=== PATIENT | male | born 1960 | race Caucasian/White ===

== ENCOUNTER 2017-10-24 09:29 | Emergency (ER) | payer BC ==
[~2017-10-24] VITALS: Ht 182.9 cm; Wt 122.5 kg
[2017-10-24] MEDS: RT-ALBUTEROL/IPRATROPIUM 3 ML (DUONEB) VIAL INH ONE (10:09)
[2017-10-24 10:13] LABS: BASOPHILS % (AUTO) 0 % (0-10); EOSINOPHILS # (AUTO) 0.2 10^3/uL (0.0-0.3); EOSINOPHILS % (AUTO) 2 % (0-10); HEMATOCRIT 49 % (40-54); HEMOGLOBIN 16.2 G/DL (13.3-17.7); LYMPHOCYTES # (AUTO) 2.1 X 10^3 (1.0-4.0); LYMPHOCYTES % (AUTO) 22 % (12-44); MEAN CORPUSCULAR HEMOGLOBIN 32 PG (25-34); MEAN CORPUSCULAR HGB CONC 33 G/DL (32-36); MEAN CORPUSCULAR VOLUME 95 FL (80-99); MEAN PLATELET VOLUME 11.5 FL (7.4-10.4); MONOCYTES % (AUTO) 11 % (0-12); NEUTROPHILS % (AUTO) 65 % (42-75); PLATELET COUNT 232 10^3/uL (130-400); RED BLOOD COUNT 5.11 10^6/uL (4.35-5.85); RED CELL DISTRIBUTION WIDTH 13.7 % (10.0-14.5); WHITE BLOOD COUNT 9.3 10^3/uL (4.3-11.0)
[2017-10-24 10:25] LABS: ALANINE AMINOTRANSFERASE 25 U/L (0-55); ALKALINE PHOSPHATASE 73 U/L (40-136); BILIRUBIN,TOTAL 0.3 MG/DL (0.1-1.0); BUN/CREATININE RATIO 14; CALCIUM 11.3 MG/DL (8.5-10.1); CARBON DIOXIDE 34 MMOL/L (21-32); CHLORIDE 104 MMOL/L (98-107); CREATININE SERUM 0.86 MG/DL (0.60-1.30); GFR ESTIMATED > 60; GLUCOSE 127 MG/DL (70-105); POTASSIUM 3.7 MMOL/L (3.6-5.0); SODIUM 144 MMOL/L (135-145); TOTAL PROTEIN 7.3 GM/DL (6.4-8.2)
--- NOTE | 2017-10-24 10:29 | Diagnostic Imaging Report ---
INDICATION: Shortness of air and right shoulder pain. TIME OF EXAMINATION: 10:39 a.m. COMPARISON: Correlation is made with prior study from 03/26/2014. FINDINGS: Examination of the chest in the PA and lateral projection fails to reveal evidence of active parenchymal pathology or pleural effusion. The cardiac silhouette is normal. IMPRESSION: Negative chest. Dictated by: Dictated on workstation # [id number]
[2017-10-24 11:02] LABS: BILIRUBIN,URINE NEGATIVE (NEGATIVE); CLARITY,URINE CLEAR; COLOR,URINE YELLOW; GLUCOSE, URINE (UA) NEGATIVE (NEGATIVE); KETONES,URINE NEGATIVE (NEGATIVE); LEUKOCYTE ESTERASE ,URINE NEGATIVE (NEGATIVE); NITRITE,URINE NEGATIVE (NEGATIVE); PH,URINE 6.5 (5-9); PROTEIN,URINE NEGATIVE (NEGATIVE); UROBILINOGEN,URINE NORMAL (NORMAL)
[2017-10-24 11:14] LABS: AMORPHOUS SEDIMENT,UR RARE AMOR URATES /LPF; BACTERIA,URINE NEGATIVE /HPF
[2017-10-24] MEDS: RT-ALBUTEROL/IPRATROPIUM 3 ML (DUONEB) VIAL ONE (11:30)
--- NOTE | 2017-10-24 11:35 | ED General ---
General Chief Complaint: Respiratory Problems Stated Complaint: RT ARM PAIN,SOB Nursing Triage Note: PT CO OF SOA AND R SHOULDER PAIN, PT STATES HAS SOA FOR 1 MONTH, STATES 1 WEEK FOR R SHOULDER PAIN. Nursing Sepsis Screen: No Definite Risk Source of Information: Patient Exam Limitations: No Limitations History of Present Illness Date Seen by Provider: Oct 24, 2017 Time Seen by Provider: 09:59 Initial Comments This 56-year-old man presents to the emergency room with complaints of cough and shortness of air 1 month. He is noted to have an oxygen saturation of 87- 90 percent on room air and wheezing. He reports urinating often. He also complains of right upper extremity pain from the base of the right neck and shoulder radiating down to the hand. He denies any injury. 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 He denies any prior history of neck problems or radicular symptoms. Upper extremity symptoms have been present for 2 days. He is afebrile. He is a smoker. He has not seen a primary care provider in 3 years. Allergies and Home Medications Allergies Uncoded Allergies: SOMETHING FOR COLDS (Allergy, Mild, 03/26/14) Home Medications Albuterol Sulfate 1 Puff Puff, 1-4 PUFF IH Q4H PRN for SHORTNESS OF BREATH 1 PUFF = 90 MCG Prescribed by: JANI ANGLIN on 10/24/17 1149 Prednisone 20 Mg Tab, 40 MG PO DAILY May use up to 4 puffs in a 4 hour period of time for wheezing or shortness of breath Prescribed by: JANI ANGLIN on 10/24/17 1149 Patient Home Medication List Home Medication List Reviewed: Yes Review of Systems Constitutional: no symptoms reported EENTM: no symptoms reported Respiratory: see HPI Cardiovascular: no symptoms reported Gastrointestinal: no symptoms reported Genitourinary: no symptoms reported Musculoskeletal: see HPI Skin: no symptoms reported Psychiatric/Neurological: See HPI Hematologic/Lymphatic: No Symptoms Reported Immunological/Allergic: no symptoms reported Past Lopwksb-Myoprg-Ynijzv Hx Patient Social History Alcohol Use: Occasionally Uses Recreational Drug Use: No Smoking Status: Current Everyday Smoker Type Used: Cigarettes Recent Foreign Travel: No Contact w/Someone Who Travel: No Recent Infectious Disease Expo: No Recent Hopitalizations: No Physical Abuse: No Sexual Abuse: No Past Medical History Surgeries: Yes (HERNIA) Abdominal Respiratory: Yes (tobaccoism) Cardiac: No Neurological: Yes (STATES HAD STROKE 3 YEARS AGO) Stroke Genitourinary: No Gastrointestinal: No Musculoskeletal: No Endocrine: No HEENT: No Cancer: No Psychosocial: No Nursing Suicide Risk Score: 0 Integumentary: No Blood Disorders: No Physical Exam Vital Signs Vital Signs - First Documented 10/24/17 10/24/17 09:30 09:40 Temp 98.2 Pulse 89 Resp 28 B/P (MAP) 162/95 (117) Pulse Ox 89 O2 Delivery Nasal Cannula O2 Flow Rate 3.00 Capillary Refill : Less Than 3 Seconds General Appearance: WD/WN, Mild Distress, Obese HEENT: PERRL/EOMI, Normal ENT Inspection, Pharynx Normal Neck: Normal Inspection Respiratory: No Accessory Muscle Use, No Respiratory Distress, Wheezing Cardiovascular: Regular Rate, Rhythm, No Edema, No Murmur Gastrointestinal: Normal Bowel Sounds, Non Tender, Soft Extremity: Normal Inspection, Non Tender, No Pedal Edema, Other (right upper extremity shows no edema. The shoulder is mildly tender but the arm and forearm are nontender despite having pain in this area. There is no erythema or swelling. 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 Norm as Tested Skin: Normal Color, Warm/Dry Progress/Results/Core Measures Suspected Sepsis Recent Fever Within 48 Hours: No Infection Criteria Present: None New/Unexplained Altered Menta: No Sepsis Screen: No Definite Risk SIRS Temperature:98.2 Pulse: 89 Respiratory Rate: 28 Laboratory Tests 10/24/17 09:42: White Blood Count 9.3 Blood Pressure 162 /95 Mean: 117 Laboratory Tests 10/24/17 09:42: Creatinine 0.86, Platelet Count 232, Total Bilirubin 0.3 Results/Orders Lab Results Laboratory Tests Test 10/24/17 09:42 10/24/17 10:43 Range/Units White Blood Count 9.3 4.3-11.0 10^3/uL Red Blood Count 5.11 4.35-5.85 10^6/uL Hemoglobin 16.2 13.3-17.7 G/DL Hematocrit 49 40-54 % Mean Corpuscular Volume 95 80-99 FL Mean Corpuscular Hemoglobin 32 25-34 PG Mean Corpuscular Hemoglobin Concent 33 32-36 G/DL Red Cell Distribution Width 13.7 10.0-14.5 % Platelet Count 232 130-400 10^3/uL Mean Platelet Volume 11.5 H 7.4-10.4 FL Neutrophils (%) (Auto) 65 42-75 % Lymphocytes (%) (Auto) 22 12-44 % Monocytes (%) (Auto) 11 0-12 % Eosinophils (%) (Auto) 2 0-10 % Basophils (%) (Auto) 0 0-10 % Neutrophils # (Auto) 6.0 1.8-7.8 X 10^3 Lymphocytes # (Auto) 2.1 1.0-4.0 X 10^3 Monocytes # (Auto) 1.0 0.0-1.0 X 10^3 Eosinophils # (Auto) 0.2 0.0-0.3 10^3/uL Basophils # (Auto) 0.0 0.0-0.1 10^3/uL Sodium Level 144 135-145 MMOL/L Potassium Level 3.7 3.6-5.0 MMOL/L Chloride Level 104 98-107 MMOL/L Carbon Dioxide Level 34 H 21-32 MMOL/L Anion Gap 6 5-14 MMOL/L Blood Urea Nitrogen 12 7-18 MG/DL Creatinine 0.86 0.60-1.30 MG/DL Estimat Glomerular Filtration Rate > 60 BUN/Creatinine Ratio 14 Glucose Level 127 H 70-105 MG/DL Calcium Level 11.3 H 8.5-10.1 MG/DL Total Bilirubin 0.3 0.1-1.0 MG/DL Aspartate Amino Transf (AST/SGOT) 17 5-34 U/L Alanine Aminotransferase (ALT/SGPT) 25 0-55 U/L Alkaline Phosphatase 73 40-136 U/L Total Protein 7.3 6.4-8.2 GM/DL Albumin 4.0 3.2-4.5 GM/DL Urine Color YELLOW Urine Clarity CLEAR Urine pH 6.5 5-9 Urine Specific [place] 1.015 L 1.016-1.022 Urine Protein NEGATIVE NEGATIVE Urine Glucose (UA) NEGATIVE NEGATIVE Urine Ketones NEGATIVE NEGATIVE Urine Nitrite NEGATIVE NEGATIVE Urine Bilirubin NEGATIVE NEGATIVE Urine Urobilinogen NORMAL NORMAL MG/DL Urine Leukocyte Esterase NEGATIVE NEGATIVE Urine RBC (Auto) 1+ H NEGATIVE Urine RBC NONE /HPF Urine WBC 2-5 /HPF Urine Crystals PRESENT H /LPF Urine Amorphous Sediment RARE BEVERLY URATES H /LPF Urine Bacteria NEGATIVE /HPF Urine Casts NONE /LPF Urine Mucus NEGATIVE /LPF Urine Culture Indicated NO My Orders Orders - JANI AVILA MD Chest Pa/Lat (2 View) (10/24/17 10:06) Cbc With Automated Diff (10/24/17 10:06) Comprehensive Metabolic Panel (10/24/17 10:06) Saline Lock/Iv-Start (10/24/17 10:06) O2 (10/24/17 10:06) Monitor-Rhythm Ecg Trace Only (10/24/17 10:06) Ua Culture If Indicated (10/24/17 10:06) Albuterol/Ipra Inhalation Soln (Duoneb I (10/24/17 10:15) Svn Small Volume Nebulizer (10/24/17 10:06) Albuterol/Ipra Inhalation Soln (Duoneb I (10/24/17 10:03) Methylprednisolone Sod Succ (Solu-Medrol (10/24/17 11:45) Ketorolac Injection (Toradol Injection) (10/24/17 11:45) Medications Given in ED Current Medications Medications Dose Ordered Sig/Gricel Route Start Time Stop Time Status Last Admin Dose Admin Albuterol/ Ipratropium 3 ml ONCE ONCE INH 10/24/17 10:15 10/24/17 10:16 DC 10/24/17 10:09 3 ML Ketorolac Tromethamine 30 mg ONCE ONCE IVP 10/24/17 11:45 10/24/17 11:46 DC 10/24/17 11:47 30 MG Methylprednisolone Sodium Succinate 125 mg ONCE ONCE IVP 10/24/17 11:45 10/24/17 11:46 DC 10/24/17 11:47 125 MG Vital Signs/I&O 10/24/17 10/24/17 10/24/17 10/24/17 09:30 09:40 10:10 11:59 Temp 98.2 Pulse 89 85 Resp 28 18 B/P (MAP) 162/95 (117) 160/100 (117) Pulse Ox 89 95 92 O2 Delivery Nasal Cannula Room Air O2 Flow Rate 3.00 3.00 3.00 Capillary Refill : Less Than 3 Seconds Blood Pressure Mean: 117 Progress Note : Progress Note Patient received a DuoNeb treatment which improved his respiratory symptoms and improved his wheezing on repeat exam. However, patient maintained an oxygen saturation from 88 percent to 91 percent on room air. This would improve to the mid 90s with deep breathing. Patient was counseled regarding his COPD and admission for observation was suggested. Patient was adamant that he be dismissed. Patient was prescribed an albuterol inhaler and prednisone. For acute treatment he was given Solu-Medrol by IV route and Toradol in the ER. The pain in the right upper extremity was felt to likely be radicular in nature. This was discussed with the patient. Although patient had pain extending from the base of the neck all the way down to the hand, these areas were not particularly tender with the exception of mild tenderness around the shoulder joint. Diagnostic Imaging Diagonstic Imaging: Xray Plain Films/CT/US/NM/MRI: chest Comments Chest x-ray was viewed by me and report reviewed. No acute abnormalities were appreciated. See report below: NAME: JACOB JONES [facility] REC#: [id number] PT STATUS: REG ER : 1960 PHYSICIAN: JANI AVILA MD ADMIT DATE: 10/24/17/ER Draft Date of Exam:10/24/17 CHEST PA/LAT (2 VIEW) INDICATION: Shortness of air and right shoulder pain. TIME OF EXAMINATION: 10:39 a.m. COMPARISON: Correlation is made with prior study from 03/26/2014. FINDINGS: Examination of the chest in the PA and lateral projection fails to reveal evidence of active parenchymal pathology or pleural effusion. The cardiac silhouette is normal. IMPRESSION: Negative chest. Dictated on workstation # [id number] Dict: 10/24/17 1022 Trans: 10/24/[address] [facility] [id number] Interpreted by: ASHLY GALINDO MD Departure Impression Primary Impression: COPD exacerbation Additional Impressions: Hypoxia Right arm pain Disposition: 01 HOME, SELF-CARE Condition: Improved Departure-Patient Inst. Decision time for Depature: 11:35 Referrals: JULIETA HINOJOSA DO (PCP/Family) Primary Care Physician Patient Instructions: COPD Including Emphysema (DC), Radiculopathy Add. Discharge Instructions: Complete your steroids as prescribed. Follow-up with a primary care provider as soon as possible. Call today to arrange an appointment. It is very important that you work toward quitting smoking. Quit smoking as soon as possible. While trying to quit you may substitute nicotine with patches , gum, or lozenges. Do not use inhaled vapor nicotine products over-the- counter. Return to care if you have worsening symptoms. Use your inhaler as prescribed up to 1-4 puffs and a four-hour period of time for shortness of breath and wheezing. The pain in your are may be related to a nerve impingement from your neck. If this does not improve with the steroids, you may need additional workup with imaging such as MRI of your neck. Please discuss this with your primary care provider. For pain, you may use ibuprofen up to 600 mg every 6 hours and/or Tylenol ( acetaminophen) up to 1000 mg every 6 hours. All discharge instructions reviewed with patient and/or family. Voiced understanding. Scripts Albuterol Sulfate (PROAIR HFA) 1 Puff Puff 1-4 PUFF IH Q4H PRN for SHORTNESS OF BREATH, #1 PUFF 1 PUFF = 90 MCG Prov: JANI AVILA MD 10/24/17 Prednisone (Prednisone) 20 Mg Tab 40 MG PO DAILY, #10 TAB May use up to 4 puffs in a 4 hour period of time for wheezing or shortness of breath Prov: JANI AVILA MD 10/24/17 JANI AVILA MD Oct 24, 2017 11:35
[2017-10-24] MEDS: methylPREDNISolone 125 MG (Solu-MEDROL) VIAL IVP ONE (11:47)
[2017-10-24] MEDS: KETOROLAC 30 MG/ML VIAL IVP ONE (11:47)
[2017-10-24] MEDS ORDERED: RT-ALBUINH IH (11:49)
[2017-10-24] MEDS ORDERED: PRD20T PO (11:49)
[2017-10-24 11:59] VITALS: BP 160/100
== END 2017-10-24 11:59 | disposition home or self-care (01) ==
LOC: EDUNIT# 09:29 → ER 09:31
DX: J44.1 Chronic obstructive pulmonary disease with (acute) exacerbation (principal); M79.601 Pain in right arm; F17.210 Nicotine dependence, cigarettes, uncomplicated; Z79.51 Long term (current) use of inhaled steroids; Z79.52 Long term (current) use of systemic steroids; Z86.73 Personal history of transient ischemic attack (TIA), and cerebral infarction without residual deficits; Z88.8 Allergy status to other drugs, medicaments and biological substances
CPT/HCPCS: 36415; 71046; 80053; 81000; 85025; 93041; 94640; 96374; 96375

== ENCOUNTER 2018-06-03 12:21 | Inpatient (IN) | payer SELFPAY ==
[~2018-06-03] VITALS: Ht 182.9 cm; Wt 127.1 kg
[~2018-06-03 12:21] MED LIST: PRD20T PO; RT-ALBUINH IH
--- OUTSIDE RECORDS SUMMARY | 2018-06-03 12:33 | XMS REPORT | Continuity of Care Document ---
Author Author [facility] Organization [facility] Address Unknown Phone Unavailable Allergies Active Description Code Type Severity Reaction Onset Reported/Identified Relationship to Patient Clinical Status Yes SOMETHING FOR COLDS SOMETHING FOR COLDS Mild N/A 03/26/2014 Medications There is no data. Problems Date Dx Coded Attending Type Code Diagnosis Diagnosed By 03/26/2014 ERICKA WALSH MD Ot 435.9 TRANS CEREB ISCHEMIA NOS 03/26/2014 ERICKA WALSH MD Ot 782.0 SKIN SENSATION DISTURB 10/24/2017 JANI AVILA MD, Ot F17.210 NICOTINE DEPENDENCE, CIGARETTES, UNCOMPL 10/24/2017 JANI AVILA MD, Ot J44.1 CHRONIC OBSTRUCTIVE PULMONARY DISEASE W 10/24/2017 JANI AVILA MD, Ot M79.601 PAIN IN RIGHT ARM 10/24/2017 JANI AVILA MD, Ot R05 COUGH 10/24/2017 JANI AVILA MD Ot Z79.51 SKILLED NURSING (CURRENT) USE OF INHALED STERO 10/24/2017 JANI AVILA MD, Ot Z79.52 SIDE STAPLER (CURRENT) USE OF SYSTEMIC STER 10/24/2017 JANI AVILA MD, Ot Z86.73 PRSNL HX OF TIA (TIA), AND CEREB INFRC W 10/24/2017 JANI AVILA MD, Ot Z88.8 ALLERGY STATUS TO OTH DRUG/MEDS/BIOL SUB 10/26/2017 JANI AVILA MD, Ot F17.210 NICOTINE DEPENDENCE, CIGARETTES, UNCOMPL 10/26/2017 JANI AVILA MD, Ot J44.1 CHRONIC OBSTRUCTIVE PULMONARY DISEASE W 10/26/2017 JANI AVILA MD Ot M79.601 PAIN IN RIGHT ARM 10/26/2017 JANI AVILA MD Ot R05 COUGH 10/26/2017 JANI AVILA MD, Ot Z79.51 SKILLED NURSING (CURRENT) USE OF INHALED STERO 10/26/2017 JANI AVILA MD Ot Z79.52 SIDE STAPLER (CURRENT) USE OF SYSTEMIC STER 10/26/2017 JANI AVILA MD Ot Z86.73 PRSNL HX OF TIA (TIA), AND CEREB INFRC W 10/26/2017 JANI AVILA MD, Ot Z88.8 ALLERGY STATUS TO OTH DRUG/MEDS/BIOL SUB 10/30/2017 JANI AVILA MD, Ot F17.210 NICOTINE DEPENDENCE, CIGARETTES, UNCOMPL 10/30/2017 JANI AVILA MD, Ot J44.1 CHRONIC OBSTRUCTIVE PULMONARY DISEASE W 10/30/2017 JANI AVILA MD, Ot M79.601 PAIN IN RIGHT ARM 10/30/2017 JANI AVILA MD, Ot R05 COUGH 10/30/2017 JANI AVILA MD, Ot Z79.51 SIDE STAPLER (CURRENT) USE OF INHALED STERO 10/30/2017 JANI AVILA MD Ot Z79.52 SIDE STAPLER (CURRENT) USE OF SYSTEMIC STER 10/30/2017 JANI AVILA MD, Ot Z86.73 PRSNL HX OF TIA (TIA), AND CEREB INFRC W 10/30/2017 JANI AVILA MD Ot Z88.8 ALLERGY STATUS TO OTH DRUG/MEDS/BIOL SUB Procedures There is no data. Results Test Result Range Complete blood count (CBC) with automated white blood cell (WBC) differential - 10/24/17 09:42 Blood leukocytes automated count (number/volume) 9.3 10*3/uL 4.3-11.0 Blood erythrocytes automated count (number/volume) 5.11 10*6/uL 4.35-5.85 Venous blood hemoglobin measurement (mass/volume) 16.2 g/dL 13.3-17.7 Blood hematocrit (volume fraction) 49 % 40-54 Automated erythrocyte mean corpuscular volume 95 [foz_us] 80-99 Automated erythrocyte mean corpuscular hemoglobin (mass per erythrocyte) 32 pg 25-34 Automated erythrocyte mean corpuscular hemoglobin concentration measurement ( mass/volume) 33 g/dL 32-36 Automated erythrocyte distribution width ratio 13.7 % 10.0-14.5 Automated blood platelet count (count/volume) 232 10*3/uL 130-400 Automated blood platelet mean volume measurement 11.5 [foz_us] 7.4-10.4 Automated blood neutrophils/100 leukocytes 65 % 42-75 Automated blood lymphocytes/100 leukocytes 22 % 12-44 Blood monocytes/100 leukocytes 11 % 0-12 Automated blood eosinophils/100 leukocytes 2 % 0-10 Automated blood basophils/100 leukocytes 0 % 0-10 Blood neutrophils automated count (number/volume) 6.0 10*3 1.8-7.8 Blood lymphocytes automated count (number/volume) 2.1 10*3 1.0-4.0 Blood monocytes automated count (number/volume) 1.0 10*3 0.0-1.0 Automated eosinophil count 0.2 10*3/uL 0.0-0.3 Automated blood basophil count (count/volume) 0.0 10*3/uL 0.0-0.1 Comprehensive metabolic panel - 10/24/17 09:42 Serum or plasma sodium measurement (moles/volume) 144 mmol/L 135-145 Serum or plasma potassium measurement (moles/volume) 3.7 mmol/L 3.6-5.0 Serum or plasma chloride measurement (moles/volume) 104 mmol/L 98-107 Carbon dioxide 34 mmol/L 21-32 Serum or plasma anion gap determination (moles/volume) 6 mmol/L 5-14 Serum or plasma urea nitrogen measurement (mass/volume) 12 mg/dL 7-18 Serum or plasma creatinine measurement (mass/volume) 0.86 mg/dL 0.60-1.30 Serum or plasma urea nitrogen/creatinine mass ratio 14 NRG Serum or plasma creatinine measurement with calculation of estimated glomerular filtration rate > NRG Serum or plasma glucose measurement (mass/volume) 127 mg/dL 70-105 Serum or plasma calcium measurement (mass/volume) 11.3 mg/dL 8.5-10.1 Serum or plasma total bilirubin measurement (mass/volume) 0.3 mg/dL 0.1-1.0 Serum or plasma alkaline phosphatase measurement (enzymatic activity/volume) 73 U/L 40-136 Serum or plasma aspartate aminotransferase measurement (enzymatic activity/ volume) 17 U/L 5-34 Serum or plasma alanine aminotransferase measurement (enzymatic activity/volume ) 25 U/L 0-55 Serum or plasma protein measurement (mass/volume) 7.3 g/dL 6.4-8.2 Serum or plasma albumin measurement (mass/volume) 4.0 g/dL 3.2-4.5 Complete urinalysis with reflex to culture - 10/24/17 10:43 Urine color determination YELLOW NRG Urine clarity determination CLEAR NRG Urine pH measurement by test strip 6.5 5-9 Specific gravity of urine by test strip 1.015 1.016- 1.022 Urine protein assay by test strip, semi-quantitative NEGATIVE NEGATIVE Urine glucose detection by automated test strip NEGATIVE NEGATIVE Erythrocytes detection in urine sediment by light microscopy 1+ NEGATIVE Urine ketones detection by automated test strip NEGATIVE NEGATIVE Urine nitrite detection by test strip NEGATIVE NEGATIVE Urine total bilirubin detection by test strip NEGATIVE NEGATIVE Urine urobilinogen measurement by automated test strip (mass/volume) NORMAL NORMAL Urine leukocyte esterase detection by dipstick NEGATIVE NEGATIVE Automated urine sediment erythrocyte count by microscopy (number/high power field) NONE NRG Automated urine sediment leukocyte count by microscopy (number/high power field ) [HPF] NRG Bacteria detection in urine sediment by light microscopy NEGATIVE NRG Crystals detection in urine sediment by light microscopy PRESENT NRG Casts detection in urine sediment by light microscopy NONE NRG Mucus detection in urine sediment by light microscopy NEGATIVE NRG Complete urinalysis with reflex to culture NO NRG Amorphous sediment detection in urine sediment by light microscopy RARE BEVERLY URATES NRG Encounters ACCT No. Visit Date/Time Discharge Status Pt. Type Provider Facility Loc./Unit Complaint [id number] 10/24/2017 09:31:00 10/24/2017 11:59:00 DIS Emergency MARGARITA BOSTON, JANI Tam [facility] ER RT ARM PAIN,SOB [id number] 03/26/2014 21:08:00 03/26/2014 23:03:00 DIS Emergency ERICKA WALSH MD [facility] ER LEFT SIDE NUMBNESS
[2018-06-03 13:03] LABS: BASOPHILS % (AUTO) 0 % (0-10); EOSINOPHILS # (AUTO) 0.2 10^3/uL (0.0-0.3); EOSINOPHILS % (AUTO) 2 % (0-10); HEMATOCRIT 49 % (40-54); LYMPHOCYTES # (AUTO) 2.1 X 10^3 (1.0-4.0); LYMPHOCYTES % (AUTO) 22 % (12-44); MEAN CORPUSCULAR HEMOGLOBIN 32 PG (25-34); MEAN CORPUSCULAR HGB CONC 33 G/DL (32-36); MEAN CORPUSCULAR VOLUME 96 FL (80-99); MEAN PLATELET VOLUME 10.4 FL (7.4-10.4); MONOCYTES # (AUTO) 0.6 X 10^3 (0.0-1.0); MONOCYTES % (AUTO) 6 % (0-12); NEUTROPHILS # (AUTO) 6.7 X 10^3 (1.8-7.8); NEUTROPHILS % (AUTO) 70 % (42-75); PLATELET COUNT 262 10^3/uL (130-400); RED BLOOD COUNT 5.05 10^6/uL (4.35-5.85); WHITE BLOOD COUNT 9.6 10^3/uL (4.3-11.0)
[2018-06-03 13:05] LABS: BILIRUBIN,URINE NEGATIVE (NEGATIVE); CLARITY,URINE BLOODY; COLOR,URINE RED; GLUCOSE, URINE (UA) NEGATIVE (NEGATIVE); KETONES,URINE NEGATIVE (NEGATIVE); LEUKOCYTE ESTERASE ,URINE 2+ (NEGATIVE); NITRITE,URINE NEGATIVE (NEGATIVE); PH,URINE 7 (5-9); PROTEIN,URINE 3+ (NEGATIVE); UROBILINOGEN,URINE NORMAL (NORMAL)
--- NOTE | 2018-06-03 13:07 | ED General ---
General Chief Complaint: -Male Stated Complaint: BLOOD IN URINE Nursing Triage Note: PT PRESENTS TO ER WITH COMPLAINT OF BLOOD IN URINE SINCE LAST NIGHT. STATES HE HAS SEEN CLOTS IN URINE. DENIES PAIN WITH URINATION. PT STATES HE HAS ALSO BEEN SHORT OF BREATH FOR THE TWO WEEKS. Nursing Sepsis Screen: No Definite Risk Source of Information: Patient Exam Limitations: No Limitations History of Present Illness Date Seen by Provider: Jun 03, 2018 Time Seen by Provider: 13:04 Initial Comments To ER with a variety of complaints. He's had some blood in his urine since last night. During the night he had a couple episodes of clots in the urine and this morning it seems to be nearly pure blood. 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 Pain does not radiate down either of his legs. He states that he is urinating more than usual but has no burning on urination. He denies fevers or chills or low abdominal pain. He does have upper abdominal pain in the epigastric region but does not radiate. He's also had a 6 month history of new onset shortness of breath and cough productive of green sputum. He has smoked cigarettes since the age of 17 but quit about 2 weeks ago. His mother of pancreatic cancer. He does not take any medications and has not seen a health care provider in over 4 years. Timing/Duration: 1-2 Days Severity: Moderate Associated Systoms: No Chest Pain; Cough; No Diaphoresis, No Fever/Chills, No Nausea/Vomiting Allergies and Home Medications Allergies Uncoded Allergies: SOMETHING FOR COLDS (Allergy, Mild, 03/26/14) Patient Home Medication List Home Medication List Reviewed: Yes Review of Systems Review of Systems Constitutional: see HPI; No chills, No fever EENTM: see HPI Respiratory: no symptoms reported Cardiovascular: no symptoms reported Gastrointestinal: abdominal pain (epigastric); No loss of appetite, No melena, No nausea, No vomiting Genitourinary: see HPI, hematuria Musculoskeletal: see HPI, back pain Skin: no symptoms reported Psychiatric/Neurological: No Symptoms Reported Hematologic/Lymphatic: No Symptoms Reported Immunological/Allergic: no symptoms reported Past Znhcuql-Vinlws-Jnivol Hx Patient Social History Alcohol Use: Occasionally Uses Recreational Drug Use: No Smoking Status: Current Everyday Smoker Type Used: Cigarettes Recent Foreign Travel: No Contact w/Someone Who Travel: No Recent Infectious Disease Expo: No Recent Hopitalizations: No Immunizations Up To Date Tetanus Booster (TDap): Unknown PED Vaccines UTD: Yes Past Medical History Surgeries: Yes (HERNIA) Abdominal Respiratory: Yes (tobaccoism) Cardiac: No Neurological: Yes (STATES HAD STROKE 3 YEARS AGO) Stroke Genitourinary: No Gastrointestinal: No Musculoskeletal: No Endocrine: No HEENT: No Cancer: No Psychosocial: No Integumentary: No Blood Disorders: No Physical Exam Vital Signs Vital Signs - First Documented 06/03/18 12:39 Temp 98.7 Pulse 79 Resp 17 B/P (MAP) 201/114 (143) Pulse Ox 91 O2 Delivery Room Air Capillary Refill : Less Than 3 Seconds Height, Weight, BMI Height: 6'0" Weight: 270lbs. oz. 122.383432zu; 40.35 BMI Method:Stated General Appearance: No Apparent Distress, WD/WN, Other (on arrival oxygen saturation 84% on room air.) Eyes: Bilateral Eye Normal Inspection, Bilateral Eye PERRL, Bilateral Eye EOMI HEENT: PERRL/EOMI, TMs Normal Respiratory: No Accessory Muscle Use, No Respiratory Distress, Decreased Breath Sounds Cardiovascular: Regular Rate, Rhythm, Normal Peripheral Pulses Gastrointestinal: Normal Bowel Sounds, Non Tender, Soft Extremity: Normal Capillary Refill, Normal Inspection Neurologic/Psychiatric: Alert, Oriented x3, No Motor/Sensory Deficits Skin: Normal Color, Warm/Dry Focused Exam Lactate Level 06/03/18 14:12: Lactic Acid Level 1.60 Lactic Acid Level Laboratory Tests Test 06/03/18 14:12 Lactic Acid Level 1.60 MMOL/L (0.50-2.00) Progress/Results/Core Measures Suspected Sepsis Recent Fever Within 48 Hours: No Infection Criteria Present: None New/Unexplained Altered Menta: No Sepsis Screen: No Definite Risk SIRS Temperature:98.7 Pulse: 79 Respiratory Rate: 17 Laboratory Tests 06/03/18 12:50: White Blood Count 9.6 Blood Pressure 201 /114 Mean: 143 06/03/18 14:12: Lactic Acid Level 1.60 Laboratory Tests 06/03/18 12:50: Creatinine 0.98, Platelet Count 262, Total Bilirubin 0.3 Results/Orders Lab Results Laboratory Tests Test 06/03/18 12:50 06/03/18 12:52 06/03/18 14:12 06/03/18 14:52 Range/Units White Blood Count 9.6 4.3-11.0 10^3/uL Red Blood Count 5.05 4.35-5.85 10^6/uL Hemoglobin 16.0 13.3-17.7 G/DL Hematocrit 49 40-54 % Mean Corpuscular Volume 96 80-99 FL Mean Corpuscular Hemoglobin 32 25-34 PG Mean Corpuscular Hemoglobin Concent 33 32-36 G/DL Red Cell Distribution Width 14.0 10.0-14.5 % Platelet Count 262 130-400 10^3/uL Mean Platelet Volume 10.4 7.4-10.4 FL Neutrophils (%) (Auto) 70 42-75 % Lymphocytes (%) (Auto) 22 12-44 % Monocytes (%) (Auto) 6 0-12 % Eosinophils (%) (Auto) 2 0-10 % Basophils (%) (Auto) 0 0-10 % Neutrophils # (Auto) 6.7 1.8-7.8 X 10^3 Lymphocytes # (Auto) 2.1 1.0-4.0 X 10^3 Monocytes # (Auto) 0.6 0.0-1.0 X 10^3 Eosinophils # (Auto) 0.2 0.0-0.3 10^3/uL Basophils # (Auto) 0.0 0.0-0.1 10^3/uL Sodium Level 145 135-145 MMOL/L Potassium Level 3.3 L 3.6-5.0 MMOL/L Chloride Level 104 98-107 MMOL/L Carbon Dioxide Level 32 21-32 MMOL/L Anion Gap 9 5-14 MMOL/L Blood Urea Nitrogen 16 7-18 MG/DL Creatinine 0.98 0.60-1.30 MG/DL Estimat Glomerular Filtration Rate > 60 BUN/Creatinine Ratio 16 Glucose Level 131 H 70-105 MG/DL Calcium Level 12.9 H 8.5-10.1 MG/DL Corrected Calcium 13.1 H 8.5-10.1 MG/DL Total Bilirubin 0.3 0.1-1.0 MG/DL Aspartate Amino Transf (AST/SGOT) 23 5-34 U/L Alanine Aminotransferase (ALT/SGPT) 30 0-55 U/L Alkaline Phosphatase 71 40-136 U/L B-Type Natriuretic Peptide 76.6 <100.0 PG/ML Total Protein 6.7 6.4-8.2 GM/DL Albumin 3.7 3.2-4.5 GM/DL Lipase 27 8-78 U/L Urine Color RED H Urine Clarity BLOODY H Urine pH 7 5-9 Urine Specific [place] 1.015 L 1.016-1.022 Urine Protein 3+ H NEGATIVE Urine Glucose (UA) NEGATIVE NEGATIVE Urine Ketones NEGATIVE NEGATIVE Urine Nitrite NEGATIVE NEGATIVE Urine Bilirubin NEGATIVE NEGATIVE Urine Urobilinogen NORMAL NORMAL MG/DL Urine Leukocyte Esterase 2+ H NEGATIVE Urine RBC (Auto) 5+ H NEGATIVE Urine RBC TNTC H /HPF Urine WBC 5-10 H /HPF Urine Squamous Epithelial Cells 2-5 /HPF Urine Crystals NONE /LPF Urine Bacteria FEW H /HPF Urine Casts NONE /LPF Urine Mucus NEGATIVE /LPF Urine Culture Indicated YES Lactic Acid Level 1.60 0.50-2.00 MMOL/L My Orders Orders - MADELAINE BROWN TRAINING AND DEVELOPMENT DIRECTOR Cbc With Automated Diff (06/03/18 12:57) Comprehensive Metabolic Panel (06/03/18 12:57) Ua Culture If Indicated (06/03/18 12:57) Chest Pa/Lat (2 View) (06/03/18 13:07) Clonidine Tablet (Catapres Tablet) (06/03/18 13:15) Albuterol/Ipra Inhalation Soln (Duoneb I (06/03/18 13:15) Svn Small Volume Nebulizer (06/03/18 13:07) Lipase (06/03/18 13:10) BNP (06/03/18 13:10) Urine Culture (06/03/18 12:52) Blood Culture (06/03/18 13:19) Lactic Acid Analyzer (06/03/18 13:19) Ct Chest/Abdomen/Pelvis W (06/03/18 13:26) Para Thryoid Hormone Intact (06/03/18 13:32) Ns Iv 1000 Ml (Sodium Chloride 0.9%) (06/03/18 13:45) Ionized Calcium (06/03/18 13:49) Ceftriaxone For Iv Use (Rocephin For I (06/03/18 15:00) Metoprolol Tartrate Injection (Lopressor (06/03/18 15:00) Medications Given in ED Current Medications Medications Dose Ordered Sig/Gricel Route Start Time Stop Time Status Last Admin Dose Admin Albuterol/ Ipratropium 3 ml ONCE ONCE INH 06/03/18 13:15 06/03/18 13:16 DC 06/03/18 13:21 3 ML Clonidine HCl 0.1 mg ONCE ONCE PO 06/03/18 13:15 06/03/18 13:16 DC 06/03/18 13:35 0.1 MG Vital Signs/I&O 06/03/18 06/03/18 12:39 13:21 Temp 98.7 Pulse 79 Resp 17 B/P (MAP) 201/114 (143) Pulse Ox 91 87 O2 Delivery Room Air Room Air Capillary Refill : Less Than 3 Seconds Blood Pressure Mean: 143 Progress Note : Progress Note NAME: JACOB JONES MED REC#: [id number] PT STATUS: REG ER : 1960 PHYSICIAN: MADELAINE BROWN APRN ADMIT DATE: 06/03/18/ER Draft Date of Exam:06/03/18 CHEST PA/LAT (2 VIEW) INDICATION: Shortness of breath for two weeks. TECHNIQUE: Two views of the chest. COMPARISON: 10/24/2017. FINDINGS: Lung volumes are normal. There is new airspace opacity in the right middle lobe. No pneumothorax is seen. There appears to be a small right pleural effusion, which may be loculated anteriorly. The cardiac silhouette is mildly prominent, but stable in size. IMPRESSION: 1. New consolidation in the right middle lobe, may represent pneumonia in the appropriate clinical setting. 2. Thickening of the right pleura, may represent a small effusion loculated anteriorly. Dictated on workstation # [id number] Dict: 06/03/18 1333 Trans: 06/03/18 1340 [id number] Interpreted by: LINDA STINSON MD Electronically signed by: Departure Communication (Admissions) Time/Spoke to Admitting Phy: 15:02 I discussed the case with Dr. Marin. We will admit, consult Dr. Calvo from neurology and Dr. Zambrano. I did discuss with the patient the high calcium which can be seen in the setting of certain cancers versus other etiologies which will be worked up by hospitalist. I discussed with him the right lower lobe pneumonia with a differential diagnosis including a lung cancer and the bladder clot versus possibly representing cancer given his smoking history. He understands and agrees to admission Time/Spoke to Consulting Phy: 15:[address] Contreras but he was busy seeing patients. I relayed the message for consult to his RN Day Impression Primary Impression: Hypoxia Additional Impressions: RLL pneumonia Qualified Codes: J18.1 - Lobar pneumonia, unspecified organism Hypercalcemia Disposition: HOME, SELF-CARE Condition: Stable Admissions Decision to Admit Reason: Admit from ER (General) Decision to Admit/Date: Jun 03, 2018 Time/Decision to Admit Time: 15:04 Departure-Patient Inst. Referrals: NO,LOCAL PHYSICIAN (PCP/Family) Primary Care Physician Copy Copies To 1: ANDRY CONTRERAS MD, PETER J APRN Jun 03, 2018 13:06
[2018-06-03] MEDS ORDERED: cloNIDine 0.1 MG (CATAPRES) TAB PO ONE (13:15)
[2018-06-03] MEDS ORDERED: RT-ALBUTEROL/IPRATROPIUM 3 ML (DUONEB) VIAL INH ONE (13:15)
[2018-06-03 13:17] LABS: BACTERIA,URINE FEW /HPF; RBC,URINE TNTC /HPF
[2018-06-03 13:25] LABS: ALANINE AMINOTRANSFERASE 30 U/L (0-55); ALBUMIN 3.7 GM/DL (3.2-4.5); ALKALINE PHOSPHATASE 71 U/L (40-136); BILIRUBIN,TOTAL 0.3 MG/DL (0.1-1.0); BUN/CREATININE RATIO 16; CALCIUM 12.9 MG/DL (8.5-10.1); CARBON DIOXIDE 32 MMOL/L (21-32); CHLORIDE 104 MMOL/L (98-107); CREATININE SERUM 0.98 MG/DL (0.60-1.30); GFR ESTIMATED > 60; GLUCOSE 131 MG/DL (70-105); POTASSIUM 3.3 MMOL/L (3.6-5.0); SODIUM 145 MMOL/L (135-145); TOTAL PROTEIN 6.7 GM/DL (6.4-8.2)
--- NOTE | 2018-06-03 13:41 | Diagnostic Imaging Report ---
INDICATION: Shortness of breath for two weeks. TECHNIQUE: Two views of the chest. COMPARISON: 10/24/2017. FINDINGS: Lung volumes are normal. There is new airspace opacity in the right middle lobe. No pneumothorax is seen. There appears to be a small right pleural effusion, which may be loculated anteriorly. The cardiac silhouette is mildly prominent, but stable in size. IMPRESSION: 1. New consolidation in the right middle lobe, may represent pneumonia in the appropriate clinical setting. 2. Thickening of the right pleura, may represent a small effusion loculated anteriorly. Dictated by: Dictated on workstation # [id number]
[2018-06-03] MEDS ORDERED: NS IV 1000 ML 1,000 ML IV SCH (13:45)
--- NOTE | 2018-06-03 14:31 | Diagnostic Imaging Report ---
PROCEDURE: CT chest, abdomen, and pelvis with contrast. TECHNIQUE: Multiple contiguous axial images were obtained through the chest, abdomen, and pelvis after the administration of intravenous contrast. INDICATION: Hematuria and shortness of breath. No prior studies are available for comparison. CT chest: No axillary lymphadenopathy is seen. There are prominent lymph nodes in the mediastinum. A right paratracheal node measures 2.3 cm in diameter. No definite hilar mass is identified. No pericardial fluid is seen. There is a small right pleural effusion. Parenchymal evaluation does show some consolidation in the right middle lobe. Nonspecific subpleural areas of nodularity and consolidation in the right lower lobe is also seen. Minimal patchy airspace density in the left upper lobe is noted. Impression: Bilateral pulmonary parenchymal opacities. This may be on an infectious/inflammatory basis. Enlarged lymph nodes in mediastinum could be reactive. However, followup CT chest after course of therapy is recommended in a short interval to confirm clearing. CT abdomen and pelvis: No discrete liver mass is identified. The gallbladder is contracted. No biliary ductal dilatation is seen. The pancreas and spleen are unremarkable. No adrenal mass is seen. Kidneys contain small cortical low densities, too small to characterize but likely small cysts. Ureters are normal in course and caliber. Aorta is calcified but nonaneurysmal. No central retroperitoneal or mesenteric lymphadenopathy is seen. The bladder does show some generalized wall thickening. There is some mild nodularity along the base and lateral patel. There is a filling defect in the left bladder base measuring 12 mm. It is uncertain if this represents a bladder mass versus a blood clot. No inguinal or iliac lymphadenopathy is seen. Impression: 1. Bladder wall thickening and nodularity with bladder filling defect. The filling defect could be secondary to blood clot however a small bladder neoplasm cannot be entirely excluded. Cystoscopy may be useful for further evaluation. No abdominal or pelvic lymphadenopathy or other significant abnormality is seen. Dictated by: Dictated on workstation # [id number]
[2018-06-03] MEDS ORDERED: meTOprolol 5 MG/5 ML (LOPRESSOR) VIAL IV ONE (15:00)
[2018-06-03] MEDS ORDERED: cefTRIAXone FOR IV USE 1,000 MG in NS (IVPB) 50 ML IV ONE (15:00)
--- NOTE | 2018-06-03 15:23 | History & Physical-Hospitalist ---
History of Present Illness HPI/Chief Complaint Pt is a 57yoCM with a PMh of HTn who presented to the ER due to blood in his urine. He states that this started last night and he has no previous episodes of hematuria. Last night he was passing mostly clots but this morning it transitioned to just blood in his urine with no clots. He denies any back pain or history of kidney stones. He denies dysuria but he does endorse frequency last night and was up over 10x last night. He has a history of smoking for over 40 years and was found to be hypoxic on arrival but denies any SOB or dyspnea. Source: patient Exam Limitations: no limitations Date Seen 06/03/18 Time Seen by a Provider: 15:21 Attending Physician Gerda Marin PCP No,Local Physician Referring Physician Date of Admission Home Medications & Allergies Home Medications Reviewed patient Home Medication Reconciliation performed by pharmacy medication reconciliations geotechnician and/or nursing. Patients Allergies have been reviewed. Allergies Allergies Uncoded Allergies SOMETHING FOR COLDS ( Allergy, Mild, 03/26/14) Past Nkhmfsv-Puneqo-Agkjji Hx Past Med/Social Hx: Reviewed Nursing Past Med/Soc Hx Patient Social History Alcohol Use: Occasionally Uses Recreational Drug Use: No Smoking Status: Current Everyday Smoker Type Used: Cigarettes Recent Foreign Travel: No Contact w/other who traveled: No Recent Hopitalizations: No Recent Infectious Disease Expo: No Immunizations Up To Date Tetanus Booster (TDap): Unknown Pediatric: Yes Past Medical History Surgeries: Abdominal Cardiac: Hypertension Neurological: Stroke History of Blood Disorders: No Family History Heart Disease (dad of heart attack at 42yo), Cancer (pancreatic cancer- mom ), CAD Under 55 Years Old Review of Systems Constitutional: No chills, No fever EENTM: No blurred vision, No double vision, No nose congestion, No throat pain Respiratory: No cough, No dyspnea on exertion, No short of breath Cardiovascular: No chest pain, No edema, No palpitations Gastrointestinal: No abdominal pain, No constipation, No diarrhea, No nausea, No vomiting Genitourinary: No dysuria; frequency, hematuria; No pain Musculoskeletal: No joint pain, No muscle pain Skin: No lesions, No rash Psychiatric/Neurological: Denies Headache, Denies Numbness, Denies Tingling Physical Exam Physical Exam Vital Signs Vital Signs - First Documented 06/03/18 12:39 Temp 98.7 Pulse 79 Resp 17 B/P (MAP) 201/114 (143) Pulse Ox 91 O2 Delivery Room Air Capillary Refill : Less Than 3 Seconds Height, Weight, BMI Height: 6'0" Weight: 270lbs. oz. 122.411566ax; 40.35 BMI Method:Stated General Appearance: No Apparent Distress, WD/WN, Obese HEENT: PERRL/EOMI, Moist Mucous Membranes Neck: Non Tender, Supple Respiratory: Lungs Clear, No Respiratory Distress Cardiovascular: Regular Rate, Rhythm, No Murmur Gastrointestinal: Normal Bowel Sounds, Non Tender, Soft Extremity: Normal Capillary Refill, No Calf Tenderness Neurologic/Psychiatric: Alert, Oriented x3, Normal Mood/Affect Skin: Normal Color, Warm/Dry Results Results/Procedures Labs Laboratory Tests 06/03/18 12:50 Patient resulted labs reviewed. Imaging: Reviewed Imaging Report Assessment/Plan Admission Diagnosis Hypercalcemia Admission Status: Inpatient Order (span 2 midnights) Reason for Inpatient Admission: Needs IV fluids, urology evaluation Diagnosis/Problems Diagnosis/Problems (1) Hypercalcemia Status: Acute Assessment & Plan: Correct calcium 13.2 Continue IV fluids Add Lasix Concern for malignancy related hypercalcemia (2) Hematuria Status: Acute Assessment & Plan: Possible bladder mass seen on Ct Urology consulted, appreciate recs Qualifiers: Hematuria type: gross Qualified Codes: R31.0 - Gross hematuria (3) Bladder mass Assessment & Plan: As above Will need cystoscopy (4) Hypoxia Status: Acute Assessment & Plan: Likely has long standing COPD MAT Protocol Dr Zambrano consulted, appreciate recs (5) Mediastinal lymphadenopathy Assessment & Plan: In setting of possibly bladder mass, 40 pack year history of smoking, and hematuria concerning for possible metastatic disease though could be reactive No leukocytosis, fever, or signs of infection so will defer antibiotics (6) Essential (primary) hypertension Status: Chronic Assessment & Plan: Long standing but on no medications Met HTN urgency criteria on arrival Will decrease slowly (7) Tobacco abuse Assessment & Plan: Quit 2 weeks ago Nicotine prn GERDA MARIN MD Jun 03, 2018 15:23
[2018-06-03] MEDS ORDERED: FUROSEMIDE 40 MG/4 ML INJ (LASIX) IVP NR (15:30)
--- OUTSIDE RECORDS SUMMARY | 2018-06-03 15:35 | XMS REPORT | Continuity of Care Document ---
Author Author [facility] Organization [facility] Address Unknown Phone Unavailable Allergies Active Description [...] COUGH 10/24/2017 JANI AVILA MD Ot Z79.51 [facility] (CURRENT) USE OF INHALED STERO 10/24/2017 JANI AVILA MD, Ot Z79.52 MANAGED CARE PROVIDER (CURRENT) USE OF SYSTEMIC STER 10/24/2017 JANI [...] COUGH 10/26/2017 JANI AVILA MD, Ot Z79.51 [facility] (CURRENT) USE OF INHALED STERO 10/26/2017 JANI AVILA MD Ot Z79.52 MANAGED CARE PROVIDER (CURRENT) USE OF SYSTEMIC STER 10/26/2017 JANI [...] COUGH 10/30/2017 JANI AVILA MD, Ot Z79.51 MANAGED CARE PROVIDER (CURRENT) USE OF INHALED STERO 10/30/2017 JANI AVILA MD Ot Z79.52 MANAGED CARE PROVIDER (CURRENT) USE OF SYSTEMIC STER 10/30/2017 JANI [...] Status Pt. Type Provider Facility Loc./Unit Complaint [id number] 10/24/2017 09:31:00 10/24/2017 11:59:00 DIS Emergency MARGARITA BOSTON, JANI Tam [facility] ER RT ARM PAIN,SOB [id number] 03/26/2014 21:08:00 03/26/2014 23:03:00 DIS Emergency ERICKA WALSH MD [facility] ER LEFT SIDE NUMBNESS
[2018-06-03] MEDS ORDERED: CATHETER FLUSH 10 ML SYR IV PRN (15:45)
[2018-06-03] MEDS ORDERED: NITROGLYCERIN 2% OINT 1 GM UNIT DOSE PACKET TOP PRN (15:45)
[2018-06-03 15:50] VITALS: BP 190/110
[2018-06-03] MEDS ORDERED: FLU QUADRIvalent (5+ YOA) 2018-2019 (AFLURIA) 0.5 ML IM ONE (16:45)
[2018-06-03] MEDS: meTOproloL SUCCINATE 50 MG (TOPROL XL) TAB PO SCH (16:47)
[2018-06-03] MEDS: NS W/KCL 40 MEQ/L 1,000 ML IV SCH (16:47)
--- NOTE | 2018-06-03 16:55 | Diagnostic Imaging Report ---
PROCEDURE: US right lower extremity venous. TECHNIQUE: Multiple Real-time grayscale images were obtained over the right lower extremity in various projections. Additional spectral analysis and color Doppler duplex images were also obtained. DATE: June 03, 2018. INDICATION: 57-year-old male, right lower extremity swelling. Evaluation for deep venous thrombosis. COMPARISON: None. FINDINGS: The right common femoral vein, superficial femoral vein, and popliteal vein are all compressible with normal flow and response to augmentation. The visualized portions of the right greater saphenous vein and deep femoral vein are patent. The right posterior tibial and peroneal veins are patent. IMPRESSION: Negative for right lower extremity deep venous thrombosis. Dictated by: Dictated on workstation # [id number]
[2018-06-03 17:15] VITALS: BP 182/103
[2018-06-03] MEDS: RT-ALBUTEROL/IPRATROPIUM 3 ML (DUONEB) VIAL INH SCH ×2 (18:23→21:53)
[2018-06-03 19:40] VITALS: BP 154/82
[2018-06-03] MEDS ORDERED: RT-ALBUTEROL/IPRATROPIUM 3 ML (DUONEB) VIAL INH PRN (20:00)
[2018-06-03] MEDS ORDERED: amLODIPine 5 MG (NORVASC) TAB PO NR (21:00)
[2018-06-03] MEDS: CATHETER FLUSH 10 ML SYR IV SCH (21:11)
[2018-06-03 23:00] VITALS: BP 157/78
[2018-06-04] MEDS: NS W/KCL 40 MEQ/L 1,000 ML IV SCH ×2 (00:32→08:19)
[2018-06-04] MEDS: RT-ALBUTEROL/IPRATROPIUM 3 ML (DUONEB) VIAL INH SCH ×4 (01:25→15:17)
[2018-06-04 04:18] VITALS: BP 156/90
[2018-06-04] MEDS: CATHETER FLUSH 10 ML SYR IV SCH ×2 (05:15→14:06)
[2018-06-04 05:37] LABS: BASOPHILS % (AUTO) 0 % (0-10); EOSINOPHILS # (AUTO) 0.1 10^3/uL (0.0-0.3); EOSINOPHILS % (AUTO) 1 % (0-10); HEMATOCRIT 44 % (40-54); HEMOGLOBIN 14.4 G/DL (13.3-17.7); LYMPHOCYTES # (AUTO) 2.2 X 10^3 (1.0-4.0); LYMPHOCYTES % (AUTO) 20 % (12-44); MEAN CORPUSCULAR HEMOGLOBIN 32 PG (25-34); MEAN CORPUSCULAR HGB CONC 33 G/DL (32-36); MEAN CORPUSCULAR VOLUME 98 FL (80-99); MEAN PLATELET VOLUME 10.4 FL (7.4-10.4); MONOCYTES # (AUTO) 0.9 X 10^3 (0.0-1.0); MONOCYTES % (AUTO) 8 % (0-12); NEUTROPHILS # (AUTO) 7.6 X 10^3 (1.8-7.8); NEUTROPHILS % (AUTO) 71 % (42-75); PLATELET COUNT 225 10^3/uL (130-400); RED BLOOD COUNT 4.53 10^6/uL (4.35-5.85); RED CELL DISTRIBUTION WIDTH 13.9 % (10.0-14.5); WHITE BLOOD COUNT 10.8 10^3/uL (4.3-11.0)
[2018-06-04 05:58] LABS: ALANINE AMINOTRANSFERASE 20 U/L (0-55); ALBUMIN 3.3 GM/DL (3.2-4.5); ALKALINE PHOSPHATASE 53 U/L (40-136); BILIRUBIN,TOTAL 0.3 MG/DL (0.1-1.0); BUN/CREATININE RATIO 16; CALCIUM 10.9 MG/DL (8.5-10.1); CARBON DIOXIDE 29 MMOL/L (21-32); CHLORIDE 108 MMOL/L (98-107); CREATININE SERUM 0.81 MG/DL (0.60-1.30); GFR ESTIMATED > 60; GLUCOSE 95 MG/DL (70-105); POTASSIUM 3.8 MMOL/L (3.6-5.0); SODIUM 144 MMOL/L (135-145); TOTAL PROTEIN 5.8 GM/DL (6.4-8.2)
[2018-06-04 08:00] VITALS: BP 169/90
[2018-06-04] MEDS: meTOproloL SUCCINATE 50 MG (TOPROL XL) TAB PO SCH (08:16)
--- NOTE | 2018-06-04 08:42 | Diagnostic Imaging Report ---
INDICATION: Pneumonia. Time of exam: 3:26 AM Correlation is made with prior study from one day earlier. Heart size stable. Right base infiltrate and small right pleural effusion persists. Left lung is fairly clear. No pneumothorax is seen. IMPRESSION: Continued right basilar infiltrate and small right pleural effusion. Dictated by: Dictated on workstation # [id number]
[2018-06-04] MEDS ORDERED: meTOproloL SUCCINATE 50 MG (TOPROL XL) TAB PO SCH (09:00)
[2018-06-04] MEDS ORDERED: amLODIPine 5 MG (NORVASC) TAB PO SCH (09:00)
--- NOTE | 2018-06-04 09:25 | CONSULTATION REPORT ---
DATE OF SERVICE: 06/04/2018 ATTENDING PHYSICIAN: Dr. Marin. SUMMARY: After reviewing the patient's records and x-ray, this is a 57-year-old man admitted with pneumonia and gross hematuria. A CAT scan revealed questionable mass in the bladder. The patient is a smoker. Says, he did not smoke for two weeks now. Denies much voiding symptoms. Urine is clearing. IMPRESSION: Gross hematuria, possible bladder tumor. PLAN: Once the urine is clear, we will perform flexible cystoscopy, which could be done here at the hospital depending on his schedule, my schedule and the clearing of urine or it can be done at the office as an outpatient. Job ID: [id number] DocumentID: [id number] Dictated Date: 06/04/2018 09:12:55 Youth Officer Date: 06/04/2018 09:24:52 Dictated By: ANDRY CONTRERAS MD
[2018-06-04] MEDS ORDERED: CALC300T4 PO (09:26)
--- NOTE | 2018-06-04 10:04 | Consultation ---
TIM KIMBALL MED STUDENT 06/04/18 1004: History of Present Illness History of Present Illness Patient Consulted On(laci/time) 06/04/18 10:03 Date Seen by Provider: Jun 04, 2018 Time Seen by Provider: 10:04 History of Present Illness This is a 57 yoCM who presented to the ED with blood in his urine. He was subsequently found to be hypoxic and imaging showed hilar lymphadenopathy, and pulmonology was consulted to assist in these matters. Upon questioning, he admits to SOB when walking and climbing in his truck, denies CP. He also has a 30 pack year history of smoking. Allergies and Home Medications Allergies Coded Allergies: Penicillins (Verified Allergy, Severe, ANAPHYLAXIS, 06/03/18) SWELLING ALL OVER Uncoded Allergies: SOMETHING FOR COLDS (Allergy, Mild, 03/26/14) Home Medications Calcium Carbonate 300 Mg Tab.chew, 300 MG PO TID PRN for STOMACH UPSET, ( Reported) Patient Home Medication List Home Medication List Reviewed: Yes Past Nauzmmx-Odpzls-Dliqvn Hx Past Med/Social Hx: Reviewed Nursing Past Med/Soc Hx Patient Social History Alcohol Use: Occasionally Uses Recreational Drug Use: No Smoking Status: Current Everyday Smoker Type Used: Cigarettes Recent Foreign Travel: No Contact w/Someone Who Travel: No Recent Infectious Disease Expo: No Recent Hopitalizations: No Immunizations Up To Date Tetanus Booster (TDap): Unknown PED Vaccines UTD: Yes Past Medical History Surgeries: Yes (HERNIA) Abdominal Respiratory: Yes (tobaccoism) Currently Using CPAP: No Currently Using BIPAP: No Cardiac: No Hypertension Neurological: Yes (STATES HAD STROKE 3 YEARS AGO) Stroke Genitourinary: No Gastrointestinal: No Musculoskeletal: No Endocrine: No HEENT: No Cancer: No Psychosocial: No Integumentary: No Blood Disorders: No Family Medical History Patient reports no known family medical history. Heart Disease (dad of heart attack at 42yo), Cancer (pancreatic cancer- mom ), CAD Under 55 Years Old Review of Systems-General Constitutional: no symptoms reported EENTM: no symptoms reported Respiratory: cough, short of breath Cardiovascular: No chest pain Gastrointestinal: no symptoms reported Genitourinary: no symptoms reported Musculoskeletal: no symptoms reported Skin: no symptoms reported Psychiatric/Neurological: No Symptoms Reported Physical Exam-General Problems Physical Exam Vital Signs Vital Signs - First Documented 12/10/1606/03/18 06/03/18 12:39 15:50 17:15 Temp 98.7 Pulse 79 Resp 17 B/P (MAP) 201/114 (143) Pulse Ox 91 O2 Delivery Room Air O2 Flow Rate 2.00 FiO2 28 Capillary Refill : Less Than 3 Seconds General Appearance: WD/WN, no apparent distress Neck: non-tender, full range of motion, supple, normal inspection Respiratory: chest non-tender, lungs clear, normal breath sounds, no respiratory distress, no accessory muscle use Cardiovascular: regular rate, rhythm, no gallop, no JVD, no murmur Gastrointestinal: normal bowel sounds, non tender; No soft; other (some abdominal distention) Back: normal inspection, no CVA tenderness, no vertebral tenderness Extremities: normal range of motion, normal inspection Neurologic/Psychiatric: alert, normal mood/affect, oriented x 3 Skin: normal color, warm/dry Assessment/Plan Assessment/Plan Admission Diagnosis/Plan Hypoxia -Oxygen via nasal canula as needed -Albuterol / ipratroprium inhaler -Discuss CXR and CT findings, and smoking cessation CXR opacities -could be infectious or inlammatory, suspect inflammatory (no fever or leukocytosis) Mediastinal Lymphadenopathy -suggest bronchoscopy Hypercalcemia -PTH also elevated, may indicate primary hyperparathyroid -obtain 24 hour urinary calcium -suspect malignancy Hematuria -urology consulted Bladder Mass -urology consulted HTN -Norvasc and metoprolol ordered Clinical Quality Measures DVT/VTE Risk/Contraindication: Risk Factor Score Per Nursin RFS Level Per Nursing on Admit: 4+=Very High GUERITA REED DO 06/04/18 1124: Allergies and Home Medications Allergies Coded Allergies: Penicillins (Verified Allergy, Severe, ANAPHYLAXIS, 06/03/18) SWELLING ALL OVER Uncoded Allergies: SOMETHING FOR COLDS (Allergy, Mild, 03/26/14) Home Medications Calcium Carbonate 300 Mg Tab.chew, 300 MG PO TID PRN for STOMACH UPSET, ( Reported) Past Ytcfbhp-Ehuvcx-Lxrklu Hx Family Medical History Patient reports no known family medical history. TIM KIMBALL MED STUDENT Jun 04, 2018 10:04 GUERITA REED DO Jun 04, 2018 11:24
--- NOTE | 2018-06-04 11:18 | Pulmonary Consultation ---
History of Present Illness History of Present Illness Date of Consultation 06/04/18 11:13 Time Seen by Provider: 11:13 Date of Admission History of Present Illness This is a 57 yo with PMX of morbid obesity, and 30pk/yr tobacco hx presented to the ED with blood in his urine, NPC, and SOB. He was subsequently found to be hypoxic and imaging showed hilar lymphadenopathy. SOB is worse with exertion especially walking and climbing in his truck, denies CP.He does not have a PCP currently. CT scan of Chest shows MLA and RLL infiltrate. Abdominal CT shows questionable bladder mass. Allergies and Home Medications Allergies Coded Allergies: Penicillins (Verified Allergy, Severe, ANAPHYLAXIS, 06/03/18) SWELLING ALL OVER Uncoded Allergies: SOMETHING FOR COLDS (Allergy, Mild, 03/26/14) Home Medications Calcium Carbonate 300 Mg Tab.chew, 300 MG PO TID PRN for STOMACH UPSET, ( Reported) Past Wzjbmfu-Tzfqww-Uxnrcq Hx Past Med/Social Hx: Reviewed Nursing Past Med/Soc Hx Patient Social History Alcohol Use: Occasionally Uses Recreational Drug Use: No Smoking Status: Current Everyday Smoker Type Used: Cigarettes Recent Foreign Travel: No Contact w/Someone Who Travel: No Recent Infectious Disease Expo: No Recent Hopitalizations: No Immunizations Up To Date Tetanus Booster (TDap): Unknown PED Vaccines UTD: Yes Past Medical History Surgeries: Yes (HERNIA) Abdominal Respiratory: Yes (tobaccoism) Currently Using CPAP: No Currently Using BIPAP: No Cardiac: No Hypertension Neurological: Yes (STATES HAD STROKE 3 YEARS AGO) Stroke Genitourinary: No Gastrointestinal: No Musculoskeletal: No Endocrine: No HEENT: No Cancer: No Psychosocial: No Integumentary: No Blood Disorders: No Family Medical History Patient reports no known family medical history. Heart Disease (dad of heart attack at 42yo), Cancer (pancreatic cancer- mom ), CAD Under 55 Years Old Sepsis Event Evaluation Height, Weight, BMI Height: 6'0.00" Weight: 280lbs. 5.0oz. 127.940652ik; 38.0 BMI Method:Stated Exam Exam Vital Signs Date Time Temp Pulse Resp B/P (MAP) Pulse Ox O2 Delivery O2 Flow Rate FiO2 06/04/18 10:22 90 Nasal Cannula 93.00 06/04/18 08:00 98.2 70 18 169/90 (116) 95 Nasal Cannula 2.00 06/04/18 08:00 Nasal Cannula 2.00 06/04/18 07:01 75 06/04/18 06:38 90 Room Air 2.00 06/04/18 04:18 97.0 71 18 156/90 (112) 93 Nasal Cannula 2.00 06/04/18 01:26 92 Nasal Cannula 2.00 06/04/18 01:00 74 06/03/18 23:00 99.4 79 20 157/78 (104) 93 Nasal Cannula 2.00 06/03/18 21:53 94 Nasal Cannula 2.00 06/03/18 20:00 Nasal Cannula 2.00 06/03/18 19:40 98.4 76 20 154/82 (106) 94 Nasal Cannula 2.00 06/03/18 19:00 72 06/03/18 18:43 71 06/03/18 18:23 90 Nasal Cannula 2.00 06/03/18 17:15 79 94 28 06/03/18 16:30 93 Nasal Cannula 2.00 06/03/18 15:50 58 20 163/58 (93) 93 Nasal Cannula 2.00 06/03/18 15:50 98.1 60 18 190/110 (136) 94 Room Air 06/03/18 13:21 87 Room Air 06/03/18 12:39 98.7 79 17 201/114 (143) 91 Room Air I & O 06/04/18 07:00 Intake Total 2750 ml Output Total 450 ml Balance 2300 ml Height & Weight Height: 6'0.00" Weight: 280lbs. 5.0oz. 127.097132if; 38.0 BMI Method:Stated General Appearance: No Apparent Distress, WD/WN, Obese HEENT: PERRL/EOMI, Moist Mucous Membranes Neck: Non Tender, Supple Respiratory: Lungs Clear, No Respiratory Distress Cardiovascular: Regular Rate, Rhythm, No Murmur Capillary Refill: Less Than 3 Seconds Gastrointestinal: normal bowel sounds, non tender, other Extremity: Normal Capillary Refill, No Calf Tenderness Neurologic/Psychiatric: Alert, Oriented x3, Normal Mood/Affect Skin: Normal Color, Warm/Dry Results Lab Laboratory Tests 06/03/18 12:50 06/04/18 05:25 Assessment/Plan Assessment/Plan SOB with Hypoxia -Oxygen via nasal canula as needed -SVNs -PT will need full pulmonary workup as out patient Mediastinal Lymphadenopathy RLL infiltrate -pt will need bronchoscopy with EBUS Bladder Mass with hematuria -Urology is consulted and is planning on doing cystoscopy Tobacco use -Education Hypercalcemia -PTH also elevated, may indicate primary hyperparathyroid -suspect malignancy HTN -Norvasc and metoprolol ordered GUERITA REED DO Jun 04, 2018 11:18
[2018-06-04 12:00] VITALS: BP 162/86
[2018-06-04] MEDS ORDERED: AMLO5TAB7 PO (13:06)
[2018-06-04] MEDS ORDERED: SULF1TAB35 PO (13:06)
--- NOTE | 2018-06-04 13:29 | Discharge Inst-Simple/Standard ---
Discharge Inst-Standard Discharge Medications New, Converted or Re-Newed RX: Transmitted to Pharmacy Patient Instructions/Follow Up Plan of Care/Instructions/FU: Please continue to take your medications as written. Please follow up with Dr Mccormick next week to follow Activity as Tolerated: Yes Discharge Diet: Low Sodium Diet Return to The Hospital For: Inability to urinate, confusion, chest pain, shortness of breath, if you feel you are getting worse. GERDA TAYLOR MD Jun 04, 2018 13:26
--- NOTE | 2018-06-04 15:50 | Discharge Summary-Hospitalist ---
Diagnosis/Chief Complaint Date of Admission Jun 03, 2018 at 13:21 Date of Discharge Discharge Date: Jun 04, 2018 Admission Diagnosis Hypercalcemia Discharge Diagnosis (1) Hypercalcemia Status: Acute Assessment & Plan: Correct calcium 13.2 Continue IV fluids Add Lasix Concern for malignancy related hypercalcemia (2) Hematuria Status: Acute Assessment & Plan: Possible bladder mass seen on Ct Urology consulted, appreciate recs (3) Bladder mass Assessment & Plan: As above Will need cystoscopy (4) Hypoxia Status: Acute Assessment & Plan: Likely has long standing COPD MAT Protocol Dr Zambrano consulted, appreciate recs (5) Mediastinal lymphadenopathy Assessment & Plan: In setting of possibly bladder mass, 40 pack year history of smoking, and hematuria concerning for possible metastatic disease though could be reactive No leukocytosis, fever, or signs of infection so will defer antibiotics (6) Essential (primary) hypertension Status: Chronic Assessment & Plan: Long standing but on no medications Met HTN urgency criteria on arrival Will decrease slowly (7) Tobacco abuse Assessment & Plan: Quit 2 weeks ago Nicotine prn Discharge Summary Procedures/Consulations Dr Zambrano- Pulm Dr Mccormick- Urology Discharge Physical Exam Allergies: Coded Allergies: Penicillins (Verified Allergy, Severe, ANAPHYLAXIS, 06/03/18) SWELLING ALL OVER Uncoded Allergies: SOMETHING FOR COLDS (Allergy, Mild, 03/26/14) Vitals & I&Os Vital Signs Date Time Temp Pulse Resp B/P (MAP) Pulse Ox O2 Delivery O2 Flow Rate FiO2 06/04/18 13:00 75 06/04/18 12:00 97.9 20 162/86 (111) 92 Nasal Cannula 2.00 06/03/18 17:15 28 General Appearance: No Apparent Distress, WD/WN Neurologic/Psychiatric: Alert, Oriented x3 Hospital Course Pt was admitted for hematuria and hypercalcemia worrisome for malignancy. He was seen and evaluated by Dr Mccormick with urology who recommended outpatient follow up next week for cystoscopy. He was also found to have mediastinal lymphadenopathy and Dr Zambrano was consulted who will schedule outpatient bronchoscopy. His hypercalcemia improved with IVF and he remained asymptomatic the entire time. I discussed the importance of keeping these follow ups and to establish with a PCP to follow his calcium. He elected [facility] in [place] for primary care. He requested DC home and was in stable condition on DC. Labs (last 24 hrs) Laboratory Tests 06/04/18 05:25: White Blood Count 10.8, Red Blood Count 4.53, Hemoglobin 14.4, Hematocrit 44, Mean Corpuscular Volume 98, Mean Corpuscular Hemoglobin 32, Mean Corpuscular Hemoglobin Concent 33, Red Cell Distribution Width 13.9, Platelet Count 225, Mean Platelet Volume 10.4, Neutrophils (%) (Auto) 71, Lymphocytes (%) (Auto) 20 , Monocytes (%) (Auto) 8, Eosinophils (%) (Auto) 1, Basophils (%) (Auto) 0, Neutrophils # (Auto) 7.6, Lymphocytes # (Auto) 2.2, Monocytes # (Auto) 0.9, Eosinophils # (Auto) 0.1, Basophils # (Auto) 0.0, Sodium Level 144, Potassium Level 3.8, Chloride Level 108H, Carbon Dioxide Level 29, Anion Gap 7, Blood Urea Nitrogen 13, Creatinine 0.81, Estimat Glomerular Filtration Rate > 60, BUN/ Creatinine Ratio 16, Glucose Level 95, Calcium Level 10.9H, Corrected Calcium 11.5H, Total Bilirubin 0.3, Aspartate Amino Transf (AST/SGOT) 14, Alanine Aminotransferase (ALT/SGPT) 20, Alkaline Phosphatase 53, Total Protein 5.8L, Albumin 3.3 Microbiology 06/03/18 Blood Culture - Preliminary, Resulted No growth 06/03/18 Urine Culture - Final, Complete NO GROWTH Patient resulted labs reviewed. Imaging: Reviewed Imaging Report Discussion & Recommendations Discharge Planning: >30 minutes discharge planning Discharge Home Medications: Active Scripts Active Bactrim Ds Tablet (Sulfamethoxazole/Trimethoprim) 1 Each Tablet 1 Each PO BID Amlodipine Besylate 5 Mg Tablet 5 Mg PO DAILY Reported Tums (Calcium Carbonate) 300 Mg Tab.chew 300 Mg PO TID PRN Instructions to patient/family Please see electronic discharge instructions given to patient. Clinical Quality Measures DVT/VTE Risk/Contraindication: Risk Factor Score Per Nursin RFS Level Per Nursing on Admit: 4+=Very High Problem Qualifiers (1) Hematuria: Hematuria type: gross Qualified Codes: R31.0 - Gross hematuria GERDA TAYLOR MD Jun 04, 2018 15:50
[2018-06-04 16:30] VITALS: BP 162/86
--- NOTE | 2018-06-09 21:53 | Physician Query Clarification ---
PQ-Intro New Diagnosis Admission/Discharge Admission Date: Jun 03, 2018 at 13:21 Discharge Date: Jun 04, 2018 at 16:30 The medical record reflects the following clinical scenario: History/Risk Factors: hypoxia, SOB Clinical Findings: RLL infiltrate Treatment: ER ordered IV Rocephin, Dr Zambrano states needs bronchoscopy with EBUS Question: What condition best reflects the above clinical scenario? Please document below. 1. RLL pneumonia (on ER Record only) 2. RLL Infiltrate, x-ray finding only (documented on Dr. Zambrano's consult) 3. Other, with explanation of the clinical findings. 4. Clinically undetermined, no explanation for the clinical findings. PHYSICIAN RESPONSE What condition reflects above: 2 In responding to this query, please exercise your independent professional judgment. The purpose of this communication is to more accurately reflect the complexity of your patients condition. The fact that a question is asked does not imply that any particular answer is desired or expected. Thank you for your timely response to this clarification. Requestors name: [ ] Phone # [ ] THIS PHYSICIAN QUERY FORM IS A PERMANENT PART OF THE MEDICAL RECORD KAYLEIGH SOSA Jun 09, 2018 21:53 GERDA TAYLOR MD Jun 13, 2018 08:14
== END 2018-06-04 16:30 | disposition home or self-care (01) | DRG 641 ==
LOC: EDUNIT# 12:21 → ER 12:23 → 4TH 13:21
PROVIDERS: ADMIT Family Medicine; ATTEND Family Medicine
DX: E83.52 Hypercalcemia (principal); R31.0 Gross hematuria; R59.0 Localized enlarged lymph nodes; N32.9 Bladder disorder, unspecified; R91.8 Other nonspecific abnormal finding of lung field; J44.9 Chronic obstructive pulmonary disease, unspecified; I16.0 Hypertensive urgency; R09.02 Hypoxemia; Z66 Do not resuscitate; Z87.891 Personal history of nicotine dependence; Z86.73 Personal history of transient ischemic attack (TIA), and cerebral infarction without residual deficits; Z82.49 Family history of ischemic heart disease and other diseases of the circulatory system; Z88.0 Allergy status to penicillin; Z80.0 Family history of malignant neoplasm of digestive organs
CPT/HCPCS: 36415; 71045; 71046; 71260; 74177; 80053; 81000; 82330; 83605; 83690; 83880; 83970; 85025; 87040; 87088; 94640; 96361; 96374

== ENCOUNTER → 2018-07-02 | Outpatient (CLI) | payer SELFPAY ==
[~2018-07-02] MED LIST changes: +AMLO5TAB7 PO; +CALC300T4 PO; +IOHEXOL 350 MG/ML 100 ML (OMNIPAQUE 350) VIAL IV ONE; +NS 100 ML (IVPB) BAG IV ONE; +RECEIVED CONTRAST (Hold Metformin) IV SCH; +SULF1TAB35 PO
--- NOTE | 2018-07-02 16:21 | Diagnostic Imaging Report ---
PROCEDURE: CT chest with contrast only. TECHNIQUE: Multiple contiguous axial images were obtained through the chest after administration of intravenous contrast. INDICATION: Follow up parenchymal infiltrates. FINDINGS: The previous CT chest, abdomen, and pelvis exam of 06/03/2018 noted bilateral pulmonary parenchymal opacities primarily involving the right lung base. These are felt to be most likely due to an inflammatory/infectious process, although the possibility that there was an underlying neoplastic process was suggested. On this exam, the abnormal densities involving the right lung base are essentially no different. I do suspect that these are more likely due to slowly clearing pneumonia/atelectasis than neoplasm. The patchy infiltrate in the left upper lung seen previously has resolved. There is no significant pleural effusion. The heart is enlarged but stable when compared to the prior exam. The prior study did note a 1.5 x 2.3 cm pretracheal node on the right. That node now measures 1.6 x 1.6 cm. There are a few subcentimeter aorticopulmonary window nodes as well. These seem similar to the prior exam. The aorta and the pulmonary arteries were not well opacified. There is no sign of a dissection of the aorta, and there is no definite defect within the pulmonary arteries to indicate a pulmonary embolus. The thyroid gland was not well visualized but shows no definite abnormality. The sections through the upper abdomen fail to show any sign of an acute abnormality. The liver is of lower density than usually seen, and this does suggest fatty metamorphosis. The bone windows are unremarkable for a fracture or for a destructive lesion. IMPRESSION: 1. The patchy area of pneumonia/atelectasis in the left upper lung seen previously has cleared. However, the alveolar/interstitial pulmonary infiltrates in the right lung base seen previously are essentially no different. These findings are more likely due to slowly resolving pneumonia/atelectasis than neoplasm. If further imaging is desired, then PET/CT would be recommended. If the PET/CT exam is not performed, then a short-term (4-6 week) followup CT chest exam should be obtained. 2. There is no sign of an acute cardiopulmonary abnormality. 3. The mediastinal nodes seen previously have decreased in size. 4. There is cardiomegaly and coronary artery disease. 5. These results were discussed with Dr. Moon. Dictated by: Dictated on workstation # [id number]
== END ==
LOC: RAD 15:16
PROVIDERS: ATTEND Nurse Practitioner Family
DX: J44.9 Chronic obstructive pulmonary disease, unspecified (principal); I51.7 Cardiomegaly; I25.10 Atherosclerotic heart disease of native coronary artery without angina pectoris; E66.9 Obesity, unspecified; I63.9 Cerebral infarction, unspecified; Z72.0 Tobacco use
CPT/HCPCS: 71260

== ENCOUNTER 2018-07-16 07:53 | Day surgery (SDC) | payer SELFPAY ==
[~2018-07-16] VITALS: Ht 182.9 cm; Wt 124.0 kg
[~2018-07-16 07:53] MED LIST changes: -IOHEXOL 350 MG/ML 100 ML (OMNIPAQUE 350) VIAL IV ONE; -NS 100 ML (IVPB) BAG IV ONE; -RECEIVED CONTRAST (Hold Metformin) IV SCH
[2018-07-16] MEDS ORDERED: LIDOCAINE PF 1% 2 ML VIAL (OR ONLY) IJ ONE (07:54)
[2018-07-16] MEDS ORDERED: LACTATED RINGERS 1,000 ML IV ONE (07:55)
[2018-07-16 08:00] VITALS: BP 145/95
[2018-07-16] MEDS ORDERED: LACTATED RINGERS 1,000 ML IV STA (08:42)
[2018-07-16] MEDS ORDERED: LISI10TA2 PO (08:57)
[2018-07-16] MEDS ORDERED: TAMS0.4C2 PO (08:57)
[2018-07-16] MEDS ORDERED: [UNRECOGNIZED DRUG - OTHER] (08:57)
[2018-07-16] MEDS ORDERED: PROPOFOL INJECTION 50 ML IV ONE (09:01)
[2018-07-16] MEDS ORDERED: MIDAZOLAM 2 MG/2 ML (VERSED) VIAL ONE (09:01)
[2018-07-16] MEDS ORDERED: fentaNYL INJECTION 100 MCG/2 ML AMP ONE (09:01)
[2018-07-16] MEDS ORDERED: SUCCINYLCHOLINE INJ 100 MG/5 ML SYR ONE (09:02)
[2018-07-16] MEDS ORDERED: ROCURONIUM 10 MG/ML 5 ML SYRINGE IV ONE (09:02)
[2018-07-16] MEDS ORDERED: proPOfol 200 MG/20 ML (DIPRIVAN) VIAL IV ONE (09:24)
[2018-07-16] MEDS ORDERED: PHENYLEPHRINE 100 MCG/ML 10 ML (ANESTHESIA) SYR ONE (09:44)
--- OUTSIDE RECORDS SUMMARY | 2018-07-16 10:07 | XMS REPORT ---
Author Author SILVER DIMAS Organization [facility] Address [address] [place] [address] Care Team Providers Care Histologic Aide Name Role Phone SILVER DIMAS Unavailable PROBLEMS Type Condition ICD9-CM Code LAX71-OD Code Onset Dates Condition Status SNOMED Code Problem Hypertension I10 Active 97358227 Problem Venous insufficiency I87.2 Active 66060556 ALLERGIES Substance Reaction Event Type Date Status Penicillin G Potassium anaphylaxis Drug Allergy May, Active Bactrim hives Drug Allergy May, Active ENCOUNTERS Encounter Location Date Diagnosis [facility] [address] [facility] [id number] [address] Jul, [facility] [address] [facility] [id number] [address] May, Hypertension I10 and Venous insufficiency I87.2 IMMUNIZATIONS No Known Immunizations SOCIAL HISTORY Never Assessed REASON FOR VISIT Establish Care - doesnt see a regular dr Jaswinder navarro , high BP - jaswinder navarro, has mass in lungs - dr torres is doing biopsy Jaswinder navarro , dr núñez is doing biopsy on mass in bladder - jaswinder navarro PLAN OF CARE Activity Details Follow Up 4 Weeks Reason: VITAL SIGNS Height 6'0 in 2018-06-16 Weight 283.6 lbs 2018-06-16 Temperature 98.2 degrees Fahrenheit 2018-06-16 Heart Rate 92 bpm 2018-06-16 Respiratory Rate 24 2018-06-16 Oximetry 91 % 2018-06-16 BMI 38.46 kg/m2 2018-06-16 Blood pressure systolic 164 mmHg 2018-06-16 Blood pressure diastolic 92 mmHg 2018-06-16 MEDICATIONS Medication Instructions Dosage Frequency Start Date End Date Duration Status Flomax 0.4 MG Orally Once a day 1 capsule 24h 30 day(s) Active Oxygen Active Amlodipine Besylate 5 MG Orally Once a day 1 tablet 24h 30 day(s) Active RESULTS No Results PROCEDURES No Known procedures INSTRUCTIONS MEDICATIONS ADMINISTERED No Known Medications MEDICAL (GENERAL) HISTORY Type Description Date Medical History stroke 2013 Surgical History hernia 1986 Hospitalization History stroke 2013 Hospitalization History hernia 1986
--- OUTSIDE RECORDS SUMMARY | 2018-07-16 10:07 | XMS REPORT | Continuity of Care Document ---
Author Author [facility] Organization [facility] Address Unknown Phone Unavailable Allergies Active Description Code Type Severity Reaction Onset Reported/Identified Relationship to Patient Clinical Status Yes SOMETHING FOR COLDS SOMETHING FOR COLDS Mild N/A 03/26/2014 Yes Penicillins [id number] Drug Allergy Severe ANAPHYLAXIS 06/03/2018 Medications There is no data. 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 10/24/2017 JANI AVILA MD, Ot Z79.52 SKILLED NURSING (CURRENT) USE OF SYSTEMIC STER 10/24/2017 JANI AVILA MD, Ot Z86.73 PRSNL HX OF TIA (TIA), AND CEREB INFRC W 10/24/2017 JANI AVILA MD, Ot Z88.8 ALLERGY STATUS TO OTH DRUG/MEDS/BIOL SUB 10/26/2017 JANI AVILA MD, Ot F17.210 NICOTINE DEPENDENCE, CIGARETTES, UNCOMPL 10/26/2017 JANI AVILA MD, Ot J44.1 CHRONIC OBSTRUCTIVE PULMONARY DISEASE W 10/26/2017 JANI AVILA MD, Ot M79.601 PAIN IN RIGHT ARM 10/26/2017 JANI AVILA MD Ot R05 COUGH 10/26/2017 JANI AVILA MD Ot 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 10/26/2017 JANI AVILA MD Ot 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 SYSTEMIC STER 10/26/2017 JANI AVILA MD Ot Z86.73 PRSNL HX OF TIA (TIA), AND CEREB INFRC W 10/26/2017 JANI AVILA MD, Ot Z88.8 ALLERGY STATUS TO OTH DRUG/MEDS/BIOL SUB 10/30/2017 JANI AVILA MD Ot F17.210 NICOTINE DEPENDENCE, CIGARETTES, UNCOMPL 10/30/2017 JANI AVILA MD, Ot J44.1 CHRONIC OBSTRUCTIVE PULMONARY DISEASE W 10/30/2017 JANI AVILA MD, Ot M79.601 PAIN IN RIGHT ARM 10/30/2017 JANI AVILA MD Ot R05 COUGH 10/30/2017 JANI AVILA MD Ot Z79.51 SKILLED NURSING (CURRENT) USE OF INHALED STERO 10/30/2017 JANI AVILA MD Ot Z79.52 SKILLED NURSING (CURRENT) USE OF SYSTEMIC STER 10/30/2017 JANI AVILA MD Ot Z86.73 PRSNL HX OF TIA (TIA), AND CEREB INFRC W 10/30/2017 JANI AVILA MD Ot Z88.8 ALLERGY STATUS TO OTH DRUG/MEDS/BIOL SUB 06/04/2018 GERDA TAYLOR MD Ot E83.52 HYPERCALCEMIA 06/04/2018 GERDA TAYLOR MD Ot I16.0 HYPERTENSIVE URGENCY 06/04/2018 GERDA TAYLOR MD, Ot J44.9 CHRONIC OBSTRUCTIVE PULMONARY DISEASE, U 06/04/2018 GERDA TAYLOR MD, Ot N32.9 BLADDER DISORDER, UNSPECIFIED 06/04/2018 GERDA TAYLOR MD Ot R09.02 HYPOXEMIA 06/04/2018 GERDA TAYLOR MD Ot R31.0 GROSS HEMATURIA 06/04/2018 GERDA TAYLOR MD, Ot R59.0 LOCALIZED ENLARGED LYMPH NODES 06/04/2018 GERDA TAYLOR MD, Ot R91.8 OTHER NONSPECIFIC ABNORMAL FINDING OF ROXANA 06/04/2018 GERDA TAYLOR MD, Ot Z66 DO NOT RESUSCITATE 06/04/2018 GERDA TAYLOR MD, Ot Z80.0 FAMILY HISTORY OF MALIGNANT NEOPLASM OF 06/04/2018 GERDA TAYLOR MD, Ot Z82.49 FAMILY HX OF ISCHEM HEART DIS AND OTH DI 06/04/2018 GERDA TAYLOR MD, Ot Z86.73 PRSNL HX OF TIA (TIA), AND CEREB INFRC W 06/04/2018 GERDA TAYLOR MD, Ot Z87.891 PERSONAL HISTORY OF NICOTINE DEPENDENCE 06/04/2018 GERDA TAYLOR MD, Ot Z88.0 ALLERGY STATUS TO PENICILLIN Procedures There is no data. Results Test [...] by light microscopy RARE BEVERLY URATES NRG Complete blood count (CBC) with automated white blood cell (WBC) differential - 06/03/18 12:50 Blood leukocytes automated count (number/volume) 9.6 10*3/uL 4.3-11.0 Blood erythrocytes automated count (number/volume) 5.05 10*6/uL 4.35-5.85 Venous blood hemoglobin measurement (mass/volume) 16.0 g/dL 13.3-17.7 Blood hematocrit (volume fraction) 49 % 40-54 Automated erythrocyte mean corpuscular volume 96 [foz_us] 80-99 Automated erythrocyte mean corpuscular hemoglobin (mass per erythrocyte) 32 pg 25-34 Automated erythrocyte mean corpuscular hemoglobin concentration measurement ( mass/volume) 33 g/dL 32-36 Automated erythrocyte distribution width ratio 14.0 % 10.0-14.5 Automated blood platelet count (count/volume) 262 10*3/uL 130-400 Automated blood platelet mean volume measurement 10.4 [foz_us] 7.4-10.4 Automated blood neutrophils/100 leukocytes 70 % 42-75 Automated blood lymphocytes/100 leukocytes 22 % 12-44 Blood monocytes/100 leukocytes 6 % 0-12 Automated blood eosinophils/100 leukocytes 2 % 0-10 Automated blood basophils/100 leukocytes 0 % 0-10 Blood neutrophils automated count (number/volume) 6.7 10*3 1.8-7.8 Blood lymphocytes automated count (number/volume) 2.1 10*3 1.0-4.0 Blood monocytes automated count (number/volume) 0.6 10*3 0.0-1.0 Automated eosinophil count 0.2 10*3/uL 0.0-0.3 Automated blood basophil count (count/volume) 0.0 10*3/uL 0.0-0.1 Comprehensive metabolic panel - 06/03/18 12:50 Serum or plasma sodium measurement (moles/volume) 145 mmol/L 135-145 Serum or plasma potassium measurement (moles/volume) 3.3 mmol/L 3.6-5.0 Serum or plasma chloride measurement (moles/volume) 104 mmol/L 98-107 Carbon dioxide 32 mmol/L 21-32 Serum or plasma anion gap determination (moles/volume) 9 mmol/L 5-14 Serum or plasma urea nitrogen measurement (mass/volume) 16 mg/dL 7-18 Serum or plasma creatinine measurement (mass/volume) 0.98 mg/dL 0.60-1.30 Serum or plasma urea nitrogen/creatinine mass ratio 16 NRG Serum or plasma creatinine measurement with calculation of estimated glomerular filtration rate > NRG Serum or plasma glucose measurement (mass/volume) 131 mg/dL 70-105 Serum or plasma calcium measurement (mass/volume) 12.9 mg/dL 8.5-10.1 Serum or plasma total bilirubin measurement (mass/volume) 0.3 mg/dL 0.1-1.0 Serum or plasma alkaline phosphatase measurement (enzymatic activity/volume) 71 U/L 40-136 Serum or plasma aspartate aminotransferase measurement (enzymatic activity/ volume) 23 U/L 5-34 Serum or plasma alanine aminotransferase measurement (enzymatic activity/volume ) 30 U/L 0-55 Serum or plasma protein measurement (mass/volume) 6.7 g/dL 6.4-8.2 Serum or plasma albumin measurement (mass/volume) 3.7 g/dL 3.2-4.5 CALCIUM CORRECTED 13.1 mg/dL 8.5-10.1 Serum or plasma lithium measurement (moles/volume) - 06/03/18 12:50 BNP level 76.6 pg/mL <100.0 Lipase - 06/03/18 12:50 Lipase 27 U/L 8-78 Complete urinalysis with reflex to culture - 06/03/18 12:52 Urine color determination RED NRG Urine clarity determination BLOODY NRG Urine pH measurement by test strip 7 5-9 Specific gravity of urine by test strip 1.015 1.016- 1.022 Urine protein assay by test strip, semi-quantitative 3+ NEGATIVE Urine glucose detection by automated test strip NEGATIVE NEGATIVE Erythrocytes detection in urine sediment by light microscopy 5+ NEGATIVE Urine ketones detection by automated test strip NEGATIVE NEGATIVE Urine nitrite detection by test strip NEGATIVE NEGATIVE Urine total bilirubin detection by test strip NEGATIVE NEGATIVE Urine urobilinogen measurement by automated test strip (mass/volume) NORMAL NORMAL Urine leukocyte esterase detection by dipstick 2+ NEGATIVE Automated urine sediment erythrocyte count by microscopy (number/high power field) TNTC NRG Automated urine sediment leukocyte count by microscopy (number/high power field ) [HPF] NRG Bacteria detection in urine sediment by light microscopy FEW NRG Squamous epithelial cells detection in urine sediment by light microscopy 2-5 NRG Crystals detection in urine sediment by light microscopy NONE NRG Casts detection in urine sediment by light microscopy NONE NRG Mucus detection in urine sediment by light microscopy NEGATIVE NRG Complete urinalysis with reflex to culture YES NRG Bacterial urine culture - 06/03/18 12:52 Bacterial urine culture NG NRG Blood lactic acid measurement (moles/volume) - 06/03/18 14:12 Blood lactic acid measurement (moles/volume) 1.60 mmol/L 0.50-2.00 Bacterial blood culture - 06/03/18 14:12 QUANTITY OF GROWTH . NRG Bacterial blood culture SEE COMMEN NR IONIZED CALCIUM (SEND OFF) - 06/03/18 14:52 Blood ionized calcium measurement (mass/volume) 1.70 % 1.16-1.32 Venous blood ionized calcium measurement adjusted to pH 7.4 (moles/volume) 1.62 % 1.16-1.32 pH measurement 7.31 NRG Serum or plasma intact pararthyroid hormone measurement (mass/volume) - 14:52 Serum or plasma intact parathyroid hormone measurement (mass/volume) 184.8 pg/mL 9.0-77.0 Bio-intact parathyroid hormone (PTH) measurement with calcium 12.0 % 8.5-10.5 Bacterial blood culture - 06/03/18 14:52 Bacterial blood culture NG NRG Complete blood count (CBC) with automated white blood cell (WBC) differential - 06/04/18 05:25 Blood leukocytes automated count (number/volume) 10.8 10*3/uL 4.3-11.0 Blood erythrocytes automated count (number/volume) 4.53 10*6/uL 4.35-5.85 Venous blood hemoglobin measurement (mass/volume) 14.4 g/dL 13.3-17.7 Blood hematocrit (volume fraction) 44 % 40-54 Automated erythrocyte mean corpuscular volume 98 [foz_us] 80-99 Automated erythrocyte mean corpuscular hemoglobin (mass per erythrocyte) 32 pg 25-34 Automated erythrocyte mean corpuscular hemoglobin concentration measurement ( mass/volume) 33 g/dL 32-36 Automated erythrocyte distribution width ratio 13.9 % 10.0-14.5 Automated blood platelet count (count/volume) 225 10*3/uL 130-400 Automated blood platelet mean volume measurement 10.4 [foz_us] 7.4-10.4 Automated blood neutrophils/100 leukocytes 71 % 42-75 Automated blood lymphocytes/100 leukocytes 20 % 12-44 Blood monocytes/100 leukocytes 8 % 0-12 Automated blood eosinophils/100 leukocytes 1 % 0-10 Automated blood basophils/100 leukocytes 0 % 0-10 Blood neutrophils automated count (number/volume) 7.6 10*3 1.8-7.8 Blood lymphocytes automated count (number/volume) 2.2 10*3 1.0-4.0 Blood monocytes automated count (number/volume) 0.9 10*3 0.0-1.0 Automated eosinophil count 0.1 10*3/uL 0.0-0.3 Automated blood basophil count (count/volume) 0.0 10*3/uL 0.0-0.1 Comprehensive metabolic panel - 06/04/18 05:25 Serum or plasma sodium measurement (moles/volume) 144 mmol/L 135-145 Serum or plasma potassium measurement (moles/volume) 3.8 mmol/L 3.6-5.0 Serum or plasma chloride measurement (moles/volume) 108 mmol/L 98-107 Carbon dioxide 29 mmol/L 21-32 Serum or plasma anion gap determination (moles/volume) 7 mmol/L 5-14 Serum or plasma urea nitrogen measurement (mass/volume) 13 mg/dL 7-18 Serum or plasma creatinine measurement (mass/volume) 0.81 mg/dL 0.60-1.30 Serum or plasma urea nitrogen/creatinine mass ratio 16 NRG Serum or plasma creatinine measurement with calculation of estimated glomerular filtration rate > NRG Serum or plasma glucose measurement (mass/volume) 95 mg/dL 70-105 Serum or plasma calcium measurement (mass/volume) 10.9 mg/dL 8.5-10.1 Serum or plasma total bilirubin measurement (mass/volume) 0.3 mg/dL 0.1-1.0 Serum or plasma alkaline phosphatase measurement (enzymatic activity/volume) 53 U/L 40-136 Serum or plasma aspartate aminotransferase measurement (enzymatic activity/ volume) 14 U/L 5-34 Serum or plasma alanine aminotransferase measurement (enzymatic activity/volume ) 20 U/L 0-55 Serum or plasma protein measurement (mass/volume) 5.8 g/dL 6.4-8.2 Serum or plasma albumin measurement (mass/volume) 3.3 g/dL 3.2-4.5 CALCIUM CORRECTED 11.5 mg/dL 8.5-10.1 Encounters ACCT No. Visit Date/Time Discharge Status Pt. Type Provider Facility Loc./Unit Complaint [id number] 07/02/2018 15:16:00 07/02/2018 23:59:59 CLS Outpatient JOVITA SALAS APRN [facility] RAD COPD,OBESITY,SOB, STROKE [id number] 06/03/2018 13:21:00 06/04/2018 16:30:00 DIS Outpatient CLAUDIA BOSTON, GERDA Harris [facility] 4TH RLL PNEUMONIA HYPOXIA HEMATURIA [id number] 10/24/2017 09:31:00 10/24/2017 11:59:00 DIS Emergency MARGARITA BOSTON, JANI Tam [facility] ER RT ARM PAIN,SOB [id number] 03/26/2014 21:08:00 03/26/2014 23:03:00 DIS Emergency NICO BOSTON, ERICKA Adams [facility] ER LEFT SIDE NUMBNESS [id number] 07/16/2018 07:53:00 ACT Outpatient GUERITA REED DO [facility] ENDO HYPOXEMIA/COPD/SOB/STROKE/ABNORMAL CT SCAN [id number] 06/16/2018 11:00:00 06/16/2018 23:59:59 CLS Outpatient [facility]
--- NOTE | 2018-07-16 10:24 | Pulmonary Procedures ---
Pulmonary Procedures Date of Procedure Date of Service: Jul 16, 2018 Bronch Bronchoscopy with fluoroscopy bronchial washing, RLL BAL, brush x 2 RLL. Percepta brush x 2 janeth. EBUS with bx of station 7 lymph nodes transbronchial bx under US guidance. Preop DX: mediastinal lymphadenopathy PostOP DX: same No endobronchial mass Complications: None Pt was sedated per anesthesia. Bronchoscopy was advanced through the ED tube and an anatomical undertaken down to the segmental bronchi bilaterally. No endobronchial lesions noted. Bronchoscopy with fluoroscopy bronchial washing, RLL BAL, brush x 2 RLL. Percepta brush x 2 janeth. EBUS with bx of station 7 lymph nodes transbronchial bx under US guidance. Pt tolerated procedure well. No complications noted. GUERITA REED DO Jul 16, 2018 10:24
--- NOTE | 2018-07-16 10:36 | Diagnostic Imaging Report ---
INDICATION: Post bronchoscopy. COMPARISON: 06/04/2018. FINDINGS: Single view of the chest demonstrates stable cardiac enlargement with chronic basilar infiltrates. No large effusion is seen. There is no pneumothorax or pulmonary contusion. IMPRESSION: No post procedure pneumothorax. Dictated by: Dictated on workstation # [id number]
[2018-07-16 10:45] VITALS: BP 118/65
[2018-07-16 11:15] VITALS: BP 109/67
--- NOTE | 2018-07-16 12:04 | Anesthesia-General Post-Op ---
General Patient Condition Mental Status/LOC: Same as Preop Cardiovascular: Satisfactory Nausea/Vomiting: Absent Respiratory: Satisfactory Pain: Controlled Complications: Absent Post Op Complications Complications None Follow Up Care/Instructions Patient Instructions None needed. Anesthesia/Patient Condition Patient Condition Patient is doing well, no complaints, stable vital signs, no apparent adverse anesthesia problems. LAWANDA ALLEN DO Jul 16, 2018 12:04
--- NOTE | 2018-07-16 12:04 | Diagnostic Imaging Report ---
INDICATION: Fluoroscopy for bronchoscopy. Fluoroscopy was provided for Dr. Zambrano during bronchoscopy. 14 seconds of fluoroscopy was utilized. IMPRESSION: Fluoroscopy for bronchoscopy. Dictated by: Dictated on workstation # [id number]
[2018-07-16 12:20] VITALS: BP 109/67
== END 2018-07-16 11:25 | disposition home or self-care (01) ==
LOC: ENDO 07:53
PROVIDERS: ATTEND Internal Medicine Critical Care Medicine
DX: R59.0 Localized enlarged lymph nodes (principal); J44.9 Chronic obstructive pulmonary disease, unspecified; E66.9 Obesity, unspecified; Z86.73 Personal history of transient ischemic attack (TIA), and cerebral infarction without residual deficits; R09.02 Hypoxemia; N32.9 Bladder disorder, unspecified; R31.9 Hematuria, unspecified; Z79.899 Other long term (current) drug therapy; Z72.0 Tobacco use
CPT/HCPCS: 71045; 87015; 87070; 87077; 87101; 87116; 87205; 87206

== ENCOUNTER → 2018-10-22 | Outpatient (CLI) | payer OTHER ==
[~2018-10-22] MED LIST changes: -AMLO5TAB7 PO; +AMLO5TAB9 PO; +HOLD METFORMIN - RECEIVED CONTRAST 20 ML VIAL IV SCH; +IOHEXOL 350 MG/ML 100 ML (OMNIPAQUE 350) VIAL IV ONE; +LISI10TA2 PO; +TAMS0.4C2 PO; +[UNRECOGNIZED DRUG - OTHER]
[2018-10-22 14:29] LABS: BUN/CREATININE RATIO 11; CREATININE SERUM 0.92 MG/DL (0.60-1.30); GFR ESTIMATED > 60
--- NOTE | 2018-10-22 15:34 | Diagnostic Imaging Report ---
PROCEDURE: CT chest with contrast only. TECHNIQUE: Multiple contiguous axial images were obtained through the chest after administration of intravenous contrast. Auto Exposure Controls were utilized during the CT exam to meet ALARA standards for radiation dose reduction. INDICATION: Shortness of air and cough. Comparison is made with prior CT chest from 07/02/2018. No axillary lymphadenopathy is detected. Mildly enlarged lymph nodes in the mediastinum are again noted. Right paratracheal node appears to be similar in size. There is some subcarinal fullness present as well which is similar to prior exam. The ezequiel are unremarkable. There is no pericardial or pleural fluid detected. Parenchymal evaluation does show significant improved appearance of the chest. Infiltrate identified in the right middle lobe on prior exam has shown significant improvement. There is some minimal residual infiltrate or atelectasis in medial aspect of the right middle lobe. No new infiltrate or mass is detected. Upper abdomen is unremarkable. IMPRESSION: Near complete clearing of right middle lobe infiltrate when compared with prior CT chest from 07/02/2018. Only minimal infiltrate remains. Mediastinal lymphadenopathy is stable. Dictated by: Dictated on workstation # [id number]
== END ==
LOC: RAD 13:57
PROVIDERS: ATTEND Nurse Practitioner Family
DX: J44.9 Chronic obstructive pulmonary disease, unspecified (principal); I63.9 Cerebral infarction, unspecified; E66.9 Obesity, unspecified; R59.0 Localized enlarged lymph nodes; Z72.0 Tobacco use
CPT/HCPCS: 36415; 71260; 82565; 84520

== ENCOUNTER → 2018-11-04 | Outpatient (CLI) | payer OTHER ==
[~2018-11-04] MED LIST changes: -HOLD METFORMIN - RECEIVED CONTRAST 20 ML VIAL IV SCH; -IOHEXOL 350 MG/ML 100 ML (OMNIPAQUE 350) VIAL IV ONE
[2018-11-04 09:39] LABS: BASOPHILS # (AUTO) 0.1 10^3/uL (0.0-0.1); BASOPHILS % (AUTO) 1 % (0-10); EOSINOPHILS # (AUTO) 0.8 10^3/uL (0.0-0.3); EOSINOPHILS % (AUTO) 9 % (0-10); HEMATOCRIT 44 % (40-54); HEMOGLOBIN 14.6 G/DL (13.3-17.7); LYMPHOCYTES # (AUTO) 2.6 X 10^3 (1.0-4.0); LYMPHOCYTES % (AUTO) 28 % (12-44); MEAN CORPUSCULAR HEMOGLOBIN 31 PG (25-34); MEAN CORPUSCULAR HGB CONC 33 G/DL (32-36); MEAN CORPUSCULAR VOLUME 92 FL (80-99); MEAN PLATELET VOLUME 10.5 FL (7.4-10.4); MONOCYTES # (AUTO) 1.1 X 10^3 (0.0-1.0); MONOCYTES % (AUTO) 11 % (0-12); NEUTROPHILS # (AUTO) 4.7 X 10^3 (1.8-7.8); NEUTROPHILS % (AUTO) 51 % (42-75); PLATELET COUNT 213 10^3/uL (130-400); RED CELL DISTRIBUTION WIDTH 13.4 % (10.0-14.5); WHITE BLOOD COUNT 9.3 10^3/uL (4.3-11.0)
--- NOTE | 2018-11-04 12:08 | Diagnostic Imaging Report ---
INDICATION: COPD. COMPARISON: 07/16/2018. FINDINGS: Frontal and lateral views of the chest demonstrate mild prominence of the cardiac silhouette, which may be accentuated by portable technique and prominent pericardial fat. Pulmonary vasculature, however, is within normal limits. The lungs are clear. There are no signs of infiltrate, pleural effusions or pneumothoraces. The visualized osseous structures show no acute abnormalities. IMPRESSION: 1. No acute process. No signs of infiltrates, effusions or pneumothoraces. Dictated by: Dictated on workstation # [id number]
== END ==
LOC: RAD 09:19
PROVIDERS: ATTEND Nurse Practitioner Family
DX: J44.9 Chronic obstructive pulmonary disease, unspecified (principal); I63.9 Cerebral infarction, unspecified; E66.9 Obesity, unspecified; R93.89 Abnormal findings on diagnostic imaging of other specified body structures; Z72.0 Tobacco use
CPT/HCPCS: 36415; 71046; 85025

== ENCOUNTER → 2019-01-07 | Outpatient (CLI) | payer OTHER ==
[~2019-01-07] MED LIST changes: +RT-ALBUTEROL SULF 2.5 MG/3 ML PRE-MIX VIAL INH ONE
== END ==
LOC: RT 10:09
PROVIDERS: ATTEND Nurse Practitioner Family
DX: J44.9 Chronic obstructive pulmonary disease, unspecified (principal); I63.9 Cerebral infarction, unspecified; E66.9 Obesity, unspecified; Z72.0 Tobacco use
CPT/HCPCS: 94060; 94726; 94729

== ENCOUNTER → 2019-01-13 | Outpatient (CLI) | payer OTHER ==
[~2019-01-13] MED LIST changes: -RT-ALBUTEROL SULF 2.5 MG/3 ML PRE-MIX VIAL INH ONE
[2019-01-13 08:35] LABS: BASOPHILS % (AUTO) 0 % (0-10); EOSINOPHILS # (AUTO) 0.3 10^3/uL (0.0-0.3); EOSINOPHILS % (AUTO) 3 % (0-10); HEMATOCRIT 45 % (40-54); LYMPHOCYTES % (AUTO) 21 % (12-44); MEAN CORPUSCULAR HEMOGLOBIN 31 PG (25-34); MEAN CORPUSCULAR HGB CONC 33 G/DL (32-36); MEAN CORPUSCULAR VOLUME 93 FL (80-99); MEAN PLATELET VOLUME 11.2 FL (7.4-10.4); MONOCYTES # (AUTO) 0.9 X 10^3 (0.0-1.0); MONOCYTES % (AUTO) 10 % (0-12); NEUTROPHILS # (AUTO) 6.1 X 10^3 (1.8-7.8); NEUTROPHILS % (AUTO) 66 % (42-75); PLATELET COUNT 220 10^3/uL (130-400); RED CELL DISTRIBUTION WIDTH 13.4 % (10.0-14.5); WHITE BLOOD COUNT 9.3 10^3/uL (4.3-11.0)
--- NOTE | 2019-01-13 11:13 | Diagnostic Imaging Report ---
PROCEDURE: CT chest without contrast. TECHNIQUE: Multiple contiguous axial images were obtained through the chest without the use of intravenous contrast. Auto Exposure Controls were utilized during the CT exam to meet ALARA standards for radiation dose reduction. INDICATION: Lung nodule. COMPARISON: Comparison is 07/02/2018 and 10/18/2018. FINDINGS: There is persistent improvement in the right middle lobe with peripheral areas of consolidation which previously demonstrated areas of central clearing. This may represent an infectious process but also could have represented organizing pneumonia. There is some tree in bud nodules in the right lower lobe, compatible with aspiration. No new or suspicious nodules are seen. No edema. Heart size is mildly enlarged. Aorta is normal in caliber. No axillary or supraclavicular lymphadenopathy. Some prominent mediastinal lymph nodes are stable, measuring up to 14 mm in short axis. These are likely reactive. There are mild coronary artery calcifications. Limited views of the upper abdomen are unremarkable. There are no suspicious osseous lesions. IMPRESSION: 1. Continued clearing of the inflammatory process in the right middle lobe with a small area of nodularity remaining. This is almost certainly an infectious or inflammatory process, and had the appearance of organizing pneumonia on initial exam. 2. Trace aspiration in the right lower lobe. Dictated by: Dictated on workstation # [id number]
== END ==
LOC: RAD 08:20
PROVIDERS: ATTEND Nurse Practitioner Family
DX: J18.1 Lobar pneumonia, unspecified organism (principal); J44.9 Chronic obstructive pulmonary disease, unspecified; I63.9 Cerebral infarction, unspecified; E66.9 Obesity, unspecified; Z72.0 Tobacco use
CPT/HCPCS: 36415; 71250; 85025

== ENCOUNTER → 2019-04-23 | Outpatient (CLI) | payer OTHER ==
--- NOTE | 2019-04-23 14:13 | Diagnostic Imaging Report ---
EXAMINATION: CT Chest without contrast. TECHNIQUE: Multiple contiguous axial images were obtained through the chest without the use of intravenous contrast. All CT scans use one or more of the following dose optimizing techniques: automated exposure control, MA and/or KvP adjustment based on a patient size and exam type, or iterative reconstruction. HISTORY: HYPOXEMIA, COPD COMPARISON: 01/13/2019 FINDINGS: The lungs are clear without edema or pneumonia. No pleural effusion or pneumothorax. Right middle lobe area of scarring or atelectasis is stable. There are changes of recurrent aspiration in the right lower lobe lateral basilar segment. Heart size is normal. No pericardial effusion. Aorta is normal in caliber. There is no axillary or supraclavicular lymphadenopathy. There is no mediastinal lymphadenopathy. There are mild coronary artery calcifications. Limited views of the upper abdomen are unremarkable. There are no suspicious osseus lesions. IMPRESSION: 1. Right middle lobe opacity is stable indicating it may now represent chronic scarring. Dictated by: Dictated on workstation # [id number]
== END ==
LOC: RAD 13:18
PROVIDERS: ATTEND Nurse Practitioner Family
DX: J44.9 Chronic obstructive pulmonary disease, unspecified (principal); I63.9 Cerebral infarction, unspecified; E66.9 Obesity, unspecified; Z72.0 Tobacco use
CPT/HCPCS: 71250

== ENCOUNTER 2022-05-22 13:09 | Inpatient (IN) | payer MEDICARE, MEDICAID ==
[~2022-05-22] VITALS: Ht 180.3 cm; Wt 126.9 kg
[~2022-05-22 13:09] MED LIST changes: +ALBU8.5H6 IH; +AMLO-250 PO; -AMLO5TAB9 PO; -LISI10TA2 PO; +LISI10TA25 PO; -RT-ALBUINH IH; -SULF1TAB35 PO; +SULF1TAB38 PO
[2022-05-22] MEDS ORDERED: methylPREDNISolone 125 MG (Solu-MEDROL) VIAL IV STA (13:18)
[2022-05-22] MEDS ORDERED: RT-ALBUTEROL/IPRATROPIUM 3 ML (DUONEB) VIAL INH ONE (13:30)
[2022-05-22 13:33] LABS: BASOPHILS % (AUTO) 1 % (0-10); EOSINOPHILS % (AUTO) 0 % (0-10); HEMATOCRIT 46 % (40-54); HEMOGLOBIN 14.1 g/dL (13.3-17.7); LYMPHOCYTES # (AUTO) 0.4 10^3/uL (1.0-4.0); LYMPHOCYTES % (AUTO) 8 % (12-44); MEAN CORPUSCULAR HEMOGLOBIN 30 pg (25-34); MEAN CORPUSCULAR HGB CONC 31 g/dL (32-36); MEAN CORPUSCULAR VOLUME 97 fL (80-99); MEAN PLATELET VOLUME 11.5 fL (9.0-12.2); MONOCYTES # (AUTO) 0.7 10^3/uL (0.0-1.0); MONOCYTES % (AUTO) 13 % (0-12); NEUTROPHILS # (AUTO) 4.4 10^3/uL (1.8-7.8); NEUTROPHILS % (AUTO) 78 % (42-75); PLATELET COUNT 178 10^3/uL (130-400); WHITE BLOOD COUNT 5.6 10^3/uL (4.3-11.0)
[2022-05-22 13:51] LABS: ALBUMIN 3.9 GM/DL (3.2-4.5); POTASSIUM 4.3 MMOL/L (3.6-5.0)
[2022-05-22 13:52] LABS: CALCIUM 10.7 MG/DL (8.5-10.1)
[2022-05-22 13:54] LABS: TOTAL PROTEIN 6.8 GM/DL (6.4-8.2)
[2022-05-22 13:55] LABS: BILIRUBIN,TOTAL 0.6 MG/DL (0.1-1.0)
[2022-05-22 13:57] LABS: CREATININE SERUM 1.28 MG/DL (0.60-1.30)
[2022-05-22 14:05] LABS: ABG BASE EXCESS 12.6 MMOL/L (-2.5-2.5); ABG OXYGEN SATURATION 95 % (94-100); ABG PO2 74 MMHG (79-93)
[2022-05-22 14:07] LABS: ABG PCO2 97 MMHG (35-45); ABG PH 7.24 (7.37-7.43); ABG TCO2 42.9 MMOL/L (21.0-31.0); ALLENS TEST POSITIVE
--- NOTE | 2022-05-22 14:07 | Diagnostic Imaging Report ---
EXAMINATION: Chest, one view. HISTORY: SOB. COMPARISON: 07/16/2018. FINDINGS: Heart size is enlarged, unchanged. There are mild interstitial opacities at the lung bases. No pleural effusion or pneumothorax. The osseous structures are intact. IMPRESSION: 1. Mild interstitial opacities at the lung bases, which could be seen with atelectasis, pulmonary edema, or atypical infection. Dictated by: Dictated on workstation # [id number]
[2022-05-22 14:08] LABS: INSPIRED O2 4 L; PATIENT TEMP 37.3; VENTILATOR NO
[2022-05-22] MEDS ORDERED: hydrALAZINE (APESOLINE) 20 MG/ML VIAL IV ONE (14:30)
[2022-05-22 14:46] VITALS: BP 123/84
--- NOTE | 2022-05-22 15:07 | ED Respiratory ---
General Chief Complaint: Respiratory Problems Stated Complaint: SOA | FEVER Nursing Triage Note: PT TO ED BY EMS WITH C/O SOB, FEVER, LETHARGY, COUGH X 3 DAYS. PT REPORTS HE HAS NOT TAKEN ANY MEDS FOR SX. Source: patient Exam Limitations: no limitations History of Present Illness Date Seen by Provider: May 22, 2022 Time Seen by Provider: 15:35 Initial Comments Patient is a 61-year-old male who presents to the emergency department via EMS approximately 3 days of shortness of air, cough, general malaise, and fever. Patient has not taken his temperature today but states he has felt warm. EMS state patient was hypoxic upon their arrival. Patient does have home oxygen at 3 L. EMS achieved oxygen saturations above 90% by increasing the oxygen to 5 L. Patient is mildly confused. Patient states he has been taking breathing treatments at home for his symptoms. He states they work for a short period of time and then symptoms worsen again. No known sick contacts in the recent past. Patient is a former smoker but states he quit 3 years ago. Patient is unclear when asked if cough is productive. Allergies and Home Medications Allergies Coded Allergies: Penicillins (Verified Allergy, Severe, ANAPHYLAXIS, 06/03/18) SWELLING ALL OVER sulfamethoxazole (Unverified Adverse Reaction, Unknown, 07/16/18) trimethoprim (Unverified Adverse Reaction, Unknown, 07/16/18) Uncoded Allergies: SOMETHING FOR COLDS (Allergy, Mild, 03/26/14) Patient Home Medication List Home Medication List Reviewed: Yes Amlodipine Besylate (Amlodipine Besylate) 5 Mg Tablet, 5 MG PO DAILY Prescribed by: GERDA TAYLOR on 06/04/18 1306 Calcium Carbonate (Tums) 300 Mg Tab.chew, 300 MG PO TID PRN for STOMACH UPSET, (Reported) Entered as Reported by: PEÑA VIDAL on 06/04/18 0926 Lisinopril (Lisinopril) 10 Mg Tablet, 10 MG PO DAILY, (Reported) Entered as Reported by: BREANNE WILSON on 07/16/18 0857 Sulfamethoxazole/Trimethoprim (Bactrim Ds Tablet) 1 Each Tablet, 1 EACH PO BID Prescribed by: GERDA TAYLOR on 06/04/18 1306 Tamsulosin HCl (Tamsulosin HCl) 0.4 Mg Cap.er.24h, 0.4 MG PO DAILY, (Reported) Entered as Reported by: BREANNE WILSON on 07/16/18 0857 [nitrofurantion] , (Reported) Entered as Reported by: BREANNE WILSON on 07/16/1857 Review of Systems Review of Systems Constitutional: see HPI, fever, malaise EENTM: no symptoms reported Respiratory: see HPI, cough, short of breath Cardiovascular: no symptoms reported Gastrointestinal: no symptoms reported Genitourinary: no symptoms reported Musculoskeletal: no symptoms reported Skin: no symptoms reported Psychiatric/Neurological: See HPI Past Glyugey-Iniufu-Raadco Hx Patient Social History Tobacco Use?: No Use of E-Cig and/or Vaping dev: No Substance use?: No Alcohol Use?: No Pt feels they are or have been: No Immunizations Up To Date Tetanus Booster (TDap): Unknown PED Vaccines UTD: Yes Influenza Vaccine Up-to-Date: No; Not Current Past Medical History Surgery/Hospitalization HX: COPD Surgeries: Yes (HERNIA) Abdominal Respiratory: Yes (tobaccoism) Currently Using CPAP: No Currently Using BIPAP: No Cardiac: No Hypertension Neurological: Yes (STATES HAD STROKE 3 YEARS AGO) Stroke Genitourinary: No Gastrointestinal: No Musculoskeletal: No Endocrine: No HEENT: No Cancer: No Psychosocial: No Integumentary: No Blood Disorders: No Family Medical History Patient reports no known family medical history. Heart Disease, Cancer, CAD Under 55 Years Old Physical Exam Vital Signs - First Documented 05/22/22 13:16 Temp 37.3 Pulse 93 Resp 31 B/P (MAP) 192/105 (134) Capillary Refill : Less Than 3 Seconds Height: 6'0.00" Weight: 273lbs. 5.0oz. 123.967949vi; 42.00 BMI Method:Stated General Appearance: WD/WN, mild distress HEENT: PERRL/EOMI, normal ENT inspection, TMs normal, pharynx normal Neck: non-tender, full range of motion, supple, normal inspection Respiratory: chest non-tender, respiratory distress (Mild), decreased breath sounds Cardiovascular: regular rate, rhythm Gastrointestinal: normal bowel sounds, non tender, soft Extremities: normal range of motion, non-tender, normal inspection Neurologic/Psychiatric: no motor/sensory deficits, alert Skin: normal color, warm/dry Focused Exam Lactate Level 05/22/22 14:45: Lactic Acid Level 0.85 Lactic Acid Level Laboratory Tests Test 05/22/22 14:45 Lactic Acid Level 0.85 MMOL/L (0.50-2.00) Progress/Results/Core Measures Suspected Sepsis SIRS Temperature: Pulse: 89 Respiratory Rate: 25 Laboratory Tests 05/22/22 13:20: White Blood Count 5.6 Blood Pressure 123 /84 Mean: 112 05/22/22 14:45: Lactic Acid Level 0.85 Laboratory Tests 05/22/22 13:20: Creatinine 1.28, Platelet Count 178, Total Bilirubin 0.6 Results/Orders Lab Results Laboratory Tests Test 05/22/22 13:20 05/22/22 13:30 05/22/22 13:35 05/22/22 14:45 Range/Units White Blood Count 5.6 4.3-11.0 10^3/uL Red Blood Count 4.72 4.30-5.52 10^6/uL Hemoglobin 14.1 13.3-17.7 g/dL Hematocrit 46 40-54 % Mean Corpuscular Volume 97 80-99 fL Mean Corpuscular Hemoglobin 30 25-34 pg Mean Corpuscular Hemoglobin Concent 31 L 32-36 g/dL Red Cell Distribution Width 12.9 10.0-14.5 % Platelet Count 178 130-400 10^3/uL Mean Platelet Volume 11.5 9.0-12.2 fL Immature Granulocyte % (Auto) 1 % Neutrophils (%) (Auto) 78 H 42-75 % Lymphocytes (%) (Auto) 8 L 12-44 % Monocytes (%) (Auto) 13 H 0-12 % Eosinophils (%) (Auto) 0 0-10 % Basophils (%) (Auto) 1 0-10 % Neutrophils # (Auto) 4.4 1.8-7.8 10^3/uL Lymphocytes # (Auto) 0.4 L 1.0-4.0 10^3/uL Monocytes # (Auto) 0.7 0.0-1.0 10^3/uL Eosinophils # (Auto) 0.0 0.0-0.3 10^3/uL Basophils # (Auto) 0.0 0.0-0.1 10^3/uL Immature Granulocyte # (Auto) 0.0 0.0-0.1 10^3/uL Sodium Level 142 135-145 MMOL/L Potassium Level 4.3 3.6-5.0 MMOL/L Chloride Level 97 L 98-107 MMOL/L Carbon Dioxide Level 34 H 21-32 MMOL/L Anion Gap 11 5-14 MMOL/L Blood Urea Nitrogen 20 H 7-18 MG/DL Creatinine 1.28 0.60-1.30 MG/DL Estimat Glomerular Filtration Rate 64 BUN/Creatinine Ratio 16 Glucose Level 104 70-105 MG/DL Calcium Level 10.7 H 8.5-10.1 MG/DL Corrected Calcium 10.8 H 8.5-10.1 MG/DL Total Bilirubin 0.6 0.1-1.0 MG/DL Aspartate Amino Transf (AST/SGOT) 25 5-34 U/L Alanine Aminotransferase (ALT/SGPT) 34 0-55 U/L Alkaline Phosphatase 57 40-136 U/L Troponin I 0.073 H <0.028 NG/ML B-Type Natriuretic Peptide 125.6 H <100.0 PG/ML Total Protein 6.8 6.4-8.2 GM/DL Albumin 3.9 3.2-4.5 GM/DL Influenza Type A (RT-PCR) Detected H Not Detecte Influenza Type B (RT-PCR) Not Detected Not Detecte SARS-CoV-2 RNA (RT-PCR) Not Detected Not Detecte Blood Gas Puncture Site LEFT WRIST Blood Gas Patient Temperature 37.3 Arterial Blood pH 7.24 *L 7.37-7.43 Arterial Blood Partial Pressure CO2 97 *H 35-45 MMHG Arterial Blood Partial Pressure O2 74 L 79-93 MMHG Arterial Blood HCO3 40 H 23-27 MMOL/L Arterial Blood Total CO2 42.9 *H 21.0-31.0 MMOL/L Arterial Blood Oxygen Saturation 95 94-100 % Arterial Blood Base Excess 12.6 H -2.5-2.5 MMOL/L Rich Test POSITIVE Blood Gas Ventilator Setting NO Blood Gas Inspired Oxygen 4 L Lactic Acid Level 0.85 0.50-2.00 MMOL/L My Orders Orders - GUERITA BIRMINGHAM APRN Cbc With Automated Diff (05/22/22 13:18) Comprehensive Metabolic Panel (05/22/22 13:18) Bnp [place] (05/22/22 13:18) Ekg Tracing (05/22/22 13:18) O2 (05/22/22 13:18) Ed Iv/Invasive Line Start (05/22/22 13:18) Monitor-Rhythm Ecg Trace Only (05/22/22 13:18) Chest 1 View, Ap/Pa Only (05/22/22 13:18) Albuterol/Ipra Inhalation Soln (Duoneb I (05/22/22 13:30) Methylprednisolone Sod Succ (Solu-Medrol (05/22/22 13:18) Svn Small Volume Nebulizer (05/22/22 13:18) Troponin I [place] (05/22/22 13:18) Arterial Blood Gas (05/22/22 13:30) Isolation Central Supply Req (05/22/22 13:18) Covid 19 Inhouse Test (05/22/22 13:29) Influenza A And B By Pcr (05/22/22 13:29) Isolation Central Supply Req (05/22/22 13:29) Bipap (Bilevel) Set Up (05/22/22 14:11) Hydralazine Injection (Apresoline Inject (05/22/22 14:30) Medications Given in ED Current Medications Medications Dose Ordered Sig/Gricel Route Start Time Stop Time Status Last Admin Dose Admin Albuterol/ Ipratropium 3 ml ONCE ONCE INH 05/22/22 13:30 05/22/22 13:31 DC 05/22/22 14:03 3 ML Hydralazine HCl 10 mg ONCE ONCE IV 05/22/22 14:30 05/22/22 14:31 DC 05/22/22 14:40 10 MG Vital Signs/I&O 05/22/22 05/22/22 05/22/22 05/22/22 13:09 13:09 13:16 14:02 Temp 37.3 Pulse 93 Resp 31 B/P (MAP) 192/105 (134) Pulse Ox 95 95 O2 Delivery Nasal Cannula Nasal Cannula Nasal Cannula Nasal Cannula O2 Flow Rate 4.00 3.00 3.00 4.00 05/22/22 05/22/22 14:43 14:46 Pulse 90 89 Resp 19 25 B/P (MAP) 157/90 (112) Pulse Ox 94 93 O2 Delivery Nasal Cannula O2 Flow Rate 5.00 50.00 Capillary Refill : Less Than 3 Seconds Blood Pressure Mean: 112 Progress Note : Progress Note Patient is nontoxic on exam. Decreased breath sounds noted in all lung carrillo. Mild respiratory distress noted. Patient is mildly tachypneic upon arrival. No marked accessory muscle use appreciated. Patient denies chest pain upon arrival. Patient's oxygen saturations are in the low 90s on 5 L of oxygen via nasal cannula. Patient is mildly confused and has difficulty answering some questions. Patient influenza A positive. Chest x-ray with no definitive focal infiltrate. ABG notable for respiratory acidosis with hypercapnia and hypoxia. Patient was placed on BiPAP with improvement in oxygen saturations to the mid 90s. I spoke with patient's sister who states that she has been talking to the patient on the phone the last few days and noticed that he did seem more confused than normal. Will admit for further treatment. Hospitalist kindly agreed to admit. Patient was given Solu-Medrol and 1 DuoNeb in the emergency department. Per hospitalist request we will obtain blood cultures and give a dose of Rocephin. Discussed bridge orders and these were written. Departure Impression Primary Impression: Acute respiratory failure with hypoxia and hypercapnia Additional Impression: Influenza A Disposition: 09 ADMITTED INPATIENT Condition: Stable Admissions Decision to Admit Reason: Admit from ER (General) Decision to Admit/Date: May 22, 2022 Time/Decision to Admit Time: 14:55 Departure-Patient Inst. Referrals: JACOB DIMAS MD (PCP/Family) Primary Care Physician GUERITA BIRMINGHAM APRN May 22, 2022 15:07
[2022-05-22 16:00] VITALS: BP 157/90
[2022-05-22] MEDS ORDERED: RT-ALBUTEROL/IPRATROPIUM 3 ML (DUONEB) VIAL INH PRN (16:15)
[2022-05-22] MEDS ORDERED: CATHETER FLUSH 10 ML SYR IVP PRN (16:30)
[2022-05-22] MEDS: cefTRIAXone 1 GM PRE-MIX 50 ML IV SCH (16:33)
[2022-05-22] MEDS ORDERED: NS IV 500 ML 500 ML IV PRN (16:45)
--- NOTE | 2022-05-22 16:45 | Tele-ICU Consult ---
History of Present Illness History of Present Illness Date Seen by Provider: May 22, 2022 Time Seen by Provider: 16:45 Date of Admission (Tele-ICU Physician , consultation as per request of PCP Service provided via interactive audio and video telecommunications E-CARE system to a patient admitted to ICU bed in [facility]. Available chart/ vitals / labs / Images reviewed H&P is from ER notes Patient's information available about PMH, Shx, Fhx allergy reviewed inEMR. ROS as per chart and RN report Now in ICU, hemodynamically stable Video assessment done using teleICU camera, rest of exam as per RN Discussed with RN. Consultants: Hospital course: (05/22) 61M Admitted with Acute Respiratory Failure with hypoxia/hypercapnea and Influenza A. Bipap A/P Acute hypercarbis anmd hypoxix resp failure - BIPAP 15/02 - rr 29 tv 400 MV 12L - responsive , mild confusion reported - steroids IV , nebs - follow ABG Influenza A infection - tamiflu 5d AECOPD - due to influenza - steroid , nebs Possible secondary LRTI vs PNA - started on Rocephin 05/22 Chronic hypoxic resp failure - on home o2 3 L [employer] Hypercalcemia - unclear etiology, noted on 2018 labs too - - will follow Lines : periph , (Central Line Necessity Reviewed) Salazar: void OG: Nutrition: npo now Analgesia: Anxiety/ delirium VTE Prophylaxis: lovenox Stress Ulcer Prophylaxis: ppi Glycemic Control: iss - on steroids Plans in collaboration with bedside consultants and IM MDs. Discussed with RN to reach out if any questions or concerns A total of 31 minutes of critical care time was devoted to this patient today, required to treat and/or prevent further deterioration of critical care condition ( as above ) . I am remotely monitoring this patient from another state. I am unable to do the bedside exam, and history/physical and pertinent information is taken from other notes in the computer and bedside staff. . Allergies and Home Medications Allergies Coded Allergies: Penicillins (Verified Allergy, Severe, ANAPHYLAXIS, 06/03/18) SWELLING ALL OVER sulfamethoxazole (Unverified Adverse Reaction, Unknown, 07/16/18) trimethoprim (Unverified Adverse Reaction, Unknown, 07/16/18) Uncoded Allergies: SOMETHING FOR COLDS (Allergy, Mild, 03/26/14) Home Medications Amlodipine Besylate 5 Mg Tablet, 5 MG PO DAILY Prescribed by: GERDA TAYLOR on 06/04/18 1306 Calcium Carbonate 300 Mg Tab.chew, 300 MG PO TID PRN for STOMACH UPSET, (Reported) Lisinopril 10 Mg Tablet, 10 MG PO DAILY, (Reported) Sulfamethoxazole/Trimethoprim 1 Each Tablet, 1 EACH PO BID Prescribed by: GERDAJELLY TAYLOR on 06/04/18 1306 Tamsulosin HCl 0.4 Mg Cap.er.24h, 0.4 MG PO DAILY, (Reported) Daily until stone passage Past Medical/Social/Family Hx Patient Social History Tobacco Use?: No Use of E-Cig and/or Vaping dev: No Substance use?: No Alcohol Use?: No Pt stated abuse/neglect: No Immunizations Up To Date Influenza Vaccine Up-to-Date: No; Not Current Tetanus Booster (TDap): Unknown Current Status Advance Directives: No Communicates: Verbally Primary Language: Slovenian Preferred Spoken Language: Slovenian Is interpretation needed?: No Sensory deficits: Vision impairment Review of Systems Constitutional: see HPI Focused Exam Lactate Level 05/22/22 14:45: Lactic Acid Level 0.85 Height, Weight, BMI Height: 6'0.00" Weight: 273lbs. 5.0oz. 123.769713zd; 42.00 BMI Method:Stated Lactic Acid Level Laboratory Tests Test 05/22/22 14:45 Lactic Acid Level 0.85 MMOL/L (0.50-2.00) Exam Exam Patient acknowledged, consented, and participated in this virtual visit which was conducted using real time audio/video Vital Signs Date Time Temp Pulse Resp B/P (MAP) Pulse Ox O2 Delivery O2 Flow Rate FiO2 05/22/22 16:37 96 05/22/22 16:00 37.3 89 93 50 05/22/22 15:50 89 18 159/13 93 NIV Bilevel 50.00 05/22/22 14:46 89 25 93 50.00 05/22/22 14:43 90 19 157/90 (112) 94 Nasal Cannula 5.00 05/22/22 14:02 Nasal Cannula 4.00 05/22/22 13:16 37.3 93 31 192/105 (134) 95 Nasal Cannula 3.00 05/22/22 13:09 Nasal Cannula 3.00 05/22/22 13:09 95 Nasal Cannula 4.00 Height & Weight Height: 6'0.00" Weight: 273lbs. 5.0oz. 123.787528jm; 42.00 BMI Method:Stated General Appearance: No Apparent Distress, Mild Distress Capillary Refill: Less Than 3 Seconds Gastrointestinal: normal bowel sounds, non tender, soft Results Lab Laboratory Tests 05/22/22 13:20 Assessment/Plan Assessment/Plan 1 CHARLENE ZARATE MD May 22, 2022 16:45
[2022-05-22] MEDS ORDERED: FLU QUADRIvalent (6 months+) 60 mcg/0.5 ml 2022-23 (Fluzone) IM ONE (17:00)
[2022-05-22] MEDS: methylPREDNISolone 125 MG (Solu-MEDROL) VIAL IVP SCH (17:54)
[2022-05-22] MEDS: OSELTAMIVIR 75 MG (TAMIFLU) CAPSULE PO SCH (17:54)
[2022-05-22] MEDS: ENOXAPARIN 40 MG/0.4 ML (LOVENOX) SYR SC SCH (17:54)
[2022-05-22] MEDS: RT-ALBUTEROL/IPRATROPIUM 3 ML (DUONEB) VIAL INH SCH ×2 (18:12→22:30)
[2022-05-22 18:13] VITALS: BP 158/98
[2022-05-22] MEDS: inSUlin ASPART (NovoLOG) 1 UNIT/0.01 ML (CHARGE PER UNIT) SC SCH (18:16)
[2022-05-22 20:11] LABS: ABG OXYGEN SATURATION 83 % (94-100); ABG PO2 46 MMHG (79-93)
[2022-05-22 20:19] LABS: ABG PCO2 75 MMHG (35-45); ABG PH 7.33 (7.37-7.43); ABG TCO2 40.5 MMOL/L (21.0-31.0)
[2022-05-22 20:20] LABS: PATIENT TEMP 98.8; VENTILATOR NO
[2022-05-22] MEDS ORDERED: inSUlin ASPART (NovoLOG) 1 UNIT/0.01 ML (CHARGE PER UNIT) SC SCH (21:00)
[2022-05-22] MEDS: CATHETER FLUSH 10 ML SYR IVP SCH (22:19)
[2022-05-23] MEDS: inSUlin ASPART (NovoLOG) 1 UNIT/0.01 ML (CHARGE PER UNIT) SC SCH ×4 (00:25→18:20)
[2022-05-23] MEDS: methylPREDNISolone 125 MG (Solu-MEDROL) VIAL IVP SCH ×4 (00:25→17:14)
[2022-05-23 01:25] VITALS: BP 135/85
[2022-05-23] MEDS: RT-ALBUTEROL/IPRATROPIUM 3 ML (DUONEB) VIAL INH SCH ×5 (01:25→23:19)
[2022-05-23 05:31] LABS: BASOPHILS % (AUTO) 0 % (0-10); EOSINOPHILS % (AUTO) 0 % (0-10); HEMATOCRIT 43 % (40-54); HEMOGLOBIN 13.5 g/dL (13.3-17.7); LYMPHOCYTES # (AUTO) 0.5 10^3/uL (1.0-4.0); LYMPHOCYTES % (AUTO) 9 % (12-44); MEAN CORPUSCULAR HEMOGLOBIN 30 pg (25-34); MEAN CORPUSCULAR HGB CONC 31 g/dL (32-36); MEAN CORPUSCULAR VOLUME 96 fL (80-99); MEAN PLATELET VOLUME 11.3 fL (9.0-12.2); MONOCYTES # (AUTO) 0.4 10^3/uL (0.0-1.0); MONOCYTES % (AUTO) 8 % (0-12); NEUTROPHILS # (AUTO) 4.4 10^3/uL (1.8-7.8); NEUTROPHILS % (AUTO) 83 % (42-75); PLATELET COUNT 166 10^3/uL (130-400); WHITE BLOOD COUNT 5.4 10^3/uL (4.3-11.0)
[2022-05-23] MEDS: OSELTAMIVIR 75 MG (TAMIFLU) CAPSULE PO SCH ×2 (05:43→17:13)
[2022-05-23] MEDS: ENOXAPARIN 40 MG/0.4 ML (LOVENOX) SYR SC SCH ×2 (05:43→17:13)
[2022-05-23] MEDS: CATHETER FLUSH 10 ML SYR IVP SCH ×2 (05:43→16:24)
[2022-05-23 05:55] LABS: CALCIUM 10.7 MG/DL (8.5-10.1); CREATININE SERUM 1.57 MG/DL (0.60-1.30); MAGNESIUM 1.7 MG/DL (1.6-2.4); PHOSPHORUS 2.4 MG/DL (2.3-4.7); POTASSIUM 4.3 MMOL/L (3.6-5.0)
[2022-05-23] MEDS: POTASSIUM CL 10MEQ/50ML IVPB 50 ML IV SCH (05:57)
[2022-05-23] MEDS: KCL 20 MEQ TAB (K-DUR) PO SCH (05:57)
[2022-05-23] MEDS: MAGNESIUM 1 GM/100 ML IVPB 100 ML IV SCH ×2 (05:58→09:07)
[2022-05-23 06:48] VITALS: BP 128/60
[2022-05-23] MEDS ORDERED: methylPREDNISolone 125 MG (Solu-MEDROL) VIAL IV SCH (09:00)
[2022-05-23] MEDS: PANTOPRAZOLE 40 MG (PROTONIX) VIAL IV SCH (09:07)
[2022-05-23] MEDS: 1/2 NS IV SOLUTION 1,000 ML IV SCH ×2 (09:46→21:15)
[2022-05-23 09:50] LABS: ABG BASE EXCESS 11.3 MMOL/L (-2.5-2.5); ABG OXYGEN SATURATION 96 % (94-100); ABG PCO2 57 MMHG (35-45); ABG PH 7.42 (7.37-7.43); ABG PO2 59 MMHG (79-93); ABG TCO2 38.5 MMOL/L (21.0-31.0)
[2022-05-23 09:51] LABS: INSPIRED O2 60%; PATIENT TEMP 96.3; VENTILATOR NO
--- NOTE | 2022-05-23 10:49 | Tele-ICU Progress Note ---
Subjective Date Seen by a Provider: May 23, 2022 Time Seen by a Provider: 10:48 Subjective/Events-last exam (Tele-ICU Physician , Progress Note ) Service provided via interactive audio and video telecommunications E-CARE system to a patient admitted to ICU bed in [facility]. Available chart/ vitals / labs / Images reviewed Video assessment done using teleICU camera, rest of exam as per RN Discussed with RN Events overnight : Afebrile hemodynamically stable Respiratory - 30 % I/O = neg Drips: Pressors- no Consultants: Hospital course: (05/22) 61M Admitted with Acute Respiratory Failure with hypoxia/hypercapnea and Influenza A. Bipap A/P Acute hypercarbis anmd hypoxix resp failure - BIPAP 18/8 - rr 25 tv 600 MV 18 L - responsive , mild confusion reported - steroids IV , nebs - follow ABG THIS AM WILL TRY WEAN OFF TO NC TODAY Influenza A infection - tamiflu 5d AECOPD - due to influenza - steroid , nebs Possible secondary LRTI vs PNA - started on Rocephin 05/22 Chronic hypoxic resp failure - on home o2 3 L [employer] Hypercalcemia - unclear etiology, noted on 2018 labs too - - will follow MARTHA - will start on milf hydration , try Po fluid ., monitor Lines : periph , (Central Line Necessity Reviewed) Salazar: void OG: Nutrition: npo now Analgesia: Anxiety/ delirium VTE Prophylaxis: lovenox Stress Ulcer Prophylaxis: ppi Glycemic Control: iss - on steroids Plans in collaboration with bedside consultants and IM MDs. Discussed with RN to reach out if any questions or concerns A total of 31 minutes of critical care time was devoted to this patient today, required to treat and/or prevent further deterioration of critical care condition ( as above ) . Sepsis Event Evaluation Height, Weight, BMI Height: 6'0.00" Weight: 273lbs. 5.0oz. 123.877415ti; 42.42 BMI Method:Stated Focused Exam Lactate Level 05/22/22 14:45: Lactic Acid Level 0.85 Exam Exam Patient acknowledged, consented, and participated in this virtual visit which was conducted using real time audio/video Vital Signs Date Time Temp Pulse Resp B/P (MAP) Pulse Ox O2 Delivery O2 Flow Rate FiO2 05/23/22 10:00 76 19 133/64 (87) 94 High Flow N/C 10.00 05/23/22 09:49 28 93 High Flow N/C 10.00 05/23/22 09:00 64 26 122/71 (88) 90 NIV Bilevel 60.00 05/23/22 08:00 71 48 120/75 (90) 91 NIV Bilevel 60.00 05/23/22 08:00 36.7 05/23/22 07:45 94 NIV Bilevel 60 05/23/22 07:00 66 18 118/67 (84) 91 NIV Bilevel 60.00 05/23/22 07:00 66 05/23/22 06:48 67 25 90 50.00 05/23/22 06:00 67 12 128/60 (82) 92 NIV Bilevel 60.00 05/23/22 05:00 68 24 145/99 (114) 92 NIV Bilevel 60.00 05/23/22 04:00 84 139/80 (99) 91 NIV Bilevel 60.00 05/23/22 03:54 91 NIV Bilevel 60 05/23/22 03:48 36.9 05/23/22 03:00 68 20 148/91 (110) 90 NIV Bilevel 60.00 05/23/22 02:00 75 130/86 (101) 88 NIV Bilevel 60.00 05/23/22 01:25 87 25 91 50.00 05/23/22 01:00 89 05/23/22 01:00 NIV Bilevel 60.00 05/23/22 01:00 89 22 154/92 (112) 90 NIV Bilevel 60.00 05/23/22 00:31 37.8 High Flow N/C 10.00 05/23/22 00:00 92 High Flow N/C 10.00 05/23/22 00:00 90 176/97 (123) 93 High Flow N/C 10.00 05/22/22 23:00 89 35 158/101 (120) 92 High Flow N/C 10.00 05/22/22 22:19 High Flow N/C 10.00 05/22/22 22:00 87 16 145/106 (119) 92 NIV Bilevel 60.00 05/22/22 21:00 93 151/83 (105) 93 NIV Bilevel 60.00 05/22/22 20:35 NIV Bilevel 60.00 05/22/22 20:07 91 NIV Bilevel 50 05/22/22 20:00 92 155/98 (117) 91 NIV Bilevel 50.00 05/22/22 19:53 37.8 NIV Bilevel 50.00 05/22/22 19:00 88 27 149/91 (110) 92 NIV Bilevel 50.00 05/22/22 19:00 88 05/22/22 18:13 88 25 92 50.00 05/22/22 18:00 86 35 158/98 (118) 94 NIV Bilevel 50.00 05/22/22 17:00 88 29 154/99 (117) 92 NIV Bilevel 50.00 05/22/22 16:37 96 05/22/22 16:00 150/92 (111) 05/22/22 16:00 37.3 89 93 50 05/22/22 15:56 30 89 High Flow N/C 7.00 05/22/22 15:56 93 NIV Bilevel 50 05/22/22 15:50 89 18 159/13 93 NIV Bilevel 50.00 05/22/22 14:46 89 25 93 50.00 05/22/22 14:43 90 19 157/90 (112) 94 Nasal Cannula 5.00 05/22/22 14:02 Nasal Cannula 4.00 05/22/22 13:16 37.3 93 31 192/105 (134) 95 Nasal Cannula 3.00 05/22/22 13:09 Nasal Cannula 3.00 05/22/22 13:09 95 Nasal Cannula 4.00 I & O 05/23/22 06:59 Intake Total 410 ml Output Total 1000 ml Balance -590 ml Height & Weight Height: 6'0.00" Weight: 273lbs. 5.0oz. 123.162336ux; 42.42 BMI Method:Stated General Appearance: No Apparent Distress, Mild Distress Capillary Refill: Less Than 3 Seconds Gastrointestinal: normal bowel sounds, non tender, soft Results Lab Laboratory Tests 05/22/22 13:20 05/23/22 05:17 Assessment/Plan Assessment/Plan 1 CHARLENE ZARATE MD May 23, 2022 10:48
[2022-05-23] MEDS: cefTRIAXone 1 GM PRE-MIX 50 ML IV SCH (16:20)
--- NOTE | 2022-05-23 16:25 | History & Physical ---
HPI History of Present Illness: 61 yo M that presented to ER with increasing shortness of breath and required bipap. Patient was found to have flu A. Denies any sick contacts. States that he has not bee feeling well for about a week. Appetite down. States that he has not been to the doctor in a while and has not been taking any medications. He has b aseline oxygen need of 2-3 L NC continuously. Source: patient Exam Limitations: no limitations Date seen by provider: May 23, 2022 Time Seen by Provider: 09:30 Attending Physician Silver Vásquez MD PCP Admitting Physician: Shira Ng MD Attending Physician: Karly Ram DO Consult Date of Admission May 22, 2022 at 14:55 Home Medications Home Medications Reviewed patient Home Medication Reconciliation performed by pharmacy medication reconciliations engineering laboratory technician and/or nursing. Patients Allergies have been reviewed. Allergies Coded Allergies: Penicillins (Verified Allergy, Severe, ANAPHYLAXIS, 06/03/18) SWELLING ALL OVER sulfamethoxazole (Unverified Adverse Reaction, Unknown, 07/16/18) trimethoprim (Unverified Adverse Reaction, Unknown, 07/16/18) Uncoded Allergies: SOMETHING FOR COLDS (Allergy, Mild, 03/26/14) [id number] Hx Patient Social History Smoking Status: Former Smoker Recent Hopitalizations: No Alcohol Use?: No Have you traveled recently?: No Immunizations Up To Date Tetanus Booster (TDap): Unknown Influenza Vaccine Up-to-Date: No; Not Current Past Medical History COPD Obesity HTN Family Medical History Significant Family History: Heart Disease, Cancer, CAD Under 55 Years Old Family History: Patient reports no known family medical history. Review of Systems ([facility]) Constitutional: malaise, weakness EENTM: nose congestion; No mouth pain, No nose pain, No throat pain Respiratory: cough, dyspnea on exertion, short of breath Cardiovascular: no symptoms reported; No chest pain, No edema, No palpitations Gastrointestinal: No abdominal pain, No constipation, No diarrhea; loss of appetite; No nausea, No vomiting Genitourinary: no symptoms reported; No dysuria, No frequency, No hematuria Musculoskeletal: no symptoms reported; No back pain, No joint pain, No muscle pain Skin: no symptoms reported Psychiatric/Neurological: No Symptoms Reported Reviewed Test Results Reviewed Test Results Lab Laboratory Tests Test 05/22/22 18:14 05/22/22 19:40 05/23/22 00:21 05/23/22 05:17 Range/Units Glucometer 103 200 H 70-110 MG/DL Blood Gas Puncture Site NA Blood Gas Patient Temperature 98.8 Arterial Blood pH 7.33 *L 7.37-7.43 Arterial Blood Partial Pressure CO2 75 *H 35-45 MMHG Arterial Blood Partial Pressure O2 46 L 79-93 MMHG Arterial Blood HCO3 38 H 23-27 MMOL/L Arterial Blood Total CO2 40.5 *H 21.0-31.0 MMOL/L Arterial Blood Oxygen Saturation 83 L 94-100 % Arterial Blood Base Excess 12.0 H -2.5-2.5 MMOL/L Rich Test NA Blood Gas Ventilator Setting NO Blood Gas Inspired Oxygen NA White Blood Count 5.4 4.3-11.0 10^3/uL Red Blood Count 4.50 4.30-5.52 10^6/uL Hemoglobin 13.5 13.3-17.7 g/dL Hematocrit 43 40-54 % Mean Corpuscular Volume 96 80-99 fL Mean Corpuscular Hemoglobin 30 25-34 pg Mean Corpuscular Hemoglobin Concent 31 L 32-36 g/dL Red Cell Distribution Width 12.9 10.0-14.5 % Platelet Count 166 130-400 10^3/uL Mean Platelet Volume 11.3 9.0-12.2 fL Immature Granulocyte % (Auto) 0 % Neutrophils (%) (Auto) 83 H 42-75 % Lymphocytes (%) (Auto) 9 L 12-44 % Monocytes (%) (Auto) 8 0-12 % Eosinophils (%) (Auto) 0 0-10 % Basophils (%) (Auto) 0 0-10 % Neutrophils # (Auto) 4.4 1.8-7.8 10^3/uL Lymphocytes # (Auto) 0.5 L 1.0-4.0 10^3/uL Monocytes # (Auto) 0.4 0.0-1.0 10^3/uL Eosinophils # (Auto) 0.0 0.0-0.3 10^3/uL Basophils # (Auto) 0.0 0.0-0.1 10^3/uL Immature Granulocyte # (Auto) 0.0 0.0-0.1 10^3/uL Sodium Level 142 135-145 MMOL/L Potassium Level 4.3 3.6-5.0 MMOL/L Chloride Level 99 98-107 MMOL/L Carbon Dioxide Level 31 21-32 MMOL/L Anion Gap 12 5-14 MMOL/L Blood Urea Nitrogen 29 H 7-18 MG/DL Creatinine 1.57 H 0.60-1.30 MG/DL Estimat Glomerular Filtration Rate 50 BUN/Creatinine Ratio 18 Glucose Level 121 H 70-105 MG/DL Calcium Level 10.7 H 8.5-10.1 MG/DL Phosphorus Level 2.4 2.3-4.7 MG/DL Magnesium Level 1.7 1.6-2.4 MG/DL Test 05/23/22 05:18 05/23/22 09:42 05/23/22 11:46 Range/Units Glucometer 116 H 163 H 70-110 MG/DL Blood Gas Puncture Site R RAD Blood Gas Patient Temperature 96.3 Arterial Blood pH 7.42 7.37-7.43 Arterial Blood Partial Pressure CO2 57 H 35-45 MMHG Arterial Blood Partial Pressure O2 59 L 79-93 MMHG Arterial Blood HCO3 37 H 23-27 MMOL/L Arterial Blood Total CO2 38.5 H 21.0-31.0 MMOL/L Arterial Blood Oxygen Saturation 96 94-100 % Arterial Blood Base Excess 11.3 H -2.5-2.5 MMOL/L Rich Test UNK Blood Gas Ventilator Setting NO Blood Gas Inspired Oxygen 60% Physical Exam-([facility]) Physical Exam Vital Signs VS - Last 72 Hours, by Label 05/22/22 05/22/22 05/22/22 05/22/22 13:09 13:09 13:16 14:02 Temp 37.3 Pulse 93 Resp 31 B/P (MAP) 192/105 (134) Pulse Ox 95 95 O2 Delivery Nasal Cannula Nasal Cannula Nasal Cannula Nasal Cannula O2 Flow Rate 4.00 3.00 3.00 4.00 05/22/22 05/22/22 05/22/22 05/22/22 14:43 14:46 15:50 15:56 Pulse 90 89 89 Resp 19 25 18 B/P (MAP) 157/90 (112) 159/13 Pulse Ox 94 93 93 93 O2 Delivery Nasal Cannula NIV Bilevel NIV Bilevel O2 Flow Rate 5.00 50.00 50.00 FiO2 50 05/22/22 05/22/22 05/22/22 05/22/22 15:56 16:00 16:00 16:37 Temp 37.3 Pulse 89 96 Resp 30 B/P (MAP) 150/92 (111) Pulse Ox 89 93 O2 Delivery High Flow N/C O2 Flow Rate 7.00 FiO2 50 05/22/22 05/22/22 05/22/22 05/22/22 17:00 18:00 18:13 19:00 Pulse 88 86 88 88 Resp 29 35 25 B/P (MAP) 154/99 (117) 158/98 (118) Pulse Ox 92 94 92 O2 Delivery NIV Bilevel NIV Bilevel O2 Flow Rate 50.00 50.00 50.00 05/22/22 05/22/22 05/22/22 05/22/22 19:00 19:53 20:00 20:07 Temp 37.8 Pulse 88 92 Resp 27 B/P (MAP) 149/91 (110) 155/98 (117) Pulse Ox 92 91 91 O2 Delivery NIV Bilevel NIV Bilevel NIV Bilevel NIV Bilevel O2 Flow Rate 50.00 50.00 50.00 FiO2 50 05/22/22 05/22/22 05/22/22 05/22/22 20:35 21:00 22:00 22:19 Pulse 93 87 Resp 16 B/P (MAP) 151/83 (105) 145/106 (119) Pulse Ox 93 92 O2 Delivery NIV Bilevel NIV Bilevel NIV Bilevel High Flow N/C O2 Flow Rate 60.00 60.00 60.00 10.00 05/22/22 05/23/22 05/23/22 05/23/22 23:00 00:00 00:00 00:31 Temp 37.8 Pulse 89 90 Resp 35 B/P (MAP) 158/101 (120) 176/97 (123) Pulse Ox 92 93 92 O2 Delivery High Flow N/C High Flow N/C High Flow N/C High Flow N/C O2 Flow Rate 10.00 10.00 10.00 10.00 05/23/22 05/23/22 05/23/22 05/23/22 01:00 01:00 01:00 01:25 Pulse 89 89 87 Resp 22 25 B/P (MAP) 154/92 (112) Pulse Ox 90 91 O2 Delivery NIV Bilevel NIV Bilevel O2 Flow Rate 60.00 60.00 50.00 11/23/22 05/23/22 05/23/22 05/23/22 02:00 03:00 03:48 03:54 Temp 36.9 Pulse 75 68 Resp 20 B/P (MAP) 130/86 (101) 148/91 (110) Pulse Ox 88 90 91 O2 Delivery NIV Bilevel NIV Bilevel NIV Bilevel O2 Flow Rate 60.00 60.00 FiO2 60 05/23/22 05/23/22 05/23/22 05/23/22 04:00 05:00 06:00 06:48 Pulse 84 68 67 67 Resp 24 12 25 B/P (MAP) 139/80 (99) 145/99 (114) 128/60 (82) Pulse Ox 91 92 92 90 O2 Delivery NIV Bilevel NIV Bilevel NIV Bilevel O2 Flow Rate 60.00 60.00 60.00 50.00 05/23/22 05/23/22 05/23/22 05/23/22 07:00 07:00 07:45 08:00 Temp 36.7 Pulse 66 66 Resp 18 B/P (MAP) 118/67 (84) Pulse Ox 91 94 O2 Delivery NIV Bilevel NIV Bilevel O2 Flow Rate 60.00 FiO2 60 05/23/22 05/23/22 05/23/22 05/23/22 08:00 09:00 09:49 10:00 Pulse 71 64 76 Resp 48 26 28 19 B/P (MAP) 120/75 (90) 122/71 (88) 133/64 (87) Pulse Ox 91 90 93 94 O2 Delivery NIV Bilevel NIV Bilevel High Flow N/C High Flow N/C O2 Flow Rate 60.00 60.00 10.00 10.00 05/23/22 05/23/22 05/23/22 05/23/22 11:00 11:19 11:23 12:00 Pulse 75 Resp 24 B/P (MAP) 148/83 (104) Pulse Ox 91 89 O2 Delivery High Flow N/C Vapotherm Vapotherm Vapotherm O2 Flow Rate 10.00 35.00 35.00 80.00 100.00 FiO2 100 05/23/22 05/23/22 05/23/22 05/23/22 12:00 12:05 13:00 13:00 Pulse 75 87 73 Resp 57 14 B/P (MAP) 118/85 (96) 139/99 (112) Pulse Ox 98 97 94 O2 Delivery Vapotherm Vapotherm Vapotherm O2 Flow Rate 35.00 35.00 80.00 80.00 FiO2 80 05/23/22 05/23/22 05/23/22 05/23/22 14:00 14:57 15:00 16:00 Pulse 66 69 70 Resp 18 10 15 B/P (MAP) 176/95 (122) 164/106 (125) 136/81 (99) Pulse Ox 91 97 97 93 O2 Delivery Vapotherm Vapotherm Vapotherm Vapotherm O2 Flow Rate 35.00 20.00 35.00 35.00 80.00 80.00 80.00 FiO2 80 05/23/22 16:26 Pulse Ox 97 O2 Delivery NIV Bilevel FiO2 60 Capillary Refill : Less Than 3 Seconds General Appearance: WD/WN, moderate distress (with activity) HEENT: PERRL/EOMI Neck: non-tender, full range of motion Respiratory: chest non-tender, no accessory muscle use, crackles, wheezing, expiration, inspiration Cardiovascular: normal peripheral pulses, regular rate, rhythm, no murmur Gastrointestinal: normal bowel sounds, non tender, soft Back: no CVA tenderness Extremities: normal range of motion, non-tender, no calf tenderness, normal capillary refill, pedal edema (2+ pitting edema) Neurologic/Psychiatric: imaging analyst II-XII nml as tested, alert, oriented x 3 Skin: normal color, warm/dry Lymphatic: no adenopathy Assessment/Plan Assessment/Plan Admission Status: Inpatient Order (span 2 midnights) Reason for Inpatient Admission: high risk of decompensation, requiring ICU care and aggressive RT treatment (1) Acute respiratory failure with hypoxia and hypercapnia Status: Acute Assessment & Plan: - Bipap, transitioning to vapotherm, Continue Tamiflu, MAT protocol (2) Influenza A Status: Acute (3) Acute on chronic renal failure Status: Acute Assessment & Plan: - Gentle hydration, monitor UOP, cantu in place Qualifiers: Qualified Codes: N17.9 - Acute kidney failure, unspecified; N18.31 - Chronic kidney disease, stage 3a (4) COPD exacerbation Status: Acute Assessment & Plan: - IV antibiotics and steroids, MAT protocol (5) Hypercalcemia Status: Acute Assessment & Plan: - Continue to monitor, upon review of chart it looks like he had mediastinal LA and bladder mass? (6) Essential (primary) hypertension Status: Chronic SHIRA NG MD May 23, 2022 16:25
[2022-05-24] MEDS: methylPREDNISolone 125 MG (Solu-MEDROL) VIAL IVP SCH ×3 (00:09→17:03)
[2022-05-24] MEDS: inSUlin ASPART (NovoLOG) 1 UNIT/0.01 ML (CHARGE PER UNIT) SC SCH ×5 (00:09→21:52)
[2022-05-24] MEDS: CATHETER FLUSH 10 ML SYR IVP SCH ×4 (00:09→21:52)
[2022-05-24] MEDS: RT-ALBUTEROL/IPRATROPIUM 3 ML (DUONEB) VIAL INH SCH ×6 (02:29→22:12)
[2022-05-24 02:30] VITALS: BP 141/79
[2022-05-24 04:12] LABS: POTASSIUM 4.7 MMOL/L (3.6-5.0)
[2022-05-24 04:13] LABS: CALCIUM 10.8 MG/DL (8.5-10.1)
[2022-05-24 04:18] LABS: CREATININE SERUM 1.94 MG/DL (0.60-1.30)
[2022-05-24] MEDS: POTASSIUM CL 10MEQ/50ML IVPB 50 ML IV SCH (05:24)
[2022-05-24] MEDS: MAGNESIUM 1 GM/100 ML IVPB 100 ML IV SCH (05:24)
[2022-05-24] MEDS: KCL 20 MEQ TAB (K-DUR) PO SCH (05:24)
--- NOTE | 2022-05-24 05:25 | PM&R Progress Note ---
Subjective HPI/CC On Admission Date Seen by Provider: May 24, 2022 Time Seen by Provider: 09:30 Focused Exam Lactate Level 05/22/22 14:45: Lactic Acid Level 0.85 Objective Exam Vital Signs Vital Signs Date Time Temp Pulse Resp B/P (MAP) Pulse Ox O2 Delivery O2 Flow Rate FiO2 05/24/22 09:37 90 Vapotherm 40.00 100.00 05/24/22 08:00 92 80 05/24/22 08:00 70 119/76 (90) 05/24/22 07:50 37.0 Capillary Refill : Less Than 3 Seconds General Appearance: No Apparent Distress, Mild Distress Results/Procedures Lab Laboratory Tests 05/24/22 03:52 05/24/22 06:07 Patient resulted labs reviewed. FIM Transfers Therapy Code Descriptions/Definitions Functional [place] Measure: 0=Not Assessed/NA 4=Minimal Assistance 1=Total Assistance 5=Supervision or Setup 2=Maximal Assistance 6=Modified [place] 3=Moderate Assistance 7=Complete IndependenceSCALE: Activities may be completed with or without assistive devices. 5-Pnieglnnqn-mzgppvz completes the activity by him/herself with no assistance from a helper. 5-Set-up or Clean-up Assistance-helper sets up or cleans up; patient completes activity. [place] assists only prior to or following the activity. 4-Supervision or Touching Assistance-helper provides verbal cues and/or touching/steadying and/or contact guard assistance as patient completes activity. Assistance may be provided throughout the activity or intermittently. 3-Partial/Moderate Assistance-helper does LESS THAN HALF the effort. [place] lifts, holds or supports trunk or limbs, but provides less than half the effort. 2-Substantial/Maximal Assistance-helper does MORE THAN HALF the effort. [place] lifts or holds trunk or limbs and provides more than half the effort. 6-Vybbxuvlr-qjhldg does ALL the effort. Patient does none of the effort to complete the activity. Or, the assistance of 2 or more helpers is required for the patient to complete the activity. If activity was not attempted, code reason: 7-Patient Refused. 9-Not Applicable-not attempted and the patient did not perform the activity before the current illness, exacerbation or injury. 10-Not Attempted due to Environmental Limitations-(lack of equipment, weather restraints, etc.). 88-Not Attempted due to Medical Conditions or Safety Concerns. SHRUTI LUNDY DO May 24, 2022 05:25
[2022-05-24] MEDS: 1/2 NS IV SOLUTION 1,000 ML IV SCH (05:35)
[2022-05-24] MEDS: ENOXAPARIN 40 MG/0.4 ML (LOVENOX) SYR SC SCH ×2 (05:35→17:03)
[2022-05-24] MEDS: OSELTAMIVIR 75 MG (TAMIFLU) CAPSULE PO SCH (05:35)
[2022-05-24 06:14] LABS: BASOPHILS % (AUTO) 0 % (0-10); EOSINOPHILS % (AUTO) 0 % (0-10); HEMATOCRIT 42 % (40-54); HEMOGLOBIN 13.4 g/dL (13.3-17.7); LYMPHOCYTES # (AUTO) 0.6 10^3/uL (1.0-4.0); LYMPHOCYTES % (AUTO) 8 % (12-44); MEAN CORPUSCULAR HEMOGLOBIN 30 pg (25-34); MEAN CORPUSCULAR HGB CONC 32 g/dL (32-36); MEAN CORPUSCULAR VOLUME 95 fL (80-99); MEAN PLATELET VOLUME 11.7 fL (9.0-12.2); MONOCYTES # (AUTO) 0.6 10^3/uL (0.0-1.0); MONOCYTES % (AUTO) 7 % (0-12); NEUTROPHILS # (AUTO) 6.8 10^3/uL (1.8-7.8); NEUTROPHILS % (AUTO) 85 % (42-75); PLATELET COUNT 195 10^3/uL (130-400)
[2022-05-24] MEDS: PANTOPRAZOLE 40 MG (PROTONIX) VIAL IV SCH (07:54)
--- NOTE | 2022-05-24 08:04 | Diagnostic Imaging Report ---
INDICATION: Pneumonia, follow-up flu. TECHNIQUE: Single view chest 4:52 AM. CORRELATION STUDY: 05/22/2022 FINDINGS: Heart size remains enlarged. Vasculature stable. Asymmetric opacity at the right lung base appears adversely changed, likely infiltrate along with effusion. Left lung remains relatively clear. Overlying monitor leads obscure detail. IMPRESSION: 1. Increasing opacity right lung base likely a combination of infiltrate along with effusion. Central obstructive process not excluded. Follow-up imaging recommended. Dictated by: Dictated on workstation # [id number]
--- NOTE | 2022-05-24 08:08 | Tele-ICU Progress Note ---
Progress Note I received from and communicated with bedside nurse Pt seen on video, transitioned to high flow NC, per nurse at 80% fiO2, 30 LPM flow Rhythm regular Alert, comfortable, NAD Focused Exam Lactate Level 05/22/22 14:45: Lactic Acid Level 0.85 Height, Weight, BMI Height: 6'0.00" Weight: 273lbs. 5.0oz. 123.844833gb; 42.60 BMI Method:Stated Allergies Allergies Coded Allergies: Penicillins (Verified Allergy, Severe, ANAPHYLAXIS, 06/03/18) SWELLING ALL OVER sulfamethoxazole (Unverified Adverse Reaction, Unknown, 07/16/18) trimethoprim (Unverified Adverse Reaction, Unknown, 07/16/18) Uncoded Allergies: SOMETHING FOR COLDS (Allergy, Mild, 03/26/14) Meds/Labs/Orders Lab results: Laboratory Tests Test 05/23/22 09:42 05/23/22 11:46 05/23/22 17:11 05/24/22 00:07 Range/Units Blood Gas Puncture Site R RAD Blood Gas Patient Temperature 96.3 Arterial Blood pH 7.42 7.37-7.43 Arterial Blood Partial Pressure CO2 57 H 35-45 MMHG Arterial Blood Partial Pressure O2 59 L 79-93 MMHG Arterial Blood HCO3 37 H 23-27 MMOL/L Arterial Blood Total CO2 38.5 H 21.0-31.0 MMOL/L Arterial Blood Oxygen Saturation 96 94-100 % Arterial Blood Base Excess 11.3 H -2.5-2.5 MMOL/L Rich Test UNK Blood Gas Ventilator Setting NO Blood Gas Inspired Oxygen 60% Glucometer 163 H 136 H 138 H 70-110 MG/DL Test 05/24/22 03:52 05/24/22 06:07 Range/Units Sodium Level 139 135-145 MMOL/L Potassium Level 4.7 3.6-5.0 MMOL/L Chloride Level 99 98-107 MMOL/L Carbon Dioxide Level 28 21-32 MMOL/L Anion Gap 12 5-14 MMOL/L Blood Urea Nitrogen 42 H 7-18 MG/DL Creatinine 1.94 H 0.60-1.30 MG/DL Estimat Glomerular Filtration Rate 39 BUN/Creatinine Ratio 22 Glucose Level 140 H 70-105 MG/DL Calcium Level 10.8 H 8.5-10.1 MG/DL Phosphorus Level 3.0 2.3-4.7 MG/DL Magnesium Level 2.0 1.6-2.4 MG/DL White Blood Count 8.0 4.3-11.0 10^3/uL Red Blood Count 4.43 4.30-5.52 10^6/uL Hemoglobin 13.4 13.3-17.7 g/dL Hematocrit 42 40-54 % Mean Corpuscular Volume 95 80-99 fL Mean Corpuscular Hemoglobin 30 25-34 pg Mean Corpuscular Hemoglobin Concent 32 32-36 g/dL Red Cell Distribution Width 12.9 10.0-14.5 % Platelet Count 195 130-400 10^3/uL Mean Platelet Volume 11.7 9.0-12.2 fL Immature Granulocyte % (Auto) 0 % Neutrophils (%) (Auto) 85 H 42-75 % Lymphocytes (%) (Auto) 8 L 12-44 % Monocytes (%) (Auto) 7 0-12 % Eosinophils (%) (Auto) 0 0-10 % Basophils (%) (Auto) 0 0-10 % Neutrophils # (Auto) 6.8 1.8-7.8 10^3/uL Lymphocytes # (Auto) 0.6 L 1.0-4.0 10^3/uL Monocytes # (Auto) 0.6 0.0-1.0 10^3/uL Eosinophils # (Auto) 0.0 0.0-0.3 10^3/uL Basophils # (Auto) 0.0 0.0-0.1 10^3/uL Immature Granulocyte # (Auto) 0.0 0.0-0.1 10^3/uL My orders: Orders - YAEL BASS MD Methylprednisolone Sod Succ (Solu-Medrol (05/24/22 18:00) Assessment/Plan Assessment and Plan Assess & Plan/Chief Complaint Acute hypoxemic resp failure, advised nurse to increase to 40 LPM high flow, decrease fiO2 as able Influenza, getting tamiflu, Ceftriaxon, decreased steroid dosing Enoxaparin, pantoprazole prophy CC time 35 minutes Critical Care Critically Ill Patient YAEL BASS MD May 24, 2022 08:08
--- NOTE | 2022-05-24 09:53 | Progress Note - Hospitalist ---
Subjective HPI/CC On Admission Date Seen by Provider: May 24, 2022 Time Seen by Provider: 09:45 Subjective/Events-last exam About the same BiPAP at night and Vapotherm during day maxed out 40/100 Reviewed meds No pain Review of Systems General: Fatigue, Malaise Focused Exam Lactate Level 05/22/22 14:45: Lactic Acid Level 0.85 Objective Exam Vital Signs Vital Signs Date Time Temp Pulse Resp B/P (MAP) Pulse Ox O2 Delivery O2 Flow Rate FiO2 05/24/22 17:00 74 179/104 (129) Vapotherm 40.00 100.00 05/24/22 16:52 36.2 05/24/22 16:50 92 60 05/24/22 14:30 21 Capillary Refill : Less Than 3 Seconds General Appearance: No Apparent Distress, WD/WN, Chronically ill, Obese, Other (on vapotherm) Respiratory: No Accessory Muscle Use, No Respiratory Distress, Decreased Breath Sounds Cardiovascular: Regular Rate, Rhythm Neurologic/Psychiatric: Alert, Disoriented Results/Procedures Lab Laboratory Tests 05/24/22 03:52 05/24/22 06:07 Patient resulted labs reviewed. Assessment/Plan Assessment and Plan Assess & Plan/Chief Complaint (1) Acute respiratory failure with hypoxia and hypercapnia Status: Acute Assessment & Plan: - Bipap, transitioning to vapotherm, Continue Tamiflu, MAT protocol (2) Influenza A Status: Acute (3) Acute on chronic renal failure Status: Acute Assessment & Plan: - Gentle hydration, monitor UOP, cantu in place Qualifiers: Qualified Codes: N17.9 - Acute kidney failure, unspecified; N18.31 - Chronic kidney disease, stage 3a (4) COPD exacerbation Status: Acute Assessment & Plan: - IV antibiotics and steroids, MAT protocol (5) Hypercalcemia Status: Acute Assessment & Plan: - Continue to monitor, upon review of chart it looks like he had mediastinal LA and bladder mass? (6) Essential (primary) hypertension Status: Chronic Plan: Vapotherm BiPAP at night Prognosis guarded Critical Care Critically Ill Patient SHRUTI LUNDY DO May 24, 2022 09:53
[2022-05-24 10:30] VITALS: BP 137/74
[2022-05-24 14:30] VITALS: BP 134/84
[2022-05-24] MEDS: cefTRIAXone 1 GM PRE-MIX 50 ML IV SCH (15:50)
[2022-05-24] MEDS: OSELTAMIVIR 30 MG (TAMIFLU) CAPSULE PO SCH (17:03)
[2022-05-24] MEDS ORDERED: MENTHOL/ZINC OXIDE (CALMOSEPTINE) 113 GM TUBE TP PRN (19:30)
[2022-05-24] MEDS ORDERED: ONDANSETRON 4 MG/2 ML (SDV) Z0FRAN IVP PRN (19:30)
[2022-05-24] MEDS ORDERED: LACTULOSE SYRUP 10GM/15ML (ENULOSE) 30ML UDC PO PRN (19:30)
[2022-05-24] MEDS ORDERED: HYDROcodone/APAP 5 MG/325 MG (LORTAB) TAB PO PRN (19:30)
[2022-05-24] MEDS ORDERED: BISACODYL 10 MG SUPP (DULCOLAX) PR PRN (19:30)
[2022-05-24] MEDS ORDERED: diphenhydrAMINE 25 MG TAB (BENADRYL) PO PRN (19:30)
[2022-05-24] MEDS ORDERED: LOPERAMIDE 2 MG (IMODIUM) TABLET PO PRN (19:30)
[2022-05-24] MEDS ORDERED: ACETAMINOPHEN 325 MG TABLET PO PRN (19:30)
[2022-05-24] MEDS ORDERED: ONDANSETRON 4 MG (ZOFRAN) ORAL DISSOLVE TAB PO PRN (19:30)
[2022-05-24] MEDS ORDERED: DOCUSATE SODIUM 100 MG (COLACE) CAP PO PRN (19:30)
[2022-05-24] MEDS ORDERED: CALCIUM CARBONATE 500 MG (TUMS) TAB.CHEW PO PRN (19:30)
[2022-05-24] MEDS ORDERED: ALPRAZolam 0.25 MG (XANAX) TAB PO PRN (19:30)
[2022-05-24] MEDS ORDERED: MELATONIN 3 MG TABLET ONE (21:47)
[2022-05-24] MEDS: SENNA W/DOCUSATE (SENOKOT S) TABLET PO SCH (21:51)
[2022-05-24] MEDS: polyethylene glycoL POWDER 17 GM (MIRALAX) PACK PO SCH (21:51)
[2022-05-24] MEDS: MELATONIN 3 MG TABLET PO SCH (21:52)
[2022-05-24 22:12] VITALS: BP 156/103
[2022-05-25] MEDS: RT-ALBUTEROL/IPRATROPIUM 3 ML (DUONEB) VIAL INH SCH ×6 (02:48→22:23)
[2022-05-25] MEDS: methylPREDNISolone 125 MG (Solu-MEDROL) VIAL IVP SCH ×2 (05:30→17:40)
[2022-05-25] MEDS: ENOXAPARIN 40 MG/0.4 ML (LOVENOX) SYR SC SCH ×2 (05:30→17:40)
[2022-05-25] MEDS: inSUlin ASPART (NovoLOG) 1 UNIT/0.01 ML (CHARGE PER UNIT) SC SCH ×4 (05:31→21:00)
[2022-05-25] MEDS: OSELTAMIVIR 30 MG (TAMIFLU) CAPSULE PO SCH (05:31)
[2022-05-25] MEDS: CATHETER FLUSH 10 ML SYR IVP SCH ×3 (05:32→22:05)
[2022-05-25 05:42] LABS: BASOPHILS % (AUTO) 0 % (0-10); EOSINOPHILS % (AUTO) 0 % (0-10); HEMATOCRIT 42 % (40-54); HEMOGLOBIN 13.1 g/dL (13.3-17.7); LYMPHOCYTES # (AUTO) 1.1 10^3/uL (1.0-4.0); LYMPHOCYTES % (AUTO) 15 % (12-44); MEAN CORPUSCULAR HEMOGLOBIN 30 pg (25-34); MEAN CORPUSCULAR HGB CONC 31 g/dL (32-36); MEAN CORPUSCULAR VOLUME 95 fL (80-99); MEAN PLATELET VOLUME 11.9 fL (9.0-12.2); MONOCYTES # (AUTO) 0.9 10^3/uL (0.0-1.0); MONOCYTES % (AUTO) 13 % (0-12); NEUTROPHILS # (AUTO) 5.3 10^3/uL (1.8-7.8); NEUTROPHILS % (AUTO) 72 % (42-75); PLATELET COUNT 169 10^3/uL (130-400); WHITE BLOOD COUNT 7.4 10^3/uL (4.3-11.0)
[2022-05-25 06:09] LABS: CALCIUM 10.4 MG/DL (8.5-10.1); CREATININE SERUM 1.21 MG/DL (0.60-1.30); MAGNESIUM 1.8 MG/DL (1.6-2.4); PHOSPHORUS 2.5 MG/DL (2.3-4.7); POTASSIUM 3.9 MMOL/L (3.6-5.0)
--- NOTE | 2022-05-25 06:17 | Progress Note - Hospitalist ---
Subjective HPI/CC On Admission Date Seen by Provider: May 25, 2022 Time Seen by Provider: 10:00 Subjective/Events-last exam Lungs remain coarse BiPAP 100% last night Vapotherm 40L/100% Talked to him about intubation Never been on vent before Very complicated issues Will likely need ventilated this weekend Review of Systems General: Fatigue, Malaise Pulmonary: Dyspnea, Cough Focused Exam Lactate Level 05/22/22 14:45: Lactic Acid Level 0.85 Objective Exam Vital Signs Vital Signs Date Time Temp Pulse Resp B/P (MAP) Pulse Ox O2 Delivery O2 Flow Rate FiO2 05/25/22 14:00 67 26 168/88 (114) 99 NIV Bilevel 80.00 05/25/22 12:00 100 05/25/22 08:00 36.5 Capillary Refill : Less Than 3 Seconds General Appearance: No Apparent Distress, WD/WN, Chronically ill, Obese Respiratory: No Respiratory Distress, Accessory Muscle Use, Crackles, Decreased Breath Sounds, Wheezing Cardiovascular: Regular Rate, Rhythm Neurologic/Psychiatric: Alert, Oriented x3, No Motor/Sensory Deficits, Normal Mood/Affect Results/Procedures Lab Laboratory Tests 05/25/22 05:32 Patient resulted labs reviewed. Assessment/Plan Assessment and Plan Assess & Plan/Chief Complaint (1) Acute respiratory failure with hypoxia and hypercapnia Status: Acute Assessment & Plan: - Bipap, transitioning to vapotherm, Continue Tamiflu, MAT protocol (2) Influenza A Status: Acute (3) Acute on chronic renal failure Status: Acute Assessment & Plan: - Gentle hydration, monitor UOP, cantu in place Qualifiers: Qualified Codes: N17.9 - Acute kidney failure, unspecified; N18.31 - Chronic kidney disease, stage 3a (4) COPD exacerbation Status: Acute Assessment & Plan: - IV antibiotics and steroids, MAT protocol (5) Hypercalcemia Status: Acute Assessment & Plan: - Continue to monitor, upon review of chart it looks like he had mediastinal LA and bladder mass? (6) Essential (primary) hypertension Status: Chronic Plan: Vapotherm BiPAP at night Prognosis guarded Critical Care Critically Ill Patient SHRUTI LUNDY May 25, 2022 06:17
[2022-05-25] MEDS: MAGNESIUM 1 GM/100 ML IVPB 100 ML IV SCH (06:27)
[2022-05-25] MEDS: POTASSIUM CL 10MEQ/50ML IVPB 50 ML IV SCH (06:27)
[2022-05-25] MEDS: KCL 20 MEQ TAB (K-DUR) PO SCH (06:28)
[2022-05-25 07:35] VITALS: BP 128/81
[2022-05-25] MEDS: polyethylene glycoL POWDER 17 GM (MIRALAX) PACK PO SCH ×2 (08:27→21:00)
[2022-05-25] MEDS: PANTOPRAZOLE 40 MG (PROTONIX) VIAL IV SCH (08:27)
[2022-05-25] MEDS: SENNA W/DOCUSATE (SENOKOT S) TABLET PO SCH ×2 (08:27→21:00)
--- NOTE | 2022-05-25 08:59 | Tele-ICU Progress Note ---
Subjective Date Seen by a Provider: May 25, 2022 Subjective/Events-last exam This virtual visit was conducted using real time audio/video. Thank you for asking us to see this patient for respiratory insufficiency due to Inf A, AECOPD. Also MARTHA. Recent events: Alternating BiPAP 18/8, 100% with VT 40 LPM, 100%. PE: Morbid obesity. VSS. O2 sat 95% on VT. HEENT: No obvious masses, adenopathy or JVD. Chest:Greatly diminished on auscultation. CV: RRR S1 S2 No murmur or added sounds. Abd: Non-tender. Bowel sounds Y. : Unremarkable. 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 No obvious focal findings. Extremities: No edema. Capillary refill < 3 seconds. Skin: unremarkable. Results: Elevated BUN 33, BG 140. Decreased Hb 13.1. B.42/57/59 on 60%. CXR: Hyperinflated, R basal infilt/eff.. Available chart/ vitals / labs / images reviewed. Video assessment done using teleICU camera, rest of exam as per RN. A/P: Respiratory insufficiency: Continue present management with alternating BiPAP/VT, weaning as jose. Monitor for increasing oxygenation needs and/or need for intubation. Critical Care: critically ill patient. Cont. PPI, Kristin., Tamiflu, abx, SSI. Discussed with TAL Bee. Asked RN to reach out to eICU if any questions or concerns later. Time spent with patient/coordination of care with other health professionals (mins): 25 Sepsis Event Evaluation Height, Weight, BMI Height: 6'0.00" Weight: 273lbs. 5.0oz. 123.765301pv; 43.00 BMI Method:Stated Focused Exam Lactate Level 05/22/22 14:45: Lactic Acid Level 0.85 Exam Exam Patient acknowledged, consented, and participated in this virtual visit which was conducted using real time audio/video Vital Signs Date Time Temp Pulse Resp B/P (MAP) Pulse Ox O2 Delivery O2 Flow Rate FiO2 05/25/22 08:00 92 Vapotherm 40.00 100 05/25/22 08:00 65 24 145/84 (104) 95 NIV Bilevel 80.00 05/25/22 07:35 58 21 94 80.00 05/25/22 07:00 60 17 128/81 (97) 93 NIV Bilevel 80.00 05/25/22 07:00 55 05/25/22 06:33 NIV Bilevel 80.00 05/25/22 06:00 63 155/96 (115) 97 NIV Bilevel 100.00 05/25/22 05:00 50 38 143/82 (102) 98 NIV Bilevel 100.00 05/25/22 04:00 57 112/60 (77) 94 NIV Bilevel 100.00 05/25/22 04:00 95 NIV Bilevel 100 05/25/22 03:32 69 90 NIV Bilevel 100.00 05/25/22 03:02 36.2 NIV Bilevel 80.00 05/25/22 03:00 81 26 119/63 (81) 86 Vapotherm 40.00 100.00 05/25/22 02:48 95 Vapotherm 40.00 100 05/25/22 02:00 69 19 119/73 (88) 95 Vapotherm 40.00 100.00 05/25/22 01:00 72 05/25/22 01:00 64 23 143/78 (99) 96 Vapotherm 40.00 100.00 05/25/22 00:33 92 Vapotherm 100 05/25/22 00:32 36.2 Vapotherm 40.00 100.00 05/25/22 00:00 58 19 143/87 (105) 92 NIV Bilevel 80.00 05/24/22 23:00 65 21 155/81 (105) 92 NIV Bilevel 80.00 05/24/22 22:27 68 22 89 NIV Bilevel 80.00 05/24/22 22:12 75 25 92 60.00 05/24/22 22:05 NIV Bilevel 60.00 05/24/22 22:01 73 21 156/103 (120) 95 Vapotherm 40.00 100.00 05/24/22 21:00 74 34 147/79 (101) 93 Vapotherm 40.00 100.00 05/24/22 20:00 96 137/78 (97) 93 Vapotherm 40.00 100.00 05/24/22 19:47 90 Vapotherm 100 05/24/22 19:22 36.4 Vapotherm 40.00 100.00 05/24/22 19:00 75 24 134/72 (92) 92 Vapotherm 40.00 100.00 05/24/22 19:00 80 05/24/22 18:13 95 Vapotherm 40.00 100 05/24/22 18:00 75 137/76 (96) 97 Vapotherm 40.00 100.00 05/24/22 17:00 74 179/104 (129) Vapotherm 40.00 100.00 05/24/22 16:52 36.2 05/24/22 16:50 92 NIV Bilevel 60 05/24/22 16:00 65 160/87 (111) NIV Bilevel 60.00 05/24/22 15:10 NIV Bilevel 60.00 05/24/22 15:00 62 134/85 (101) NIV Bilevel 65.00 05/24/22 14:30 65 21 95 60.00 05/24/22 14:00 61 131/86 (101) NIV Bilevel 65.00 05/24/22 13:56 NIV Bilevel 65.00 05/24/22 13:00 74 05/24/22 13:00 68 142/75 (97) 20 Vapotherm 40.00 100.00 05/24/22 12:26 93 Vapotherm 40.00 100 05/24/22 12:23 Vapotherm 40.00 100.00 05/24/22 12:00 64 142/92 (109) 91 NIV Bilevel 65.00 05/24/22 11:46 NIV Bilevel 65.00 05/24/22 11:34 36.1 05/24/22 11:00 75 146/86 (106) 91 NIV Bilevel 60.00 05/24/22 10:30 67 28 93 65.00 05/24/22 10:00 67 137/74 (95) 90 NIV Bilevel 60.00 05/24/22 09:56 NIV Bilevel 60.00 05/24/22 09:37 90 Vapotherm 40.00 100.00 05/24/22 09:30 74 05/24/22 09:00 75 153/80 (104) 90 Vapotherm 40.00 80.00 I & O 05/25/22 07:00 Intake Total 2130 ml Output Total 2250 ml Balance -120 ml Height & Weight Height: 6'0.00" Weight: 273lbs. 5.0oz. 123.792933zt; 43.00 BMI Method:Stated General Appearance: No Apparent Distress, WD/WN, Chronically ill, Obese, Other (on vapotherm) Respiratory: No Accessory Muscle Use, No Respiratory Distress, Decreased Breath Sounds Cardiovascular: Regular Rate, Rhythm Capillary Refill: Less Than 3 Seconds Gastrointestinal: normal bowel sounds, non tender, soft Neurologic/Psychiatric: Alert, Disoriented Results Lab Laboratory Tests 05/24/22 03:52 05/24/22 06:07 05/25/22 05:32 Assessment/Plan Assessment/Plan See free text. Critical Care: Critically Ill Patient FILEMON SIMS MD May 25, 2022 08:59
[2022-05-25] MEDS: OSELTAMIVIR 75 MG (TAMIFLU) CAPSULE PO SCH ×2 (09:39→21:21)
[2022-05-25] MEDS: cefTRIAXone 1 GM PRE-MIX 50 ML IV SCH (17:38)
[2022-05-25] MEDS: MELATONIN 3 MG TABLET PO SCH (21:22)
[2022-05-25 22:24] VITALS: BP 139/69
[2022-05-26 02:25] VITALS: BP 138/70
[2022-05-26] MEDS: RT-ALBUTEROL/IPRATROPIUM 3 ML (DUONEB) VIAL INH SCH ×6 (02:25→22:54)
[2022-05-26 05:31] LABS: BASOPHILS % (AUTO) 0 % (0-10); EOSINOPHILS % (AUTO) 0 % (0-10); HEMATOCRIT 40 % (40-54); HEMOGLOBIN 12.7 g/dL (13.3-17.7); LYMPHOCYTES # (AUTO) 1.4 10^3/uL (1.0-4.0); LYMPHOCYTES % (AUTO) 20 % (12-44); MEAN CORPUSCULAR HEMOGLOBIN 30 pg (25-34); MEAN CORPUSCULAR HGB CONC 32 g/dL (32-36); MEAN CORPUSCULAR VOLUME 95 fL (80-99); MONOCYTES % (AUTO) 15 % (0-12); NEUTROPHILS # (AUTO) 4.6 10^3/uL (1.8-7.8); NEUTROPHILS % (AUTO) 66 % (42-75); PLATELET COUNT 156 10^3/uL (130-400)
--- NOTE | 2022-05-26 05:53 | Progress Note - Hospitalist ---
Subjective HPI/CC On Admission Date Seen by Provider: May 26, 2022 Time Seen by Provider: 11:00 Subjective/Events-last exam Patient doing better Obesity hypoventilation syndrome confirmed on ABG with hypercapnia Son at bedside Lungs are clear today Review of Systems General: Fatigue Pulmonary: Dyspnea, Cough Objective Exam Vital Signs Vital Signs Date Time Temp Pulse Resp B/P (MAP) Pulse Ox O2 Delivery O2 Flow Rate FiO2 05/26/22 16:00 78 26 139/87 (104) 92 NIV Bilevel 70.00 05/26/22 14:19 100 05/26/22 11:28 36.7 Capillary Refill : Less Than 3 Seconds General Appearance: No Apparent Distress, WD/WN, Chronically ill, Obese Respiratory: No Accessory Muscle Use, No Respiratory Distress, Decreased Breath Sounds Cardiovascular: Regular Rate, Rhythm Neurologic/Psychiatric: Alert, Oriented x3, No Motor/Sensory Deficits, Normal Mood/Affect Results/Procedures Lab Laboratory Tests 05/26/22 05:21 Patient resulted labs reviewed. Assessment/Plan Assessment and Plan Assess & Plan/Chief Complaint (1) Acute respiratory failure with hypoxia and hypercapnia Status: Acute Assessment & Plan: - Bipap, transitioning to vapotherm, Continue Tamiflu, MAT protocol (2) Influenza A Status: Acute (3) Acute on chronic renal failure Status: Acute Assessment & Plan: - Gentle hydration, monitor UOP, cantu in place Qualifiers: Qualified Codes: N17.9 - Acute kidney failure, unspecified; N18.31 - Chronic kidney disease, stage 3a (4) COPD exacerbation Status: Acute Assessment & Plan: - IV antibiotics and steroids, MAT protocol (5) Hypercalcemia Status: Acute Assessment & Plan: - Continue to monitor, upon review of chart it looks like he had mediastinal LA and bladder mass? (6) Essential (primary) hypertension Status: Chronic Plan: Vapotherm BiPAP at night Prognosis guarded Keep in ICU due to ventilator risk Critical Care Critically Ill Patient KAMRONSHRUTI GARRETT May 26, 2022 05:53
[2022-05-26 05:55] LABS: CALCIUM 10.6 MG/DL (8.5-10.1); CREATININE SERUM 0.85 MG/DL (0.60-1.30); MAGNESIUM 1.7 MG/DL (1.6-2.4); POTASSIUM 4.5 MMOL/L (3.6-5.0)
[2022-05-26] MEDS: POTASSIUM CL 10MEQ/50ML IVPB 50 ML IV SCH (06:00)
[2022-05-26] MEDS: inSUlin ASPART (NovoLOG) 1 UNIT/0.01 ML (CHARGE PER UNIT) SC SCH ×4 (06:00→21:02)
[2022-05-26] MEDS: MAGNESIUM 1 GM/100 ML IVPB 100 ML IV SCH ×3 (06:00→07:44)
[2022-05-26] MEDS: CATHETER FLUSH 10 ML SYR IVP SCH ×3 (06:00→22:00)
[2022-05-26] MEDS: KCL 20 MEQ TAB (K-DUR) PO SCH (06:00)
[2022-05-26] MEDS: methylPREDNISolone 125 MG (Solu-MEDROL) VIAL IVP SCH ×2 (06:24→17:20)
[2022-05-26] MEDS: ENOXAPARIN 40 MG/0.4 ML (LOVENOX) SYR SC SCH ×2 (06:28→17:20)
[2022-05-26 07:04] VITALS: BP 122/95
[2022-05-26] MEDS: polyethylene glycoL POWDER 17 GM (MIRALAX) PACK PO SCH ×2 (07:44→21:02)
[2022-05-26] MEDS: SENNA W/DOCUSATE (SENOKOT S) TABLET PO SCH ×3 (07:44→21:02)
[2022-05-26] MEDS: PANTOPRAZOLE 40 MG (PROTONIX) TAB PO SCH (08:22)
[2022-05-26] MEDS: OSELTAMIVIR 75 MG (TAMIFLU) CAPSULE PO SCH ×2 (08:22→20:57)
--- NOTE | 2022-05-26 09:04 | Diagnostic Imaging Report ---
INDICATION: Wheezing. AP view of the chest is obtained with comparison made to study of 05/24/2022 FINDINGS: There is continued cardiomegaly with volume loss in the right lung. Does appear to be right basilar infiltrate similar to previous study. No pneumothorax is identified. IMPRESSION: Atelectasis and infiltrate in the right lung base with decreased right lung volume. There is continued cardiomegaly without other evidence of acute abnormality or adverse change. Dictated by: Dictated on workstation # [id number]
[2022-05-26 09:09] LABS: ABG BASE EXCESS 11.9 MMOL/L (-2.5-2.5); ABG OXYGEN SATURATION 98 % (94-100); ABG PO2 91 MMHG (79-93)
[2022-05-26 09:11] LABS: ABG PCO2 74 MMHG (35-45); ABG PH 7.33 (7.37-7.43)
[2022-05-26 09:12] LABS: ABG TCO2 40.5 MMOL/L (21.0-31.0); INSPIRED O2 70%; PATIENT TEMP 36.4; VENTILATOR NO
--- NOTE | 2022-05-26 09:52 | Tele-ICU Progress Note ---
Progress Note video rounds completed 61 y/o male admitted with influenza and hypoxemia Now on supplemental O2 and O2 sats 99-100% Overall improved. Continue to monitor respiratory status Focused Exam Height, Weight, BMI Height: 6'0.00" Weight: 273lbs. 5.0oz. 123.020546vu; 43.22 BMI Method:Stated Labs Laboratory Tests 05/26/22 05:21 Results Results/Procedures Labs Laboratory Tests 05/25/22 05:32 05/26/22 05:21 Patient resulted labs reviewed. Results Labs Labs Laboratory Tests 05/25/22 12:20: Glucometer 152H 05/25/22 17:34: Glucometer 107 05/25/22 21:18: Glucometer 122H 05/26/22 05:21: White Blood Count 7.0, Red Blood Count 4.23L, Hemoglobin 12.7L, Hematocrit 40, Mean Corpuscular Volume 95, Mean Corpuscular Hemoglobin 30, Mean Corpuscular Hemoglobin Concent 32, Red Cell Distribution Width 12.7, Platelet Count 156, Mean Platelet Volume 12.0, Immature Granulocyte % (Auto) 0, Neutrophils (%) (Auto) 66, Lymphocytes (%) (Auto) 20, Monocytes (%) (Auto) 15H, Eosinophils (%) (Auto) 0, Basophils (%) (Auto) 0, Neutrophils # (Auto) 4.6, Lymphocytes # (Auto) 1.4, Monocytes # (Auto) 1.0, Eosinophils # (Auto) 0.0, Basophils # (Auto) 0.0, Immature Granulocyte # (Auto) 0.0, Sodium Level 140, Potassium Level 4.5, Chloride Level 98, Carbon Dioxide Level 34H, Anion Gap 8, Blood Urea Nitrogen 27H, Creatinine 0.85, Estimat Glomerular Filtration Rate 99, BUN/Creatinine Ratio 32, Glucose Level 111H, Calcium Level 10.6H, Phosphorus Level 2.0L, Magnesium Level 1.7 05/26/22 06:27: Glucometer 97 05/26/22 08:50: Blood Gas Puncture Site UNK, Blood Gas Patient Temperature 36.4, Arterial Blood pH 7.33*L, Arterial Blood Partial Pressure CO2 74*H, Arterial Blood Partial Pressure O2 91, Arterial Blood HCO3 38H, Arterial Blood Total CO2 40.5*H, Arterial Blood Oxygen Saturation 98, Arterial Blood Base Excess 11.9H, Rich Test UNK, Blood Gas Ventilator Setting NO, Blood Gas Inspired Oxygen 70% Microbiology 05/22/22 MRSA Screen - Final, Complete MRSA not isolated 05/22/22 Blood Culture - Preliminary, Resulted No growth NASH REYES MD May 26, 2022 09:52
[2022-05-26 11:03] LABS: ALBUMIN 3.1 GM/DL (3.2-4.5); BILIRUBIN,DIRECT 0.1 MG/DL (0.0-0.3); BILIRUBIN,INDIRECT 0.1 MG/DL; BILIRUBIN,TOTAL 0.2 MG/DL (0.1-1.0); TOTAL PROTEIN 5.8 GM/DL (6.4-8.2)
[2022-05-26] MEDS ORDERED: SENNA W/DOCUSATE (SENOKOT S) TABLET PO ONE (11:45)
[2022-05-26] MEDS ORDERED: LACTULOSE SYRUP 10GM/15ML (ENULOSE) 30ML UDC PO ONE (11:45)
[2022-05-26] MEDS: cefTRIAXone 1 GM PRE-MIX 50 ML IV SCH (17:19)
[2022-05-26] MEDS: MELATONIN 3 MG TABLET PO SCH (20:56)
[2022-05-26] MEDS: LACTULOSE SYRUP 10GM/15ML (ENULOSE) 30ML UDC PO SCH (21:02)
[2022-05-27] MEDS: RT-ALBUTEROL/IPRATROPIUM 3 ML (DUONEB) VIAL INH SCH ×6 (02:10→22:21)
[2022-05-27 03:17] LABS: BASOPHILS % (AUTO) 0 % (0-10); EOSINOPHILS % (AUTO) 0 % (0-10); HEMATOCRIT 40 % (40-54); HEMOGLOBIN 12.6 g/dL (13.3-17.7); LYMPHOCYTES # (AUTO) 1.4 10^3/uL (1.0-4.0); LYMPHOCYTES % (AUTO) 20 % (12-44); MEAN CORPUSCULAR HEMOGLOBIN 30 pg (25-34); MEAN CORPUSCULAR HGB CONC 31 g/dL (32-36); MEAN CORPUSCULAR VOLUME 95 fL (80-99); MEAN PLATELET VOLUME 12.1 fL (9.0-12.2); MONOCYTES # (AUTO) 0.8 10^3/uL (0.0-1.0); MONOCYTES % (AUTO) 12 % (0-12); NEUTROPHILS # (AUTO) 4.7 10^3/uL (1.8-7.8); NEUTROPHILS % (AUTO) 67 % (42-75); PLATELET COUNT 150 10^3/uL (130-400)
[2022-05-27 03:34] LABS: ALBUMIN 3.1 GM/DL (3.2-4.5); BILIRUBIN,TOTAL 0.2 MG/DL (0.1-1.0); CALCIUM 10.3 MG/DL (8.5-10.1); CREATININE SERUM 1.01 MG/DL (0.60-1.30); MAGNESIUM 1.6 MG/DL (1.6-2.4); PHOSPHORUS 1.9 MG/DL (2.3-4.7); POTASSIUM 4.5 MMOL/L (3.6-5.0); TOTAL PROTEIN 5.6 GM/DL (6.4-8.2)
[2022-05-27] MEDS: POTASSIUM CL 10MEQ/50ML IVPB 50 ML IV SCH (05:07)
[2022-05-27] MEDS: MAGNESIUM 1 GM/100 ML IVPB 100 ML IV SCH (05:08)
[2022-05-27] MEDS: KCL 20 MEQ TAB (K-DUR) PO SCH (05:08)
[2022-05-27] MEDS: inSUlin ASPART (NovoLOG) 1 UNIT/0.01 ML (CHARGE PER UNIT) SC SCH ×4 (05:08→20:47)
[2022-05-27] MEDS: methylPREDNISolone 125 MG (Solu-MEDROL) VIAL IVP SCH ×2 (05:46→18:13)
[2022-05-27] MEDS: CATHETER FLUSH 10 ML SYR IVP SCH ×3 (05:47→20:47)
[2022-05-27] MEDS: ENOXAPARIN 40 MG/0.4 ML (LOVENOX) SYR SC SCH ×2 (05:47→18:13)
--- NOTE | 2022-05-27 06:09 | Progress Note - Hospitalist ---
Subjective HPI/CC On Admission Date Seen by Provider: May 27, 2022 Time Seen by Provider: 11:00 Subjective/Events-last exam Patient doing really well No pain is reported Breathing better but still on Vapotherm at 30 L of 80% Checked meds and labs Review of Systems Pulmonary: Dyspnea, Cough Objective Exam Vital Signs Vital Signs Date Time Temp Pulse Resp B/P (MAP) Pulse Ox O2 Delivery O2 Flow Rate FiO2 05/27/22 13:00 73 05/27/22 12:00 142/84 (103) 90 Vapotherm 30.00 80.00 05/27/22 12:00 80 05/27/22 11:49 36.4 05/26/22 17:00 25 Capillary Refill : Less Than 3 Seconds General Appearance: No Apparent Distress, WD/WN, Chronically ill, Obese Respiratory: No Accessory Muscle Use, No Respiratory Distress, Decreased Breath Sounds Cardiovascular: Regular Rate, Rhythm Neurologic/Psychiatric: Alert, Oriented x3, No Motor/Sensory Deficits, Normal Mood/Affect Results/Procedures Lab Laboratory Tests 05/27/22 03:08 Patient resulted labs reviewed. Assessment/Plan Assessment and Plan Assess & Plan/Chief Complaint (1) Acute respiratory failure with hypoxia and hypercapnia Status: Acute Assessment & Plan: - Bipap, transitioning to vapotherm, Continue Tamiflu, MAT protocol (2) Influenza A Status: Acute (3) Acute on chronic renal failure Status: Acute Assessment & Plan: - Gentle hydration, monitor UOP, cantu in place Qualifiers: Qualified Codes: N17.9 - Acute kidney failure, unspecified; N18.31 - Chronic kidney disease, stage 3a (4) COPD exacerbation Status: Acute Assessment & Plan: - IV antibiotics and steroids, MAT protocol (5) Hypercalcemia Status: Acute Assessment & Plan: - Continue to monitor, upon review of chart it looks like he had mediastinal LA and bladder mass? (6) Essential (primary) hypertension Status: Chronic Plan: Vapotherm BiPAP at night Prognosis guarded Keep in ICU due to ventilator risk Critical Care Critically Ill Patient SHRUTI LUNDY DO May 27, 2022 06:09
[2022-05-27] MEDS: polyethylene glycoL POWDER 17 GM (MIRALAX) PACK PO SCH ×2 (07:42→21:00)
[2022-05-27] MEDS: LACTULOSE SYRUP 10GM/15ML (ENULOSE) 30ML UDC PO SCH ×2 (07:42→21:00)
[2022-05-27] MEDS: SENNA W/DOCUSATE (SENOKOT S) TABLET PO SCH ×4 (07:42→21:00)
[2022-05-27] MEDS: PANTOPRAZOLE 40 MG (PROTONIX) TAB PO SCH (08:05)
--- NOTE | 2022-05-27 10:39 | Tele-ICU Progress Note ---
Subjective Date Seen by a Provider: May 27, 2022 Time Seen by a Provider: 10:39 Subjective/Events-last exam (Tele-ICU Physician , Progress Note ) Service provided via interactive audio and video telecommunications E-CARE system to a patient admitted to ICU bed in [facility]. Available chart/ vitals / labs / Images reviewed Video assessment done using teleICU camera, rest of exam as per RN Discussed with RN Events overnight : Afebrile hemodynamically stable Respiratory - 30 % I/O = neg 1.5L Drips: Pressors- no Consultants: Hospital course: (05/22) 61M Admitted with Acute Respiratory Failure with hypoxia/hypercapnea and Influenza A. 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 Discussed with RN to reach out if any questions or concerns A total of 31 minutes of critical care time was devoted to this patient today, required to treat and/or prevent further deterioration of critical care condition ( as above ) . Sepsis Event Evaluation Height, Weight, BMI Height: 6'0.00" Weight: 273lbs. 5.0oz. 123.147195fl; 43.22 BMI Method:Stated Exam Exam Patient acknowledged, consented, and participated in this virtual visit which was conducted using real time audio/video Vital Signs Date Time Temp Pulse Resp B/P (MAP) Pulse Ox O2 Delivery O2 Flow Rate FiO2 05/27/22 09:00 65 156/93 (114) 93 Vapotherm 30.00 80.00 05/27/22 08:00 95 Vapotherm 30.00 80 05/27/22 08:00 72 160/112 (128) 95 Vapotherm 30.00 80.00 05/27/22 07:30 36.4 05/27/22 07:04 96 Vapotherm 30.00 80 05/27/22 07:00 68 149/90 (109) 99 Vapotherm 30.00 80.00 05/27/22 07:00 69 05/27/22 06:00 69 154/85 (108) 99 Vapotherm 30.00 80.00 05/27/22 05:00 70 128/66 (86) 97 Vapotherm 30.00 80.00 05/27/22 04:00 94 Vapotherm 30.00 80 05/27/22 04:00 70 123/61 (81) 97 Vapotherm 30.00 80.00 05/27/22 04:00 36.5 05/27/22 03:00 67 138/57 (84) 97 Vapotherm 30.00 80.00 05/27/22 02:13 Vapotherm 30.00 80.00 05/27/22 02:10 98 Vapotherm 30.00 90 05/27/22 02:00 65 134/71 (92) 99 Vapotherm 30.00 90.00 05/27/22 01:00 80 05/27/22 01:00 70 119/69 (86) 97 Vapotherm 30.00 90.00 05/27/22 00:00 94 Vapotherm 30.00 90 05/27/22 00:00 36.8 05/27/22 00:00 77 131/67 (88) 96 Vapotherm 30.00 90.00 05/26/22 23:00 74 155/77 (103) 97 Vapotherm 30.00 90.00 05/26/22 22:54 94 Vapotherm 30.00 90 05/26/22 22:00 76 134/76 (95) 93 Vapotherm 30.00 90.00 05/26/22 21:00 73 158/105 (122) 89 Vapotherm 30.00 90.00 05/26/22 20:00 36.6 Vapotherm 30.00 90.00 05/26/22 20:00 96 Vapotherm 30.00 90 05/26/22 20:00 76 124/61 (82) 91 Vapotherm 30.00 90.00 05/26/22 19:03 97 Vapotherm 30.00 100 05/26/22 19:00 Vapotherm 30.00 100.00 05/26/22 19:00 80 05/26/22 19:00 74 150/98 (115) 96 Vapotherm 30.00 100.00 05/26/22 18:00 85 161/83 (109) 97 NIV Bilevel 70.00 05/26/22 17:00 78 25 180/85 (116) NIV Bilevel 70.00 05/26/22 16:00 78 26 139/87 (104) 92 NIV Bilevel 70.00 05/26/22 16:00 96 Vapotherm 30.00 100 05/26/22 15:00 86 167/116 (133) NIV Bilevel 70.00 05/26/22 14:19 96 Vapotherm 30.00 100 05/26/22 14:00 76 23 138/100 (113) NIV Bilevel 70.00 05/26/22 13:00 70 05/26/22 13:00 75 23 169/88 (115) NIV Bilevel 70.00 05/26/22 12:00 99 Vapotherm 30.00 100 05/26/22 12:00 80 25 92/54 (67) NIV Bilevel 70.00 05/26/22 11:28 36.7 05/26/22 11:00 80 146/85 (105) 91 NIV Bilevel 70.00 05/26/22 10:53 92 Vapotherm 30.00 100 I & O 05/27/22 06:59 Intake Total 1250 ml Output Total 3525 ml Balance -2275 ml Height & Weight Height: 6'0.00" Weight: 273lbs. 5.0oz. 123.043224vg; 43.22 BMI Method:Stated General Appearance: No Apparent Distress, WD/WN, Chronically ill, Obese Respiratory: No Accessory Muscle Use, No Respiratory Distress, Decreased Breath Sounds Cardiovascular: Regular Rate, Rhythm Capillary Refill: Less Than 3 Seconds Gastrointestinal: normal bowel sounds, non tender, soft Neurologic/Psychiatric: Alert, Oriented x3, No Motor/Sensory Deficits, Normal Mood/Affect Results Lab Laboratory Tests 05/26/22 05:21 05/27/22 03:08 Assessment/Plan Assessment/Plan 1 CHALRENE ZARATE MD May 27, 2022 10:39
[2022-05-27] MEDS: MELATONIN 3 MG TABLET PO SCH (20:45)
[2022-05-28] MEDS: RT-ALBUTEROL/IPRATROPIUM 3 ML (DUONEB) VIAL INH SCH ×6 (02:27→22:03)
[2022-05-28 05:07] LABS: BASOPHILS % (AUTO) 0 % (0-10); EOSINOPHILS % (AUTO) 0 % (0-10); HEMATOCRIT 40 % (40-54); HEMOGLOBIN 12.7 g/dL (13.3-17.7); LYMPHOCYTES # (AUTO) 1.8 10^3/uL (1.0-4.0); LYMPHOCYTES % (AUTO) 21 % (12-44); MEAN CORPUSCULAR HEMOGLOBIN 30 pg (25-34); MEAN CORPUSCULAR HGB CONC 31 g/dL (32-36); MEAN CORPUSCULAR VOLUME 95 fL (80-99); MEAN PLATELET VOLUME 12.5 fL (9.0-12.2); MONOCYTES # (AUTO) 1.3 10^3/uL (0.0-1.0); MONOCYTES % (AUTO) 15 % (0-12); NEUTROPHILS # (AUTO) 5.4 10^3/uL (1.8-7.8); NEUTROPHILS % (AUTO) 63 % (42-75); PLATELET COUNT 178 10^3/uL (130-400); WHITE BLOOD COUNT 8.6 10^3/uL (4.3-11.0)
[2022-05-28 05:29] LABS: MAGNESIUM 1.7 MG/DL (1.6-2.4)
[2022-05-28 05:33] LABS: ALBUMIN 3.1 GM/DL (3.2-4.5); BILIRUBIN,TOTAL 0.2 MG/DL (0.1-1.0); CALCIUM 10.4 MG/DL (8.5-10.1); CREATININE SERUM 1.23 MG/DL (0.60-1.30); POTASSIUM 4.9 MMOL/L (3.6-5.0); TOTAL PROTEIN 5.6 GM/DL (6.4-8.2)
[2022-05-28] MEDS: POTASSIUM CL 10MEQ/50ML IVPB 50 ML IV SCH (06:03)
[2022-05-28] MEDS: KCL 20 MEQ TAB (K-DUR) PO SCH (06:03)
[2022-05-28] MEDS: inSUlin ASPART (NovoLOG) 1 UNIT/0.01 ML (CHARGE PER UNIT) SC SCH ×4 (06:03→20:58)
[2022-05-28] MEDS: MAGNESIUM 1 GM/100 ML IVPB 100 ML IV SCH (06:05)
[2022-05-28] MEDS: ENOXAPARIN 40 MG/0.4 ML (LOVENOX) SYR SC SCH ×2 (06:14→18:16)
[2022-05-28] MEDS: methylPREDNISolone 125 MG (Solu-MEDROL) VIAL IVP SCH ×2 (06:14→18:16)
[2022-05-28] MEDS: CATHETER FLUSH 10 ML SYR IVP SCH ×3 (06:14→20:58)
[2022-05-28] MEDS: PANTOPRAZOLE 40 MG (PROTONIX) TAB PO SCH (08:04)
[2022-05-28] MEDS: polyethylene glycoL POWDER 17 GM (MIRALAX) PACK PO SCH ×2 (08:05→20:57)
[2022-05-28] MEDS: LACTULOSE SYRUP 10GM/15ML (ENULOSE) 30ML UDC PO SCH ×2 (08:05→20:58)
[2022-05-28] MEDS: SENNA W/DOCUSATE (SENOKOT S) TABLET PO SCH ×4 (08:05→20:58)
--- NOTE | 2022-05-28 09:41 | Tele-ICU Progress Note ---
Subjective Date Seen by a Provider: May 28, 2022 Time Seen by a Provider: 09:39 Subjective/Events-last exam (Tele-ICU Physician , Progress Note ) Service provided via interactive audio and video telecommunications E-CARE system to a patient admitted to ICU bed in [facility]. Available chart/ vitals / labs / Images reviewed Video assessment done using teleICU camera, rest of exam as per RN Discussed with RN Events overnight : Afebrile hemodynamically stable Respiratory - 30 % I/O = neg 1.5L Drips: none Pressors- no Consultants: Hospital course: (05/22) 61M Admitted with Acute Respiratory Failure with hypoxia/hypercapnea and Influenza A. Bipap A/P Acute hypercarbis anmd hypoxix resp failure - VT 30L 70% , IMPROVING BiPAP at night - DID NOT USE - refused - steroids IV , nebs WILL TRY WEAN down more to NC TODAY Influenza A infection - tamiflu 5d- finished AECOPD - due to influenza - steroid SM 60 q 12 - to decrease as per bedside , as per RN - wheezing Possible secondary LRTI vs PNA - started on Rocephin 05/22 Chronic hypoxic resp failure - on home o2 3 L [employer] Hypercalcemia - unclear etiology, noted on 2018 labs too - still elevated corrected Ca 11 - serum PTH pending MARTHA - resolved Lines : periph , (Central Line Necessity Reviewed) Salazar: void OG: Nutrition: po Analgesia: Anxiety/ delirium VTE Prophylaxis: lovenox Stress Ulcer Prophylaxis: ppi Glycemic Control: iss - on steroids Plans in collaboration with bedside consultants and IM MDs. Discussed with RN to reach out if any questions or concerns A total of 32 minutes of critical care time was devoted to this patient today, required to treat and/or prevent further deterioration of critical care condition ( as above ) . Sepsis Event Evaluation Height, Weight, BMI Height: 6'0.00" Weight: 273lbs. 5.0oz. 123.032355zi; 40.97 BMI Method:Stated Exam Exam Patient acknowledged, consented, and participated in this virtual visit which was conducted using real time audio/video Vital Signs Date Time Temp Pulse Resp B/P (MAP) Pulse Ox O2 Delivery O2 Flow Rate FiO2 05/28/22 08:34 96 Vapotherm 30.00 70 05/28/22 08:03 36.0 Vapotherm 30.00 70.00 05/28/22 08:00 79 33 167/96 (119) 89 Vapotherm 30.00 70.00 05/28/22 07:29 78 05/28/22 07:06 95 30.00 70 05/28/22 07:02 97 Vapotherm 30.00 80 05/28/22 07:00 73 18 153/94 (113) 96 Vapotherm 30.00 80.00 05/28/22 06:00 64 18 134/65 (88) 98 Vapotherm 30.00 80.00 05/28/22 05:00 68 14 135/71 (92) 97 Vapotherm 30.00 80.00 05/28/22 04:01 36.6 05/28/22 04:00 75 19 128/51 (76) 97 Vapotherm 30.00 80.00 05/28/22 04:00 95 Vapotherm 30.00 90 05/28/22 03:00 76 23 114/66 (82) 96 Vapotherm 30.00 80.00 05/28/22 02:27 97 Vapotherm 30.00 80 05/28/22 02:00 68 23 133/65 (87) 95 Vapotherm 30.00 80.00 05/28/22 01:00 66 23 112/69 (83) 96 Vapotherm 30.00 80.00 05/28/22 01:00 70 05/28/22 00:01 95 Vapotherm 30.00 90 05/28/22 00:01 36.8 05/28/22 00:00 80 26 100/64 (76) 94 Vapotherm 30.00 80.00 05/27/22 23:00 73 23 111/57 (75) 92 Vapotherm 30.00 80.00 05/27/22 22:21 93 Vapotherm 30.00 80 05/27/22 22:00 69 23 117/58 (77) 94 Vapotherm 30.00 80.00 05/27/22 21:00 87 25 135/68 (90) Vapotherm 30.00 80.00 05/27/22 20:01 37.2 05/27/22 20:00 95 Vapotherm 30.00 90 05/27/22 20:00 72 140/66 (90) 94 Vapotherm 30.00 80.00 05/27/22 19:19 94 Vapotherm 30.00 80 05/27/22 19:00 65 21 125/101 (109) 98 Vapotherm 30.00 80.00 05/27/22 19:00 92 05/27/22 18:00 76 153/96 (115) 96 Vapotherm 30.00 80.00 05/27/22 17:00 77 156/86 (109) 95 Vapotherm 30.00 80.00 05/27/22 16:00 36.4 05/27/22 16:00 72 147/87 (107) 95 Vapotherm 30.00 80.00 05/27/22 15:19 95 Vapotherm 30.00 90 05/27/22 15:00 71 133/78 (96) 95 Vapotherm 30.00 80.00 05/27/22 14:42 92 Vapotherm 30.00 80 05/27/22 14:00 63 125/87 (100) 94 Vapotherm 30.00 80.00 05/27/22 13:00 63 125/87 (100) 94 Vapotherm 30.00 80.00 05/27/22 13:00 73 05/27/22 12:00 64 142/84 (103) 90 Vapotherm 30.00 80.00 05/27/22 12:00 95 Vapotherm 30.00 80 05/27/22 11:49 36.4 05/27/22 10:44 93 Vapotherm 30.00 80 05/27/22 10:00 68 122/95 (104) 94 Vapotherm 30.00 80.00 I & O 05/28/22 07:00 Intake Total 2075 ml Output Total 4050 ml Balance -1975 ml Height & Weight Height: 6'0.00" Weight: 273lbs. 5.0oz. 123.024226hz; 40.97 BMI Method:Stated General Appearance: No Apparent Distress, WD/WN, Chronically ill, Obese Respiratory: No Accessory Muscle Use, No Respiratory Distress, Decreased Breath Sounds Cardiovascular: Regular Rate, Rhythm Capillary Refill: Less Than 3 Seconds Gastrointestinal: normal bowel sounds, non tender, soft Neurologic/Psychiatric: Alert, Oriented x3, No Motor/Sensory Deficits, Normal Mood/Affect Results Lab Laboratory Tests 05/27/22 03:08 05/28/22 04:55 Assessment/Plan Assessment/Plan 1 SHULZHENKO,CHARLENE V MD May 28, 2022 09:41
[2022-05-28] MEDS ORDERED: cloNIDine 0.1 MG (CATAPRES) TAB PO PRN (09:45)
[2022-05-28] MEDS ORDERED: amLODIPine 5 MG (NORVASC) TAB PO NR (10:00)
--- NOTE | 2022-05-28 11:20 | Physical Therapy Evaluation ---
PT Evaluation-General Medical Diagnosis Admission Date May 22, 2022 at 14:55 Medical Diagnosis: acute respiratory failure/Influenza A Onset Date: May 22, 2022 Therapy Diagnosis Therapy Diagnosis: debility/weakness Height/Weight Height (Feet): 6 Height (Inches): 0.00 Weight (Pounds): 273 Weight (Ounces): 5.0 Precautions Precautions/Isolations: Droplet Isolation, Fall Prevention Weight Bear Status Right Lower Extremity: Right Weight Bearing/Tolerated Left Lower Extremity: Left Weight Bearing/Tolerated Referral Physician: oY Reason for Referral: Evaluation/Treatment Medical History Pertinent Medical History: COPD (2-3L dependent), HTN Current History EMS secondary to SOA, fever and cough Reviewed History: Yes Social History Home: Single Level Current Living Status: Alone Prior Prior Level of Function SCALE: Activities may be completed with or without assistive devices. 8-Dhbfacclvr-clqgfwe completes the activity by him/herself with no assistance from a helper. 5-Set-up or Clean-up Assistance-helper sets up or cleans up; patient completes activity. [place] assists only prior to or following the activity. 4-Supervision or Touching Assistance-helper provides verbal cues and/or touching/steadying and/or contact guard assistance as patient completes activity. Assistance may be provided throughout the activity or intermittently. 3-Partial/Moderate Assistance-helper does LESS THAN HALF the effort. [place] lifts, holds or supports trunk or limbs, but provides less than half the effort. 2-Substantial/Maximal Assistance-helper does MORE THAN HALF the effort. [place] lifts or holds trunk or limbs and provides more than half the effort. 3-Bkqfedgwe-eanarh does ALL the effort. Patient does none of the effort to complete the activity. Or, the assistance of 2 or more helpers is required for the patient to complete the activity. If activity was not attempted, code reason: 7-Patient Refused. 9-Not Applicable-not attempted and the patient did not perform the activity before the current illness, exacerbation or injury. 10-Not Attempted due to Environmental Limitations-(lack of equipment, weather restraints, etc.). 88-Not Attempted due to Medical Conditions or Safety Concerns. Bed Mobility: 6 Transfers (B,C,W/C): 6 Gait: 6 Stairs: 6 Indoor Mobility (Ambulation): Independent Stairs: Independent Prior Devices Use: None PT Evaluation-Current Subjective Patient agrees to PT. Objective Patient Orientation: Normal For Age Attachments: Oxygen (vapotherm 30L/60%) ROM/Strength ROM Lower Extremities bilateral LE WFL Strength Lower Extremities 4/5 grossly bilateral LE all planes Integumentary/Posture Bowel Incontinence: No Bladder Incontinence: No Posture WFL Neuromuscular (Tone, Coordination, Reflexes) grossly intact Sensory Vision: Functional Hearing: Functional Transfers Lying to Sitting/Side of Bed(Q: 6 Sit to Stand (QC): 4 Chair/Kop-tx-Hkuyr Xfer(QC): 4 Gait Mode of Locomotion: Walk Anticipated Mode of Locomotion: Walk Walk 10 feet (QC): 4 Distance: 10' Gait Assistive Device: None Comments/Gait Description limited due to vapotherm tubing Balance Sitting Static: Normal Sitting Dynamic: Normal Standing Static: Normal Standing Dynamic: Normal Assessment/Needs Patient will be seen short term by skilled PT to address functional mobility to ensure safe return to home at maximum LOF. Patient is currently limited by vapotherm tubing. SAO2 remain >90% with activity on current vapotherm settings. Rehab Potential: Guarded PT Concrete Spreader Goals Senior Care Goals PT Senior Care Goals Time Frame: Jun 09, 2022 Roll Left & Right (QC): 6 Sit to Lying (QC): 6 Lying-Sitting on Side/Bed(QC): 6 Sit to Stand (QC): 6 Chair/Rzs-tw-Cpqdt Xfer(QC): 6 Toilet Transfer (QC): 6 Walk 10 feet (QC): 6 Walk 50ft with 2 Turns (QC): 6 Walk 150 ft (QC): 6 PT Plan Problem List Problem List: Activity Tolerance Treatment/Plan Treatment Plan: Continue Plan of Care Treatment Plan: Education, Functional Activity Jason, Functional Strength, Gait, Safety, Therapeutic Exercise, Transfers Treatment Duration: Jun 09, 2022 Frequency: 6 times per week Estimated Hrs Per Day: .25 hour per day Patient and/or Family Agrees t: Yes Time Time In: 1100 Time Out: 1109 DATE: May 28, 2022 Total Billed Treatment Time: 9 Total Billed Treatment 1 visit EVMod 9 min VLAD FULLER PT May 28, 2022 11:20
--- NOTE | 2022-05-28 11:31 | Occupational Therapy Eval ---
OT Evaluation-General/PLF Medical Diagnosis Admission Date May 22, 2022 at 14:55 Medical Diagnosis: acute respiratory failure/Influenza A Onset Date: May 22, 2022 Therapy Diagnosis Therapy Diagnosis: reduced endurance Height/Weight Height (Feet): 6 Height (Inches): 0.00 Weight (Pounds): 273 Weight (Ounces): 5.0 Precautions Precautions/Isolations: Droplet Isolation (RN reports patient is out of isolation ), Fall Prevention Referral Physician: Yo Referral Reason: Evaluation/Treatment Medical History Pertinent Medical History: COPD (2-3L dependent), HTN Additional Medical History baseline 2-3L NC Current History Pt presented to hospital with increased SOB, thus requiring Bipap. He was found to have Influenza A. Pt reports he has been living in his truck until just recently when he moved into a home. He states he is indep with adls and iadls. He does not use any AD at baseline. Reviewed History: Yes Social History Home: Single Level Current Living Status: Alone ADL-Prior Level of Function SCALE: Activities may be completed with or without assistive devices. 7-Ajrfgamars-pxhggaj completes the activity by him/herself with no assistance from a helper. 5-Set-up or Clean-up Assistance-helper sets up or cleans up; patient completes activity. [place] assists only prior to or following the activity. 4-Supervision or Touching Assistance-helper provides verbal cues and/or touching/steadying and/or contact guard assistance as patient completes activity. Assistance may be provided throughout the activity or intermittently. 3-Partial/Moderate Assistance-helper does LESS THAN HALF the effort. [place] lifts, holds or supports trunk or limbs, but provides less than half the effort. 2-Substantial/Maximal Assistance-helper does MORE THAN HALF the effort. [place] lifts or holds trunk or limbs and provides more than half the effort. 1-Njuaizkrr-zsdzzu does ALL the effort. Patient does none of the effort to co mplete the activity. Or, the assistance of 2 or more helpers is required for the patient to complete the activity. If activity was not attempted, code reason: 7-Patient Refused. 9-Not Applicable-not attempted and the patient did not perform the activity before the current illness, exacerbation or injury. 10-Not Attempted due to Environmental Limitations-(lack of equipment, weather restraints, etc.). 88-Not Attempted due to Medical Conditions or Safety Concerns. Self Care: Independent Functional Cognition: Independent DME/Equipment: Shower Drive Self: Yes OT Current Status Subjective Pt denies pain, reports just finishing up taking a sponge bath. Appearance Pt left sitting in recliner, all needs within reach at OT departure. Mental Status/Objective Patient Orientation: Person, Place, Situation Attachments: IV, Oxygen (vapotherm 30L/60%), SCD's, Telemetry Current Glasses/Contacts: Yes Hand Dominance: Right Upper Extremity ROM WNL Upper Extremity Strength WFL ADL-Treatment Oral Hygiene (QC): 5 Lower Body Dressing (QC): 4 On/Off Footwear (QC): 3 Pt reclined in bed. Able to sit EOB with SBA for assistance with multiple lines/tubes. Pt currently on vapotherm 30L/60%. He was able to demonstrate ability to reach feet by bringing foot onto side of bed. Anticipate minimal assist to initiate socks over toes due to extra struggling observed. He stood with SBA x3. No unsteadiness observed however pt reports fatigue/weakness. He ambulated 2-3 feet towards chair with SBA. Further gait limited secondary to Vapotherm. Education OT Patient Education: Correct positioning, Energy conservation, Modified ADL techniques, Purpose of tx/functional activities, Safety issues, Transfer techniques Teaching Recipient: Patient Teaching Methods: Demonstration, Discussion Response to Teaching: Verbalize Understanding, Return Demonstration, Reinforcement Needed OT Long-Term Goals Long-Term Goals Time Frame: Jun 04, 2022 Toileting Hygiene (QC): 6 Shower/Bathe Self (QC): 5 Upper Body Dressing (QC): 5 Lower Body Dressing (QC): 5 On/Off Footwear (QC): 4 1=Demonstrate adherence to instructed precautions during ADL tasks. 2=Patient will verbalize/demonstrate understanding of assistive devices/modifications for ADL. 3=Patient will improve strength/tolerance for activity to enable patient to perform ADL's. OT Education/Plan Problem List/Assessment Assessment: Decreased Activ Tolerance, Impaired I ADL's, Impaired Self-Care Skills Discharge Recommendations Plan/Recommendations: Continue POC Therapy Discharge Recommendati: Home & Family (Pending progress ) Treatment Plan/Plan of Care Treatment,Training & Education: Yes Patient would benefit from OT for education, treatment and training to promote independence in ADL's, mobility, safety and/or upper extremity function for ADL's. Plan of Care: ADL Retraining, Functional Mobility, Group Exercise/Act as Ind Treatment Duration: Jun 04, 2022 Frequency: 3 times per week (3-5x/week ) Estimated Hrs Per Day: .25 hour per day Agreement: Yes Rehab Potential: Guarded Time Start Time: 10:54 Stop Time: 11:09 DATE: May 28, 2022 Total Time Billed (hr/min): 15 Billed Treatment Time 1 visit Yolis Mendosa OT May 28, 2022 11:31
--- NOTE | 2022-05-28 12:32 | Progress Note - Hospitalist ---
HEIDYGIOVANNY 05/28/22 1232: Subjective HPI/CC On Admission Date Seen by Provider: May 28, 2022 Time Seen by Provider: 09:30 Subjective/Events-last exam Patient is awake and alert in his bed this morning, no family at bedside. Patient reports that he has been feeling much better and feels well overall today. He is currently on vapotherm 30L with an FIO2 of 70% and has maintained good oxygen saturation. His BUN has increased slightly from 26 to 28, as well as his Cr from 1.01 to 1.23. ABG showed a pH of 7.33, O2 of 74, and a CO2 of 91. The patient has no new complaints and states that he feels he is improving significantly. Review of Systems General: No Chills, No Night Sweats HEENT: No Visual Changes, No Eye Pain, No Ear Pain Pulmonary: Dyspnea (Improved), Other (Wheezing b/l) Cardiovascular: No: Chest Pain, Palpitations, Orthopnea Gastrointestinal: No: Nausea, Vomiting, Abdominal Pain Genitourinary: No Dysuria, No Frequency Musculoskeletal: No: neck pain, back pain Neurological: No: Weakness, Numbness, Incoordination Objective Exam Vital Signs Vital Signs Date Time Temp Pulse Resp B/P (MAP) Pulse Ox O2 Delivery O2 Flow Rate FiO2 05/28/22 12:00 91 24 155/97 (116) 91 Vapotherm 30.00 60.00 05/28/22 11:53 60 05/28/22 11:25 36.7 Capillary Refill : Less Than 3 Seconds General Appearance: No Apparent Distress, WD/WN, Obese HEENT: PERRL/EOMI Neck: Non Tender, Supple Respiratory: Chest Non Tender, No Respiratory Distress, Wheezing (b/l) Cardiovascular: Regular Rate, Rhythm, No Murmur, Normal Peripheral Pulses Gastrointestinal: Non Tender, Soft Rectal: Deferred Back: No Vertebral Tenderness Extremity: Non Tender, No Pedal Edema Neurologic/Psychiatric: Alert, Oriented x3 Skin: Normal Color, Warm/Dry Lymphatic: No Adenopathy Results/Procedures Lab Laboratory Tests 05/28/22 04:55 Patient resulted labs reviewed. Assessment/Plan Assessment and Plan Assess & Plan/Chief Complaint Acute respiratory failure requiring oxygen Influenza A Acute on chronic renal failure COPD exacerbation HTN Hx of CVA Obesity BMI 41 Hx of tobacco use: reports quit three years ago Continue on vapotherm Finished course of tamiflu and rocephin Continue nebulizers Continue steroids Home meds for HTN Lovenox for DVT prophylaxis Counseled on benefits of weight loss Encourage oral hydration, monitor BUN/Cr KARLY LUNDY DO 05/29/22 0518: Subjective Subjective/Events-last exam Pt is doing a lot better ABG reveals chronic hypercapnia Moving to CSD unit Vapotherm at 30L at 70% Supervisory-Addendum Brief Verification & Attestation Participated in pt care: history, MDM, physical Personally performed: exam, history, MDM, supervision of care Care discussed with: Medical Student Procedures: n/a Results interpretation: Verified all documentation Verification and Attestation of Medical Student E/M Service A medical student performed and documented this service in my presence. I reviewed and verified all information documented by the medical student and made modifications to such information, when appropriate. I personally performed the physical exam and medical decision making. Karly Lundy May 29, 2022,05:17 GIOVANNY MOODY May 28, 2022 12:32 KARLY LUNDY DO May 29, 2022 05:18
[2022-05-28] MEDS: MELATONIN 3 MG TABLET PO SCH (20:57)
[2022-05-29] MEDS: RT-ALBUTEROL/IPRATROPIUM 3 ML (DUONEB) VIAL INH SCH ×6 (02:27→21:54)
[2022-05-29 05:51] LABS: EOSINOPHILS % (AUTO) 0 % (0-10); MEAN CORPUSCULAR VOLUME 95 fL (80-99)
[2022-05-29 05:53] LABS: BASOPHILS % (AUTO) 0 % (0-10); HEMATOCRIT 42 % (40-54); HEMOGLOBIN 13.2 g/dL (13.3-17.7); LYMPHOCYTES % (AUTO) 19 % (12-44); MEAN CORPUSCULAR HEMOGLOBIN 30 pg (25-34); MEAN CORPUSCULAR HGB CONC 31 g/dL (32-36); MEAN PLATELET VOLUME 13.1 fL (9.0-12.2); MONOCYTES # (AUTO) 1.4 10^3/uL (0.0-1.0); MONOCYTES % (AUTO) 12 % (0-12); NEUTROPHILS # (AUTO) 7.4 10^3/uL (1.8-7.8); NEUTROPHILS % (AUTO) 67 % (42-75); PLATELET COUNT 194 10^3/uL (130-400)
[2022-05-29] MEDS: POTASSIUM CL 10MEQ/50ML IVPB 50 ML IV SCH (06:00)
[2022-05-29 06:03] LABS: ALBUMIN 3.3 GM/DL (3.2-4.5); BILIRUBIN,TOTAL 0.3 MG/DL (0.1-1.0); CALCIUM 10.8 MG/DL (8.5-10.1); CREATININE SERUM 1.06 MG/DL (0.60-1.30); MAGNESIUM 1.8 MG/DL (1.6-2.4); POTASSIUM 4.7 MMOL/L (3.6-5.0); TOTAL PROTEIN 5.9 GM/DL (6.4-8.2)
[2022-05-29] MEDS: KCL 20 MEQ TAB (K-DUR) PO SCH (07:05)
[2022-05-29] MEDS: MAGNESIUM 1 GM/100 ML IVPB 100 ML IV SCH (07:05)
[2022-05-29] MEDS: inSUlin ASPART (NovoLOG) 1 UNIT/0.01 ML (CHARGE PER UNIT) SC SCH ×4 (07:05→21:56)
[2022-05-29] MEDS: ENOXAPARIN 40 MG/0.4 ML (LOVENOX) SYR SC SCH ×2 (07:27→17:21)
[2022-05-29] MEDS: methylPREDNISolone 125 MG (Solu-MEDROL) VIAL IVP SCH ×2 (07:27→17:21)
[2022-05-29] MEDS: CATHETER FLUSH 10 ML SYR IVP SCH ×3 (07:27→21:57)
[2022-05-29] MEDS: amLODIPine 5 MG (NORVASC) TAB PO SCH (08:00)
[2022-05-29] MEDS: PANTOPRAZOLE 40 MG (PROTONIX) TAB PO SCH (08:00)
[2022-05-29] MEDS: SENNA W/DOCUSATE (SENOKOT S) TABLET PO SCH ×4 (08:04→21:56)
[2022-05-29] MEDS: LACTULOSE SYRUP 10GM/15ML (ENULOSE) 30ML UDC PO SCH ×2 (08:04→21:56)
[2022-05-29] MEDS: polyethylene glycoL POWDER 17 GM (MIRALAX) PACK PO SCH ×2 (08:04→21:56)
--- NOTE | 2022-05-29 08:49 | Progress Note - Hospitalist ---
Subjective HPI/CC On Admission Date Seen by Provider: May 29, 2022 Time Seen by Provider: 08:30 Subjective/Events-last exam Pt is doing a lot better Lungs are improved but still coarse Still on Vapotherm at 20L and 35% Will move down to 4th floor Review of Systems Pulmonary: Dyspnea, Cough Objective Exam Vital Signs Vital Signs Date Time Temp Pulse Resp B/P (MAP) Pulse Ox O2 Delivery O2 Flow Rate FiO2 05/30/22 02:29 92 Vapotherm 20.00 40 05/29/22 23:56 36.7 05/29/22 19:47 78 15 133/79 (97) Capillary Refill : Less Than 3 Seconds General Appearance: No Apparent Distress, WD/WN, Chronically ill Respiratory: No Accessory Muscle Use, No Respiratory Distress, Decreased Breath Sounds, Rales Cardiovascular: Regular Rate, Rhythm Neurologic/Psychiatric: Alert, Oriented x3, No Motor/Sensory Deficits, Normal Mood/Affect Results/Procedures Lab Laboratory Tests 05/29/22 04:50 Patient resulted labs reviewed. Assessment/Plan Assessment and Plan Assess & Plan/Chief Complaint (1) Acute respiratory failure with hypoxia and hypercapnia Status: Acute Assessment & Plan: - Bipap, transitioning to vapotherm, Continue Tamiflu, MAT protocol (2) Influenza A Status: Acute (3) Acute on chronic renal failure Status: Acute Assessment & Plan: - Gentle hydration, monitor UOP, cantu in place Qualifiers: Qualified Codes: N17.9 - Acute kidney failure, unspecified; N18.31 - Chronic kidney disease, stage 3a (4) COPD exacerbation Status: Acute Assessment & Plan: - IV antibiotics and steroids, MAT protocol (5) Hypercalcemia Status: Acute Assessment & Plan: - Continue to monitor, upon review of chart it looks like he had mediastinal LA and bladder mass? (6) Essential (primary) hypertension Status: Chronic Plan: Vapotherm BiPAP at night Prognosis guarded 4th floor Critical Care Critically Ill Patient LUNDYSHRUTI COLE DO May 29, 2022 08:49
--- NOTE | 2022-05-29 11:23 | Physical Therapy Daily Note ---
PT Daily Note-Current Subjective Patient agrees to PT. Pain Section J - Health Conditions 1. Rarely or not at all 2. Occasionally 3. Frequently 4. Almost constantly 8. Unable to answer Pain Effect on Sleep: 1 Pain Interference with Therapy: 1 Pain Interference w/Day-to-Day: 1 Mental Status Patient Orientation: Normal For Age Attachments: Oxygen (vapotherm) Transfers SCALE: Activities may be completed with or without assistive devices. 2-Ygijycybxh-lkqkcol completes the activity by him/herself with no assistance from a helper. 5-Set-up or Clean-up Assistance-helper sets up or cleans up; patient completes activity. [place] assists only prior to or following the activity. 4-Supervision or Touching Assistance-helper provides verbal cues and/or touching/steadying and/or contact guard assistance as patient completes activity. Assistance may be provided throughout the activity or intermittently. 3-Partial/Moderate Assistance-helper does LESS THAN HALF the effort. [place] lifts, holds or supports trunk or limbs, but provides less than half the effort. 2-Substantial/Maximal Assistance-helper does MORE THAN HALF the effort. [place] lifts or holds trunk or limbs and provides more than half the effort. 7-Qafylddnu-jxyufq does ALL the effort. Patient does none of the effort to complete the activity. Or, the assistance of 2 or more helpers is required for the patient to complete the activity. If activity was not attempted, code reason: 7-Patient Refused. 9-Not Applicable-not attempted and the patient did not perform the activity before the current illness, exacerbation or injury. 10-Not Attempted due to Environmental Limitations-(lack of equipment, weather restraints, etc.). 88-Not Attempted due to Medical Conditions or Safety Concerns. Lying to Sitting/Side of Bed(Q: 6 Sit to Stand (QC): 6 Chair/Kei-hb-Crxnh Xfer(QC): 6 Weight Bearing Right Lower Extremity: Right Weight Bearing/Tolerated Left Lower Extremity: Left Weight Bearing/Tolerated Gait Training Distance: 10' x 2 Walk 10 feet (QC): 6 Gait Assistive Device: None limited by vapotherm tubing Assessment PT to continue to address pulmonary function with functional mobility to ensure patient's safe return to home. PT Chcf Goals Chcf Goals PT Kerfer Machine Operator Goals Time Frame: Jun 09, 2022 Roll Left & Right (QC): 6 Sit to Lying (QC): 6 Lying-Sitting on Side/Bed(QC): 6 Sit to Stand (QC): 6 Chair/Qpj-uc-Bkncm Xfer(QC): 6 Toilet Transfer (QC): 6 Walk 10 feet (QC): 6 Walk 50ft with 2 Turns (QC): 6 Walk 150 ft (QC): 6 PT Plan Treatment/Plan Treatment Plan: Continue Plan of Care Treatment Plan: Education, Functional Activity Jason, Functional Strength, Gait, Safety, Therapeutic Exercise, Transfers Treatment Duration: Jun 09, 2022 Frequency: 6 times per week Estimated Hrs Per Day: .25 hour per day Patient and/or Family Agrees t: Yes Time Time In: 1100 Time Out: 1111 DATE: May 29, 2022 Total Billed Treatment Time: 11 Total Billed Treatment 1 visit FA 11 min VLAD FULLER PT May 29, 2022 11:23
--- NOTE | 2022-05-29 11:50 | Occupational Ther Daily Note ---
OT Current Status-Daily Note Subjective Pt denies pain and reports feeling much better. Appearance Pt returned to sitting in recliner, all needs within reach at OT departure. Mental Status/Objective Patient Orientation: Person, Place, Situation Attachments: IV, Oxygen (Vapotherm ), Telemetry ADL-Treatment Therapy Code Descriptions/Definitions Functional [place] Measure: 0=Not Assessed/NA 4=Minimal Assistance 1=Total Assistance 5=Supervision or Setup 2=Maximal Assistance 6=Modified [place] 3=Moderate Assistance 7=Complete IndependenceSCALE: Activities may be completed with or without assistive devices. 8-Njtmtlrlfb-qafbclb completes the activity by him/herself with no assistance from a helper. 5-Set-up or Clean-up Assistance-helper sets up or cleans up; patient completes activity. [place] assists only prior to or following the activity. 4-Supervision or Touching Assistance-helper provides verbal cues and/or touching/steadying and/or contact guard assistance as patient completes activity. Assistance may be provided throughout the activity or intermittently. 3-Partial/Moderate Assistance-helper does LESS THAN HALF the effort. [place] lifts, holds or supports trunk or limbs, but provides less than half the effort. 2-Substantial/Maximal Assistance-helper does MORE THAN HALF the effort. [place] lifts or holds trunk or limbs and provides more than half the effort. 7-Nweyqkrva-ydiqun does ALL the effort. Patient does none of the effort to complete the activity. Or, the assistance of 2 or more helpers is required for the patient to complete the activity. If activity was not attempted, code reason: 7-Patient Refused. 9-Not Applicable-not attempted and the patient did not perform the activity before the current illness, exacerbation or injury. 10-Not Attempted due to Environmental Limitations-(lack of equipment, weather restraints, etc.). 88-Not Attempted due to Medical Conditions or Safety Concerns. Eating (QC): 6 Oral Hygiene (QC): 6 (per patient report) Toileting Hygiene (QC): 6 Toilet Transfer (QC): 6 Pt sitting in chair at OT arrival. Able to stand without difficulty. He stood to void, no unsteadiness exhibited. Anticipate no difficulty transferring on/off toilet. Unable to ambulate far distances secondary to Vapotherm tubing. Pt reports that he already completed oral care and a sponge bath independently this date. He declines any further OT services at this time as he reports that he is back at his baseline for self care tasks. Education OT Patient Education: Progress toward Goal/Update tx plan Teaching Recipient: Patient Teaching Methods: Discussion Response to Teaching: Verbalize Understanding, Return Demonstration OT Master Baker Goals Master Baker Goals Time Frame: Jun 04, 2022 Toileting Hygiene (QC): 6 Shower/Bathe Self (QC): 5 Upper Body Dressing (QC): 5 Lower Body Dressing (QC): 5 On/Off Footwear (QC): 4 1=Demonstrate adherence to instructed precautions during ADL tasks. 2=Patient will verbalize/demonstrate understanding of assistive devices/ modifications for ADL. 3=Patient will improve strength/tolerance for activity to enable patient to perform ADL's. OT Education/Plan Problem List/Assessment Assessment: No Skilled OT Needs ID'd Discharge Recommendations Plan/Recommendations: Discharge/Goals Met Therapy Discharge Recommendati: Home & Family Treatment Plan/Plan of Care Treatment,Training & Education: Yes Patient would benefit from OT for education, treatment and training to promote independence in ADL's, mobility, safety and/or upper extremity function for ADL's. Plan of Care: ADL Retraining, Functional Mobility, Group Exercise/Act as Ind Treatment Duration: Jun 04, 2022 Frequency: 3 times per week (3-5x/week ) Estimated Hrs Per Day: .25 hour per day Agreement: Yes Rehab Potential: Guarded Time Start Time: 11:37 Stop Time: 11:45 DATE: May 29, 2022 Total Time Billed (hr/min): 8 Billed Treatment Time 1 visit ADL Yolis Caldwell OT May 29, 2022 11:50
[2022-05-29] MEDS: MELATONIN 3 MG TABLET PO SCH (20:38)
[2022-05-30] MEDS: RT-ALBUTEROL/IPRATROPIUM 3 ML (DUONEB) VIAL INH SCH ×6 (02:29→22:25)
[2022-05-30 05:34] LABS: BASOPHILS % (AUTO) 0 % (0-10); EOSINOPHILS % (AUTO) 0 % (0-10); HEMATOCRIT 41 % (40-54); HEMOGLOBIN 13.1 g/dL (13.3-17.7); LYMPHOCYTES # (AUTO) 2.2 10^3/uL (1.0-4.0); LYMPHOCYTES % (AUTO) 16 % (12-44); MEAN CORPUSCULAR HEMOGLOBIN 30 pg (25-34); MEAN CORPUSCULAR HGB CONC 32 g/dL (32-36); MEAN CORPUSCULAR VOLUME 93 fL (80-99); MEAN PLATELET VOLUME 12.2 fL (9.0-12.2); MONOCYTES # (AUTO) 1.5 10^3/uL (0.0-1.0); MONOCYTES % (AUTO) 11 % (0-12); NEUTROPHILS # (AUTO) 9.1 10^3/uL (1.8-7.8); NEUTROPHILS % (AUTO) 69 % (42-75); PLATELET COUNT 249 10^3/uL (130-400); WHITE BLOOD COUNT 13.2 10^3/uL (4.3-11.0)
[2022-05-30 05:55] LABS: ALBUMIN 3.2 GM/DL (3.2-4.5); BILIRUBIN,TOTAL 0.3 MG/DL (0.1-1.0); CALCIUM 10.5 MG/DL (8.5-10.1); CREATININE SERUM 0.96 MG/DL (0.60-1.30); MAGNESIUM 1.9 MG/DL (1.6-2.4); POTASSIUM 4.8 MMOL/L (3.6-5.0); TOTAL PROTEIN 5.6 GM/DL (6.4-8.2)
[2022-05-30] MEDS: inSUlin ASPART (NovoLOG) 1 UNIT/0.01 ML (CHARGE PER UNIT) SC SCH ×4 (06:34→20:59)
[2022-05-30] MEDS: methylPREDNISolone 125 MG (Solu-MEDROL) VIAL IVP SCH ×2 (06:43→17:58)
[2022-05-30] MEDS: CATHETER FLUSH 10 ML SYR IVP SCH ×3 (06:44→21:24)
[2022-05-30] MEDS: ENOXAPARIN 40 MG/0.4 ML (LOVENOX) SYR SC SCH ×2 (06:44→17:58)
[2022-05-30] MEDS: amLODIPine 5 MG (NORVASC) TAB PO SCH (08:43)
[2022-05-30] MEDS: PANTOPRAZOLE 40 MG (PROTONIX) TAB PO SCH (08:43)
--- NOTE | 2022-05-30 08:43 | Physical Therapy Daily Note ---
PT Daily Note-Current Subjective Patient in recliner pre tx, agrees to PT, has no complaints of pain Pain Section J - Health Conditions 1. Rarely or not at all 2. Occasionally 3. Frequently 4. Almost constantly 8. Unable to answer Pain Effect on Sleep: 1 Pain Interference with Therapy: 1 Pain Interference w/Day-to-Day: 1 Appearance Patient in recliner post tx with nurse call, phone, tray, all needs met. Mental Status Patient Orientation: Person, Place, Situation Attachments: Oxygen (vapotherm) Transfers SCALE: Activities may be completed with or without assistive devices. 8-Wexlnxvtmi-hflrfbf completes the activity by him/herself with no assistance from a helper. 5-Set-up or Clean-up Assistance-helper sets up or cleans up; patient completes activity. [place] assists only prior to or following the activity. 4-Supervision or Touching Assistance-helper provides verbal cues and/or touching/steadying and/or contact guard assistance as patient completes activity. Assistance may be provided throughout the activity or intermittently. 3-Partial/Moderate Assistance-helper does LESS THAN HALF the effort. [place] lifts, holds or supports trunk or limbs, but provides less than half the effort. 2-Substantial/Maximal Assistance-helper does MORE THAN HALF the effort. [place] lifts or holds trunk or limbs and provides more than half the effort. 1-Kzwkywqcd-zhirua does ALL the effort. Patient does none of the effort to complete the activity. Or, the assistance of 2 or more helpers is required for the patient to complete the activity. If activity was not attempted, code reason: 7-Patient Refused. 9-Not Applicable-not attempted and the patient did not perform the activity before the current illness, exacerbation or injury. 10-Not Attempted due to Environmental Limitations-(lack of equipment, weather restraints, etc.). 88-Not Attempted due to Medical Conditions or Safety Concerns. Sit to Stand (QC): 6 Weight Bearing Right Lower Extremity: Right Weight Bearing/Tolerated Left Lower Extremity: Left Weight Bearing/Tolerated Gait Training Distance: 50' Walk 10 feet (QC): 6 Walk 50 ft with 2 Turns(QC): 6 Gait Assistive Device: None Patient only able to ambulate about 5' forward and then back for a total of about 50', O2 was 89% when done, came up to 92% quickly after sitting back down. Exercises Seated Therapy Exercises: Ankle pumps, Long arc quads Seated Reps: 20 Treatments transfers, ambulation, LE ROM Assessment Current Status: Fair Progress improving endurance PT Baseball Inspector Goals Prison Goals PT Baseball Inspector Goals Time Frame: Jun 09, 2022 Roll Left & Right (QC): 6 Sit to Lying (QC): 6 Lying-Sitting on Side/Bed(QC): 6 Sit to Stand (QC): 6 Chair/Ocm-kc-Gqzfp Xfer(QC): 6 Toilet Transfer (QC): 6 Walk 10 feet (QC): 6 Walk 50ft with 2 Turns (QC): 6 Walk 150 ft (QC): 6 PT Plan Problem List Problem List: Activity Tolerance, Functional Strength, Safety, Balance, Gait, Transfer, ROM Treatment/Plan Treatment Plan: Continue Plan of Care Treatment Plan: Education, Functional Activity Jason, Functional Strength, Gait, Safety, Therapeutic Exercise, Transfers Treatment Duration: Jun 09, 2022 Frequency: 6 times per week Estimated Hrs Per Day: .25 hour per day Patient and/or Family Agrees t: Yes Safety Risks/Education Patient Education: Gait Training, Transfer Techniques, Correct Positioning, Safety Issues Teaching Recipient: Patient Teaching Methods: Demonstration, Discussion Response to Teaching: Reinforcement Needed Time Time In: 814 Time Out: 823 DATE: May 30, 2022 Total Billed Treatment Time: 9 Total Billed Treatment 1 visit FA 9' AMRIT KNIGHT PT May 30, 2022 08:43
[2022-05-30] MEDS: LACTULOSE SYRUP 10GM/15ML (ENULOSE) 30ML UDC PO SCH ×2 (09:00→20:10)
[2022-05-30] MEDS: polyethylene glycoL POWDER 17 GM (MIRALAX) PACK PO SCH ×2 (09:00→20:10)
[2022-05-30] MEDS: SENNA W/DOCUSATE (SENOKOT S) TABLET PO SCH ×4 (09:00→20:10)
--- NOTE | 2022-05-30 09:24 | Progress Note - Hospitalist ---
Subjective HPI/CC On Admission Date Seen by Provider: May 30, 2022 Time Seen by Provider: 09:20 Subjective/Events-last exam Pt is doing a lot better Titrating down off Vapotherm Did not use BiPAP last night Overall much improved but chronically ill and very debilitated Review of Systems Pulmonary: Dyspnea Objective Exam Vital Signs Vital Signs Date Time Temp Pulse Resp B/P (MAP) Pulse Ox O2 Delivery O2 Flow Rate FiO2 05/31/22 03:15 99 High Flow N/C 9.00 05/31/22 00:50 37.1 83 18 131/60 (83) 05/30/22 09:00 30 Capillary Refill : Less Than 3 Seconds General Appearance: No Apparent Distress, WD/WN, Chronically ill Respiratory: Crackles, Decreased Breath Sounds Cardiovascular: Regular Rate, Rhythm Gastrointestinal: Normal Bowel Sounds Neurologic/Psychiatric: Alert, Oriented x3, No Motor/Sensory Deficits, Normal Mood/Affect Results/Procedures Lab Laboratory Tests 05/30/22 05:19 Patient resulted labs reviewed. Assessment/Plan Assessment and Plan Assess & Plan/Chief Complaint (1) Acute respiratory failure with hypoxia and hypercapnia Status: Acute Assessment & Plan: - Bipap, transitioning to vapotherm, Continue Tamiflu, MAT protocol (2) Influenza A Status: Acute (3) Acute on chronic renal failure Status: Acute Assessment & Plan: - Gentle hydration, monitor UOP, cantu in place Qualifiers: Qualified Codes: N17.9 - Acute kidney failure, unspecified; N18.31 - Chronic kidney disease, stage 3a (4) COPD exacerbation Status: Acute Assessment & Plan: - IV antibiotics and steroids, MAT protocol (5) Hypercalcemia Status: Acute Assessment & Plan: - Continue to monitor, upon review of chart it looks like he had mediastinal LA and bladder mass? (6) Essential (primary) hypertension Status: Chronic Plan: Vapotherm wean Prognosis guarded [facility] 4th floor Critical Care Critically Ill Patient LUNDYSHRUTI COLE May 30, 2022 09:24
[2022-05-30 16:12] VITALS: BP 155/86
[2022-05-30 19:20] VITALS: BP 140/79
[2022-05-30] MEDS: MELATONIN 3 MG TABLET PO SCH (21:23)
[2022-05-31 00:50] VITALS: BP 131/60
[2022-05-31] MEDS: RT-ALBUTEROL/IPRATROPIUM 3 ML (DUONEB) VIAL INH SCH ×4 (03:14→14:20)
[2022-05-31 04:45] VITALS: BP 142/69
[2022-05-31] MEDS: inSUlin ASPART (NovoLOG) 1 UNIT/0.01 ML (CHARGE PER UNIT) SC SCH ×3 (05:25→16:16)
[2022-05-31 05:57] LABS: BASOPHILS % (AUTO) 0 % (0-10); EOSINOPHILS % (AUTO) 0 % (0-10); HEMATOCRIT 40 % (40-54); HEMOGLOBIN 12.7 g/dL (13.3-17.7); LYMPHOCYTES # (AUTO) 1.6 10^3/uL (1.0-4.0); LYMPHOCYTES % (AUTO) 12 % (12-44); MEAN CORPUSCULAR HEMOGLOBIN 30 pg (25-34); MEAN CORPUSCULAR HGB CONC 32 g/dL (32-36); MEAN CORPUSCULAR VOLUME 94 fL (80-99); MEAN PLATELET VOLUME 12.2 fL (9.0-12.2); MONOCYTES # (AUTO) 1.9 10^3/uL (0.0-1.0); MONOCYTES % (AUTO) 14 % (0-12); NEUTROPHILS # (AUTO) 9.5 10^3/uL (1.8-7.8); NEUTROPHILS % (AUTO) 70 % (42-75); PLATELET COUNT 247 10^3/uL (130-400); WHITE BLOOD COUNT 13.6 10^3/uL (4.3-11.0)
[2022-05-31] MEDS: ENOXAPARIN 40 MG/0.4 ML (LOVENOX) SYR SC SCH (06:02)
[2022-05-31] MEDS: CATHETER FLUSH 10 ML SYR IVP SCH ×2 (06:02→14:27)
[2022-05-31] MEDS: methylPREDNISolone 125 MG (Solu-MEDROL) VIAL IVP SCH (06:02)
[2022-05-31 06:22] LABS: ALBUMIN 3.1 GM/DL (3.2-4.5); POTASSIUM 4.9 MMOL/L (3.6-5.0)
[2022-05-31 06:23] LABS: CALCIUM 10.4 MG/DL (8.5-10.1)
[2022-05-31 06:25] LABS: TOTAL PROTEIN 5.6 GM/DL (6.4-8.2)
[2022-05-31 06:26] LABS: BILIRUBIN,TOTAL 0.3 MG/DL (0.1-1.0)
[2022-05-31 06:28] LABS: CREATININE SERUM 1.01 MG/DL (0.60-1.30)
[2022-05-31 06:31] LABS: MAGNESIUM 1.9 MG/DL (1.6-2.4)
[2022-05-31 07:37] VITALS: BP 137/82
[2022-05-31] MEDS: amLODIPine 5 MG (NORVASC) TAB PO SCH (08:54)
[2022-05-31] MEDS: PANTOPRAZOLE 40 MG (PROTONIX) TAB PO SCH (08:54)
[2022-05-31] MEDS: LACTULOSE SYRUP 10GM/15ML (ENULOSE) 30ML UDC PO SCH (08:55)
[2022-05-31] MEDS: polyethylene glycoL POWDER 17 GM (MIRALAX) PACK PO SCH (08:55)
[2022-05-31] MEDS: SENNA W/DOCUSATE (SENOKOT S) TABLET PO SCH ×2 (08:55)
--- NOTE | 2022-05-31 09:28 | Physical Therapy Daily Note ---
PT Daily Note-Current Subjective Patient in bed pre tx, agrees to PT, has no complaints of pain, states he is feeling much better. Pain Section J - Health Conditions 1. Rarely or not at all 2. Occasionally 3. Frequently 4. Almost constantly 8. Unable to answer Pain Effect on Sleep: 1 Pain Interference with Therapy: 1 Pain Interference w/Day-to-Day: 1 Appearance Patient in bed post tx with nurse call, phone, tray, all needs met. Mental Status Patient Orientation: Person, Place, Situation Attachments: Oxygen Transfers SCALE: Activities may be completed with or without assistive devices. 3-Lopafupjdv-ztxzdim completes the activity by him/herself with no assistance from a helper. 5-Set-up or Clean-up Assistance-helper sets up or cleans up; patient completes activity. [place] assists only prior to or following the activity. 4-Supervision or Touching Assistance-helper provides verbal cues and/or touching/steadying and/or contact guard assistance as patient completes activity. Assistance may be provided throughout the activity or intermittently. 3-Partial/Moderate Assistance-helper does LESS THAN HALF the effort. [place] lifts, holds or supports trunk or limbs, but provides less than half the effort. 2-Substantial/Maximal Assistance-helper does MORE THAN HALF the effort. [place] lifts or holds trunk or limbs and provides more than half the effort. 4-Mmjgouwqh-wbvtnr does ALL the effort. Patient does none of the effort to complete the activity. Or, the assistance of 2 or more helpers is required for the patient to complete the activity. If activity was not attempted, code reason: 7-Patient Refused. 9-Not Applicable-not attempted and the patient did not perform the activity before the current illness, exacerbation or injury. 10-Not Attempted due to Environmental Limitations-(lack of equipment, weather restraints, etc.). 88-Not Attempted due to Medical Conditions or Safety Concerns. Roll Left & Right (QC): 6 Sit to Lying (QC): 6 Lying to Sitting/Side of Bed(Q: 6 Sit to Stand (QC): 6 Weight Bearing Right Lower Extremity: Right Weight Bearing/Tolerated Left Lower Extremity: Left Weight Bearing/Tolerated Gait Training Distance: 50' Walk 10 feet (QC): 6 Walk 50 ft with 2 Turns(QC): 6 Gait Assistive Device: None Exercises Seated Therapy Exercises: Ankle pumps, Long arc quads Seated Reps: 20 Treatments bed mobility and transfers, ambulation, LE ROM Assessment Current Status: Good Progress Patient has independent mobility now, is able to keep track of his O2 line. Recommended to patient that he ambulates about his room on his own several times a day and perform LE exercise. Will discharge patient at this time PT Care Home Goals Client Services Manager Goals PT Client Services Manager Goals Time Frame: Jun 09, 2022 Roll Left & Right (QC): 6 Sit to Lying (QC): 6 Lying-Sitting on Side/Bed(QC): 6 Sit to Stand (QC): 6 Chair/War-dn-Tzmgc Xfer(QC): 6 Toilet Transfer (QC): 6 Walk 10 feet (QC): 6 Walk 50ft with 2 Turns (QC): 6 Walk 150 ft (QC): 6 PT Plan Treatment/Plan Treatment Plan: Discontinue PT Treatment Plan: Education, Functional Activity Jason, Functional Strength, Gait, Safety, Therapeutic Exercise, Transfers Treatment Duration: Jun 09, 2022 Frequency: 6 times per week Estimated Hrs Per Day: .25 hour per day Patient and/or Family Agrees t: Yes Safety Risks/Education Patient Education: Gait Training, Transfer Techniques, Correct Positioning, Safety Issues Teaching Recipient: Patient Teaching Methods: Demonstration, Discussion Response to Teaching: Verbalize Understanding, Return Demonstration Discharge Recommendations Plan DC Time Time In: 901 Time Out: 909 DATE: May 31, 2022 Total Billed Treatment Time: 8 Total Billed Treatment 1 visit FA AMRIT GEE PT May 31, 2022 09:28
--- NOTE | 2022-05-31 09:37 | Progress Note - Hospitalist ---
Subjective HPI/CC On Admission Date Seen by Provider: May 31, 2022 Time Seen by Provider: 10:30 Objective Exam Vital Signs Vital Signs Date Time Temp Pulse Resp B/P (MAP) Pulse Ox O2 Delivery O2 Flow Rate FiO2 05/31/22 17:40 37.3 75 20 145/76 93 High Flow N/C 3.00 05/30/22 09:00 30 Capillary Refill : Less Than 3 Seconds Results/Procedures Lab Laboratory Tests 05/31/22 05:46 Patient resulted labs reviewed. Assessment/Plan Assessment and Plan Assess & Plan/Chief Complaint (1) Acute respiratory failure with hypoxia and hypercapnia Status: Acute Assessment & Plan: - Bipap, transitioning to vapotherm, Continue Tamiflu, MAT protocol (2) Influenza A Status: Acute (3) Acute on chronic renal failure Status: Acute Assessment & Plan: - Gentle hydration, monitor UOP, cantu in place Qualifiers: Qualified Codes: N17.9 - Acute kidney failure, unspecified; N18.31 - Chronic kidney disease, stage 3a (4) COPD exacerbation Status: Acute Assessment & Plan: - IV antibiotics and steroids, MAT protocol (5) Hypercalcemia Status: Acute Assessment & Plan: - Continue to monitor, upon review of chart it looks like he had mediastinal LA and bladder mass? (6) Essential (primary) hypertension Status: Chronic Plan: Vapotherm wean Prognosis guarded [facility] 4th floor Critical Care Critically Ill Patient LUNDYASUNCION COLECeline GARRETT May 31, 2022 09:37
[2022-05-31 11:14] VITALS: BP 130/69
[2022-05-31] MEDS ORDERED: PANT40TA52 PO (13:03)
[2022-05-31] MEDS ORDERED: AMLO-250 PO (13:03)
[2022-05-31] MEDS ORDERED: IPRA3AMP31 INH (13:03)
[2022-05-31] MEDS ORDERED: ACHD5005 PO (13:03)
[2022-05-31] MEDS ORDERED: PRED10TA22 PO (13:03)
--- NOTE | 2022-05-31 13:04 | Discharge Summary ---
Discharge Summary Hospital Course Was the Problem List Reviewed?: Yes Problems/Dx: (1) Acute respiratory failure with hypoxia and hypercapnia Status: Acute (2) COPD exacerbation Status: Acute (3) Acute on chronic renal failure Status: Acute Qualifiers: Qualified Codes: N17.9 - Acute kidney failure, unspecified; N18.31 - Chronic kidney disease, stage 3a (4) Influenza A Status: Acute Hospital Course Date of Admission: May 22, 2022 at 14:55 Admission Diagnosis : Family Physician/Provider: Silver Vásquez MD Date of Discharge: 05/31/22 Discharge Diagnosis: [ ] Hospital Course: Weekly Hospital course was started in the ICU after presenting with acute on chronic respiratory failure due to influenza A. Patient required BiPAP and Vapotherm. Tamiflu completed. Overall patient requiring IV steroids. Oxygen supplementation required. He was able to participate in therapy. Patient was discharged in improved condition. Labs and Pending Lab Test: Laboratory Tests 05/30/22 16:41: Glucometer 158H 05/30/22 20:50: Glucometer 131H 05/31/22 05:10: Glucometer 128H 05/31/22 05:46: White Blood Count 13.6H, Red Blood Count 4.26L, Hemoglobin 12.7L, Hematocrit 40, Mean Corpuscular Volume 94, Mean Corpuscular Hemoglobin 30, Mean Corpuscular Hemoglobin Concent 32, Red Cell Distribution Width 13.0, Platelet Count 247, Mean Platelet Volume 12.2, Immature Granulocyte % (Auto) 4, Neutrophils (%) (Auto) 70, Lymphocytes (%) (Auto) 12, Monocytes (%) (Auto) 14H, Eosinophils (%) (Auto) 0, Basophils (%) (Auto) 0, Neutrophils # (Auto) 9.5H, Lymphocytes # (Auto) 1.6, Monocytes # (Auto) 1.9H, Eosinophils # (Auto) 0.0, Basophils # (Auto) 0.0, Immature Granulocyte # (Auto) 0.6H, Sodium Level 138, Potassium Level 4.9, Chloride Level 101, Carbon Dioxide Level 30, Anion Gap 7, Blood Urea Nitrogen 30H, Creatinine 1.01, Estimat Glomerular Filtration Rate 85, BUN/Creatinine Ratio 30, Glucose Level 110H, Calcium Level 10.4H, Corrected Calcium 11.1H, Magnesium Level 1.9, Total Bilirubin 0.3, Aspartate Amino Transf (AST/SGOT) 12, Alanine Aminotransferase (ALT/SGPT) 61H, Alkaline Phosphatase 41, Total Protein 5.6L, Albumin 3.1L 05/31/22 11:13: Glucometer 129H Microbiology 05/22/22 MRSA Screen - Final, Complete MRSA not isolated 05/22/22 Blood Culture - Final, Complete No growth Home Meds Active Prednisone 10 Mg Tab.ds.pk 10 Mg PO DAILY Take 6 tabs(60mg)daily,decrease by 1 tab(10mg)every other day. Pantoprazole Sodium 40 Mg Tablet.dr 40 Mg PO DAILY Amlodipine Besylate 5 Mg Tablet 5 Mg PO DAILY Iprat-Albut 0.5-3(2.5) mg/3 ml (Ipratropium/Albuterol Sulfate) 0.5 Mg-3 Mg (2.5 Mg Base)/3 Ml Ampul.neb 3 Ml INH RTQ4HR Assessment/Pt Instructions PCP in 1 week Discharge Planning: <30 minutes discharge planning Discharge Instructions Discharge Diet: No Restrictions Discharge Physical Examination Vital Signs Vital Signs Date Time Temp Pulse Resp B/P (MAP) Pulse Ox O2 Delivery O2 Flow Rate FiO2 05/31/22 11:14 37.3 90 18 130/69 (89) 92 High Flow N/C 6.00 05/30/22 09:00 30 General Appearance: No Apparent Distress, WD/WN, Chronically ill, Obese Respiratory: No Accessory Muscle Use, No Respiratory Distress, Decreased Breath Sounds Cardiovascular: Regular Rate, Rhythm Neurologic/Psychiatric: Alert, Oriented x3, No Motor/Sensory Deficits, Normal Mood/Affect Allergies: Coded Allergies: Penicillins (Verified Allergy, Severe, ANAPHYLAXIS, 06/03/18) SWELLING ALL OVER sulfamethoxazole (Unverified Adverse Reaction, Unknown, 07/16/18) trimethoprim (Unverified Adverse Reaction, Unknown, 07/16/18) Uncoded Allergies: SOMETHING FOR COLDS (Allergy, Mild, 03/26/14) Discharge Summary Date of Admission May 22, 2022 at 14:55 Date of Discharge Discharge Date: May 31, 2022 Discharge Diagnosis (1) Acute respiratory failure with hypoxia and hypercapnia Status: Acute Assessment & Plan: - Bipap, transitioning to vapotherm, Continue Tamiflu, MAT protocol (2) Influenza A Status: Acute (3) Acute on chronic renal failure Status: Acute Assessment & Plan: - Gentle hydration, monitor UOP, cantu in place Qualifiers: Qualified Codes: N17.9 - Acute kidney failure, unspecified; N18.31 - Chronic kidney disease, stage 3a (4) COPD exacerbation Status: Acute Assessment & Plan: - IV antibiotics and steroids, MAT protocol (5) Hypercalcemia Status: Acute Assessment & Plan: - Continue to monitor, upon review of chart it looks like he had mediastinal LA and bladder mass? (6) Essential (primary) hypertension Status: Chronic Plan: Vapotherm wean Prognosis guarded [facility] 4th floor SHRUTI LUNDY DO May 31, 2022 13:04
[2022-05-31 16:08] VITALS: BP 145/76
[2022-05-31 17:40] VITALS: BP 145/76
[2022-06-01] MEDS ORDERED: ENOXAPARIN 40 MG/0.4 ML (LOVENOX) SYR SC SCH (06:00)
== END 2022-05-31 17:40 | disposition home or self-care (01) | DRG 193 ==
LOC: EDUNIT# 13:16 → ER 13:17 → ICU 14:55 → 4TH 05-30 16:25
PROVIDERS: ADMIT Family Medicine; ATTEND Internal Medicine
PROC: 5A09357 Assistance with Respiratory Ventilation, Less than 24 Consecutive Hours, Continuous Positive Airway Pressure (ICD-10-PCS; principal; 2022-05-22)
PROC: 5A0935A Assistance with Respiratory Ventilation, Less than 24 Consecutive Hours, High Flow/Velocity Cannula (ICD-10-PCS; 2022-05-22)
DX: J10.1 Influenza due to other identified influenza virus with other respiratory manifestations (principal); J96.21 Acute and chronic respiratory failure with hypoxia; J96.22 Acute and chronic respiratory failure with hypercapnia; J44.1 Chronic obstructive pulmonary disease with (acute) exacerbation; N17.9 Acute kidney failure, unspecified; Z68.41 Body mass index [BMI] 40.0-44.9, adult; E83.52 Hypercalcemia; I12.9 Hypertensive chronic kidney disease with stage 1 through stage 4 chronic kidney disease, or unspecified chronic kidney disease; N18.31 Chronic kidney disease, stage 3a; Z86.73 Personal history of transient ischemic attack (TIA), and cerebral infarction without residual deficits; E66.9 Obesity, unspecified; Z87.891 Personal history of nicotine dependence; Z20.822 Contact with and (suspected) exposure to COVID-19
CPT/HCPCS: 36415; 71045; 80048; 80053; 80076; 82805; 82947; 83605; 83735; 83880; 83970; 84100; 84484; 85025; 87040; 87077; 87081; 87636; 93041; 94640; 94660; 94664; 94761; 96374; 96375

== ENCOUNTER 2022-07-06 19:34 | Inpatient (IN) | payer MEDICARE, MEDICAID ==
[~2022-07-06] VITALS: Ht 180.3 cm; Wt 138.6 kg
[~2022-07-06 19:34] MED LIST changes: +ACHD5005 PO; +IPRA3AMP31 INH; +PANT40TA52 PO; +PRED10TA22 PO
[2022-07-06 19:53] LABS: ABG BASE EXCESS 15.5 MMOL/L (-2.5-2.5); ABG OXYGEN SATURATION 94 % (94-100); ABG PO2 70 MMHG (79-93)
--- NOTE | 2022-07-06 19:53 | ED General ---
General Stated Complaint: WEAKNESS Source of Information: Patient Exam Limitations: No Limitations History of Present Illness Date Seen by Provider: Jul 06, 2022 Time Seen by Provider: 19:49 Initial Comments To ER by [facility] from home where he stays by himself with c/o confusion and increased falls x1 week. EMS was summoned after EMS arrived at his house to check on him. He states he was hearing voices and was aware they were hallucinations and not real off and on over the course of the past week. Was admitted here in May 2022 for influenza A and hypoxia on Bipap for a few days. PCP Dr Dimas. Hx lung mass and bladder cancer--sister states last treatment of intravesicular chemotherapy was 1-1.5 years ago and she doesnt think he's follow up since then. Timing/Duration: 1 Week Severity: Moderate Associated Systoms: Cough Allergies and Home Medications Allergies Coded Allergies: Penicillins (Verified Allergy, Severe, ANAPHYLAXIS, 06/03/18) SWELLING ALL OVER sulfamethoxazole (Unverified Adverse Reaction, Unknown, 07/16/18) trimethoprim (Unverified Adverse Reaction, Unknown, 07/16/18) Uncoded Allergies: SOMETHING FOR COLDS (Allergy, Mild, 03/26/14) Patient Home Medication List Home Medication List Reviewed: Yes Amlodipine Besylate (Amlodipine Besylate) 5 Mg Tablet, 5 MG PO DAILY Prescribed by: SHRUTI LUNDY on 05/31/22 1303 Hydrocodone Bit/Acetaminophen (HYDROcodone/APAP 5 MG/325 MG TAB) 1 Tab Tab, 1 EA PO Q4H PRN for PAIN-MODERATE (5-7) Prescribed by: SHRUTI LUNDY on 05/31/22 1303 Ipratropium/Albuterol Sulfate (Iprat-Albut 0.5-3(2.5) mg/3 ml) 0.5 Mg-3 Mg (2.5 Mg Base)/3 Ml Ampul.neb, 3 ML INH RTQ4HR Prescribed by: SHRUTI LUNDY on 05/31/22 1303 Pantoprazole Sodium (Pantoprazole Sodium) 40 Mg Tablet.dr, 40 MG PO DAILY Prescribed by: SHRUIT LUNDY on 05/31/22 1303 Prednisone (Prednisone) 10 Mg Tab.ds.pk, 10 MG PO DAILY Prescribed by: SHRUTI LUNDY on 05/31/22 1303 Review of Systems Review of Systems Constitutional: see HPI EENTM: see HPI Respiratory: see HPI, cough Cardiovascular: no symptoms reported Genitourinary: no symptoms reported Musculoskeletal: no symptoms reported Skin: no symptoms reported Psychiatric/Neurological: No Symptoms Reported Immunological/Allergic: no symptoms reported Past Enzzgdy-Bpmwne-Pdxvhc Hx Immunizations Up To Date Tetanus Booster (TDap): Unknown PED Vaccines UTD: Yes Past Medical History Surgery/Hospitalization HX: COPD Surgeries: Yes (HERNIA) Abdominal Respiratory: Yes (tobaccoism) Currently Using CPAP: No Currently Using BIPAP: No Cardiac: No Hypertension Neurological: Yes (STATES HAD STROKE 3 YEARS AGO) Stroke Genitourinary: No Gastrointestinal: No Musculoskeletal: No Endocrine: No HEENT: No Cancer: No Psychosocial: No Integumentary: No Blood Disorders: No Family Medical History Patient reports no known family medical history. Heart Disease, Cancer, CAD Under 55 Years Old Physical Exam Vital Signs Vital Signs - First Documented 07/06/22 19:35 Temp 37.6 Pulse 92 Resp 20 B/P (MAP) 197/71 (113) Pulse Ox 81 O2 Delivery Nasal Cannula O2 Flow Rate 4.00 Capillary Refill : Height, Weight, BMI Height: 6'0.00" Weight: 273lbs. 5.0oz. 123.735492iy; 40.97 BMI Method:Stated General Appearance: No Apparent Distress, Chronically ill, Obese, Other (unkempt, malodorous) Eyes: Bilateral Eye Normal Inspection, Bilateral Eye PERRL, Bilateral Eye EOMI Neck: Full Range of Motion, Normal Inspection Respiratory: No Accessory Muscle Use, No Respiratory Distress, Decreased Breath Sounds Cardiovascular: Regular Rate, Rhythm, Normal Peripheral Pulses Gastrointestinal: Normal Bowel Sounds, Non Tender, Soft Extremity: Normal Capillary Refill, Normal Inspection Neurologic/Psychiatric: Alert, Oriented x3 Skin: Normal Color, Warm/Dry Focused Exam Lactate Level 07/06/22 19:44: Lactic Acid Level 0.72 Lactic Acid Level Laboratory Tests Test 07/06/22 19:44 Lactic Acid Level 0.72 MMOL/L (0.50-2.00) Progress/Results/Core Measures Suspected Sepsis SIRS Temperature: Pulse: Respiratory Rate: Laboratory Tests 07/06/22 19:44: White Blood Count 10.1 Blood Pressure / Mean: 07/06/22 19:44: Lactic Acid Level 0.72 Laboratory Tests 07/06/22 19:44: Creatinine 1.16, INR Comment 0.9, Platelet Count 184, Total Bilirubin 0.4 Results/Orders Lab Results Laboratory Tests Test 07/06/22 19:44 07/06/22 19:45 Range/Units White Blood Count 10.1 4.3-11.0 10^3/uL Red Blood Count 4.46 4.30-5.52 10^6/uL Hemoglobin 13.4 13.3-17.7 g/dL Hematocrit 45 40-54 % Mean Corpuscular Volume 100 H 80-99 fL Mean Corpuscular Hemoglobin 30 25-34 pg Mean Corpuscular Hemoglobin Concent 30 L 32-36 g/dL Red Cell Distribution Width 13.2 10.0-14.5 % Platelet Count 184 130-400 10^3/uL Mean Platelet Volume 10.1 9.0-12.2 fL Immature Granulocyte % (Auto) 1 % Neutrophils (%) (Auto) 75 42-75 % Lymphocytes (%) (Auto) 10 L 12-44 % Monocytes (%) (Auto) 14 H 0-12 % Eosinophils (%) (Auto) 0 0-10 % Basophils (%) (Auto) 0 0-10 % Neutrophils # (Auto) 7.5 1.8-7.8 10^3/uL Lymphocytes # (Auto) 1.0 1.0-4.0 10^3/uL Monocytes # (Auto) 1.4 H 0.0-1.0 10^3/uL Eosinophils # (Auto) 0.0 0.0-0.3 10^3/uL Basophils # (Auto) 0.0 0.0-0.1 10^3/uL Immature Granulocyte # (Auto) 0.1 0.0-0.1 10^3/uL Prothrombin Time 12.9 12.2-14.7 SEC INR Comment 0.9 0.8-1.4 Blood Gas Puncture Site R RAD Blood Gas Patient Temperature 99.7 Arterial Blood pH 7.26 *L 7.37-7.43 Arterial Blood Partial Pressure CO2 101 *H 35-45 MMHG Arterial Blood Partial Pressure O2 70 L 79-93 MMHG Arterial Blood HCO3 43 *H 23-27 MMOL/L Arterial Blood Total CO2 45.9 *H 21.0-31.0 MMOL/L Arterial Blood Oxygen Saturation 94 94-100 % Arterial Blood Base Excess 15.5 H -2.5-2.5 MMOL/L Rich Test YES-POS Blood Gas Ventilator Setting NO Blood Gas Inspired Oxygen 4L Sodium Level 145 135-145 MMOL/L Potassium Level 4.4 3.6-5.0 MMOL/L Chloride Level 99 98-107 MMOL/L Carbon Dioxide Level 38 H 21-32 MMOL/L Anion Gap 8 5-14 MMOL/L Blood Urea Nitrogen 19 H 7-18 MG/DL Creatinine 1.16 0.60-1.30 MG/DL Estimat Glomerular Filtration Rate 72 BUN/Creatinine Ratio 16 Glucose Level 105 70-105 MG/DL Lactic Acid Level 0.72 0.50-2.00 MMOL/L Calcium Level 9.8 8.5-10.1 MG/DL Corrected Calcium 9.9 8.5-10.1 MG/DL Magnesium Level 1.7 1.6-2.4 MG/DL Total Bilirubin 0.4 0.1-1.0 MG/DL Aspartate Amino Transf (AST/SGOT) 25 5-34 U/L Alanine Aminotransferase (ALT/SGPT) 42 0-55 U/L Alkaline Phosphatase 62 40-136 U/L B-Type Natriuretic Peptide 108.7 H <100.0 PG/ML Total Protein 7.1 6.4-8.2 GM/DL Albumin 3.9 3.2-4.5 GM/DL Thyroid Stimulating Hormone (TSH) 1.40 0.35-4.94 UIU/ML Free Thyroxine 0.86 0.70-1.48 NG/DL Serum Alcohol < 10 <10 MG/DL Glucometer 99 70-110 MG/DL My Orders Orders - MADELAINE BROWN APRN Cbc With Automated Diff (07/06/22 19:47) Comprehensive Metabolic Panel (07/06/22 19:47) Blood Culture (07/06/22 19:47) Lactic Acid Analyzer (07/06/22 19:47) Arterial Blood Gas (07/06/22 19:47) Chest 1 View, Ap/Pa Only (07/06/22 19:47) Ct Head Wo (07/06/22 19:47) Ed Iv/Invasive Line Start (07/06/22 19:47) Protime With Inr (07/06/22 19:47) Ua Culture If Indicated (07/06/22 19:47) Drug Screen Stat (Urine) (07/06/22 19:47) Alcohol (07/06/22 19:47) Accucheck Stat ONCE (07/06/22 19:54) Magnesium (07/06/22 19:55) Thyroid Stimulating Hormone (07/06/22 19:55) Free T4 (Free Thyroxine) (07/06/22 19:55) Ekg Tracing (07/06/22 19:55) Bnp [place] (07/06/22 19:55) Methylprednisolone Sod Succ (Solu-Medrol (07/06/22 20:45) Albuterol/Ipra Inhalation Soln (Duoneb I (07/06/22 20:45) Bipap (Bilevel) Set Up (07/06/22 20:36) Vital Signs/I&O 07/06/22 07/06/22 19:35 19:35 Temp 37.6 Pulse 92 Resp 20 B/P (MAP) 197/71 (113) Pulse Ox 81 O2 Delivery Nasal Cannula O2 Flow Rate 4.00 Capillary Refill : Departure Communication (Admissions) Family Conversation NAME: JACOB JONES [facility] REC#: [id number] PT STATUS: REG ER : 1960 PHYSICIAN: MADELAINE BROWN APRN ADMIT DATE: 07/06/22/ER Draft Date of Exam:07/06/22 CHEST 1 VIEW, AP/PA ONLY EXAMINATION: Chest radiograph, portable AP view. DATE: 07/06/2022 8:06 PM INDICATION: 61-year-old male, altered mental status, weakness. COMPARISON: May 26, 2022. FINDINGS: There is redemonstrated cardiomegaly. Heart size and mediastinal contours appear unchanged since comparison study. There is no identified pneumothorax. There is right mid and lower lung zone consolidation with probable right pleural effusion. IMPRESSION: 1. Right mid and lower lung zone consolidation with probable right pleural effusion which appears largely similar to the prior study. 2. Redemonstrated cardiomegaly. Dictated on workstation # [id number] Dict: 07/06/222006 Trans: 07/06/222008 PJE [id number] Interpreted by: CHARLES BURGESS MD Electronically signed by: NAME: JACOB JONES MED REC#: [id number] PT STATUS: REG ER : 1960 PHYSICIAN: MADELAINE BROWN APRN ADMIT DATE: 07/06/22/ER Draft Date of Exam:07/06/22 CT HEAD WO Procedure: CT head without contrast. Technique: Multiple contiguous axial images were obtained through the brain without the use of intravenous contrast. Auto Exposure Controls were utilized during the CT exam to meet ALARA standards for radiation dose reduction. Date: July 06, 2022. Indication: 61-year-old male, altered mental status and weakness. Comparison: CT head March 26, 2014. Findings: There is opacification in the right mastoid air cells and right middle ear. The left mastoid air cells and middle ear are well-aerated. There is mucosal thickening of the paranasal sinuses without air-fluid level. There is no identified skull fracture. There is high attenuation layering in the right lateral ventricle. There is no hydrocephalus. There is no clearly identified area of acute intraparenchymal hemorrhage. There is no otherwise identified site of intraventricular abnormal high attenuation. This is also present on the prior CT head exam on March 26, 2014 and appears unchanged. There is no mass effect or midline shift. Impression: 1. Increased attenuation in the right lateral ventricle without identified site of acute intracranial hemorrhage. This is unchanged since at least March 26, 2014. Further evaluation with MRI brain without and with intravenous contrast is recommended. 2. No identified interval acute intracranial abnormality. Dictated on workstation # [id number] Dict: 07/06/222011 Trans: 07/06/222022 [facility] [id number] Interpreted by: CHARLES BURGESS MD Electronically signed by: MDM: On arrival alert and oriented. SpO2 95% on 2L O2 per ems but dropped quickly to 81% on room air. Diminished air movement with faint wheeze left lung. SpO2 mauro once supplemental O2 was applied. Hx COPD. labs and chest xray reviewed blood cultures and lactic acid obtained. No fevers or leukocytosis. Started on Bipap 14/6 40% FiO2 with resultant SpO2 up to 92%. Will admit to ICU Dr Clancy on solumedrol and MAT protocol. I spoke wiht his sister who is a much better historian than Jacob. She'll call back in the morning. He does wear O2 at home which is supposed to be at 2L per NC at home but sister states he normally wears it at 4L. Impression Primary Impression: COPD exacerbation Additional Impression: Acute respiratory failure with hypoxia and hypercarbia Disposition: ADMITTED INPATIENT Condition: Stable Admissions Decision to Admit Reason: Admit from ER (General) Decision to Admit/Date: Jul 06, 2022 Time/Decision to Admit Time: 20:38 Departure-Patient Inst. Referrals: JACOB DIMAS MD (PCP/Family) Primary Care Physician MADELAINE BROWN APRN Jul 06, 2022 19:53
[2022-07-06 19:54] LABS: BASOPHILS % (AUTO) 0 % (0-10); EOSINOPHILS % (AUTO) 0 % (0-10); HEMATOCRIT 45 % (40-54); HEMOGLOBIN 13.4 g/dL (13.3-17.7); LYMPHOCYTES % (AUTO) 10 % (12-44); MEAN CORPUSCULAR HEMOGLOBIN 30 pg (25-34); MEAN CORPUSCULAR HGB CONC 30 g/dL (32-36); MEAN CORPUSCULAR VOLUME 100 fL (80-99); MEAN PLATELET VOLUME 10.1 fL (9.0-12.2); MONOCYTES # (AUTO) 1.4 10^3/uL (0.0-1.0); MONOCYTES % (AUTO) 14 % (0-12); NEUTROPHILS # (AUTO) 7.5 10^3/uL (1.8-7.8); NEUTROPHILS % (AUTO) 75 % (42-75); PLATELET COUNT 184 10^3/uL (130-400); WHITE BLOOD COUNT 10.1 10^3/uL (4.3-11.0)
[2022-07-06 19:59] LABS: ALLENS TEST YES-POS; VENTILATOR NO
[2022-07-06 20:00] LABS: ABG PCO2 101 MMHG (35-45); ABG PH 7.26 (7.37-7.43); ABG TCO2 45.9 MMOL/L (21.0-31.0); INSPIRED O2 4L; PATIENT TEMP 99.7
[2022-07-06 20:05] LABS: INR 0.9 (0.8-1.4); PROTHROMBIN TIME PATIENT 12.9 SEC (12.2-14.7)
[2022-07-06 20:06] LABS: ALBUMIN 3.9 GM/DL (3.2-4.5); CHLORIDE 99 MMOL/L (98-107); POTASSIUM 4.4 MMOL/L (3.6-5.0); SODIUM 145 MMOL/L (135-145)
[2022-07-06 20:08] LABS: CALCIUM 9.8 MG/DL (8.5-10.1)
[2022-07-06 20:09] LABS: GLUCOSE 105 MG/DL (70-105); TOTAL PROTEIN 7.1 GM/DL (6.4-8.2)
--- NOTE | 2022-07-06 20:09 | Diagnostic Imaging Report ---
EXAMINATION: Chest radiograph, portable AP view. DATE: 07/06/2022 8:06 PM INDICATION: 61-year-old male, altered mental status, weakness. COMPARISON: May 26, 2022. FINDINGS: There is redemonstrated cardiomegaly. Heart size and mediastinal contours appear unchanged since comparison study. There is no identified pneumothorax. There is right mid and lower lung zone consolidation with probable right pleural effusion. IMPRESSION: 1. Right mid and lower lung zone consolidation with probable right pleural effusion which appears largely similar to the prior study. 2. Redemonstrated cardiomegaly. Dictated by: Dictated on workstation # [id number]
[2022-07-06 20:10] LABS: CARBON DIOXIDE 38 MMOL/L (21-32)
[2022-07-06 20:11] LABS: BILIRUBIN,TOTAL 0.4 MG/DL (0.1-1.0)
[2022-07-06 20:12] LABS: ALKALINE PHOSPHATASE 62 U/L (40-136)
[2022-07-06 20:13] LABS: CREATININE SERUM 1.16 MG/DL (0.60-1.30); GFR ESTIMATED 72
[2022-07-06 20:14] LABS: BUN/CREATININE RATIO 16
[2022-07-06 20:16] LABS: ALANINE AMINOTRANSFERASE 42 U/L (0-55); MAGNESIUM 1.7 MG/DL (1.6-2.4)
--- NOTE | 2022-07-06 20:24 | Diagnostic Imaging Report ---
Procedure: CT head without contrast. Technique: Multiple contiguous axial images were obtained through the brain without the use of intravenous contrast. Auto Exposure Controls were utilized during the CT exam to meet ALARA standards for radiation dose reduction. Date: July 06, 2022. Indication: 61-year-old male, altered mental status and weakness. Comparison: CT head March 26, 2014. Findings: There is opacification in the right mastoid air cells and right middle ear. The left mastoid air cells and middle ear are well-aerated. There is mucosal thickening of the paranasal sinuses without air-fluid level. There is no identified skull fracture. There is high attenuation layering in the right lateral ventricle. There is no hydrocephalus. There is no clearly identified area of acute intraparenchymal hemorrhage. There is no otherwise identified site of intraventricular abnormal high attenuation. This is also present on the prior CT head exam on March 26, 2014 and appears unchanged. There is no mass effect or midline shift. Impression: 1. Increased attenuation in the right lateral ventricle without identified site of acute intracranial hemorrhage. This is unchanged since at least March 26, 2014. Further evaluation with MRI brain without and with intravenous contrast is recommended. 2. No identified interval acute intracranial abnormality. Dictated by: Dictated on workstation # [id number]
[2022-07-06 20:37] LABS: FREE T4 (FREE THYROXINE) 0.86 NG/DL (0.70-1.48)
[2022-07-06] MEDS ORDERED: methylPREDNISolone 125 MG (Solu-MEDROL) VIAL IVP ONE (20:45)
[2022-07-06] MEDS ORDERED: RT-ALBUTEROL/IPRATROPIUM 3 ML (DUONEB) VIAL INH ONE (20:45)
[2022-07-06] MEDS: LACTATED RINGERS 1,000 ML IV SCH (22:05)
[2022-07-06 22:13] LABS: ABG BASE EXCESS 13.3 MMOL/L (-2.5-2.5); ABG OXYGEN SATURATION 98 % (94-100); ABG PO2 90 MMHG (79-93)
[2022-07-06 22:19] LABS: ALLENS TEST YES-POS; INSPIRED O2 40%; VENTILATOR NO
[2022-07-06 22:20] LABS: PATIENT TEMP 98.2
[2022-07-06 22:22] LABS: ABG PCO2 91 MMHG (35-45); ABG PH 7.27 (7.37-7.43); ABG TCO2 43.3 MMOL/L (21.0-31.0)
[2022-07-07] MEDS ORDERED: MAGNESIUM 1 GM/100 ML IVPB 100 ML IV ONE (00:15)
[2022-07-07] MEDS ORDERED: RT-ALBUTEROL/IPRATROPIUM 3 ML (DUONEB) VIAL INH SCH (00:15)
[2022-07-07] MEDS ORDERED: PANTOPRAZOLE 40 MG (PROTONIX) VIAL IV ONE (00:45)
--- NOTE | 2022-07-07 01:21 | Tele-ICU Progress Note ---
Progress Note eICU 61 yo man admitted through ED with hypercarbic respiratory failure. He is known to be a patient with COPD on chronic home O2 at 2 lpm and chronic steroids and pantoprazole daily. There is a history of previous biopsy for abnormalities in the R lung- which were lymphocytes, no other information is available in the charting. Last hospitalization was in May 2022 with RML and RLL infiltrates and Flu + . Has had increasing shortness of breath for past 1 week, with generalized weakness and associated smptoms of feeling like he was hearing voices and sense of confusion. On arrival to ED labs showed hypercarbic respiratory failure, was placed on BiPAP 14/6 40% rate 12- and CXR obtained which showed basically the same xray findings RML, RLL as May 2022. I requested COVID, Flu and RSV repeat which was done in the ICU and COVID is now +. Pt sats 92% HR 88 sinus, BP 156/83, pt appears comfortable. Labs: CBC - wbcs 10,100 P 75 L 10 [place] 14 Hgb 13.4 Plts 184,000 Na 145 K 4.4 Cl 99 Bicarb 38 Mg 1.7 Lactate 0.72 INR 0.9 EKG sinus without ischemic or injury pattern. CXR RML, RLL infiltrates ? if lar marilee than 05/24- Initial BiPAP settings showed he had a RR 30s and TV 350 - with no significant change in 2nd set of ABGs, despite having received Solumedrol and duoneb. A: Hypercarbic respiratory Failure (acute on chronic respiratory acidosis, COPD) Pneumonia, COVID + , P: Change BiPAP - increase RR to 16, IPAP to 18 , continue already ordered Solumedrol (takes chronic prednisone) and Duonebs q. 6 hours Add lovenox, Pantoprazole (takes chronically), replace magnesium, add Remdesivir for + COVID, add Sputum culture and add procalcitonin (though now does not appear to bacterial infection also) Focused Exam Lactate Level 07/06/22 19:44: Lactic Acid Level 0.72 Height, Weight, BMI Height: 6'0.00" Weight: 273lbs. 5.0oz. 123.864523cz; 41.06 BMI Method:Stated KASEY STERN DO Jul 07, 2022 01:21
[2022-07-07] MEDS ORDERED: REMDESIVIR INJ 200 MG in NS (IVPB) 210 ML IV ONE ×2 (02:00→09:45)
[2022-07-07] MEDS ORDERED: RT-ALBUTEROL HFA 8.5 GM INHALER IH SCH (02:00)
[2022-07-07 02:51] VITALS: BP 164/89
[2022-07-07 03:05] LABS: ABG BASE EXCESS 13.4 MMOL/L (-2.5-2.5); ABG OXYGEN SATURATION 90 % (94-100); ABG PO2 55 MMHG (79-93)
[2022-07-07 03:10] LABS: ABG PCO2 94 MMHG (35-45); ABG PH 7.26 (7.37-7.43); ABG TCO2 43.9 MMOL/L (21.0-31.0); ALLENS TEST YES-POS; INSPIRED O2 40%
[2022-07-07 03:11] LABS: PATIENT TEMP 36.2; VENTILATOR NO
[2022-07-07 05:18] LABS: BASOPHILS % (AUTO) 0 % (0-10); EOSINOPHILS % (AUTO) 0 % (0-10); HEMATOCRIT 41 % (40-54); HEMOGLOBIN 12.4 g/dL (13.3-17.7); LYMPHOCYTES # (AUTO) 0.5 10^3/uL (1.0-4.0); LYMPHOCYTES % (AUTO) 6 % (12-44); MEAN CORPUSCULAR HEMOGLOBIN 30 pg (25-34); MEAN CORPUSCULAR HGB CONC 30 g/dL (32-36); MEAN CORPUSCULAR VOLUME 100 fL (80-99); MEAN PLATELET VOLUME 10.9 fL (9.0-12.2); MONOCYTES # (AUTO) 0.3 10^3/uL (0.0-1.0); MONOCYTES % (AUTO) 3 % (0-12); NEUTROPHILS % (AUTO) 91 % (42-75); PLATELET COUNT 169 10^3/uL (130-400); WHITE BLOOD COUNT 7.7 10^3/uL (4.3-11.0)
[2022-07-07 05:29] LABS: ALBUMIN 3.6 GM/DL (3.2-4.5); BILIRUBIN,TOTAL 0.4 MG/DL (0.1-1.0); CALCIUM 9.7 MG/DL (8.5-10.1); CREATININE SERUM 1.17 MG/DL (0.60-1.30); PHOSPHORUS 3.8 MG/DL (2.3-4.7); POTASSIUM 4.6 MMOL/L (3.6-5.0); TOTAL PROTEIN 6.8 GM/DL (6.4-8.2)
[2022-07-07] MEDS ORDERED: NS IV 500 ML 500 ML IV PRN (06:00)
[2022-07-07] MEDS: POTASSIUM CL 10MEQ/50ML IVPB 50 ML IV SCH (06:00)
[2022-07-07] MEDS: KCL 20 MEQ TAB (K-DUR) PO SCH (06:00)
[2022-07-07] MEDS: MAGNESIUM 1 GM/100 ML IVPB 100 ML IV SCH (06:00)
[2022-07-07 06:26] LABS: LYMPHOCYTES % (MANUAL) 11 %; MONOCYTES % (MANUAL) 3 %; NEUTROPHILS % (MANUAL) 86 %; RBC MORPH NORMAL
[2022-07-07] MEDS: methylPREDNISolone 40 MG/ML (Solu-MEDROL) VIAL IV SCH ×3 (06:43→21:13)
[2022-07-07] MEDS: PANTOPRAZOLE 40 MG (PROTONIX) TAB PO SCH (06:44)
[2022-07-07 06:50] VITALS: BP 135/92
[2022-07-07 06:56] LABS: ABG BASE EXCESS 12.7 MMOL/L (-2.5-2.5); ABG OXYGEN SATURATION 95 % (94-100); ABG PO2 66 MMHG (79-93)
[2022-07-07 06:57] LABS: ABG PCO2 90 MMHG (35-45); ABG PH 7.26 (7.37-7.43); ABG TCO2 42.9 MMOL/L (21.0-31.0); ALLENS TEST YES-POS
[2022-07-07 06:58] LABS: INSPIRED O2 50%; PATIENT TEMP 36.2; VENTILATOR NO
[2022-07-07] MEDS: ENOXAPARIN 40 MG/0.4 ML (LOVENOX) SYR SC SCH ×2 (09:27→20:53)
[2022-07-07] MEDS: LACTATED RINGERS 1,000 ML IV SCH ×3 (09:34→20:53)
--- NOTE | 2022-07-07 09:36 | History & Physical-Hospitalist ---
History of Present Illness HPI/Chief Complaint Initial Comments To ER by [facility] EMS from home where he stays by himself with c/o confusion and increased falls x1 week. EMS was summoned after EMS arrived at his house to check on him. He states he was hearing voices and was aware they were hallucinations and not real off and on over the course of the past week. Was admitted here in May 2022 for influenza A and hypoxia on Bipap for a few days. PCP Dr Vásquez. Hx lung mass and bladder cancer--sister states last treatment of intravesicular chemotherapy was 1-1.5 years ago and she doesnt think he's follow up since then. Upon my arrival patient was sleeping on BiPAP did not appear to be in acute distress. He would open eyes to verbal stimulation but did not answer any questions. Staff report that there have been no care problems overnight and no medication changes per eICU. Date Seen 07/07/22 Time Seen by a Provider: 07:00 Attending Physician Silver Vásquez MD PCP Admitting Physician: Horacio Calixto MD Attending Physician: Horacio Calixto MD Referring Physician Date of Admission Jul 06, 2022 at 20:47 Home Medications & Allergies Home Medications Reviewed patient Home Medication Reconciliation performed by pharmacy medication reconciliations paintless dent repair technician and/or nursing. Patients Allergies have been reviewed. Allergies Allergies Coded Allergies Penicillins (Verified Allergy, Severe, ANAPHYLAXIS, 06/03/18) SWELLING ALL OVER sulfamethoxazole (Unverified Adverse Reaction, Unknown, 07/16/18) trimethoprim (Unverified Adverse Reaction, Unknown, 07/16/18) Uncoded Allergies SOMETHING FOR COLDS ( Allergy, Mild, 03/26/14) Past Lluwmyu-Etvupm-Kjkbwe Hx Patient Social History Tobacco Use?: No Smoking Status: Former Smoker Substance use?: No Additional substance use comme: PAST HX Alcohol Use?: No Additional Alcohol Comments: PAST HX Pt feels they are or have been: No Immunizations Up To Date Tetanus Booster (TDap): More Than 5 Years PED Vaccines UTD: Yes Current Status Advance Directives: No Communicates: Verbally Primary Language: Nicaraguan Preferred Spoken Language: Nicaraguan Is interpretation needed?: No Implanted or Applied Medical D: None Past Medical History Surgeries: Abdominal Currently Using CPAP: No Currently Using BIPAP: No Hypertension Stroke Blood Disorders: No COPD Obesity HTN Family Medical History Patient reports no known family medical history. Heart Disease, Cancer, CAD Under 55 Years Old Review of Systems Constitutional: see HPI Physical Exam Physical Exam Vital Signs Vital Signs - First Documented 07/06/22 07/06/22 19:35 22:10 Temp 37.6 Pulse 92 Resp 20 B/P (MAP) 197/71 (113) Pulse Ox 81 O2 Delivery Nasal Cannula O2 Flow Rate 4.00 FiO2 40 Capillary Refill : Less Than 3 Seconds Height, Weight, BMI Height: 6'0.00" Weight: 273lbs. 5.0oz. 123.548426yp; 41.12 BMI Method:Stated General Appearance: No Apparent Distress Respiratory: Other (Coarse breath sounds anteriorly without wheezing diminished breath sounds on the left without wheezing or rales absent breath sounds on the right posteriorly with coarse breath sounds anteriorly and mild expiratory wheezing.) Cardiovascular: Regular Rate, Rhythm, Other ( Diminished heart tones aggravated by noise of BiPAP unable to appreciate any murmur) Gastrointestinal: Non Tender, Soft, Abnormal Bowel Sounds ( hypoactive throughout) Extremity: No Pedal Edema Results Results/Procedures Labs Laboratory Tests 07/06/22 19:44 07/07/22 04:58 Patient resulted labs reviewed. Assessment/Plan Admission Diagnosis 1. Acute on chronic respiratory failure with right and left lower lobe infiltrates which have not changed since his last chest x-ray 1 month ago highly suspicious for a postobstructive process with many pack-year smoking history suspect cancer. On top of this current exacerbation may be due to COVID infection patient is getting antiviral as well as antibiotic therapy prognosis extremely poor considering hypercapnic respiratory failure we will attempt to discuss further with family in regards to wishes mechanical ventilation. Patient unable to speak to this likely due to hypercapnia. Complex medical management in a critically ill patient with multiple medical comorbidities. Prognosis extremely poor. Admission Status: Inpatient Order (span 2 midnights) Reason for Inpatient Admission: See admission diagnosis Critical Care Critically Ill Patient HORACIO CALIXTO MD Jul 07, 2022 09:36
[2022-07-07] MEDS: RT-ALBUTEROL/IPRATROPIUM 3 ML (DUONEB) VIAL INH SCH ×3 (12:02→22:41)
[2022-07-07] MEDS: hydrALAZINE (APESOLINE) 20 MG/ML VIAL IV PRN (20:54)
[2022-07-08] MEDS: RT-ALBUTEROL/IPRATROPIUM 3 ML (DUONEB) VIAL INH SCH ×4 (02:32→22:29)
[2022-07-08] MEDS: hydrALAZINE (APESOLINE) 20 MG/ML VIAL IV PRN ×3 (03:18→22:50)
[2022-07-08 05:25] LABS: BASOPHILS % (AUTO) 0 % (0-10); EOSINOPHILS % (AUTO) 0 % (0-10); HEMATOCRIT 39 % (40-54); HEMOGLOBIN 12.2 g/dL (13.3-17.7); LYMPHOCYTES % (AUTO) 10 % (12-44); MEAN CORPUSCULAR HEMOGLOBIN 30 pg (25-34); MEAN CORPUSCULAR HGB CONC 31 g/dL (32-36); MEAN CORPUSCULAR VOLUME 96 fL (80-99); MEAN PLATELET VOLUME 11.2 fL (9.0-12.2); MONOCYTES % (AUTO) 10 % (0-12); NEUTROPHILS # (AUTO) 7.9 10^3/uL (1.8-7.8); NEUTROPHILS % (AUTO) 80 % (42-75); PLATELET COUNT 185 10^3/uL (130-400); WHITE BLOOD COUNT 9.9 10^3/uL (4.3-11.0)
[2022-07-08 05:41] LABS: ALBUMIN 3.6 GM/DL (3.2-4.5); BILIRUBIN,TOTAL 0.3 MG/DL (0.1-1.0); CALCIUM 9.6 MG/DL (8.5-10.1); CREATININE SERUM 1.17 MG/DL (0.60-1.30); MAGNESIUM 1.7 MG/DL (1.6-2.4); PHOSPHORUS 2.1 MG/DL (2.3-4.7); POTASSIUM 4.3 MMOL/L (3.6-5.0); TOTAL PROTEIN 6.6 GM/DL (6.4-8.2)
[2022-07-08] MEDS: POTASSIUM CL 10MEQ/50ML IVPB 50 ML IV SCH (05:47)
[2022-07-08] MEDS: KCL 20 MEQ TAB (K-DUR) PO SCH (05:47)
[2022-07-08] MEDS: MAGNESIUM 1 GM/100 ML IVPB 100 ML IV SCH ×3 (05:56→08:17)
[2022-07-08] MEDS: PANTOPRAZOLE 40 MG (PROTONIX) TAB PO SCH (06:26)
[2022-07-08] MEDS: methylPREDNISolone 40 MG/ML (Solu-MEDROL) VIAL IV SCH ×3 (06:26→21:49)
[2022-07-08] MEDS: ENOXAPARIN 40 MG/0.4 ML (LOVENOX) SYR SC SCH ×2 (08:17→21:49)
[2022-07-08] MEDS: LACTATED RINGERS 1,000 ML IV SCH ×2 (09:19→23:38)
--- NOTE | 2022-07-08 09:26 | Tele-ICU Progress Note ---
Subjective Date Seen by a Provider: Jul 08, 2022 Time Seen by a Provider: 09:25 Subjective/Events-last exam Teleicu Progress Note Available chart/ vitals / labs / Images reviewed H&P is from ER notes Patient's information available about PMH, allergy reviewed in EMR. ROS as per chart and RN report Video assessment done using teleICU camera, rest of exam as per RN Discussed with RN. He is a 61-year-old male admitted via emergency room due to confusion and a fall for the last 1 week. In the emergency room he is found to have a acute hypoxic and hypercarbic respiratory failure requiring BiPAP ventilation. Today he is a PCO2 decreased to 69 and pH improved to 7.33. He is tolerating oxygenation with nasal cannula. He has a history of bladder cancer reportedly treated with intravesicular chemotherapy about 2 1 to 1-1/2 years ago. Today he is awake alert and following commands. He does admit to use home oxygen 5 L nasal cannula but he does not have any portable tanks also he is has not using any CPAP or BiPAP at home. Impression 1. Acute and chronic hypercarbic and hypoxic respiratory failure improving 2. Bibasilar atelectasis/pneumonia improving. 3. Suspected lung cancer 4. History of tobacco abuse 5. Morbid obesity contributing to his hypercarbic respiratory failure Recommendations 1. Continue oxygenation with nasal cannula during daytime and with BiPAP at nighttime. If he did not have any sleep studies done he would benefit from a sleep study and arrangement of a BiPAP or a CPAP depending upon the results for home. 2. He is counseled to quit smoking. 3. DVT prophylaxis and ulcer prophylaxis. 4. Hydralazine IV as needed for hypertension but this needs to be addressed w ith the oral medications for the long-term. 5. We will decrease Solu-Medrol dose as it can contribute to increase in the PCO2. 6. Suggest incentive spirometry. Coordination of care with bedside consultants and primary care physician Sepsis Event Evaluation Height, Weight, BMI Height: 6'0.00" Weight: 273lbs. 5.0oz. 123.105643em; 42.45 BMI Method:Stated Focused Exam Lactate Level 07/06/22 19:44: Lactic Acid Level 0.72 Exam Exam Patient acknowledged, consented, and participated in this virtual visit which was conducted using real time audio/video Vital Signs Date Time Temp Pulse Resp B/P (MAP) Pulse Ox O2 Delivery O2 Flow Rate FiO2 07/08/22 09:00 102 157/76 (103) 91 NIV Bilevel 40.00 07/08/22 08:00 80 170/96 (120) 93 NIV Bilevel 40.00 07/08/22 07:57 36.7 07/08/22 07:20 82 26 91 40.00 07/08/22 07:00 85 166/92 (116) 93 NIV Bilevel 40.00 07/08/22 07:00 83 07/08/22 06:00 80 154/87 (109) 94 NIV Bilevel 40.00 07/08/22 05:00 94 159/89 (112) 94 NIV Bilevel 40.00 07/08/22 04:10 NIV Bilevel 40 07/08/22 04:00 36.7 07/08/22 04:00 88 150/98 (115) 93 NIV Bilevel 40.00 07/08/22 03:00 86 180/96 (124) 94 NIV Bilevel 40.00 07/08/22 02:33 81 20 91 40.00 07/08/22 02:00 80 128/100 (109) 92 NIV Bilevel 40.00 07/08/22 01:00 81 162/89 (113) 94 NIV Bilevel 40.00 07/08/22 01:00 81 07/08/22 00:00 79 153/83 (106) 95 NIV Bilevel 40.00 07/08/22 00:00 36.6 07/07/22 23:59 NIV Bilevel 40 07/07/22 23:50 NIV Bilevel 40.00 07/07/22 23:28 80 29 95 40.00 07/07/22 23:00 84 172/89 (116) 95 High Flow N/C 5.00 07/07/22 22:41 High Flow N/C 5.00 07/07/22 22:00 92 173/117 (135) 94 High Flow N/C 5.00 07/07/22 21:00 84 153/93 (113) 94 High Flow N/C 5.00 07/07/22 20:14 37.4 07/07/22 20:00 79 122/94 (103) 95 High Flow N/C 5.00 07/07/22 20:00 Nasal Cannula 4.00 1/7/23 19:00 84 191/99 (129) 95 High Flow N/C 5.00 07/07/22 19:00 80 07/07/22 18:00 78 95 High Flow N/C 5.00 07/07/22 17:00 78 136/62 (86) 93 High Flow N/C 5.00 07/07/22 16:03 37.2 07/07/22 16:00 95 NIV Bilevel 40 07/07/22 16:00 84 130/51 (77) 96 High Flow N/C 5.00 07/07/22 15:00 84 161/92 (115) 92 High Flow N/C 5.00 07/07/22 14:47 High Flow N/C 5.00 07/07/22 14:43 94 High Flow N/C 5.00 07/07/22 14:32 81 20 93 40.00 07/07/22 14:00 73 91 NIV Bilevel 40.00 07/07/22 13:00 86 90 NIV Bilevel 40.00 07/07/22 13:00 78 07/07/22 12:04 37.0 07/07/22 12:02 75 21 93 40.00 07/07/22 12:00 69 91 NIV Bilevel 40.00 07/07/22 12:00 95 NIV Bilevel 40 07/07/22 11:00 74 151/93 (112) 90 NIV Bilevel 40.00 07/07/22 10:00 75 139/74 (95) 90 NIV Bilevel 40.00 I & O 07/08/22 07:00 Intake Total 4350 ml Output Total 1900 ml Balance 2450 ml Height & Weight Height: 6'0.00" Weight: 273lbs. 5.0oz. 123.974283vw; 42.45 BMI Method:Stated General Appearance: No Apparent Distress Neck: Full Range of Motion, Normal Inspection Respiratory: Other (Coarse breath sounds anteriorly without wheezing diminished breath sounds on the left without wheezing or rales absent breath sounds on the right posteriorly with coarse breath sounds anteriorly and mild expiratory wheezing.) Cardiovascular: Regular Rate, Rhythm, Other ( Diminished heart tones aggravated by noise of BiPAP unable to appreciate any murmur) Capillary Refill: Less Than 3 Seconds Extremity: No Pedal Edema Neurologic/Psychiatric: Alert, Oriented x3 Skin: Normal Color, Warm/Dry Results Lab Laboratory Tests 07/06/22 19:44 07/07/22 04:58 07/08/22 05:05 Assessment/Plan Assessment/Plan as above Critical Care: Critically Ill Patient Time spent with patient (mins): 28 NESS BERNSTEIN MD Jul 08, 2022 09:26
--- NOTE | 2022-07-08 09:51 | Diagnostic Imaging Report ---
INDICATION: Pain. FINDINGS: The heart is enlarged. No focal consolidation; however, there is some mild prominence of the right basilar interstitial markings, improved from the previous. It is unclear if this is reduction in atelectasis or pneumonia. No adverse development. The remaining lung carrillo are clear. No adverse development. IMPRESSION: 1. Right basilar opacity has significantly improved from prior. Residual changes could be mild infiltrate owing to pneumonia or atelectasis. 2. Stable cardiomegaly without overt failure pattern. No acute pleural pathology. Dictated by: Dictated on workstation # [id number]
[2022-07-08 10:18] LABS: ABG OXYGEN SATURATION 95 % (94-100); ABG PCO2 69 MMHG (35-45); ABG PH 7.33 (7.37-7.43); ABG PO2 72 MMHG (79-93); ABG TCO2 37.2 MMOL/L (21.0-31.0)
[2022-07-08 10:19] LABS: INSPIRED O2 40%; PATIENT TEMP 36.7; VENTILATOR NO
[2022-07-08] MEDS: REMDESIVIR INJ 100 MG in NS (IVPB) 230 ML IV SCH (11:14)
[2022-07-09] MEDS: RT-ALBUTEROL/IPRATROPIUM 3 ML (DUONEB) VIAL INH SCH (02:20)
[2022-07-09 05:01] LABS: BASOPHILS % (AUTO) 0 % (0-10); EOSINOPHILS % (AUTO) 0 % (0-10); HEMATOCRIT 40 % (40-54); LYMPHOCYTES # (AUTO) 0.4 10^3/uL (1.0-4.0); LYMPHOCYTES % (AUTO) 4 % (12-44); MEAN CORPUSCULAR HEMOGLOBIN 30 pg (25-34); MEAN CORPUSCULAR HGB CONC 30 g/dL (32-36); MEAN CORPUSCULAR VOLUME 99 fL (80-99); MEAN PLATELET VOLUME 11.4 fL (9.0-12.2); MONOCYTES # (AUTO) 0.8 10^3/uL (0.0-1.0); MONOCYTES % (AUTO) 8 % (0-12); NEUTROPHILS # (AUTO) 8.5 10^3/uL (1.8-7.8); NEUTROPHILS % (AUTO) 87 % (42-75); PLATELET COUNT 180 10^3/uL (130-400); WHITE BLOOD COUNT 9.8 10^3/uL (4.3-11.0)
[2022-07-09 05:22] LABS: ALBUMIN 3.5 GM/DL (3.2-4.5); BILIRUBIN,TOTAL 0.2 MG/DL (0.1-1.0); CALCIUM 9.8 MG/DL (8.5-10.1); CREATININE SERUM 1.12 MG/DL (0.60-1.30); MAGNESIUM 1.8 MG/DL (1.6-2.4); PHOSPHORUS 2.2 MG/DL (2.3-4.7); POTASSIUM 4.5 MMOL/L (3.6-5.0); TOTAL PROTEIN 6.3 GM/DL (6.4-8.2)
[2022-07-09] MEDS: KCL 20 MEQ TAB (K-DUR) PO SCH (06:00)
[2022-07-09] MEDS: POTASSIUM CL 10MEQ/50ML IVPB 50 ML IV SCH (06:00)
[2022-07-09] MEDS: MAGNESIUM 1 GM/100 ML IVPB 100 ML IV SCH (06:00)
[2022-07-09] MEDS: methylPREDNISolone 40 MG/ML (Solu-MEDROL) VIAL IV SCH ×3 (06:47→21:07)
[2022-07-09] MEDS: PANTOPRAZOLE 40 MG (PROTONIX) TAB PO SCH (06:47)
[2022-07-09] MEDS: ENOXAPARIN 40 MG/0.4 ML (LOVENOX) SYR SC SCH ×2 (08:39→21:06)
--- NOTE | 2022-07-09 09:19 | Tele-ICU Progress Note ---
Subjective Date Seen by a Provider: Jul 09, 2022 Time Seen by a Provider: 09:19 Subjective/Events-last exam (Tele-ICU Physician , Progress Note ) Service provided via interactive audio and video telecommunications E-CARE system to a patient admitted to ICU bed in [facility]. Available chart/ vitals / labs / Images reviewed Video assessment done using teleICU camera, rest of exam as per RN Discussed with RN Events overnight : Afebrile hemodynamically stable Respiratory - I/O = Drips: LR 100 - TO STOP Pressors- no Consultants: Hospital course: Patient is seen today due to persistent need of ICU care A/P Impression 1. Acute and chronic hypercarbic and hypoxic respiratory failure improving 2. Bibasilar atelectasis/pneumonia improving. 4. History of tobacco abuse 5. Morbid obesity contributing to his hypercarbic respiratory failure Recommendations 1. Continue oxygenation with nasal cannula during daytime and with BiPAP at nighttime. If he did not have any sleep studies done he would benefit from a sleep study and arrangement of a BiPAP or a CPAP depending upon the results for home. 2. counseled to quit smoking. 3. DVT prophylaxis and ulcer prophylaxis. 4. Hydralazine IV as needed for hypertension, resume home Po HTN meds 5. ? to decrease Solu-Medrol dose- as per bedside 6. IS use home oxygen 5 L nasal cannula but he does not have any portable tanks also he is has not using any CPAP or BiPAP at home. Lines : periph , (Central Line Necessity Reviewed) Salazar: follow OG: Nutrition: Analgesia: Anxiety/ delirium VTE Prophylaxis: jez 60 bid Stress Ulcer Prophylaxis: ppi Plans in collaboration with bedside consultants and IM MDs. Discussed with RN to reach out if any questions or concerns A total of 31minutes of critical care time was devoted to this patient today, required to treat and/or prevent further deterioration of critical care condition ( as above ) . I am remotely monitoring this patient from another state. I am unable to do the bedside exam, and history/physical and pertinent information is taken from other notes in the computer and bedside staff. Sepsis Event Evaluation Height, Weight, BMI Height: 6'0.00" Weight: 273lbs. 5.0oz. 123.908397jj; 42.54 BMI Method:Stated Focused Exam Lactate Level 1/6/23 19:44: Lactic Acid Level 0.72 Exam Exam Patient acknowledged, consented, and participated in this virtual visit which was conducted using real time audio/video Vital Signs Date Time Temp Pulse Resp B/P (MAP) Pulse Ox O2 Delivery O2 Flow Rate FiO2 07/09/22 08:00 84 146/91 (109) 93 High Flow N/C 5.00 07/09/22 07:56 High Flow N/C 5.00 07/09/22 07:56 36.6 07/09/22 07:12 76 07/09/22 07:00 75 166/91 (116) 92 NIV Bilevel 40.00 07/09/22 06:00 65 165/103 (123) 92 NIV Bilevel 40.00 07/09/22 05:00 74 145/86 (105) 94 NIV Bilevel 40.00 07/09/22 04:00 36.7 81 154/98 (116) 93 NIV Bilevel 40.00 07/09/22 04:00 93 NIV Bilevel 4.00 40 07/09/22 03:00 74 151/89 (109) 89 NIV Bilevel 40.00 07/09/22 02:21 75 24 91 40.00 07/09/22 02:00 77 142/78 (99) 92 NIV Bilevel 40.00 07/09/22 01:00 78 137/79 (98) 92 NIV Bilevel 40.00 07/09/22 01:00 78 07/09/22 00:00 36.3 88 114/66 (82) 92 NIV Bilevel 40.00 07/08/22 23:59 92 NIV Bilevel 4.00 40 07/08/22 23:00 88 119/63 (81) 90 NIV Bilevel 40.00 07/08/22 22:30 90 27 91 40.00 07/08/22 22:00 105 93 NIV Bilevel 40.00 07/08/22 21:00 90 164/80 (108) 94 Nasal Cannula 4.00 07/08/22 20:19 91 153/93 (113) 90 Nasal Cannula 4.00 07/08/22 20:18 93 07/08/22 20:00 36.7 07/08/22 20:00 93 Nasal Cannula 4.00 07/08/22 19:00 90 94 Nasal Cannula 4.00 07/08/22 18:00 87 155/87 (109) 92 NIV Bilevel 40.00 07/08/22 17:00 89 154/87 (109) 93 NIV Bilevel 40.00 07/08/22 16:01 37.2 07/08/22 16:00 91 151/80 (103) 91 NIV Bilevel 40.00 07/08/22 16:00 NIV Bilevel 40 07/08/22 15:00 96 159/105 (123) 92 NIV Bilevel 40.00 07/08/22 14:37 High Flow N/C 5.00 07/08/22 14:00 93 150/94 (112) 92 NIV Bilevel 40.00 07/08/22 13:00 94 172/97 (122) 92 NIV Bilevel 40.00 07/08/22 12:00 NIV Bilevel 40 07/08/22 12:00 37.3 07/08/22 12:00 83 176/93 (120) 94 NIV Bilevel 40.00 07/08/22 11:00 91 121/57 (78) 92 NIV Bilevel 40.00 07/08/22 10:00 93 153/80 (104) 95 NIV Bilevel 40.00 I & O 07/09/22 07:00 Intake Total 4040 ml Output Total 2500 ml Balance 1540 ml Height & Weight Height: 6'0.00" Weight: 273lbs. 5.0oz. 123.271680zm; 42.54 BMI Method:Stated General Appearance: No Apparent Distress Neck: Full Range of Motion, Normal Inspection Respiratory: Other (Coarse breath sounds anteriorly without wheezing diminished breath sounds on the left without wheezing or rales absent breath sounds on the right posteriorly with coarse breath sounds anteriorly and mild expiratory wheezing.) Cardiovascular: Regular Rate, Rhythm, Other ( Diminished heart tones aggravated by noise of BiPAP unable to appreciate any murmur) Capillary Refill: Less Than 3 Seconds Extremity: No Pedal Edema Neurologic/Psychiatric: Alert, Oriented x3 Skin: Normal Color, Warm/Dry Results Lab Laboratory Tests 07/08/22 05:05 07/09/22 04:24 Assessment/Plan Assessment/Plan 1 CHARLENE ZARATE MD Jul 09, 2022 09:19
[2022-07-09] MEDS: RT-ALBUTEROL HFA 8.5 GM INHALER IH SCH ×3 (10:33→21:58)
[2022-07-09] MEDS: amLODIPine 5 MG (NORVASC) TAB PO SCH (10:58)
[2022-07-09] MEDS: REMDESIVIR INJ 100 MG in NS (IVPB) 230 ML IV SCH (10:58)
[2022-07-09] MEDS ORDERED: PANT40TA52 PO (11:47)
[2022-07-09] MEDS ORDERED: AMLO-250 PO (11:47)
--- NOTE | 2022-07-09 13:53 | Occupational Therapy Eval ---
OT Evaluation-General/PLF Medical Diagnosis Admission Date Jul 06, 2022 at 20:47 Medical Diagnosis: Covid +, hallucinations Onset Date: Jul 06, 2022 Therapy Diagnosis Therapy Diagnosis: Weakness, Decreased ADL skills Height/Weight Height (Feet): 6 Height (Inches): 0.00 Weight (Pounds): 273 Weight (Ounces): 5.0 Precautions Precautions/Isolations: Airborne Isolation, Standard Precautions Weight Bear Status Weight Bearing Restriction: Weight Bearing/Tolerated Referral Physician: Dr. Ram Referral Reason: Activity Tolerance, Self Care, Evaluation/Treatment, Strengthening/ROM Medical History Pertinent Medical History: COPD, HTN Reviewed History: Yes Social History Home: Single Level Current Living Status: Alone Pt. reports that his home is uneven as it was built straight on the ground with no foundation. ADL-Prior Level of Function SCALE: Activities may be completed with or without assistive devices. 8-Baqzrinegy-xyeqvkv completes the activity by him/herself with no assistance from a helper. 5-Set-up or Clean-up Assistance-helper sets up or cleans up; patient completes activity. [place] assists only prior to or following the activity. 4-Supervision or Touching Assistance-helper provides verbal cues and/or touching/steadying and/or contact guard assistance as patient completes act ivity. Assistance may be provided throughout the activity or intermittently. 3-Partial/Moderate Assistance-helper does LESS THAN HALF the effort. [place] lifts, holds or supports trunk or limbs, but provides less than half the effort. 2-Substantial/Maximal Assistance-helper does MORE THAN HALF the effort. [place] lifts or holds trunk or limbs and provides more than half the effort. 6-Ledutgidj-lkfltz does ALL the effort. Patient does none of the effort to complete the activity. Or, the assistance of 2 or more helpers is required for the patient to complete the activity. If activity was not attempted, code reason: 7-Patient Refused. 9-Not Applicable-not attempted and the patient did not perform the activity before the current illness, exacerbation or injury. 10-Not Attempted due to Environmental Limitations-(lack of equipment, weather restraints, etc.). 88-Not Attempted due to Medical Conditions or Safety Concerns. ADL PLOF Comments Pt. states that he uses 3L 02 at home. He wears continuously and takes bottles whenever going out. He reports that if he uses a cart or something to push while out, he doesn't become SOA. If he attempts to walk without something to push he becomes SOA quickly. Pt. reports that typically does not use an assistive device at home, but states, "I can get a walker." Self Care: Independent (Per pt.) Functional Cognition: Independent DME/Equipment: Shower DME/Equipment Comments Pt. states that he does not have a shower chair, but can get one. Drive Self: Yes OT Current Status Subjective No pain reported. Appearance Pt. up in chair. Agrees to treatment. Mental Status/Objective Patient Orientation: Person, Place, Time, Situation Attachments: IV, Oxygen Current Upper Extremity ROM WFL ADL-Treatment Eating (QC): 6 (Pt. has already finished lunch tray.) On/Off Footwear (QC): 2 (Pt. unable to doff/don slipper socks stating, (look at my belly, it's big.) OT asks him what he does at home. Pt. does not wear so cks, and only wears slip on shoes. Shoes not present at this time.) Other Treatments Pt. seen this date for co-treatment with PT/OT due to fatigue level. OT gives pt. brush and he is able to brush hair throughout. Pt. is unable to bend over and doff slipper socks. Please see above. He is able to stand at walker with Mod I. PT focused on gait and balance while OT assesses hand positioning on walker and endurance. Pt. ambulates in room with walker with Mod I, and states that as long as he has a walker, he does not become SOA. OT gives pt. urinal, and he states that he will use when therapy leaves. No LOB. Pt. does need longer oxygen extension and can be up as needed. Would benefit from therapy for endurance training overall. Education OT Patient Education: Correct positioning, Modified ADL techniques, Progress toward Goal/Update tx plan, Purpose of tx/functional activities, Reviewed precautions, Rehab process, Transfer techniques Teaching Recipient: Patient Teaching Methods: Demonstration, Discussion Response to Teaching: Verbalize Understanding, Return Demonstration OT Custodial Goals Custodial Goals Time Frame: Jul 23, 2022 Eating (QC): 6 Oral Hygiene (QC): 6 Toileting Hygiene (QC): 6 Shower/Bathe Self (QC): 5 Upper Body Dressing (QC): 6 Lower Body Dressing (QC): 6 On/Off Footwear (QC): 6 (With AE if pt. willing to learn skill.) Additional Goals: 1-Demonstrate ADL Tasks, 2-Verbalize Understanding, 3-ImproveStrength/Jason 1=Demonstrate adherence to instructed precautions during ADL tasks. 2=Patient will verbalize/demonstrate understanding of assistive devices/modifications for ADL. 3=Patient will improve strength/tolerance for activity to enable patient to perform ADL's. OT Education/Plan Problem List/Assessment Assessment: Decreased Activ Tolerance, Impaired I ADL's, Impaired Self-Care Skills Discharge Recommendations Plan/Recommendations: Continue POC Equpiment Recommendations-D/C: Sock Aide Treatment Plan/Plan of Care Treatment,Training & Education: Yes Patient would benefit from OT for education, treatment and training to promote independence in ADL's, mobility, safety and/or upper extremity function for ADL's. Plan of Care: ADL Retraining, Functional Mobility, UE Funct Exercise/Act Treatment Duration: Jul 23, 2022 Frequency: 3 times per week (3-5x/week) Estimated Hrs Per Day: .25 hour per day Agreement: Yes Rehab Potential: Good Time Start Time: 13:15 Stop Time: 13:30 DATE: Jul 09, 2022 Total Time Billed (hr/min): 15 Billed Treatment Time 1, HUBERT LUDWIG OT Jul 09, 2022 13:53
--- NOTE | 2022-07-09 13:53 | Physical Therapy Evaluation ---
PT Evaluation-General Medical Diagnosis Admission Date Jul 06, 2022 at 20:47 Medical Diagnosis: resp. failure, covid 19 Onset Date: Jul 06, 2022 Therapy Diagnosis Therapy Diagnosis: independent with mobility using a rolling walker Height/Weight Height (Feet): 6 Height (Inches): 0.00 Weight (Pounds): 273 Weight (Ounces): 5.0 Precautions Precautions/Isolations: Airborne Isolation, Standard Precautions Referral Physician: Karly Ram DO Reason for Referral: Evaluation/Treatment Medical History Pertinent Medical History: COPD, HTN Additional Medical History Past Medical History Surgeries: Abdominal Currently Using CPAP: No Currently Using BIPAP: No Hypertension Stroke Blood Disorders: No COPD Obesity HTN Reviewed History: Yes Social History Home: Single Level Current Living Status: Alone PT Steps Into Home: 3 Prior Prior Level of Function SCALE: Activities may be completed with or without assistive devices. 5-Jeojoglqxo-vbdwrir completes the activity by him/herself with no assistance from a helper. 5-Set-up or Clean-up Assistance-helper sets up or cleans up; patient completes activity. [place] assists only prior to or following the activity. 4-Supervision or Touching Assistance-helper provides verbal cues and/or touching/steadying and/or contact guard assistance as patient completes activity. Assistance may be provided throughout the activity or intermittently. 3-Partial/Moderate Assistance-helper does LESS THAN HALF the effort. [place] lifts, holds or supports trunk or limbs, but provides less than half the effort. 2-Substantial/Maximal Assistance-helper does MORE THAN HALF the effort. [place] lifts or holds trunk or limbs and provides more than half the effort. 0-Vyxkajits-dblhnt does ALL the effort. Patient does none of the effort to complete the activity. Or, the assistance of 2 or more helpers is required for the patient to complete the activity. If activity was not attempted, code reason: 7-Patient Refused. 9-Not Applicable-not attempted and the patient did not perform the activity before the current illness, exacerbation or injury. 10-Not Attempted due to Environmental Limitations-(lack of equipment, weather restraints, etc.). 88-Not Attempted due to Medical Conditions or Safety Concerns. Bed Mobility: 6 Transfers (B,C,W/C): 6 Gait: 6 Stairs: 6 Indoor Mobility (Ambulation): Independent Stairs: Independent PT Evaluation-Current Subjective Patient in recliner pre tx, agrees to PT, has no complaints of pain, patient states he is feeling a lot better. Pt/Family Goals to be independent at home Objective Patient Orientation: Person, Place, Situation Attachments: Oxygen ROM/Strength ROM Lower Extremities WNL Strength Lower Extremities grossly 5/5 BLE except for hip flexion 3+ bilaterally Sensory Vision: Functional Hearing: Functional Sensation Right Lower Extremit: Intact Sensation Left Lower Extremity: Intact Transfers Sit to Stand (QC): 6 Chair/Tnj-nh-Dnjel Xfer(QC): 6 Gait Walk 10 feet (QC): 6 Walk 50 ft with 2 Turns(QC): 6 Distance: 60' Gait Assistive Device: FWW Comments/Gait Description Patient states he feels slightly unsteady on his feet but feels confident he can ambulate on his own using the rolling walker, patient demonstrated steady and independent ambulation using a rolling walker Balance Sitting Static: Normal Sitting Dynamic: Normal Standing Static: Good Standing Dynamic: Fair Treatment BLE seated exercises x20 (AP, LAQ) Assessment/Needs Patient in recliner post tx with nurse call, phone, tray, all needs met. Nurse notified that patient needs a longer O2 line to make it into the restroom, patient will be discharged from PT at this time, he is independent with transfers and ambulation using a rolling walker, patient is aware of his O2 line and keeps track of it. Rehab Potential: Good PT Plan Treatment/Plan Treatment Plan: Discontinue PT Treatment Duration: Jul 09, 2022 Frequency: Safety Risks/Education Patient Education: Gait Training, Transfer Techniques, Correct Positioning, Safety Issues Teaching Recipient: Patient Teaching Methods: Demonstration, Discussion Response to Teaching: Reinforcement Needed Discharge Recommendations Plan discharge Therapy Discharge Recommendati: Home & Family Time Time In: 1315 Time Out: 1328 DATE: Jul 09, 2022 Total Billed Treatment Time: 13 Total Billed Treatment 1 visit EVAMRIT LOPEZ PT Jul 09, 2022 13:53
--- NOTE | 2022-07-09 18:21 | Progress Note ---
RANDI NASSAR I 07/09/221820: Subjective Date Seen by a Provider: Jul 09, 2022 Time Seen by a Provider: 17:00 Subjective/Events-last exam Silver Joyner is a 61 yom admitted to the ICU for hypercapnic respiratory failure secondary to covid pneumonia. He is seen today in the right decubitus position in bed on the med/surg floor on 4 L of O2, which he says is almost back to baseline. At home he uses 3L during the day and 4L at night. He is eating well, and walks the room independently. He is able to go to the bathroom unassisted. Denies fever, abd pain, and endorses mild shortness of breath. Focused Exam Lactate Level 07/06/22 19:44: Lactic Acid Level 0.72 Objective Exam Last Set of Vital Signs Vital Signs Date Time Temp Pulse Resp B/P (MAP) Pulse Ox O2 Delivery O2 Flow Rate FiO2 07/09/22 16:16 36.8 84 16 144/84 (104) 91 Nasal Cannula 4.00 07/09/22 04:00 40 Capillary Refill : Less Than 3 Seconds I&O Intake and Output 07/09/22 00:00 Intake Total 3940 ml Output Total 2700 ml Balance 1240 ml Intake Oral 2940 ml IV Total 1000 ml Output Urine Total 2700 ml General: Alert, Oriented X3, Cooperative, No Acute Distress HEENT: Atraumatic, PERRLA Neck: Supple, No JVD, No Thyromegaly Lungs: Other (expiratory wheeze heard on bilateral posterior lung carrillo during end expiration) Heart: Regular Rate, Normal S1, Normal S2, No Murmurs Abdomen: Normal Bowel Sounds, Soft, No Tenderness, No Hepatosplenomegaly, No Masses Extremities: No Clubbing, No Cyanosis, No Edema, Normal Pulses, No Tenderness/Swelling Results Lab Laboratory Tests 07/09/22 04:24: White Blood Count 9.8, Red Blood Count 4.06L, Hemoglobin 12.0L, Hematocrit 40, Mean Corpuscular Volume 99, Mean Corpuscular Hemoglobin 30, Mean Corpuscular Hemoglobin Concent 30L, Red Cell Distribution Width 13.8, Platelet Count 180, Mean Platelet Volume 11.4, Immature Granulocyte % (Auto) 1, Neutrophils (%) (Auto) 87H, Lymphocytes (%) (Auto) 4L, Monocytes (%) (Auto) 8, Eosinophils (%) (Auto) 0, Basophils (%) (Auto) 0, Neutrophils # (Auto) 8.5H, Lymphocytes # (Auto) 0.4L, Monocytes # (Auto) 0.8, Eosinophils # (Auto) 0.0, Basophils # ( Auto) 0.0, Immature Granulocyte # (Auto) 0.1, Sodium Level 142, Potassium Level 4.5, Chloride Level 102, Carbon Dioxide Level 32, Anion Gap 8, Blood Urea Nitrogen 27H, Creatinine 1.12, Estimat Glomerular Filtration Rate 75, BUN/Creatinine Ratio 24, Glucose Level 117H, Calcium Level 9.8, Corrected Calcium 10.2H, Phosphorus Level 2.2L, Magnesium Level 1.8, Total Bilirubin 0.2, Aspartate Amino Transf (AST/SGOT) 14, Alanine Aminotransferase (ALT/SGPT) 28, Alkaline Phosphatase 45, Total Protein 6.3L, Albumin 3.5 Microbiology 07/06/22 MRSA Screen - Final, Complete MRSA not isolated 07/06/22 Blood Culture - Preliminary, Resulted No growth Assessment/Plan Assessment/Plan Assess & Plan/Chief Complaint Silver Joyner is a 61 year old male with PMH COPD, bladder cancer, and HTN admitted to the ICU for hypercarbic and hypoxic respiratory failure secondary to covid pneumonia. Hypercarbic and hypoxic respiratory failure - improving - O2 requirement almost back to baseline - Consider sleep study outpatient Bibasilar atelectasis/pneumonia improving. - Continue to titrate down to baseline O2 requirements. 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 I reviewed and verified all information documented by the medical student and made modifications to such information, when appropriate. I personally performed the physical exam and medical decision making. Karly Lundy, Jul 09, 2022,21:54 RANDI NASSAR I Jul 09, 2022 18:21 KARLY LUNDY DO Jul 09, 2022 21:54
[2022-07-09 23:35] VITALS: BP 144/84
[2022-07-10] MEDS: RT-ALBUTEROL HFA 8.5 GM INHALER IH SCH ×2 (02:32→10:01)
[2022-07-10 04:50] VITALS: BP 151/80
[2022-07-10] MEDS: PANTOPRAZOLE 40 MG (PROTONIX) TAB PO SCH (06:25)
[2022-07-10] MEDS: methylPREDNISolone 40 MG/ML (Solu-MEDROL) VIAL IV SCH ×2 (06:25→14:12)
[2022-07-10 06:44] LABS: HEMOGLOBIN 12.3 g/dL (13.3-17.7); MEAN PLATELET VOLUME 12.6 fL (9.0-12.2)
[2022-07-10 07:01] LABS: BASOPHILS % (AUTO) 0 % (0-10); EOSINOPHILS % (AUTO) 0 % (0-10); HEMATOCRIT 41 % (40-54); LYMPHOCYTES # (AUTO) 0.9 10^3/uL (1.0-4.0); LYMPHOCYTES % (AUTO) 11 % (12-44); MEAN CORPUSCULAR HEMOGLOBIN 30 pg (25-34); MEAN CORPUSCULAR HGB CONC 30 g/dL (32-36); MEAN CORPUSCULAR VOLUME 98 fL (80-99); MONOCYTES # (AUTO) 1.1 10^3/uL (0.0-1.0); MONOCYTES % (AUTO) 14 % (0-12); NEUTROPHILS # (AUTO) 6.1 10^3/uL (1.8-7.8); NEUTROPHILS % (AUTO) 75 % (42-75); PLATELET COUNT 100 10^3/uL (130-400); WHITE BLOOD COUNT 8.1 10^3/uL (4.3-11.0)
[2022-07-10 07:07] LABS: ALBUMIN 3.5 GM/DL (3.2-4.5); BILIRUBIN,TOTAL 0.2 MG/DL (0.1-1.0); CALCIUM 9.7 MG/DL (8.5-10.1); CREATININE SERUM 0.98 MG/DL (0.60-1.30); MAGNESIUM 1.6 MG/DL (1.6-2.4); TOTAL PROTEIN 6.4 GM/DL (6.4-8.2)
[2022-07-10 07:12] LABS: SMEAR SCAN COMMENT YES
[2022-07-10 07:58] VITALS: BP 149/73
[2022-07-10] MEDS: amLODIPine 5 MG (NORVASC) TAB PO SCH (08:14)
[2022-07-10] MEDS ORDERED: PRED10TA22 PO (10:43)
[2022-07-10] MEDS ORDERED: ASPI-1238 PO (10:43)
--- NOTE | 2022-07-10 10:57 | Discharge Summary ---
Discharge Summary Hospital Course Was the Problem List Reviewed?: Yes Problems/Dx: (1) COVID (2) Acute respiratory failure with hypoxia and hypercarbia Status: Acute (3) COPD exacerbation Status: Acute Hospital Course Date of Admission: Jul 06, 2022 at 20:47 Admission Diagnosis : Family Physician/Provider: Silver Vásquez MD Date of Discharge: 07/10/22 Discharge Diagnosis: [ ] Hospital Course: Silver Joyner is a 61 year old male with a past medical history of COPD, bladder cancer, and lung mass who was admitted to the hospital ICU on 07/06 for hyperc arbic and hypoxic respiratory failure secondary to COVID pneumonia and potential post obstructive pneumonia. He was treated with treated with remdesivir, solumedrol, Duoneb and required Bipap to maintain appropriate oxygenation status until hospital day 3 at which time his O2 requirements decreased back to his baseline. He will need to have an outpatient sleep study for CPAP evaluation. RANDI NASSAR I Labs and Pending Lab Test: Laboratory Tests 07/10/22 06:16: White Blood Count 8.1, Red Blood Count 4.14L, Hemoglobin 12.3L, Hematocrit 41, Mean Corpuscular Volume 98, Mean Corpuscular Hemoglobin 30, Mean Corpuscular Hemoglobin Concent 30L, Red Cell Distribution Width 13.5, Platelet Count 100L, Mean Platelet Volume 12.6H, Immature Granulocyte % (Auto) 0, Neutrophils (%) (Auto) 75, Lymphocytes (%) (Auto) 11L, Monocytes (%) (Auto) 14H, Eosinophils (%) (Auto) 0, Basophils (%) (Auto) 0, Neutrophils # (Auto) 6.1, Lymphocytes # (Auto) 0.9L, Monocytes # (Auto) 1.1H, Eosinophils # (Auto) 0.0, Basophils # (Auto) 0.0, Immature Granulocyte # (Auto) 0.0, Percent Immature Platelet Fraction 15.6H, Sodium Level 140, Potassium Level 5.0, Chloride Level 100, Carbon Dioxide Level 32, Anion Gap 8, Blood Urea Nitrogen 25H, Creatinine 0.98, Estimat Glomerular Filtration Rate 88, BUN/Creatinine Ratio 26, Glucose Level 116H, Calcium Level 9.7, Corrected Calcium 10.1, Magnesium Level 1.6, Total Bilirubin 0.2, Aspartate Amino Transf (AST/SGOT) 18, Alanine Aminotransferase (ALT/SGPT) 32, Alkaline Phosphatase 48, Total Protein 6.4, Albumin 3.5, Smear Scan YES Microbiology 07/06/22 MRSA Screen - Final, Complete MRSA not isolated 07/06/22 Blood Culture - Preliminary, Resulted No growth Home Meds Active Prednisone 10 Mg Tab.ds.pk 10 Mg PO DAILY Take 6 tabs(60mg)daily,decrease by 1 tab(10MG)daily. Aspirin EC (Aspirin) 81 Mg Tablet.dr 81 Mg PO DAILY Reported Pantoprazole Sodium 40 Mg Tablet.dr 40 Mg PO DAILY Amlodipine Besylate 5 Mg Tablet 5 Mg PO DAILY Assessment/Pt Instructions pcp 1 week Discharge Planning: <30 minutes discharge planning Discharge Instructions Discharge Diet: No Restrictions Discharge Physical Examination Vital Signs Vital Signs Date Time Temp Pulse Resp B/P (MAP) Pulse Ox O2 Delivery O2 Flow Rate FiO2 07/10/22 10:01 92 Nasal Cannula 4.00 07/10/22 07:58 36.7 67 20 149/73 (98) 07/09/22 23:35 40 General Appearance: No Apparent Distress, WD/WN Allergies: Coded Allergies: Penicillins (Verified Allergy, Severe, ANAPHYLAXIS, 06/03/18) SWELLING ALL OVER sulfamethoxazole (Unverified Adverse Reaction, Unknown, 07/16/18) trimethoprim (Unverified Adverse Reaction, Unknown, 07/16/18) Uncoded Allergies: SOMETHING FOR COLDS (Allergy, Mild, 03/26/14) Discharge Summary Date of Admission Jul 06, 2022 at 20:47 Date of Discharge Discharge Date: Jul 10, 2022 Admission Diagnosis 1. Acute on chronic respiratory failure with right and left lower lobe infiltrates which have not changed since his last chest x-ray 1 month ago highly suspicious for a postobstructive process with many pack-year smoking history suspect cancer. On top of this current exacerbation may be due to COVID infection patient is getting antiviral as well as antibiotic therapy prognosis extremely poor considering hypercapnic respiratory failure we will attempt to discuss further with family in regards to wishes mechanical ventilation. Patient unable to speak to this likely due to hypercapnia. Complex medical management in a critically ill patient with multiple medical comorbidities. Prognosis extremely poor. SHRUTI LUNDY DO Jul 10, 2022 10:57
--- NOTE | 2022-07-10 12:05 | Occ Therapy Progress Note ---
Therapy Progress Note Per nrsg, pt is up ad leann in room and completes all ADLs independently. Per nrsg, pt is to discharge to home today. Pt has met goals per nrsg report. Dismiss OT services. EMIGDIO MILES Jul 10, 2022 12:05
--- NOTE | 2022-07-10 13:31 | Progress Note ---
RANDI NASSAR I 07/10/22 1331: Progress Note Silver Joyner is a 61 year old male with a past medical history of COPD, bladder cancer, and lung mass who was admitted to the hospital ICU on 07/06 for hypercarbic and hypoxic respiratory failure secondary to COVID pneumonia and potential post obstructive pneumonia. He was treated with treated with remdesiv ir, solumedrol, Duoneb and required Bipap to maintain appropriate oxygenation status until hospital day 3 at which time his O2 requirements decreased back to his baseline. He will need to have an outpatient sleep study for CPAP evaluation. KARLY LUNDY DO 07/11/22 0524: Supervisory-Addendum Brief Verification & Attestation Participated in pt care: history, MDM, physical Personally performed: exam, history, MDM, supervision of care Care discussed with: Medical Student Procedures: n/a Results interpretation: Verified all documentation Verification and Attestation of Medical Student E/M Service A medical student performed and documented this service in my presence. I reviewed and verified all information documented by the medical student and made modifications to such information, when appropriate. I personally performed the physical exam and medical decision making. Karly Lundy, Jul 11, 2022,05:24 RANDI NASSAR I Jul 10, 2022 13:31 KARLY LUNDY DO Jul 11, 2022 05:24
[2022-07-10 18:14] VITALS: BP 149/73
== END 2022-07-10 18:16 | disposition home or self-care (01) | DRG 177 ==
LOC: EDUNIT# 19:34 → ER 19:36 → ICU 20:47 → 4TH 07-09 13:22
PROVIDERS: ADMIT Internal Medicine; ATTEND Internal Medicine
PROC: XW033E5 Introduction of Remdesivir Anti-infective into Peripheral Vein, Percutaneous Approach, New Technology Group 5 (ICD-10-PCS; principal; 2022-07-06)
PROC: 8E0ZXY6 Isolation (ICD-10-PCS; 2022-07-06)
PROC: 5A09457 Assistance with Respiratory Ventilation, 24-96 Consecutive Hours, Continuous Positive Airway Pressure (ICD-10-PCS; 2022-07-06)
PROC: 5A0935A Assistance with Respiratory Ventilation, Less than 24 Consecutive Hours, High Flow/Velocity Cannula (ICD-10-PCS; 2022-07-07)
DX: U07.1 COVID-19 (principal); J12.82 Pneumonia due to coronavirus disease 2019; J96.21 Acute and chronic respiratory failure with hypoxia; J96.22 Acute and chronic respiratory failure with hypercapnia; J44.1 Chronic obstructive pulmonary disease with (acute) exacerbation; Z68.41 Body mass index [BMI] 40.0-44.9, adult; I10 Essential (primary) hypertension; Z86.73 Personal history of transient ischemic attack (TIA), and cerebral infarction without residual deficits; Z85.51 Personal history of malignant neoplasm of bladder; Z92.21 Personal history of antineoplastic chemotherapy; Z99.81 Dependence on supplemental oxygen; Z87.891 Personal history of nicotine dependence; E66.01 Morbid (severe) obesity due to excess calories; G47.33 Obstructive sleep apnea (adult) (pediatric)
CPT/HCPCS: 36415; 70450; 71045; 80053; 80320; 82805; 82947; 83605; 83735; 83880; 84100; 84145; 84439; 84443; 85007; 85025; 85027; 85610; 87040; 87081; 87636; 93005; 94640; 94660; 94760; 96374

== ENCOUNTER 2022-07-15 10:53 | Inpatient (IN) | payer MEDICARE, MEDICAID ==
[~2022-07-15] VITALS: Ht 183 cm; Wt 137.6 kg
[~2022-07-15 10:53] MED LIST changes: +ASPI-1238 PO
--- NOTE | 2022-07-15 11:19 | ED Respiratory ---
General Chief Complaint: Respiratory Problems Stated Complaint: SOA - COVID + Nursing Triage Note: PT TO [facility] 9 BY [facility] WITH CC OF SOB, POST COVID IN MAY, HAS BEEN SEEN IN HOSP A COUPLE TIMES FOR THE SAME, 95% ON 3 LPM AT TRIAGE (BREANNE TOVAR) Source: patient, old records Exam Limitations: no limitations (CHRISTIANO RENEE) History of Present Illness Date Seen by Provider: Jul 15, 2022 Time Seen by Provider: 11:00 Initial Comments Patient assessed by med student and this provider. (BREANNE TOVAR) Initial Comments This is a 61yo m with pmhx of COPD, obesity, and hypertension who was gisell by EMS for increasing shortness of air. Pt A&Ox3 on arrival, O2 sat 95% on 3L NC Pt had COVID 06JUL2022 and Influenza with recent visits to the ED for re spiratory symptoms. Patient was just discharged from the hospital for COPD exacerbation on 10JUL2022. Pt endorsed increasing SOA since leaving the hospital stay as well as cough, weakness, and malaise. Denies fever, chills, or other symptoms. Patient reports he wears 3L O2 at home, though his SOA was still worsening. Patient lives at home on his own and reports he has been having more trouble with ambulating. In the ED room today, patient could not self clean after using the in room portable toilet. He also required assistance with ambulation from the toilet to the bed which were adjacent to each other. Severity: moderate Prior Episodes/Possible Cause: frequent episodes Associated Symptoms: No chest pain/soreness; cough; No fever/chills, No headache, No lightheadedness; shortness of breath (CHRISTIANO RENEE) Allergies and Home Medications Allergies Coded Allergies: Penicillins (Verified Allergy, Severe, ANAPHYLAXIS, 06/03/18) SWELLING ALL OVER sulfamethoxazole (Unverified Adverse Reaction, Unknown, 07/16/18) trimethoprim (Unverified Adverse Reaction, Unknown, 07/16/18) Uncoded Allergies: SOMETHING FOR COLDS (Allergy, Mild, 03/26/14) Patient Home Medication List Home Medication List Reviewed: Yes (BREANNE TOVAR) Amlodipine Besylate (Amlodipine Besylate) 5 Mg Tablet, 5 MG PO DAILY, (Reported) Entered as Reported by: JOSE LOPEZ on 07/09/22 1147 Aspirin (Aspirin EC) 81 Mg Tablet.dr, 81 MG PO DAILY Prescribed by: SHRUTI LUNDY on 07/10/22 1043 Pantoprazole Sodium (Pantoprazole Sodium) 40 Mg Tablet.dr, 40 MG PO DAILY, (Reported) Entered as Reported by: JOSE LOPEZ on 07/09/22 1147 Prednisone (Prednisone) 10 Mg Tab.ds.pk, 10 MG PO DAILY Prescribed by: SHRUTI LUNDY on 07/10/22 1043 Discontinued Medications Amlodipine Besylate (Amlodipine Besylate) 5 Mg Tablet, 5 MG PO DAILY Discontinued Reason: No Longer Taking Prescribed by: SHRUTI LUNDY on 05/31/22 1303 Hydrocodone Bit/Acetaminophen (HYDROcodone/APAP 5 MG/325 MG TAB) 1 Tab Tab, 1 EA PO Q4H PRN for PAIN-MODERATE (5-7) Discontinued Reason: No Longer Taking Prescribed by: SHRUTI LUNDY on 05/31/22 1303 Ipratropium/Albuterol Sulfate (Iprat-Albut 0.5-3(2.5) mg/3 ml) 0.5 Mg-3 Mg (2.5 Mg Base)/3 Ml Ampul.neb, 3 ML INH RTQ4HR Discontinued Reason: No Longer Taking Prescribed by: SHRUTI LUNDY on 05/31/22 130 Pantoprazole Sodium (Pantoprazole Sodium) 40 Mg Tablet.dr, 40 MG PO DAILY Discontinued Reason: No Longer Taking Prescribed by: SHRUTI LUNDY on 05/31/22 130 Prednisone (Prednisone) 10 Mg Tab.ds.pk, 10 MG PO DAILY Discontinued Reason: No Longer Taking Prescribed by: SHRUTI LUNDY on 05/31/22 1303 Review of Systems Review of Systems Constitutional: No chills, No diaphoresis, No dizziness, No fever; malaise, weakness EENTM: see HPI Respiratory: cough, dyspnea on exertion; No hemoptysis, No orthopnea; short of breath Cardiovascular: no symptoms reported Gastrointestinal: no symptoms reported Genitourinary: no symptoms reported Musculoskeletal: no symptoms reported Skin: no symptoms reported (CHRISTIANO RENEE) All Other Systems Reviewed Negative Unless Noted: Yes (BREANNE TOVAR) Past Zmiyfwu-Bdpbuy-Fnwwjs Hx Patient Social History Tobacco Use?: No Smoking Status: Former Smoker Substance use?: No Alcohol Use?: No (BREANNE TOVAR) Immunizations Up To Date Tetanus Booster (TDap): Unknown PED Vaccines UTD: Yes (BREANNE TOVAR) Past Medical History Surgery/Hospitalization HX: MULTIPLE HOSPITALIZATIONS FOR COPD EXACERBATION/RESPIRATORY FAILURE, HYPERTENSION Surgeries: Yes (HERNIA) Abdominal Respiratory: Yes (tobaccoism) Currently Using CPAP: No Currently Using BIPAP: No Cardiac: No Hypertension Neurological: Yes (STATES HAD STROKE 3 YEARS AGO) Stroke Genitourinary: No Gastrointestinal: No Musculoskeletal: No Endocrine: No HEENT: No Cancer: No Psychosocial: No Integumentary: No Blood Disorders: No (BREANNE TOVAR) Family Medical History Reviewed Nursing Family Hx (BREANNE TOVAR) Patient reports no known family medical history. Heart Disease, Cancer, CAD Under 55 Years Old (BREANNE TOVARP) Physical Exam Vital Signs - First Documented 07/15/22 11:00 Temp 37.3 Pulse 89 B/P (MAP) 137/89 (105) O2 Delivery Nasal Cannula O2 Flow Rate 3.00 (CHRISTIANO RENEE) Capillary Refill : (BREANNE TOVARP) Height: 6'0.00" Weight: 273lbs. 5.0oz. 123.798773pq; 41.00 BMI Method:Stated (BREANNE TOVAR) General Appearance: WD/WN (Patient could not self clean after using the in room portable toilet. He also required assistance with ambulation from the toilet to the bed which were adjacent to each other.), moderate distress, obese Respiratory: chest non-tender, no accessory muscle use, decreased breath sounds, wheezing (expiratory), other (shallow breathing effort) Cardiovascular: regular rate, rhythm, no edema, no murmur Gastrointestinal: normal bowel sounds, non tender, soft, no organomegaly, no pulsatile mass Extremities: normal range of motion, non-tender, normal inspection, no pedal edema, no calf tenderness, normal capillary refill Neurologic/Psychiatric: no motor/sensory deficits, alert, normal mood/affect, oriented x 3 Skin: normal color, warm/dry (CHRISTIANO RENEE) Progress/Results/Core Measures Suspected Sepsis SIRS Temperature: Pulse: 89 Respiratory Rate: Laboratory Tests 07/15/22 11:34: White Blood Count 6.7 Blood Pressure 137 /89 Mean: 105 Laboratory Tests 07/15/22 11:34: Creatinine 1.09, Platelet Count 237, Total Bilirubin 0.3 (BREANNE TOVAR) SIRS Laboratory Tests 07/15/22 11:34: Laboratory Tests 07/15/22 11:34: (CHRISTIANO RENEE) Results/Orders Lab Results Laboratory Tests Test 07/15/22 11:34 Range/Units (CHRISTIANO RENEE) Vital Signs/I&O 07/15/22 07/15/22 11:00 11:15 Temp 37.3 Pulse 89 B/P (MAP) 137/89 (105) O2 Delivery Nasal Cannula Nasal Cannula O2 Flow Rate 3.00 3.00 (CHRISTIANO RENEE) Vital Signs/I&O Capillary Refill : (BREANNE TOVAR) Blood Pressure Mean: 105 Progress Note : Time: 11:00 Progress Note patient assessed, will obtain labs and cxr. Spoke to Sister Day Morelos, she is concerned because he is unable to get out of bed and has not been eating since he returned home. She had intentions to call [facility] tomorrow, to get assistance in the home. [address] Lundy, plan to admit patient to ICU. will check ABGs. Patient agreeable with plan. Updated sister. (BREANNE TOVAR) Diagnostic Imaging Diagonstic Imaging: Xray Plain Films/CT/US/NM/MRI: chest Comments NAME: JACOB JONES [facility] REC#: [id number] PT STATUS: REG ER : 1960 PHYSICIAN: BREANNE TOVAR ADMIT DATE: 07/15/22/ER Draft Date of Exam:07/15/22 CHEST 1 VIEW, AP/PA ONLY CLINICAL INDICATION: Patient post COVID in May and been hospitalized a couple of times for the same. EXAM: Portable chest x-ray upright view. COMPARISON: Chest x-ray dated 07/08/2022. FINDINGS: There is interval progression of a small to moderate amount of patchy consolidations/infiltrates involving the periphery of the right midlung field and right lung base. There is mild atelectasis or infiltrate involving left lung base which is slightly progressed. There is no pleural effusion or pneumothorax. There is cardiomegaly. Pulmonary vasculature is not significantly congested. IMPRESSION: 1: There is interval development of patchy consolidations/infiltrates involving right midlung field and right lung base concerning for pneumonia. There is no pleural effusion. 2: There is minimal left basilar atelectasis versus infiltrate which has progressed. 3: There is cardiomegaly with no significant pulmonary vascular congestion. Dictated on workstation # [id number] Dict: 07/15/22 1141 Trans: 07/15/22 1147 CV [id number] Interpreted by: DIEGO PAYNE MD Electronically signed by: (BREANNE TOVAR) Departure Impression Primary Impression: Pneumonia Qualified Codes: J18.9 - Pneumonia, unspecified organism Additional Impressions: COPD (chronic obstructive pulmonary disease) Qualified Codes: J44.9 - Chronic obstructive pulmonary disease, unspecified Hypercarbia Disposition: ADMITTED INPATIENT Condition: Critical Admissions Decision to Admit/Date: Jul 15, 2022 Time/Decision to Admit Time: 12:00 (BREANNE TOVAR) Departure-Patient Inst. Referrals: JACOB DIMAS MD (PCP/Family) Primary Care Physician patient evaluated by medical student and this provider, all assessments and documentation reviewed. (BREANNE TOVAR) Copy Copies To 1: JACOB DIMAS MD, AMY ARNP Jul 15, 2022 11:19 CHRISTIANO RENEE Jul 15, 2022 11:30
[2022-07-15 11:41] LABS: BASOPHILS % (AUTO) 0 % (0-10); EOSINOPHILS # (AUTO) 0.2 10^3/uL (0.0-0.3); EOSINOPHILS % (AUTO) 3 % (0-10); HEMATOCRIT 40 % (40-54); HEMOGLOBIN 12.4 g/dL (13.3-17.7); LYMPHOCYTES # (AUTO) 0.9 10^3/uL (1.0-4.0); LYMPHOCYTES % (AUTO) 14 % (12-44); MEAN CORPUSCULAR HEMOGLOBIN 30 pg (25-34); MEAN CORPUSCULAR HGB CONC 31 g/dL (32-36); MEAN CORPUSCULAR VOLUME 97 fL (80-99); MEAN PLATELET VOLUME 10.9 fL (9.0-12.2); MONOCYTES # (AUTO) 0.6 10^3/uL (0.0-1.0); MONOCYTES % (AUTO) 9 % (0-12); NEUTROPHILS # (AUTO) 4.9 10^3/uL (1.8-7.8); NEUTROPHILS % (AUTO) 72 % (42-75); PLATELET COUNT 237 10^3/uL (130-400); WHITE BLOOD COUNT 6.7 10^3/uL (4.3-11.0)
--- NOTE | 2022-07-15 11:48 | Diagnostic Imaging Report ---
CLINICAL INDICATION: Patient post COVID in May and been hospitalized a couple of times for the same. EXAM: Portable chest x-ray upright view. COMPARISON: Chest x-ray dated 07/08/2022. FINDINGS: There is interval progression of a small to moderate amount of patchy consolidations/infiltrates involving the periphery of the right midlung field and right lung base. There is mild atelectasis or infiltrate involving left lung base which is slightly progressed. There is no pleural effusion or pneumothorax. There is cardiomegaly. Pulmonary vasculature is not significantly congested. IMPRESSION: 1: There is interval development of patchy consolidations/infiltrates involving right midlung field and right lung base concerning for pneumonia. There is no pleural effusion. 2: There is minimal left basilar atelectasis versus infiltrate which has progressed. 3: There is cardiomegaly with no significant pulmonary vascular congestion. Dictated by: Dictated on workstation # [id number]
[2022-07-15 11:50] LABS: ALBUMIN 3.1 GM/DL (3.2-4.5)
[2022-07-15 11:51] LABS: CALCIUM 9.6 MG/DL (8.5-10.1)
[2022-07-15 11:52] LABS: TOTAL PROTEIN 5.8 GM/DL (6.4-8.2)
[2022-07-15 11:54] LABS: BILIRUBIN,TOTAL 0.3 MG/DL (0.1-1.0)
[2022-07-15 11:56] LABS: CREATININE SERUM 1.09 MG/DL (0.60-1.30)
[2022-07-15] MEDS ORDERED: NS IV 500 ML 500 ML IV ONE (12:15)
[2022-07-15] MEDS ORDERED: HYDROmorphone 2 MG/ML VIAL (DILAUDID) IV PRN (13:00)
[2022-07-15] MEDS ORDERED: NS IV 500 ML 500 ML IV PRN (13:00)
[2022-07-15] MEDS ORDERED: diphenhydrAMINE 25 MG TAB (BENADRYL) PO PRN (13:00)
[2022-07-15] MEDS ORDERED: LORazepam 0.5 MG (ATIVAN) TABLET PO PRN (13:00)
[2022-07-15] MEDS ORDERED: guaiFENesin/CODEINE (ROBITUSSIN AC) 10ML UDC PO PRN (13:00)
[2022-07-15] MEDS ORDERED: PHARMACY TO DOSE IV SCH (13:00)
[2022-07-15] MEDS ORDERED: LIDOCAINE UROJET 2% GEL 10 ML PKG TOP ONE (13:00)
[2022-07-15] MEDS ORDERED: polyethylene glycoL POWDER 17 GM (MIRALAX) PACK PO PRN (13:00)
[2022-07-15] MEDS ORDERED: ANTACID SUSP 30 ML UDC (MYLANTA) PO PRN (13:00)
[2022-07-15] MEDS ORDERED: ONDANSETRON 4 MG (ZOFRAN) ORAL DISSOLVE TAB PO PRN (13:00)
[2022-07-15] MEDS ORDERED: CALCIUM CARBONATE 500 MG (TUMS) TAB.CHEW PO PRN (13:00)
[2022-07-15] MEDS ORDERED: ACETAMINOPHEN 325 MG TABLET PO PRN (13:00)
[2022-07-15] MEDS ORDERED: MILK OF MAGNESIA 400 MG/5 ML 30 ML UDC PO PRN (13:00)
[2022-07-15] MEDS ORDERED: LACTULOSE SYRUP 10GM/15ML (ENULOSE) 30ML UDC PO PRN (13:00)
[2022-07-15] MEDS ORDERED: DexMEDEtomidine 250 ML DRIP 250 ML IV SCH (13:00)
[2022-07-15] MEDS ORDERED: BENZONATATE 100 MG (TESSALON) CAPSULE PO PRN (13:00)
[2022-07-15] MEDS ORDERED: LORazepam INJ 2 MG/ML (ATIVAN) VIAL IVP PRN (13:00)
[2022-07-15] MEDS ORDERED: MELATONIN 3 MG TABLET PO PRN (13:00)
[2022-07-15] MEDS ORDERED: diphenhydrAMINE 50 MG/ML INJ (BENADRYL) IVP PRN (13:00)
[2022-07-15] MEDS ORDERED: ENOXAPARIN 40 MG/0.4 ML (LOVENOX) SYR SC SCH (13:00)
[2022-07-15] MEDS ORDERED: ONDANSETRON 4 MG/2 ML (SDV) Z0FRAN IV PRN (13:00)
[2022-07-15] MEDS ORDERED: BISACODYL 10 MG SUPP (DULCOLAX) PR PRN (13:00)
--- NOTE | 2022-07-15 13:02 | History & Physical-Hospitalist ---
History of Present Illness HPI/Chief Complaint CC: Acute on chronic hypoxic hypercapneic respiratory failure HPI: This is a 61yoWM clinic patient of ROBERT[facility]EL who is known to this provider from recent hospital stay for acute on chronic respiratory failure who required biPAP at that time who presented to the ER from [facility] with increased dyspnea. His baseline O2 had been maintained but he continued to have increased work of breathing. I assessed him in the ER and noted ABG revealed hypercapnia so he will be admitted for ICU for biPAP. Pneumonia will be treated with Cefepime and Vanc due to presumed resistant organism. Source: patient, RN/MD, old records Exam Limitations: clinical condition Date Seen 07/15/22 Time Seen by a Provider: 12:30 Attending Physician Silver Vásquez MD PCP Admitting Physician: Karly Ram DO Attending Physician: Karly Ram DO Referring Physician Date of Admission Jul 15, 2022 at 12:00 Home Medications & Allergies Home Medications Reviewed patient Home Medication Reconciliation performed by pharmacy medication reconciliations reprographics technician and/or nursing. Patients Allergies have been reviewed. Allergies Allergies Coded Allergies Penicillins (Verified Allergy, Severe, ANAPHYLAXIS, 06/03/18) SWELLING ALL OVER sulfamethoxazole (Unverified Adverse Reaction, Unknown, 07/16/18) trimethoprim (Unverified Adverse Reaction, Unknown, 07/16/18) Uncoded Allergies SOMETHING FOR COLDS ( Allergy, Mild, 03/26/14) Past Tvgasdo-Kkcfap-Bzjsqw Hx Patient Social History Marrital Status: single Employed/Student: unemployed Tobacco Use?: No Smoking Status: Current Everyday Smoker Substance use?: No Alcohol Use?: No Immunizations Up To Date Tetanus Booster (TDap): More Than 5 Years PED Vaccines UTD: Yes Current Status Primary Language: Prydeinig Preferred Spoken Language: Prydeinig Implanted or Applied Medical D: None Past Medical History Surgeries: Abdominal Pneumonia, COPD Currently Using CPAP: No Currently Using BIPAP: No Hypertension Stroke Blood Disorders: No COPD Obesity HTN Family Medical History Reviewed Nursing Family Hx Patient reports no known family medical history. Heart Disease, Cancer, CAD Under 55 Years Old Review of Systems Constitutional: see HPI, malaise, weakness Respiratory: dyspnea on exertion, short of breath Physical Exam Physical Exam Vital Signs Vital Signs - First Documented 07/15/22 07/15/22 07/15/22 11:00 12:54 13:30 Temp 37.3 Pulse 89 Resp 20 B/P (MAP) 137/89 (105) Pulse Ox 95 O2 Delivery Nasal Cannula O2 Flow Rate 3.00 FiO2 32 Capillary Refill : Height, Weight, BMI Height: 6'0.00" Weight: 273lbs. 5.0oz. 123.949106tt; 41.00 BMI Method:Stated General Appearance: Chronically ill, Mild Distress, Obese Respiratory: Accessory Muscle Use, Decreased Breath Sounds, Rales, Wheezing Cardiovascular: Regular Rate, Rhythm Neurologic/Psychiatric: Alert, Oriented x3, No Motor/Sensory Deficits, Normal Mood/Affect Results Results/Procedures Labs Laboratory Tests 07/15/22 11:34 Patient resulted labs reviewed. Assessment/Plan Admission Diagnosis Assessment: Acute on chronic respiratory failure with hypoxia and hypercapnia AECOPD Pneumonia facility acquired Recent COVID 05/2022 Smoker Obesity HTN Plan: ICU BiPAP IV abx Lovenox ABG Cardiology consult Admission Status: Inpatient Order (span 2 midnights) Reason for Inpatient Admission: resp failure Diagnosis/Problems Diagnosis/Problems (1) Acute respiratory failure with hypoxia and hypercapnia Status: Acute (2) COPD exacerbation Status: Acute (3) Pneumonia Status: Acute Qualifiers: Pneumonia type: due to unspecified organism Laterality: right Lung location: middle lobe of lung Qualified Codes: J18.9 - Pneumonia, unspecified organism KARLY RAM DO Jul 15, 2022 13:02
[2022-07-15 13:14] LABS: ABG BASE EXCESS 15.7 MMOL/L (-2.5-2.5); ABG OXYGEN SATURATION 94 % (94-100); ABG PH 7.35 (7.37-7.43); ABG PO2 62 MMHG (79-93)
[2022-07-15 13:18] LABS: ABG PCO2 79 MMHG (35-45); ABG TCO2 44.4 MMOL/L (21.0-31.0); ALLENS TEST YES-POS; INSPIRED O2 3L
[2022-07-15 13:19] LABS: PATIENT TEMP 37.3; VENTILATOR NO
[2022-07-15 13:30] VITALS: BP 137/89
[2022-07-15] MEDS: NS IV 1000 ML 1,000 ML IV SCH (13:47)
--- NOTE | 2022-07-15 13:49 | Tele-ICU Progress Note ---
Subjective Date Seen by a Provider: Jul 15, 2022 Subjective/Events-last exam This virtual visit was conducted using real time audio/video. Thank you for asking us to see this patient for respiratory insufficiency due to pna, AECOPD, Covid 07/06/2022. IAlso hyperglycemia nfluenza 05/2022. PMH: COPD, HTN, obesity SH: smoking history: former PE: Obese. No distress. VSS. O2 sat 95% on 3 LPM NC. HEENT: No obvious masses, adenopathy or JVD. Chest: Diminished w wheezing. CV: RRR S1 S2 No murmur or added sounds. Abd: Non-tender. Bowel sounds Y. : Unremarkable. Salazar N. DRYLAND FARMER/psychiatric: Grossly intact. No obvious focal findings. Extremities: No edema. Capillary refill < 3 seconds. Skin: unremarkable. Results: Elevated BG 384, BUN 21. Decreased Hb 12.4. AB.35/79/62 on 3 LPM. CXR: R infilts.. Available chart/ vitals / labs / images reviewed. Video assessment done using teleICU camera, rest of exam as per RN. A/P: Respiratory insufficiency: Continue present management with O2, medrol Prec. Added duonebs. Monitor for increasing oxygenation needs and/or need for intubation. Critical Care: critically ill patient. Cont.IVF, abx, jez. Discussed with TAL Hankins. Asked RN to reach out to eICU if any questions or concerns later. Time spent with patient/coordination of care with other health professionals ( mins): 20 Sepsis Event Evaluation Height, Weight, BMI Height: 6'0.00" Weight: 273lbs. 5.0oz. 123.296198yf; 41.00 BMI Method:Stated Exam Exam Patient acknowledged, consented, and participated in this virtual visit which was conducted using real time audio/video Vital Signs Date Time Temp Pulse Resp B/P (MAP) Pulse Ox O2 Delivery O2 Flow Rate FiO2 07/15/22 13:33 88 07/15/22 13:30 37.3 89 93 32 07/15/22 11:15 Nasal Cannula 3.00 07/15/22 11:00 37.3 89 137/89 (105) Nasal Cannula 3.00 Height & Weight Height: 6'0.00" Weight: 273lbs. 5.0oz. 123.872717jv; 41.00 BMI Method:Stated General Appearance: Obese Respiratory: Decreased Breath Sounds, Wheezing (See free text) Peripheral Pulses: 1+ Dorsalis Pedis (R), 1+ Left Dors-Pedis (L) Gastrointestinal: normal bowel sounds, non tender, soft, no organomegaly, no pulsatile mass Results Lab Laboratory Tests 07/15/22 11:34 Assessment/Plan Assessment/Plan See free text. Critical Care: Critically Ill Patient FILEMON SIMS MD Jul 15, 2022 13:48
[2022-07-15] MEDS ORDERED: VANCOMYCIN 2000 MG/NS 500 ML IVPB IV NR ×2 (14:00)
[2022-07-15] MEDS ORDERED: VANCOMYCIN 2000 MG/NS 500 ML IVPB IV SCH ×2 (14:00)
[2022-07-15] MEDS ORDERED: RT-ALBUTEROL/IPRATROPIUM 3 ML (DUONEB) VIAL INH PRN (14:00)
[2022-07-15] MEDS: RT-ALBUTEROL HFA 8.5 GM INHALER IH SCH ×3 (14:06→23:11)
[2022-07-15 14:08] LABS: BILIRUBIN,URINE NEGATIVE (NEGATIVE); CLARITY,URINE CLEAR; COLOR,URINE YELLOW; GLUCOSE, URINE (UA) 3+ (NEGATIVE); KETONES,URINE NEGATIVE (NEGATIVE); LEUKOCYTE ESTERASE ,URINE NEGATIVE (NEGATIVE); NITRITE,URINE NEGATIVE (NEGATIVE); PROTEIN,URINE NEGATIVE (NEGATIVE)
[2022-07-15 14:15] LABS: BACTERIA,URINE NEGATIVE /HPF; WBC,URINE RARE /HPF
[2022-07-15] MEDS ORDERED: inSUlin (REGULAR) HUMAN 1 UNIT/0.01 ML (CHARGE PER UNIT) SC NR (15:30)
[2022-07-15] MEDS ORDERED: FLU QUADRIvalent (6 months+) 60 mcg/0.5 ml 2022-23 (Fluzone) IM ONE (15:45)
[2022-07-15] MEDS ORDERED: RT-ALBUTEROL HFA 8.5 GM INHALER IH PRN (16:00)
[2022-07-15] MEDS ORDERED: inSUlin (REGULAR) HUMAN 1 UNIT/0.01 ML (CHARGE PER UNIT) SC SCH (16:00)
[2022-07-15] MEDS: methylPREDNISolone 40 MG/ML (Solu-MEDROL) VIAL IV SCH (17:17)
[2022-07-15] MEDS: inSUlin (REGULAR) HUMAN 1 UNIT/0.01 ML (CHARGE PER UNIT) SC SCH ×2 (17:17→21:57)
[2022-07-15] MEDS: CEFEPIME INJECTION 2,000 MG in NS (IVPB) 50 ML IV SCH (17:18)
[2022-07-15] MEDS ORDERED: CEFEPIME INJECTION 2,000 MG in NS (IVPB) 50 ML IV SCH (21:00)
[2022-07-15] MEDS: SENNOSIDES 8.6 MG (SENOKOT) TAB PO SCH (21:58)
[2022-07-15] MEDS: MONTELUKAST 10 MG (SINGULAIR) TAB PO SCH (21:58)
[2022-07-15] MEDS: DOCUSATE SODIUM 100 MG (COLACE) CAP PO SCH (21:58)
[2022-07-15 23:11] VITALS: BP 144/92
[2022-07-16] MEDS: methylPREDNISolone 40 MG/ML (Solu-MEDROL) VIAL IV SCH ×4 (00:45→17:11)
[2022-07-16] MEDS: CEFEPIME INJECTION 2,000 MG in NS (IVPB) 50 ML IV SCH ×3 (00:45→21:23)
[2022-07-16] MEDS: VANCOMYCIN 1500 MG/NS 500 ML IVPB IV SCH ×4 (02:47→14:14)
[2022-07-16 02:52] VITALS: BP 154/80
[2022-07-16] MEDS: RT-ALBUTEROL HFA 8.5 GM INHALER IH SCH ×6 (02:55→21:36)
[2022-07-16 03:55] LABS: BASOPHILS % (AUTO) 0 % (0-10); EOSINOPHILS % (AUTO) 0 % (0-10); HEMATOCRIT 38 % (40-54); HEMOGLOBIN 11.7 g/dL (13.3-17.7); LYMPHOCYTES # (AUTO) 0.7 10^3/uL (1.0-4.0); LYMPHOCYTES % (AUTO) 10 % (12-44); MEAN CORPUSCULAR HEMOGLOBIN 30 pg (25-34); MEAN CORPUSCULAR HGB CONC 31 g/dL (32-36); MEAN CORPUSCULAR VOLUME 96 fL (80-99); MEAN PLATELET VOLUME 10.8 fL (9.0-12.2); MONOCYTES # (AUTO) 0.2 10^3/uL (0.0-1.0); MONOCYTES % (AUTO) 3 % (0-12); NEUTROPHILS # (AUTO) 6.2 10^3/uL (1.8-7.8); NEUTROPHILS % (AUTO) 85 % (42-75); PLATELET COUNT 233 10^3/uL (130-400); WHITE BLOOD COUNT 7.3 10^3/uL (4.3-11.0)
[2022-07-16 04:26] LABS: ALBUMIN 3.2 GM/DL (3.2-4.5)
[2022-07-16 04:27] LABS: POTASSIUM 4.4 MMOL/L (3.6-5.0)
[2022-07-16 04:28] LABS: CALCIUM 9.3 MG/DL (8.5-10.1)
[2022-07-16 04:29] LABS: TOTAL PROTEIN 5.9 GM/DL (6.4-8.2)
[2022-07-16 04:31] LABS: BILIRUBIN,TOTAL 0.3 MG/DL (0.1-1.0)
[2022-07-16 04:32] LABS: PHOSPHORUS 1.5 MG/DL (2.3-4.7)
[2022-07-16 04:33] LABS: CREATININE SERUM 1.03 MG/DL (0.60-1.30)
[2022-07-16 04:36] LABS: MAGNESIUM 1.6 MG/DL (1.6-2.4)
--- NOTE | 2022-07-16 05:41 | Diagnostic Imaging Report ---
EXAMINATION: Chest 1 view HISTORY: Pneumonia. Follow-up. COMPARISON: 07/15/2022. FINDINGS: Stable bibasilar opacities, right greater than left. There is suggestion of a labpc-gf-eyhyuegb right-sided pleural effusion. No pneumothorax. Stable prominent cardiac silhouette. IMPRESSION: 1. Possible increasing sqjwq-pg-uppeczay right-sided pleural effusion with stable bibasilar opacities. 2. Stable cardiomegaly. Dictated by: Dictated on workstation # [id number]
[2022-07-16] MEDS: MAGNESIUM 1 GM/100 ML IVPB 100 ML IV SCH ×3 (06:00→09:34)
[2022-07-16] MEDS: POTASSIUM CL 10MEQ/50ML IVPB 50 ML IV SCH (06:00)
[2022-07-16] MEDS: KCL 20 MEQ TAB (K-DUR) PO SCH (06:00)
[2022-07-16] MEDS: inSUlin (REGULAR) HUMAN 1 UNIT/0.01 ML (CHARGE PER UNIT) SC SCH ×4 (06:30→21:16)
[2022-07-16] MEDS: DOCUSATE SODIUM 100 MG (COLACE) CAP PO SCH ×2 (08:32→21:17)
[2022-07-16] MEDS: SENNOSIDES 8.6 MG (SENOKOT) TAB PO SCH ×2 (08:32→21:17)
[2022-07-16] MEDS: LORATADINE (CLARITIN) 10 MG TAB PO SCH (08:33)
--- NOTE | 2022-07-16 08:54 | Consultation-Cardiology ---
HPI-Cardiology Cardiology Consultation: Date of Consultation 07/16/22 Time Seen by a Provider: 08:30 Date of Admission 07-15-22 Attending Physician Jacob Vásquez MD Admitting Physician Admitting Physician: Karly Lundy DO Attending Physician: Noelle Morales MD Consulting Physician Richi Gonzalez MD HPI: Chief Complaint: Increasing dyspnea/weakness is a 61 yr old male admitted to ICU 11 from the ED with c/o increasing SOB, gen weakness which started yesterday morning. He reports he was in the hospital previously d/t COVID pneumonia dx per the ED 07-06-22. He reports freq cough. He denies any c/o CP, palpitations, syncope or near syncope. No c/o LE swelling. He reports he feels his breathing is unchanged from admission. He reports he is oxygen dependant at home, 3L/NC. He lives at home alone. Review of Systems-Cardiology Review of Systems Constitutional: No chills; fever, malaise Eyes: No vision change Ears/Nose/Throat: No epistaxis, No recent hearing loss Respiratory: As described under HPI Cardiovascular: As described under HPI Gastrointestinal: No constipation, No diarrhea, No nausea, No vomiting Genitourinary: No hematuria Musculoskeletal: no symptoms reported Skin: No rash on exposed areas, No ulcerations on exposed areas Psychiatric/Neurological: No anxiety, No depression, No seizure, No focal weakness, No syncope Hematologic: No bleeding abnormalities All Other Systems Reviewed Negative Unless Noted: Yes GGF-Bvjbcs-Jekeps Hx Patient Social History Marrital Status: single Employed/Student: unemployed Smoking Status: Current Everyday Smoker Have you traveled recently?: No Alcohol Use?: No Pt feels they are or have been: No Immunizations Up To Date Tetanus Booster (TDap): Unknown Past Medical History PMH As described under Assessment. Family Medical History Family Medical History: No reported family h/o CAD. Family History: Patient reports no known family medical history. Allergies and Home Medications Allergies Coded Allergies: Penicillins (Verified Allergy, Severe, ANAPHYLAXIS, 06/03/18) SWELLING ALL OVER sulfamethoxazole (Unverified Adverse Reaction, Unknown, 07/16/18) trimethoprim (Unverified Adverse Reaction, Unknown, 07/16/18) Uncoded Allergies: SOMETHING FOR COLDS (Allergy, Mild, 03/26/14) Patient Home Medication List Amlodipine Besylate (Amlodipine Besylate) 5 Mg Tablet, 5 MG PO DAILY, (Reported) Entered as Reported by: JOSE LOPEZ on 07/09/22 1147 Aspirin (Aspirin EC) 81 Mg Tablet.dr, 81 MG PO DAILY Prescribed by: KARLY LUNDY on 07/10/22 1043 Pantoprazole Sodium (Pantoprazole Sodium) 40 Mg Tablet.dr, 40 MG PO DAILY, (Reported) Entered as Reported by: JOSE LOPEZ on 07/09/22 1147 Prednisone (Prednisone) 10 Mg Tab.ds.pk, 10 MG PO DAILY Prescribed by: KARLY LUNDY on 07/10/22 1043 Physical Exam-Cardiology Physical Exam Vital Signs/I&O 07/16/22 07/16/22 07/16/22 07/16/22 20:00 20:09 20:10 21:00 Temp 36.8 Pulse 96 79 Resp 24 B/P (MAP) 190/98 (128) 175/89 (117) Pulse Ox 94 100 O2 Delivery Nasal Cannula Nasal Cannula O2 Flow Rate 5.00 5.00 07/16/22 07/16/22 07/16/22 07/16/22 21:36 21:37 21:45 22:00 Pulse 79 71 77 Resp 18 31 26 B/P (MAP) 164/80 (108) Pulse Ox 97 96 94 92 O2 Delivery Nasal Cannula NIV Bilevel NIV Bilevel O2 Flow Rate 5.00 30.00 30.00 30.00 07/16/22 07/17/22 07/17/22 07/17/22 23:00 00:00 00:10 01:00 Temp 36.2 Pulse 65 67 63 Resp 24 26 B/P (MAP) 169/78 (108) 154/96 (115) Pulse Ox 93 94 O2 Delivery NIV Bilevel NIV Bilevel NIV Bilevel O2 Flow Rate 30.00 30.00 FiO2 30 07/17/22 07/17/22 07/17/22 07/17/22 01:00 02:00 02:36 03:00 Pulse 66 60 63 62 Resp 24 20 18 22 B/P (MAP) 192/105 (134) 167/95 (119) 173/62 (99) Pulse Ox 93 91 90 91 O2 Delivery NIV Bilevel O2 Flow Rate 30.00 30.00 1/1707/17/22 07/17/22 07/17/22 04:00 04:00 04:20 05:00 Temp 36.1 Pulse 60 59 61 Resp 20 13 20 B/P (MAP) 172/94 (120) 172/94 (120) 173/107 (129) Pulse Ox 91 91 95 O2 Delivery NIV Bilevel Nasal Cannula O2 Flow Rate 30.00 5.00 07/17/22 07/17/22 07/17/22 07/17/22 06:00 06:32 07:00 07:06 Pulse 70 69 73 Resp 22 36 B/P (MAP) 187/96 (126) 155/77 (103) Pulse Ox 97 93 95 O2 Delivery Nasal Cannula NIV Bilevel O2 Flow Rate 5.00 30.00 07/17/22 00:00 Intake Total 3685 ml Output Total 2200 ml Balance 1485 ml Capillary Refill : Constitutional: AAO x 3, well-developed, well-nourished HEENT: PERRL, hearing is well preserved Neck: No carotid bruit; carotid pulses are 2 + bilaterally Respiratory: No accessory muscle use, No respiratory distress; chest expansion is symmetric, chest is bilaterally symmetric, rhonchi (scattered), other (diminished bases bilat) Cardiovascular: regular rate-rhythm; No JVD; S1 and S2 Gastrointestinal: No tender; soft, round, audible bowel sounds Extremities: no lower extremity edema bilateral Neurologic/Psychiatric: grossly intact (moves all extremities) Skin: No rash on exposed areas, No ulcerations on exposed areas Data Review Labs Laboratory Tests 07/16/22 11:12: Glucometer 183H 07/16/22 16:04: Glucometer 189H 07/16/22 20:06: Glucometer 178H 07/17/22 01:03: White Blood Count 14.6H, Red Blood Count 3.64L, Hemoglobin 10.9L, Hematocrit 35L , Mean Corpuscular Volume 96, Mean Corpuscular Hemoglobin 30, Mean Corpuscular Hemoglobin Concent 31L, Red Cell Distribution Width 13.2, Platelet Count 229, Mean Platelet Volume 10.6, Immature Granulocyte % (Auto) 4, Neutrophils (%) (Auto) 79H, Lymphocytes (%) (Auto) 8L, Monocytes (%) (Auto) 8, Eosinophils (%) (Auto) 0, Basophils (%) (Auto) 0, Neutrophils # (Auto) 11.6H, Lymphocytes # (Auto) 1.2, Monocytes # (Auto) 1.2H, Eosinophils # (Auto) 0.0, Basophils # (Auto) 0.0, Immature Granulocyte # (Auto) 0.6H, Neutrophils % (Manual) 88, Lymphocytes % (Manual) 7, Monocytes % (Manual) 4, Metamyelocytes % 1, Sodium Level 143, Potassium Level 4.2, Chloride Level 103, Carbon Dioxide Level 33H, Anion Gap 7, Blood Urea Nitrogen 18, Creatinine 0.97, Estimat Glomerular Filtration Rate 89, BUN/Creatinine Ratio 19, Glucose Level 166H, Calcium Level 9.2, Corrected Calcium 9.8, Phosphorus Level 1.8L, Magnesium Level 1.9, Total Bilirubin 0.2, Aspartate Amino Transf (AST/SGOT) 10, Alanine Aminotransferase (ALT/SGPT) 19, Alkaline Phosphatase 44, Total Protein 5.8L, Albumin 3.2, Vancomycin Level Trough 16.9 07/17/22 05:30: Glucometer 236H 07/17/22 06:38: Blood Gas Puncture Site L RAD, Blood Gas Patient Temperature 37, Arterial Blood pH 7.35L, Arterial Blood Partial Pressure CO2 65H, Arterial Blood Partial Pressure O2 96H, Arterial Blood HCO3 35H, Arterial Blood Total CO2 36.9H, Arterial Blood Oxygen Saturation 99, Arterial Blood Base Excess 9.1H, Rich Test YES-POS, Blood Gas Ventilator Setting NO, Blood Gas Inspired Oxygen 5L Microbiology 07/15/22 Blood Culture - Preliminary, Resulted No growth 07/15/22 MRSA Screen - Final, Complete MRSA not isolated Radiology NAME: [facility] REC#: [id number] PT STATUS: ADM IN : 1960 PHYSICIAN: KARLY LUNDY DO ADMIT DATE: 07/15/22/ICU Signed Date of Exam:07/16/22 CHEST 1 VIEW, AP/PA ONLY EXAMINATION: Chest 1 view HISTORY: Pneumonia. Follow-up. COMPARISON: 07/15/2022. FINDINGS: Stable bibasilar opacities, right greater than left. There is suggestion of a cspza-mc-blhicqan right-sided pleural effusion. No pneumothorax. Stable prominent cardiac silhouette. IMPRESSION: 1. Possible increasing kligb-bf-jwkubpqd right-sided pleural effusion with stable bibasilar opacities. 2. Stable cardiomegaly. Dictated by: Dictated on workstation # [id number] Dict: 07/16/22 0539 Trans: 07/16/2242 LIVAN [id number] Interpreted by: ARSLAN PENNY DO Electronically signed by: ARSLAN PENNY DO 07/16/22 0542 A/P-Cardiology Assessment/Admission Diagnosis Progressive dyspnea - multi-factorial Pneumonia - management per medical services Acute on chronic exacerbation of COPD - oxygen dependant at home 3L/NC Obesity hypoventilation syndrome COVID (+) Jul 06, 2022 Sleep apnea - non-compliant with CPAP tx HTN Reports h/o CVA /TIA approx 7 years ago - no residual Morbid obesity H/O tobaccoism - quit less than a year ago H/O bladder cancer - treated with chemo per pt report Discussion and Recomendations Progressive dyspnea which is likely multifactorial - pneumonia, acute on chronic exacerbation of COPD, obesity-hypoventilation sy ndrome - management per medical services Cardiomegaly seen on CXR - Echocardiogram today Uncontrolled HTN - restart home medications Monitor lab Replace electrolytes as indicated Further recs will be based on his hospital course We would like to thank medical services for this consult KENNY RUANO Jul 16, 2022 08:54
[2022-07-16] MEDS ORDERED: amLODIPine 5 MG (NORVASC) TAB PO NR (09:00)
--- NOTE | 2022-07-16 10:45 | Physical Therapy Evaluation ---
PT Evaluation-General Medical Diagnosis Admission Date Jul 15, 2022 at 12:00 Medical Diagnosis: resp. failure, pneumonia Onset Date: Jul 15, 2022 Therapy Diagnosis Therapy Diagnosis: impaired mobility Height/Weight Height (Feet): 6 Height (Inches): 0.00 Weight (Pounds): 273 Weight (Ounces): 5.0 Precautions Precautions/Isolations: Airborne Isolation, Fall Prevention Referral Physician: Karly Ram DO Reason for Referral: Evaluation/Treatment Medical History Pertinent Medical History: COPD, HTN Additional Medical History Past Medical History Surgeries: Abdominal Currently Using CPAP: No Currently Using BIPAP: No Hypertension Stroke Blood Disorders: No COPD Obesity HTN Reviewed History: Yes Social History Home: Single Level Current Living Status: Alone PT Steps Into Home: 3 Prior Prior Level of Function SCALE: Activities may be completed with or without assistive devices. 8-Rfhngchbqp-tnvmtap completes the activity by him/herself with no assistance from a helper. 5-Set-up or Clean-up Assistance-helper sets up or cleans up; patient completes activity. [place] assists only prior to or following the activity. 4-Supervision or Touching Assistance-helper provides verbal cues and/or touching/steadying and/or contact guard assistance as patient completes activity. Assistance may be provided throughout the activity or intermittently. 3-Partial/Moderate Assistance-helper does LESS THAN HALF the effort. [place] lifts, holds or supports trunk or limbs, but provides less than half the effort. 2-Substantial/Maximal Assistance-helper does MORE THAN HALF the effort. [place] lifts or holds trunk or limbs and provides more than half the effort. 6-Jxlkgukng-lgvwtg does ALL the effort. Patient does none of the effort to complete the activity. Or, the assistance of 2 or more helpers is required for the patient to complete the activity. If activity was not attempted, code reason: 7-Patient Refused. 9-Not Applicable-not attempted and the patient did not perform the activity before the current illness, exacerbation or injury. 10-Not Attempted due to Environmental Limitations-(lack of equipment, weather restraints, etc.). 88-Not Attempted due to Medical Conditions or Safety Concerns. Bed Mobility: 6 Transfers (B,C,W/C): 6 Gait: 6 Stairs: 6 Indoor Mobility (Ambulation): Independent Stairs: Independent PT Evaluation-Current Subjective Patient in recliner pre tx, agrees to PT, has no complaints of pain. Pt/Family Goals to be independent at home Objective Patient Orientation: Person, Place, Situation Attachments: Oxygen ROM/Strength ROM Lower Extremities WNL Strength Lower Extremities grossly 5/5 BLE except for hip flexion 3+ bilaterally Sensory Hearing: Functional Sensation Right Lower Extremit: Intact Sensation Left Lower Extremity: Intact Transfers Sit to Stand (QC): 4 Chair/Lto-bc-Zwvel Xfer(QC): 4 SBA Gait Walk 10 feet (QC): 4 Distance: 20' Gait Assistive Device: FWW Comments/Gait Description slow but steady ambulation, patient states he is shaky Balance Sitting Static: Normal Standing Static: Good Standing Dynamic: Good Treatment BLE seated exercises x20 (AP, LAQ) Assessment/Needs Patient in recliner post tx with nurse call, phone, tray, all needs met. Patient just SBA for ambulation and transfers but O2 drops with activity, O2 dropped from 93% to 87% just ambulating 20', after sitting it came back up to 91% after about 10 seconds. Rehab Potential: Fair PT Tennis Camp Instructor Goals Usp Goals PT Usp Goals Time Frame: Jul 23, 2022 Roll Left & Right (QC): 6 Sit to Lying (QC): 6 Lying-Sitting on Side/Bed(QC): 6 Sit to Stand (QC): 6 Chair/Ong-zg-Pluys Xfer(QC): 6 Walk 10 feet (QC): 6 Walk 50ft with 2 Turns (QC): 6 PT Plan Problem List Problem List: Activity Tolerance, Functional Strength, Safety, Balance, Gait, Transfer, Bed Mobility, ROM Treatment/Plan Treatment Plan: Continue Plan of Care Treatment Plan: Education, Functional Activity Jason, Functional Strength, Gait, Safety, Therapeutic Exercise, Transfers Treatment Duration: Jul 23, 2022 Frequency: 6 times per week Estimated Hrs Per Day: .25 hour per day Patient and/or Family Agrees t: Yes Safety Risks/Education Patient Education: Gait Training, Transfer Techniques, Correct Positioning, Safety Issues Teaching Recipient: Patient Teaching Methods: Demonstration, Discussion Response to Teaching: Reinforcement Needed Discharge Recommendations Plan Patient will perform bed mobility and transfer training, balance and endurance training, functional strengthening, stair training, gait training, and education, to improve functional mobility and independence at home. Therapy Discharge Recommendati: Home & Family, Post Acute PT Time Time In: 1004 Time Out: 1018 DATE: Jul 16, 2022 Total Billed Treatment Time: 14 Total Billed Treatment 1 visit EVL 14' AMRIT KNIGHT PT Jul 16, 2022 10:45
[2022-07-16] MEDS: NS IV 1000 ML 1,000 ML IV SCH ×2 (12:18→15:56)
--- NOTE | 2022-07-16 12:36 | Progress Note ---
Subjective Subjective/Events-last exam Patient states that he is feeling much better this AM. States that he slept well with bipap. Denies having CPAP or Bipap at home. Tolerating PO diet. Up in chair today. Review of Systems Pulmonary: Dyspnea (with minimal exertion), Cough Cardiovascular: No: Chest Pain, Palpitations Neurological: Weakness, Incoordination Focused Exam Lactate Level 07/15/22 14:57: Lactic Acid Level 1.62 Objective Exam Last Set of Vital Signs Vital Signs Date Time Temp Pulse Resp B/P (MAP) Pulse Ox O2 Delivery O2 Flow Rate FiO2 07/16/22 11:03 91 Nasal Cannula 5.00 07/16/22 09:00 90 21 146/88 (107) 07/16/22 07:52 37.0 07/16/22 04:00 30 Capillary Refill : I&O Intake and Output 07/16/22 00:00 Intake Total 2550 ml Output Total 1950 ml Balance 600 ml Intake Oral 2050 ml IV Total 500 ml Output Urine Total 1950 ml Daily Weight Change Unsure General: Alert, Oriented X3, Moderate Distress (with any activity) Lungs: Other (Diminished breath sounds, basilar wheezing, increased work of breathing with minimal activity) Heart: Regular Rate, No Murmurs Abdomen: Soft, No Tenderness Results/Procedures Lab Laboratory Tests 07/15/22 13:06: Blood Gas Puncture Site R RAD, Blood Gas Patient Temperature 37.3, Arterial Blood pH 7.35L, Arterial Blood Partial Pressure CO2 79*H, Arterial Blood Partial Pressure O2 62L, Arterial Blood HCO3 42*H, Arterial Blood Total CO2 44.4*H, Arterial Blood Oxygen Saturation 94, Arterial Blood Base Excess 15.7H, Rich Test YES-POS, Blood Gas Ventilator Setting NO, Blood Gas Inspired Oxygen 3L 07/15/22 13:57: Urine Color YELLOW, Urine Clarity CLEAR, Urine pH 7.0, Urine Specific [place] 1.015L, Urine Protein NEGATIVE, Urine Glucose (UA) 3+H, Urine Ketones NEGATIVE, Urine Nitrite NEGATIVE, Urine Bilirubin NEGATIVE, Urine Urobilinogen 1.0, Urine Leukocyte Esterase NEGATIVE, Urine RBC (Auto) NEGATIVE, Urine RBC NONE, Urine WBC RARE, Urine Crystals NONE, Urine Bacteria NEGATIVE, Urine Casts NONE, Urine Mucus NEGATIVE, Urine Culture Indicated NO 07/15/22 14:57: Lactic Acid Level 1.62 07/15/22 15:47: Glucometer 200H 07/15/22 20:29: Glucometer 195H 07/16/22 03:38: White Blood Count 7.3, Red Blood Count 3.96L, Hemoglobin 11.7L, Hematocrit 38L, Mean Corpuscular Volume 96, Mean Corpuscular Hemoglobin 30, Mean Corpuscular Hemoglobin Concent 31L, Red Cell Distribution Width 12.9, Platelet Count 233, Mean Platelet Volume 10.8, Immature Granulocyte % (Auto) 2, Neutrophils (%) (Auto) 85H, Lymphocytes (%) (Auto) 10L, Monocytes (%) (Auto) 3, Eosinophils (%) (Auto) 0, Basophils (%) (Auto) 0, Neutrophils # (Auto) 6.2, Lymphocytes # (Auto) 0.7L, Monocytes # (Auto) 0.2, Eosinophils # (Auto) 0.0, Basophils # (Auto) 0.0, Immature Granulocyte # (Auto) 0.1, Sodium Level 143, Potassium Level 4.4, Chloride Level 102, Carbon Dioxide Level 33H, Anion Gap 8, Blood Urea Nitrogen 18, Creatinine 1.03, Estimat Glomerular Filtration Rate 83, BUN/Creatinine Ratio 17, Glucose Level 140H, Calcium Level 9.3, Corrected Calcium 9.9, Phosphorus [place] 1.5L, Magnesium Level 1.6, Total Bilirubin 0.3, Aspartate Amino Transf (AST/SGOT) 10, Alanine Aminotransferase (ALT/SGPT) 21, Alkaline Phosphatase 44, Total Protein 5.9L, Albumin 3.2 07/16/22 04:55: Bedside Blood Gas pH (LAB) 7.410, Bedside Blood Gas pCO2 (LAB) 60.9H, Bedside Blood Gas pO2 (LAB) 57L, Bedside Blood Gas HCO3 (LAB) 38.6H, POC Blood Gas Total CO2 Calc 40H, Bedside Bl Gas O2 Saturation (Calc) 88L, Bedside Arterial Blood Base Excess 14H 07/16/22 06:09: Bedside Blood Gas pH (LAB) 7.410, Bedside Blood Gas pCO2 (LAB) 60.9H, Bedside Blood Gas pO2 (LAB) 57L, Bedside Blood Gas HCO3 (LAB) 38.6H, POC Blood Gas Total CO2 Calc 40H, Bedside Bl Gas O2 Saturation (Calc) 88L, Bedside Arterial Blood Base Excess 14H 07/16/22 11:12: Glucometer 183H Microbiology 1/15/23 MRSA Screen - Final, Complete MRSA not isolated Radiology NAME: [facility]AC[facility] REC#: [id number] PT STATUS: ADM IN : 1960 PHYSICIAN: SHRUTI LUNDY DO ADMIT DATE: 07/15/22/ICU Signed Date of Exam:07/16/22 CHEST 1 VIEW, AP/PA ONLY EXAMINATION: Chest 1 view HISTORY: Pneumonia. Follow-up. COMPARISON: 07/15/2022. FINDINGS: Stable bibasilar opacities, right greater than left. There is suggestion of a egdyz-wb-upjrfrte right-sided pleural effusion. No pneumothorax. Stable prominent cardiac silhouette. IMPRESSION: 1. Possible increasing uqxmu-fo-vzuxawkv right-sided pleural effusion with stable bibasilar opacities. 2. Stable cardiomegaly. Dictated by: Dictated on workstation # [id number] Dict: 07/16/22 0539 Trans: 07/16/22 0542 LIVAN [id number] Interpreted by: ARSLAN PENNY DO Electronically signed by: ARSLAN PENNY DO 07/16/22 0542 Assessment/Plan Assessment/Plan (1) Acute respiratory failure with hypoxia and hypercapnia Status: Acute Assessment & Plan: 07/16: Bipap was taken off 5 AM this am, ABG pending, high risk of decompensation, IRF eval pending (2) Pneumonia Status: Acute Assessment & Plan: 07/16: Continue antibiotics at this time Qualifiers: Qualified Codes: J18.9 - Pneumonia, unspecified organism (3) COPD exacerbation Status: Acute (4) HTN (hypertension) Status: Chronic (5) COVID Assessment & Plan: 07/16: Recent infection (6) BMI 40.0-44.9, adult Status: Chronic SHIRA NG MD Jul 16, 2022 12:36
[2022-07-16] MEDS ORDERED: ENOXAPARIN 40 MG/0.4 ML (LOVENOX) SYR SC SCH (13:00)
--- NOTE | 2022-07-16 13:45 | Occupational Therapy Eval ---
OT Evaluation-General/PLF Medical Diagnosis Admission Date Jul 15, 2022 at 12:00 Medical Diagnosis: resp. failure, pneumonia/Covid + Onset Date: Jul 15, 2022 Therapy Diagnosis Therapy Diagnosis: Weakness, Decreased ADL skills Height/Weight Height (Feet): 6 Height (Inches): 0.00 Weight (Pounds): 273 Weight (Ounces): 5.0 Precautions Precautions/Isolations: Airborne Isolation, Fall Prevention Weight Bear Status Weight Bearing Restriction: Weight Bearing/Tolerated Referral Physician: Karly Ram DO Referral Reason: Activity Tolerance, Self Care, Evaluation/Treatment, Strengthening/ROM Medical History Pertinent Medical History: COPD, HTN Current History Pt. has had complicated medical history recently. He states that he went home "the other day" from the hospital and came back two days later. He was having difficulty breathing. Pt. is still in isolation for being Covid + from previous hospital stay. Reviewed History: Yes Social History Home: Single Level Current Living Status: Alone Entry Into Home: Stairs With Railing Steps Into Home: 3 Pt. reports that he lives in a house that was built on the ground without a foundation. He states that his home is uneven throughout. ADL-Prior Level of Function SCALE: Activities may be completed with or without assistive devices. 1-Tkpokepxzf-riiqjey completes the activity by him/herself with no assistance from a helper. 5-Set-up or Clean-up Assistance-helper sets up or cleans up; patient completes activity. [place] assists only prior to or following the activity. 4-Supervision or Touching Assistance-helper provides verbal cues and/or touching/steadying and/or contact guard assistance as patient completes activity. Assistance may be provided throughout the activity or intermittently. 3-Partial/Moderate Assistance-helper does LESS THAN HALF the effort. [place] lifts, holds or supports trunk or limbs, but provides less than half the effort. 2-Substantial/Maximal Assistance-helper does MORE THAN HALF the effort. [place] lifts or holds trunk or limbs and provides more than half the effort. 9-Kpljspzdw-tvcysc does ALL the effort. Patient does none of the effort to complete the activity. Or, the assistance of 2 or more helpers is required for the patient to complete the activity. If activity was not attempted, code reason: 7-Patient Refused. 9-Not Applicable-not attempted and the patient did not perform the activity before the current illness, exacerbation or injury. 10-Not Attempted due to Environmental Limitations-(lack of equipment, weather restraints, etc.). 88-Not Attempted due to Medical Conditions or Safety Concerns. ADL PLOF Comments Pt. lives alone. He is able to physically take care of self, but uses a walker and oxygen in the home. He states that when he goes to the grocery store, if he has a shopping cart then he doesn't get as "winded." Pt. states that he doesn't wear socks at home but only slip on shoes. Self Care: Unknown Functional Cognition: Independent OT Current Status Subjective No pain reported. Pt. states that he is feeling better overall. Appearance Pt. is sitting up in chair when OT enters room. Mental Status/Objective Patient Orientation: Person, Place, Time, Situation Current Upper Extremity ROM WFL ADL-Treatment Eating (QC): 6 Shower/Bathe Self (QC): 3 (CGA in stance to wash upper body and ben area. Mod assist for LE.) On/Off Footwear (QC): 1 (Dependent with slipper socks. However, pt. does not wear socks at home.) Other Treatments Pt. up in chair. He is agreeable to treatment. Pt. spongebathes up in chair. Stands at chair side with CGA/SBA. Due to lines and tubing, he is unable to ta ke steps. He states that in stance he feels "a little wobbly." PT is bringing in walker. 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 2=Patient will verbalize/demonstrate understanding of assistive devices/modifications for ADL. 3=Patient will improve strength/tolerance for activity to enable patient to perform ADL's. OT Education/Plan Problem List/Assessment Assessment: Decreased Activ Tolerance, Impaired I ADL's, Impaired Self-Care Skills Discharge Recommendations Plan/Recommendations: Continue POC Therapy Discharge Recommendati: Post Acute OT Equpiment Recommendations-D/C: Hip Kit Treatment Plan/Plan of Care Treatment,Training & Education: Yes Patient would benefit from OT for education, treatment and training to promote independence in ADL's, mobility, safety and/or upper extremity function for ADL's. Plan of Care: ADL Retraining, Functional Mobility, UE Funct Exercise/Act Treatment Duration: Jul 30, 2022 Frequency: 3 times per week (3-5x/week) Estimated Hrs Per Day: .25 hour per day Agreement: Yes Rehab Potential: Fair Time Start Time: 09:50 Stop Time: 10:14 DATE: Jul 16, 2022 Total Time Billed (hr/min): 24 Billed Treatment Time 1, EVM x 10minutes, ADL x 14minutes HUBERT GORDON OT Jul 16, 2022 13:45
--- NOTE | 2022-07-16 15:23 | Tele-ICU Progress Note ---
Subjective Date Seen by a Provider: Jul 16, 2022 Time Seen by a Provider: 10:46 Subjective/Events-last exam (Tele-ICU Physician , Progress Note ) Service provided via interactive audio and video telecommunications E-CARE system to a patient admitted to ICU bed in [facility]. Patient is seen today due to persistent need of ICU care Available chart/ vitals / labs / Images reviewed Video assessment done using teleICU camera, rest of exam as per RN Discussed with RN Events overnight : Afebrile hemodynamically stable Respiratory - I/O = Drips: Pressors- no Consultants: Hospital course: (07/13) 61M admitted with Post COVID PNA, COPD, pt + for Covid 07/06/22 A/P Acute and chronic hypercarbic and hypoxic respiratory failure - on BIPAP from ER - improved - steroids IV and abx started - Continue oxygenation with nasal cannula during daytime and with BiPAP at nighttime. AECOPD ( vs bronchospam due to other etiology ) - johannaois started - PFT 2018 - with mod airway obstruction and good responce to br - dilators Chronic hypercarbic and hypoxic resp failure - If he did not have any sleep studies done he would benefit from a sleep study and arrangement of a BiPAP or a CPAP depending upon the results for home. 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 Discussed with RN to reach out if any questions or concerns A total of 32 minutes of critical care time was devoted to this patient today, required to treat and/or prevent further deterioration of critical care condition ( as above ) . I am remotely monitoring this patient from another state. I am unable to do the bedside exam, and history/physical and pertinent information is taken from other notes in the computer and bedside staff. Sepsis Event Evaluation Height, Weight, BMI Height: 6'0.00" Weight: 273lbs. 5.0oz. [id number]; 38.99 BMI Method:Stated Focused Exam Lactate Level 07/15/22 14:57: Lactic Acid Level 1.62 Exam Exam Patient acknowledged, consented, and participated in this virtual visit which wa s conducted using real time audio/video Vital Signs Date Time Temp Pulse Resp B/P (MAP) Pulse Ox O2 Delivery O2 Flow Rate FiO2 07/16/22 15:17 94 Nasal Cannula 5.00 07/16/22 13:00 93 15 160/86 (110) 94 Nasal Cannula 3.00 07/16/22 12:56 93 07/16/22 12:00 90 22 153/83 (106) 93 Nasal Cannula 3.00 07/16/22 12:00 37.0 07/16/22 12:00 Nasal Cannula 5.00 07/16/22 11:03 91 Nasal Cannula 5.00 07/16/22 11:00 94 20 161/87 (111) 91 Nasal Cannula 3.00 07/16/22 10:00 106 26 90 Nasal Cannula 3.00 07/16/22 09:00 90 21 146/88 (107) 92 Nasal Cannula 3.00 07/16/22 08:00 81 22 158/107 (124) 92 Nasal Cannula 3.00 07/16/22 08:00 Nasal Cannula 5.00 07/16/22 07:52 37.0 07/16/22 07:37 94 Nasal Cannula 3.00 07/16/22 07:00 85 29 155/105 (122) 90 Nasal Cannula 3.00 07/16/22 06:54 85 07/16/22 06:00 82 13 162/84 (110) 90 Nasal Cannula 3.00 07/16/22 05:00 72 28 123/86 (98) Nasal Cannula 3.00 07/16/22 04:00 93 NIV Bilevel 30 07/16/22 04:00 54 151/78 (102) 91 NIV Bilevel 30.00 07/16/22 04:00 37.1 07/16/22 03:00 65 160/89 (112) 90 NIV Bilevel 30.00 07/16/22 02:52 63 18 90 30.00 07/16/22 02:00 62 154/80 (104) 90 NIV Bilevel 30.00 07/16/22 01:00 72 134/80 (98) 91 NIV Bilevel 30.00 07/16/22 01:00 60 07/16/22 00:00 65 164/92 (116) 92 NIV Bilevel 30.00 07/16/22 00:00 37.2 07/15/22 23:59 92 NIV Bilevel 30 07/15/22 23:11 71 18 90 30.00 07/15/22 23:00 84 146/92 (110) 92 NIV Bilevel 30.00 07/15/22 22:00 87 178/99 (125) 92 Nasal Cannula 3.00 07/15/22 21:00 85 134/72 (92) 93 Nasal Cannula 3.00 07/15/22 20:28 97 166/96 (119) 92 Nasal Cannula 3.00 07/15/22 20:00 Nasal Cannula 3.00 07/15/22 19:49 37.1 07/15/22 19:33 91 Nasal Cannula 3.00 07/15/22 19:28 83 158/86 (110) 91 Nasal Cannula 3.00 07/15/22 19:00 80 07/15/22 18:00 83 136/70 (92) 94 Nasal Cannula 3.00 07/15/22 17:00 82 138/64 (88) 97 Nasal Cannula 3.00 07/15/22 16:00 88 12 93 Nasal Cannula 3.00 07/15/22 15:52 37.1 07/15/22 15:27 Nasal Cannula 3.00 I & O 07/16/22 07:00 Intake Total 3865 ml Output Total 2950 ml Balance 915 ml Height & Weight Height: 6'0.00" Weight: 273lbs. 5.0oz. 123.278906py; 38.99 BMI Method:Stated General Appearance: Chronically ill, Mild Distress, Obese Respiratory: Accessory Muscle Use, Decreased Breath Sounds, Rales, Wheezing Cardiovascular: Regular Rate, Rhythm Peripheral Pulses: 1+ Dorsalis Pedis (R), 1+ Left Dors-Pedis (L) Gastrointestinal: normal bowel sounds, non tender, soft, no organomegaly, no pulsatile mass Neurologic/Psychiatric: Alert, Oriented x3, No Motor/Sensory Deficits, Normal Mood/Affect Results Lab Laboratory Tests 07/15/22 11:34 07/16/22 03:38 Assessment/Plan Assessment/Plan 1 CHARLENE ZARATE MD Jul 16, 2022 15:23
[2022-07-16] MEDS: cloNIDine 0.1 MG (CATAPRES) TAB PO PRN (17:16)
--- NOTE | 2022-07-16 18:27 | Consultation-Cardiology ---
HPI-Cardiology Cardiology Consultation: Date of Consultation 07/16/22 Time Seen by a Provider: 17:50 Date of Admission Attending Physician Silver Vásquez MD Admitting Physician Admitting Physician: Karly Lundy DO Attending Physician: Noelle Morales MD Consulting Physician TAM EPSTEIN MD, MA, FACP, FACC, FSCAI, CCDS Physician requesting consult: Dr Lundy HPI: Chief Complaint: Increasing dyspnea/weakness Mr. Joyner is a 61 yr old male admitted to ICU 11 from the ED with c/o increasing SOB, gen weakness which started yesterday morning. He reports he was in the hospital previously d/t COVID pneumonia dx per the ED 07-06-22. He reports freq cough. He denies any c/o CP, palpitations, syncope or near syncope. No c/o LE swelling. He reports he feels his breathing is unchanged from admission. He reports he is oxygen dependant at home, 3L/NC. He lives at home alone. Review of Systems-Cardiology Review of Systems Constitutional: No chills; fever, malaise Eyes: No vision change Ears/Nose/Throat: No epistaxis, No recent hearing loss Respiratory: As described under HPI Cardiovascular: As described under HPI Gastrointestinal: No constipation, No diarrhea, No nausea, No vomiting Genitourinary: No hematuria Musculoskeletal: no symptoms reported Skin: No rash on exposed areas, No ulcerations on exposed areas Psychiatric/Neurological: No anxiety, No depression, No seizure, No focal weakness, No syncope Hematologic: No bleeding abnormalities All Other Systems Reviewed Negative Unless Noted: Yes NJP-Ermayi-Dgabbu Hx Patient Social History Marrital Status: single Employed/Student: unemployed Smoking Status: Current Everyday Smoker Have you traveled recently?: No Alcohol Use?: No Pt feels they are or have been: No Immunizations Up To Date Tetanus Booster (TDap): Unknown Past Medical History PMH As described under Assessment. Family Medical History Family Medical History: No reported family h/o CAD. Family History: Patient reports no known family medical history. Allergies and Home Medications Allergies Coded Allergies: Penicillins (Verified Allergy, Severe, ANAPHYLAXIS, 06/03/18) SWELLING ALL OVER sulfamethoxazole (Unverified Adverse Reaction, Unknown, 07/16/18) trimethoprim (Unverified Adverse Reaction, Unknown, 07/16/18) Uncoded Allergies: SOMETHING FOR COLDS (Allergy, Mild, 03/26/14) Patient Home Medication List Home Medication List Reviewed: Yes Amlodipine Besylate (Amlodipine Besylate) 5 Mg Tablet, 5 MG PO DAILY, (Reported) Entered as Reported by: JOSE LOPEZ on 07/09/22 1147 Aspirin (Aspirin EC) 81 Mg Tablet.dr, 81 MG PO DAILY Prescribed by: KARLY LUNDY on 07/10/22 1043 Pantoprazole Sodium (Pantoprazole Sodium) 40 Mg Tablet.dr, 40 MG PO DAILY, (Reported) Entered as Reported by: JOSE LOPEZ on 07/09/22 1147 Prednisone (Prednisone) 10 Mg Tab.ds.pk, 10 MG PO DAILY Prescribed by: KARLY LUNDY on 07/10/22 1043 Discontinued Medications Amlodipine Besylate (Amlodipine Besylate) 5 Mg Tablet, 5 MG PO DAILY Discontinued Reason: No Longer Taking Prescribed by: KARLY LUNDY on 05/31/22 1303 Hydrocodone Bit/Acetaminophen (HYDROcodone/APAP 5 MG/325 MG TAB) 1 Tab Tab, 1 EA PO Q4H PRN for PAIN-MODERATE (5-7) Discontinued Reason: No Longer Taking Prescribed by: KARLY LUNDY on 05/31/22 1303 Ipratropium/Albuterol Sulfate (Iprat-Albut 0.5-3(2.5) mg/3 ml) 0.5 Mg-3 Mg (2.5 Mg Base)/3 Ml Ampul.neb, 3 ML INH RTQ4HR Discontinued Reason: No Longer Taking Prescribed by: KARLY LUNDY on 05/31/22 1303 Pantoprazole Sodium (Pantoprazole Sodium) 40 Mg Tablet.dr, 40 MG PO DAILY Discontinued Reason: No Longer Taking Prescribed by: KARLY LUNDY on 05/31/22 1303 Prednisone (Prednisone) 10 Mg Tab.ds.pk, 10 MG PO DAILY Discontinued Reason: No Longer Taking Prescribed by: KARLY LUNDY on 05/31/22 1303 Physical Exam-Cardiology Physical Exam Vital Signs/I&O 07/16/22 07/16/22 07/16/22 07/16/22 06:54 07:00 07:37 07:52 Temp 37.0 Pulse 85 85 Resp 29 B/P (MAP) 155/105 (122) Pulse Ox 90 94 O2 Delivery Nasal Cannula Nasal Cannula O2 Flow Rate 3.00 3.00 07/16/22 07/16/22 07/16/22 07/16/22 08:00 08:00 09:00 10:00 Pulse 81 90 106 Resp 22 21 26 B/P (MAP) 158/107 (124) 146/88 (107) Pulse Ox 92 92 90 O2 Delivery Nasal Cannula Nasal Cannula Nasal Cannula Nasal Cannula O2 Flow Rate 5.00 3.00 3.00 3.00 07/16/22 07/16/22 07/16/22 07/16/22 11:00 11:03 12:00 12:00 Temp 37.0 Pulse 94 Resp 20 B/P (MAP) 161/87 (111) Pulse Ox 91 91 O2 Delivery Nasal Cannula Nasal Cannula Nasal Cannula O2 Flow Rate 3.00 5.00 5.00 07/16/22 07/16/22 07/16/22 07/16/22 12:00 12:56 13:00 14:00 Pulse 90 93 93 99 Resp 22 15 30 B/P (MAP) 153/83 (106) 160/86 (110) 163/79 (107) Pulse Ox 93 94 88 O2 Delivery Nasal Cannula Nasal Cannula Nasal Cannula O2 Flow Rate 3.00 3.00 3.00 07/16/22 07/16/22 07/16/22 07/16/22 15:00 15:17 16:00 16:00 Pulse 95 87 Resp 29 B/P (MAP) 141/84 (103) 159/105 (123) Pulse Ox 98 94 93 O2 Delivery Nasal Cannula Nasal Cannula Nasal Cannula Nasal Cannula O2 Flow Rate 3.00 5.00 5.00 3.00 07/16/22 07/16/22 16:11 17:00 Temp 37.7 Pulse 75 Resp 13 B/P (MAP) 193/107 (135) Pulse Ox 96 O2 Delivery Nasal Cannula O2 Flow Rate 3.00 07/16/22 00:00 Intake Total 2550 ml Output Total 1950 ml Balance 600 ml Capillary Refill : Constitutional: AAO x 3, well-developed, well-nourished HEENT: PERRL, hearing is well preserved Neck: No carotid bruit; carotid pulses are 2 + bilaterally Respiratory: No accessory muscle use, No respiratory distress; chest expansion is symmetric, chest is bilaterally symmetric, rhonchi (scattered), other (diminished bases bilat) Cardiovascular: regular rate-rhythm; No JVD; S1 and S2 Gastrointestinal: No tender; soft, round, audible bowel sounds Extremities: no lower extremity edema bilateral Neurologic/Psychiatric: grossly intact (moves all extremities) Skin: No rash on exposed areas, No ulcerations on exposed areas Data Review Labs Laboratory Tests 07/15/22 20:29: Glucometer 195H 07/16/22 03:38: White Blood Count 7.3, Red Blood Count 3.96L, Hemoglobin 11.7L, Hematocrit 38L, Mean Corpuscular Volume 96, Mean Corpuscular Hemoglobin 30, Mean Corpuscular Hemoglobin Concent 31L, Red Cell Distribution Width 12.9, Platelet Count 233, Mean Platelet Volume 10.8, Immature Granulocyte % (Auto) 2, Neutrophils (%) (Auto) 85H, Lymphocytes (%) (Auto) 10L, Monocytes (%) (Auto) 3, Eosinophils (%) (Auto) 0, Basophils (%) (Auto) 0, Neutrophils # (Auto) 6.2, Lymphocytes # (Auto) 0.7L, Monocytes # (Auto) 0.2, Eosinophils # (Auto) 0.0, Basophils # (Auto) 0.0, Immature Granulocyte # (Auto) 0.1, Sodium Level 143, Potassium Level 4.4, Chloride Level 102, Carbon Dioxide Level 33H, Anion Gap 8, Blood Urea Nitrogen 18, Creatinine 1.03, Estimat Glomerular Filtration Rate 83, BUN/Creatinine Ratio 17, Glucose Level 140H, Calcium Level 9.3, Corrected Calcium 9.9, Phosphorus Level 1.5L, Magnesium Level 1.6, Total Bilirubin 0.3, Aspartate Amino Transf (AST/SGOT) 10, Alanine Aminotransferase (ALT/SGPT) 21, Alkaline Phosphatase 44, Total Protein 5.9L, Albumin 3.2 07/16/22 04:55: Bedside Blood Gas pH (LAB) 7.410, Bedside Blood Gas pCO2 (LAB) 60.9H, Bedside Blood Gas pO2 (LAB) 57L, Bedside Blood Gas HCO3 (LAB) 38.6H, POC Blood Gas Total CO2 Calc 40H, Bedside Bl Gas O2 Saturation (Calc) 88L, Bedside Arterial Blood Base Excess 14H 07/16/22 06:09: Bedside Blood Gas pH (LAB) 7.410, Bedside Blood Gas pCO2 (LAB) 60.9H, Bedside Blood Gas pO2 (LAB) 57L, Bedside Blood Gas HCO3 (LAB) 38.6H, POC Blood Gas Total CO2 Calc 40H, Bedside Bl Gas O2 Saturation (Calc) 88L, Bedside Arterial Blood Base Excess 14H 07/16/22 11:12: Glucometer 183H 07/16/22 16:04: Glucometer 189H Microbiology 07/15/22 Blood Culture - Preliminary, Resulted No growth 07/15/22 MRSA Screen - Final, Complete MRSA not isolated A/P-Cardiology Assessment/Admission Diagnosis Progressive dyspnea - ac exac of COPD due to pneumonia, obesity-hypovent - no clinical evidence of decomp CHF - echo 07/16/22: LVEF 60-65%, mod conc LVH, grade 1 diastolic dysfunction Pneumonia - management per medical services Acute on chronic exacerbation of COPD - oxygen dependant at home 3L/NC Obesity hypoventilation syndrome COVID (+) Jul 06, 2022 Sleep apnea - non-compliant with CPAP tx Hypertension with hypertensive CVD (LVH) Reports h/o CVA /TIA approx 7 years ago - no residual Morbid obesity H/O tobaccoism - quit less than a year ago H/O bladder cancer - treated with chemo per pt report Discussion and Recomendations * Treat pneumonia and ac exac of COPD ([facility]) * Treat Covid 19 ([facility]) * Amlodipine 10 mg daily and Toprol XL 100 mg daily for bp control * Monitor labs * Echo results noted above TAM EPSTEIN MD FACP FAC CCDS Jul 16, 2022 18:27
[2022-07-16] MEDS ORDERED: meTOprolol SUCCINATE 100 MG (TOPROL XL) TAB PO NR (18:30)
[2022-07-16] MEDS ORDERED: amLODIPine 10 MG (NORVASC) TAB PO NR (18:30)
[2022-07-16] MEDS: MONTELUKAST 10 MG (SINGULAIR) TAB PO SCH (21:17)
[2022-07-16 21:37] VITALS: BP 154/80
[2022-07-17] MEDS: methylPREDNISolone 40 MG/ML (Solu-MEDROL) VIAL IV SCH ×5 (00:02→23:26)
[2022-07-17] MEDS ORDERED: TROUGH ORDER-PHARMACY XX NR (01:00)
[2022-07-17 01:15] LABS: BASOPHILS % (AUTO) 0 % (0-10); EOSINOPHILS % (AUTO) 0 % (0-10); HEMATOCRIT 35 % (40-54); HEMOGLOBIN 10.9 g/dL (13.3-17.7); LYMPHOCYTES # (AUTO) 1.2 10^3/uL (1.0-4.0); LYMPHOCYTES % (AUTO) 8 % (12-44); MEAN CORPUSCULAR HEMOGLOBIN 30 pg (25-34); MEAN CORPUSCULAR HGB CONC 31 g/dL (32-36); MEAN CORPUSCULAR VOLUME 96 fL (80-99); MEAN PLATELET VOLUME 10.6 fL (9.0-12.2); MONOCYTES # (AUTO) 1.2 10^3/uL (0.0-1.0); MONOCYTES % (AUTO) 8 % (0-12); NEUTROPHILS # (AUTO) 11.6 10^3/uL (1.8-7.8); NEUTROPHILS % (AUTO) 79 % (42-75); PLATELET COUNT 229 10^3/uL (130-400); WHITE BLOOD COUNT 14.6 10^3/uL (4.3-11.0)
[2022-07-17 01:28] LABS: ALBUMIN 3.2 GM/DL (3.2-4.5); POTASSIUM 4.2 MMOL/L (3.6-5.0)
[2022-07-17 01:29] LABS: CALCIUM 9.2 MG/DL (8.5-10.1)
[2022-07-17 01:30] LABS: LYMPHOCYTES % (MANUAL) 7 %; METAMYELOCYTES % 1 %; MONOCYTES % (MANUAL) 4 %; NEUTROPHILS % (MANUAL) 88 %; TOTAL PROTEIN 5.8 GM/DL (6.4-8.2)
[2022-07-17 01:32] LABS: BILIRUBIN,TOTAL 0.2 MG/DL (0.1-1.0)
[2022-07-17 01:34] LABS: CREATININE SERUM 0.97 MG/DL (0.60-1.30); PHOSPHORUS 1.8 MG/DL (2.3-4.7)
[2022-07-17 01:37] LABS: MAGNESIUM 1.9 MG/DL (1.6-2.4)
[2022-07-17] MEDS: VANCOMYCIN 1500 MG/NS 500 ML IVPB IV SCH ×2 (01:55)
[2022-07-17 02:36] VITALS: BP 154/80
[2022-07-17] MEDS: RT-ALBUTEROL HFA 8.5 GM INHALER IH SCH ×6 (02:36→22:58)
[2022-07-17] MEDS: POTASSIUM CL 10MEQ/50ML IVPB 50 ML IV SCH (05:23)
[2022-07-17] MEDS: MAGNESIUM 1 GM/100 ML IVPB 100 ML IV SCH (05:23)
[2022-07-17] MEDS: KCL 20 MEQ TAB (K-DUR) PO SCH (05:23)
[2022-07-17] MEDS: cloNIDine 0.1 MG (CATAPRES) TAB PO PRN ×2 (05:38→11:47)
[2022-07-17] MEDS: inSUlin (REGULAR) HUMAN 1 UNIT/0.01 ML (CHARGE PER UNIT) SC SCH ×4 (05:39→17:12)
[2022-07-17 06:54] LABS: ABG BASE EXCESS 9.1 MMOL/L (-2.5-2.5); ABG OXYGEN SATURATION 99 % (94-100); ABG PCO2 65 MMHG (35-45); ABG PH 7.35 (7.37-7.43); ABG PO2 96 MMHG (79-93); ABG TCO2 36.9 MMOL/L (21.0-31.0)
[2022-07-17 07:00] LABS: ALLENS TEST YES-POS; PATIENT TEMP 37; VENTILATOR NO
[2022-07-17 07:01] LABS: INSPIRED O2 5L
--- NOTE | 2022-07-17 07:57 | Diagnostic Imaging Report ---
INDICATION: Pneumonia, COVID positive, ICU care management. TECHNIQUE: Single view chest 3:59 AM. CORRELATION STUDY: 07/16/2022 FINDINGS: Rather pronounced cardiac enlargement with mild prominence of the mediastinum. Vasculature overall stable. Infiltrate-like opacity with small effusions right lung base overall improved. IMPRESSION: 1. Stable cardiac enlargement, vasculature perhaps slightly increased from prior. 2. Right basilar infiltrate and effusion slightly improved. Report was faxed to [facility] Infection Control by vika at 7:56AM. Dictated by: Dictated on workstation # [id number]
[2022-07-17] MEDS: CEFEPIME INJECTION 2,000 MG in NS (IVPB) 50 ML IV SCH ×2 (08:18→20:22)
[2022-07-17] MEDS: DOCUSATE SODIUM 100 MG (COLACE) CAP PO SCH ×2 (08:19→20:22)
[2022-07-17] MEDS: SENNOSIDES 8.6 MG (SENOKOT) TAB PO SCH ×2 (08:19→20:22)
[2022-07-17] MEDS: amLODIPine 5 MG (NORVASC) TAB PO SCH (08:19)
[2022-07-17] MEDS: meTOprolol SUCCINATE 100 MG (TOPROL XL) TAB PO SCH (08:19)
--- NOTE | 2022-07-17 08:29 | Physical Therapy Daily Note ---
PT Daily Note-Current Subjective Patient sitting EOB pre tx, agrees to PT, has no complaints of pain. Pain Section J - Health Conditions 1. Rarely or not at all 2. Occasionally 3. Frequently 4. Almost constantly 8. Unable to answer Pain Effect on Sleep: 1 Pain Interference with Therapy: 1 Pain Interference w/Day-to-Day: 1 Appearance Patient sitting EOB post tx with nurse call, phone, tray, all needs met. Mental Status Patient Orientation: Person, Place, Situation Attachments: Oxygen, IV Transfers SCALE: Activities may be completed with or without assistive devices. 6-Twjjjkflkb-aasaztd completes the activity by him/herself with no assistance from a helper. 5-Set-up or Clean-up Assistance-helper sets up or cleans up; patient completes activity. [place] assists only prior to or following the activity. 4-Supervision or Touching Assistance-helper provides verbal cues and/or touching/steadying and/or contact guard assistance as patient completes activity. Assistance may be provided throughout the activity or intermittently. 3-Partial/Moderate Assistance-helper does LESS THAN HALF the effort. [place] lifts, holds or supports trunk or limbs, but provides less than half the effort. 2-Substantial/Maximal Assistance-helper does MORE THAN HALF the effort. [place] lifts or holds trunk or limbs and provides more than half the effort. 0-Altttcnsv-waepoy does ALL the effort. Patient does none of the effort to com plete the activity. Or, the assistance of 2 or more helpers is required for the patient to complete the activity. If activity was not attempted, code reason: 7-Patient Refused. 9-Not Applicable-not attempted and the patient did not perform the activity before the current illness, exacerbation or injury. 10-Not Attempted due to Environmental Limitations-(lack of equipment, weather restraints, etc.). 88-Not Attempted due to Medical Conditions or Safety Concerns. 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 Traffic Warehouse Supervisor Goals PT Nursing Home Goals Time Frame: Jul 23, 2022 Roll Left & Right (QC): 6 Sit to Lying (QC): 6 Lying-Sitting on Side/Bed(QC): 6 Sit to Stand (QC): 6 Chair/Xkq-an-Wzpyn Xfer(QC): 6 Walk 10 feet (QC): 6 Walk 50ft with 2 Turns (QC): 6 PT Plan Problem List Problem List: Activity Tolerance, Functional Strength, Safety, Balance, Gait, Transfer, ROM Treatment/Plan Treatment Plan: Continue Plan of Care Treatment Plan: Education, Functional Activity Jason, Functional Strength, Gait, Safety, Therapeutic Exercise, Transfers Treatment Duration: Jul 23, 2022 Frequency: 6 times per week Estimated Hrs Per Day: .25 hour per day Patient and/or Family Agrees t: Yes Safety Risks/Education Patient Education: Gait Training, Transfer Techniques, Correct Positioning, Safety Issues Teaching Recipient: Patient Teaching Methods: Demonstration, Discussion Response to Teaching: Reinforcement Needed Time Time In: 0804 Time Out: 0815 DATE: Jul 17, 2022 Total Billed Treatment Time: 11 Total Billed Treatment 1 visit FA 11AMRIT PRECIADO PT Jul 17, 2022 08:29
[2022-07-17] MEDS ORDERED: amLODIPine 5 MG (NORVASC) TAB PO SCH (09:00)
[2022-07-17] MEDS ORDERED: FUROSEMIDE 40 MG/4 ML INJ (LASIX) IVP NR (10:00)
--- NOTE | 2022-07-17 10:05 | Progress Note - Cardiology ---
Cardiology SOAP Progress Note Subjective: Sitting up on the side of the bed Feels SOB is unchanged from before No c/o CP, palpitations, syncope or near syncope No c/o n/v/d Objective: I&O/Vital Signs 07/18/22 07/18/22 07/18/22 07/18/22 02:49 03:18 07:00 07:58 Temp 37.0 36.9 Pulse 94 51 60 Resp 18 B/P (MAP) 130/72 (91) 175/84 (114) Pulse Ox 92 94 93 O2 Delivery NIV Bilevel Nasal Cannula High Flow N/C O2 Flow Rate 30.00 30.00 4.50 4.50 07/18/22 07/18/22 10:26 10:54 Pulse Ox 95 O2 Delivery Nasal Cannula Nasal Cannula O2 Flow Rate 4.50 4.50 07/18/22 00:00 Intake Total 1280 ml Balance 1280 ml Weight (Pounds): 273 Weight (Ounces): 5.0 Weight (Calculated Kilograms): 123.314102 Constitutional: AAO x 3, well-developed, well-nourished Respiratory: No accessory muscle use, No respiratory distress; chest expansion is symmetric, chest is bilaterally symmetric, crackles (bi-basilar), rhonchi (scattered) Cardiovascular: regular rate-rhythm; No JVD; S1 and S2 Gastrointestional: No tender; soft, round, audible bowel sounds Extremities: no lower extremity edema bilateral Neurologic/Psychiatric: grossly intact (moves all extremities) Skin: No rash on exposed areas, No ulcerations on exposed areas Results/Procedures: Labs Laboratory Tests 07/17/22 15:52: Glucometer 147H 07/17/22 20:03: Glucometer 170H 07/18/22 05:15: White Blood Count 15.1H, Red Blood Count 3.95L, Hemoglobin 11.8L, Hematocrit 38L , Mean Corpuscular Volume 95, Mean Corpuscular Hemoglobin 30, Mean Corpuscular Hemoglobin Concent 32, Red Cell Distribution Width 13.2, Platelet Count 255, Mean Platelet Volume 11.1, Immature Granulocyte % (Auto) 5, Neutrophils (%) (Auto) 81H, Lymphocytes (%) (Auto) 9L, Monocytes (%) (Auto) 5, Eosinophils (%) (Auto) 0, Basophils (%) (Auto) 0, Neutrophils # (Auto) 12.2H, Lymphocytes # (Auto) 1.3, Monocytes # (Auto) 0.8, Eosinophils # (Auto) 0.0, Basophils # (Auto) 0.0, Immature Granulocyte # (Auto) 0.7H, Sodium Level 142, Potassium Level 4.6, Chloride Level 101, Carbon Dioxide Level 33H, Anion Gap 8, Blood Urea Nitrogen 27H, Creatinine 0.91, Estimat Glomerular Filtration Rate 96, BUN/Creatinine Ratio 30, Glucose Level 141H, Calcium Level 9.8, Corrected Calcium 10.3H, Phosphorus Level 3.0, Magnesium Level 2.0, Total Bilirubin 0.3, Aspartate Amino Transf (AST/SGOT) 10, Alanine Aminotransferase (ALT/SGPT) 22, Alkaline P hosphatase 43, Total Protein 6.1L, Albumin 3.4 07/18/22 11:17: Glucometer 159H Microbiology 07/15/22 Blood Culture - Preliminary, Resulted No growth 07/15/22 MRSA Screen - Final, Complete MRSA not isolated Procedures NAME: JACOB JONES [facility] REC#: [id number] PT STATUS: ADM IN : 1960 PHYSICIAN: SHRUTI LUNDY DO ADMIT DATE: 07/15/22/ICU Draft Date of Exam:07/17/22 CHEST 1 VIEW, AP/PA ONLY INDICATION: Pneumonia, COVID positive, ICU care management. TECHNIQUE: Single view chest 3:59 AM. CORRELATION STUDY: 07/16/2022 FINDINGS: Rather pronounced cardiac enlargement with mild prominence of the mediastinum. Vasculature overall stable. Infiltrate-like opacity with small effusions right lung base overall improved. IMPRESSION: 1. Stable cardiac enlargement, vasculature perhaps slightly increased from prior. 2. Right basilar infiltrate and effusion slightly improved. Report was faxed to [facility] by akanksha at 7:56AM. Dictated on workstation # [id number] Dict: 07/17/22 0741 Trans: 07/17/22 0757 AKANKSHA [id number] Interpreted by: HUBERT AIKEN DO Electronically signed by: A/P: Assessment: Progressive dyspnea - ac exac of COPD due to pneumonia, obesity-hypovent - echo 07/16/22: LVEF 60-65%, mod conc LVH, grade 1 diastolic dysfunction Chronic diastolic CHF - increasing pulmonary vasculature seen on CXR Pneumonia - management per medical services Acute on chronic exacerbation of COPD - oxygen dependant at home 3L/NC Obesity hypoventilation syndrome COVID (+) Jul 06, 2022 Sleep apnea - non-compliant with CPAP tx Hypertension with hypertensive CVD (LVH) Reports h/o CVA /TIA approx 7 years ago - no residual Morbid obesity H/O tobaccoism - quit less than a year ago H/O bladder cancer - treated with chemo per pt report Plan: * Treat pneumonia and ac exac of COPD ([facility]) * Treat Covid 19 ([facility]) * Increase Toprol XL d/t uncontrolled HTN * Monitor labs * Give IV Lasix today and as needed KENNY RUANO Jul 17, 2022 10:05
[2022-07-17] MEDS: NS IV 1000 ML 1,000 ML IV SCH (10:22)
[2022-07-17] MEDS: LORATADINE (CLARITIN) 10 MG TAB PO SCH (10:22)
[2022-07-17] MEDS: ENOXAPARIN 40 MG/0.4 ML (LOVENOX) SYR SC SCH ×2 (10:46→20:22)
--- NOTE | 2022-07-17 11:49 | Progress Note ---
CHARLES ROSE 07/17/22 1149: Subjective Subjective/Events-last exam Patient says he is feeling much better today. He said breathing has improved. I stressed the importance of continuing to use O2 during the day and BiPAP at night. Patient was happy to hear he will be getting moved out of ICU and onto the floor. Denies headache, abdominal pain, dysuria, diarrhea or constipation. Endorses shortness of breath and chest pain. He says this chest pain happens over his sternum periodically, has been for months and he is not concerned about it. Focused Exam Lactate Level 07/15/22 14:57: Lactic Acid Level 1.62 Objective Exam Last Set of Vital Signs Vital Signs Date Time Temp Pulse Resp B/P (MAP) Pulse Ox O2 Delivery O2 Flow Rate FiO2 07/17/22 10:01 94 Nasal Cannula 5.00 07/17/22 10:00 74 169/103 (125) 07/17/22 09:00 25 07/17/22 04:00 36.1 07/17/22 00:10 30 Capillary Refill : I&O Intake and Output 07/17/22 00:00 Intake Total 5650 ml Output Total 3675 ml Balance 1975 ml Intake Oral 3270 ml IV Total 2380 ml Output Urine Total 3675 ml General: Alert, Oriented X3, Cooperative HEENT: Atraumatic Lungs: Other (Diminished breath sounds bilaterally. Right sided expiratory rhonchi.) Heart: Regular Rate, No Murmurs Abdomen: Normal Bowel Sounds, Soft, No Tenderness Extremities: No Clubbing, No Cyanosis Neuro: Normal Speech Psych/Mental Status: Mental Status NL, Mood NL Results/Procedures Lab Laboratory Tests 07/16/22 16:04: Glucometer 189H 07/16/22 20:06: Glucometer 178H 07/17/22 01:03: White Blood Count 14.6H, Red Blood Count 3.64L, Hemoglobin 10.9L, Hematocrit 35L , Mean Corpuscular Volume 96, Mean Corpuscular Hemoglobin 30, Mean Corpuscular Hemoglobin Concent 31L, Red Cell Distribution Width 13.2, Platelet Count 229, Mean Platelet Volume 10.6, Immature Granulocyte % (Auto) 4, Neutrophils (%) (Auto) 79H, Lymphocytes (%) (Auto) 8L, Monocytes (%) (Auto) 8, Eosinophils (%) (Auto) 0, Basophils (%) (Auto) 0, Neutrophils # (Auto) 11.6H, Lymphocytes # (Auto) 1.2, Monocytes # (Auto) 1.2H, Eosinophils # (Auto) 0.0, Basophils # (Auto) 0.0, Immature Granulocyte # (Auto) 0.6H, Neutrophils % (Manual) 88, Lymphocytes % (Manual) 7, Monocytes % (Manual) 4, Metamyelocytes % 1, Sodium Level 143, Potassium Level 4.2, Chloride Level 103, Carbon Dioxide Level 33H, Anion Gap 7, Blood Urea Nitrogen 18, Creatinine 0.97, Estimat Glomerular Filtration Rate 89, BUN/Creatinine Ratio 19, Glucose Level 166H, Calcium Level 9.2, Corrected Calcium 9.8, Phosphorus Level 1.8L, Magnesium Level 1.9, Total Bilirubin 0.2, Aspartate Amino Transf (AST/SGOT) 10, Alanine Aminotransferase (ALT/SGPT) 19, Alkaline Phosphatase 44, Total Protein 5.8L, Albumin 3.2, Vancomycin Level Trough 16.9 07/17/22 05:30: Glucometer 236H 07/17/22 06:38: Blood Gas Puncture Site L RAD, Blood Gas Patient Temperature 37, Arterial Blood pH 7.35L, Arterial Blood Partial Pressure CO2 65H, Arterial Blood Partial Pressure O2 96H, Arterial Blood HCO3 35H, Arterial Blood Total CO2 36.9H, Arterial Blood Oxygen Saturation 99, Arterial Blood Base Excess 9.1H, Rich Test YES-POS, Blood Gas Ventilator Setting NO, Blood Gas Inspired Oxygen 5L 07/17/22 10:47: Glucometer 198H Microbiology 07/15/22 Blood Culture - Preliminary, Resulted No growth 07/15/22 MRSA Screen - Final, Complete MRSA not isolated Radiology NAME: JACOB JONES [facility] REC#: [id number] PT STATUS: ADM IN : 1960 PHYSICIAN: SHRUTI LUNDY DO ADMIT DATE: 07/15/22/ICU Signed Date of Exam:07/16/22 CHEST 1 VIEW, AP/PA ONLY EXAMINATION: Chest 1 view HISTORY: Pneumonia. Follow-up. COMPARISON: 07/15/2022. FINDINGS: Stable bibasilar opacities, right greater than left. There is suggestion of a [id number] right-sided pleural effusion. No pneumothorax. Stable prominent cardiac silhouette. IMPRESSION: 1. Possible increasing [id number]-hg-[id number] right-sided pleural effusion with stable bibasilar opacities. 2. Stable cardiomegaly. Dictated by: Dictated on workstation # [id number] Dict: 07/16/22 0539 Trans: 07/16/22 0542 LIVAN [id number] Interpreted by: ARSLAN PENNY DO Electronically signed by: ARSLAN PENNY DO 07/16/22 0542 Assessment/Plan Assessment/Plan (1) Acute respiratory failure with hypoxia and hypercapnia Status: Acute Assessment & Plan: 07/16: Bipap was taken off 5 AM this am, ABG pending, high risk of decompensation, IRF eval pending 07/17: Patients breathing continue to improve. CO2 of 65, HC03 of 35, and O2 96 on ABG. Continue BiPAP at night and NC during the day. D/c IV fluids (2) Pneumonia Status: Acute Assessment & Plan: 07/16: Continue antibiotics at this time 07/17: Continue Cefepime and Vancomycin Qualifiers: Qualified Codes: J18.9 - Pneumonia, unspecified organism (3) COPD exacerbation Status: Acute Assessment & Plan: 07/17: Continue Cefepime and Vancomycin. Continue Iv Solu- Medrol. Continue inhalers. Continue NC and BiPAP. (4) HTN (hypertension) Status: Chronic Assessment & Plan: 07/17: Cardiology started amlodipine and metoprolol succinate (5) Leukocytosis Status: Acute Assessment & Plan: 07/17: Most likely secondary to high dose steroids Qualifiers: Qualified Codes: D72.828 - Other elevated white blood cell count (6) COVID Assessment & Plan: 07/16: Recent infection (7) BMI 40.0-44.9, adult Status: Chronic SHIRA NG MD 07/17/22 4448: Supervisory-Addendum Brief Verification & Attestation Participated in pt care: history, physical Personally performed: exam, history Care discussed with: Medical Student Procedures: n/a Verification and Attestation of Medical Student E/M Service A medical student performed and documented this service in my presence. I reviewed and verified all information documented by the medical student and made modifications to such information, when appropriate. I personally performed the physical exam and medical decision making. Shira Ng, Jul 17, 2022,16:55 AECOPD Recent Covid Physical debility - Continue antibiotics, steroids, MAT protocol, IRF eval pending, continue to wean oxygen as tolerated CHARLES ROSE Jul 17, 2022 11:49 SHIRA NG MD Jul 17, 2022 16:56
--- NOTE | 2022-07-17 13:48 | Occupational Ther Daily Note ---
OT Current Status-Daily Note Subjective Pt alert, sitting EOB. Pt agrees to therapy. No c/o pain at this time. Mental Status/Objective Patient Orientation: Person, Place, Time, Situation Attachments: IV, Oxygen (5L) ADL-Treatment Therapy Code Descriptions/Definitions Functional [place] Measure: 0=Not Assessed/NA 4=Minimal Assistance 1=Total Assistance 5=Supervision or Setup 2=Maximal Assistance 6=Modified [place] 3=Moderate Assistance 7=Complete IndependenceSCALE: Activities may be completed with or without assistive devices. 9-Zaglcpffqr-isbmazq completes the activity by him/herself with no assistance from a helper. 5-Set-up or Clean-up Assistance-helper sets up or cleans up; patient completes activity. [place] assists only prior to or following the activity. 4-Supervision or Touching Assistance-helper provides verbal cues and/or touching/steadying and/or contact guard assistance as patient completes activity. Assistance may be provided throughout the activity or intermittently. 3-Partial/Moderate Assistance-helper does LESS THAN HALF the effort. [place] lifts, holds or supports trunk or limbs, but provides less than half the effort. 2-Substantial/Maximal Assistance-helper does MORE THAN HALF the effort. [place] lifts or holds trunk or limbs and provides more than half the effort. 3-Ufarnirpw-mxiszk does ALL the effort. Patient does none of the effort to complete the activity. Or, the assistance of 2 or more helpers is required for the patient to complete the activity. If activity was not attempted, code reason: 7-Patient Refused. 9-Not Applicable-not attempted and the patient did not perform the activity before the current illness, exacerbation or injury. 10-Not Attempted due to Environmental Limitations-(lack of equipment, weather restraints, etc.). 88-Not Attempted due to Medical Conditions or Safety Concerns. Other Treatment Discussed pt's ability to complete hygiene and dressing. Pt states that he has difficulty with cleansing after BM, will use shower to cleanse. VARELA to bring toilet tongs for pt to use with toileting hygiene. Pt states that he has a smaller walk-in shower, discussed set up options and what type of chair to use and placement for more efficient and energy conservation with showering. Pt states that his home is small and he has just moved in and the only furniture he has is a bed. Pt stated he left everything else in his trailer that it was too old to bring with him. Pt then was tolerated 2 B UE exercises against gravity 1 set 15 reps shldr horizontal abd/add and 1 set 10 reps shldr abd/add. After session, pt sitting on EOB with call light/phone in reach. All needs met in room. OT Manager Of Merchandising Goals [facility] Goals Time Frame: Jul 30, 2022 Eating (QC): 6 Oral Hygiene (QC): 6 Toileting Hygiene (QC): 6 Shower/Bathe Self (QC): 5 Upper Body Dressing (QC): 5 Lower Body Dressing (QC): 5 On/Off Footwear (QC): 6 (With slip on shoes only) Additional Goals: 1-Demonstrate ADL Tasks, 2-Verbalize Understanding, 3-Im proveStrength/Jason 1=Demonstrate adherence to instructed precautions during ADL tasks. 2=Patient will verbalize/demonstrate understanding of assistive devices/modifications for ADL. 3=Patient will improve strength/tolerance for activity to enable patient to perform ADL's. OT Education/Plan Problem List/Assessment Assessment: Decreased Activ Tolerance, Impaired Self-Care Skills Discharge Recommendations Plan/Recommendations: Continue POC Treatment Plan/Plan of Care Patient would benefit from OT for education, treatment and training to promote independence in ADL's, mobility, safety and/or upper extremity function for ADL's. Plan of Care: ADL Retraining, Functional Mobility, UE Funct Exercise/Act Treatment Duration: Jul 30, 2022 Frequency: 3 times per week (3-5x/week) Estimated Hrs Per Day: .25 hour per day Agreement: Yes Rehab Potential: Fair Time Start Time: 13:15 Stop Time: 13:38 DATE: Jul 17, 2022 Total Time Billed (hr/min): 23 Billed Treatment Time 1 visit-FA 1 (15 min) EX 1 (8 min) EMIGDIO MILES Jul 17, 2022 13:48
[2022-07-17 16:00] VITALS: BP 168/77
[2022-07-17 19:20] VITALS: BP 169/77
[2022-07-17] MEDS: MONTELUKAST 10 MG (SINGULAIR) TAB PO SCH (20:22)
[2022-07-17] MEDS: meTOproloL SUCCINATE 50 MG (TOPROL XL) TAB PO SCH (20:22)
[2022-07-17 23:24] VITALS: BP 150/78
[2022-07-18] MEDS: RT-ALBUTEROL HFA 8.5 GM INHALER IH SCH ×6 (02:49→22:25)
[2022-07-18 03:18] VITALS: BP 130/72
[2022-07-18 05:53] LABS: BASOPHILS % (AUTO) 0 % (0-10); EOSINOPHILS % (AUTO) 0 % (0-10); HEMATOCRIT 38 % (40-54); HEMOGLOBIN 11.8 g/dL (13.3-17.7); LYMPHOCYTES # (AUTO) 1.3 10^3/uL (1.0-4.0); LYMPHOCYTES % (AUTO) 9 % (12-44); MEAN CORPUSCULAR HEMOGLOBIN 30 pg (25-34); MEAN CORPUSCULAR HGB CONC 32 g/dL (32-36); MEAN CORPUSCULAR VOLUME 95 fL (80-99); MEAN PLATELET VOLUME 11.1 fL (9.0-12.2); MONOCYTES # (AUTO) 0.8 10^3/uL (0.0-1.0); MONOCYTES % (AUTO) 5 % (0-12); NEUTROPHILS # (AUTO) 12.2 10^3/uL (1.8-7.8); NEUTROPHILS % (AUTO) 81 % (42-75); PLATELET COUNT 255 10^3/uL (130-400); WHITE BLOOD COUNT 15.1 10^3/uL (4.3-11.0)
[2022-07-18 06:14] LABS: ALBUMIN 3.4 GM/DL (3.2-4.5); POTASSIUM 4.6 MMOL/L (3.6-5.0)
[2022-07-18] MEDS: POTASSIUM CL 10MEQ/50ML IVPB 50 ML IV SCH (06:14)
[2022-07-18 06:15] LABS: CALCIUM 9.8 MG/DL (8.5-10.1)
[2022-07-18] MEDS: KCL 20 MEQ TAB (K-DUR) PO SCH (06:15)
[2022-07-18 06:16] LABS: TOTAL PROTEIN 6.1 GM/DL (6.4-8.2)
[2022-07-18 06:18] LABS: BILIRUBIN,TOTAL 0.3 MG/DL (0.1-1.0)
[2022-07-18 06:20] LABS: CREATININE SERUM 0.91 MG/DL (0.60-1.30)
[2022-07-18] MEDS: MAGNESIUM 1 GM/100 ML IVPB 100 ML IV SCH (06:26)
[2022-07-18] MEDS: methylPREDNISolone 40 MG/ML (Solu-MEDROL) VIAL IV SCH ×4 (06:42→23:47)
[2022-07-18] MEDS: inSUlin (REGULAR) HUMAN 1 UNIT/0.01 ML (CHARGE PER UNIT) SC SCH ×4 (06:42→21:56)
[2022-07-18 07:58] VITALS: BP 175/84
--- NOTE | 2022-07-18 09:24 | Physical Therapy Daily Note ---
PT Daily Note-Current Subjective Patient in restroom pre tx, agrees to PT after he comes out, has no complaints of pain Pain Section J - Health Conditions 1. Rarely or not at all 2. Occasionally 3. Frequently 4. Almost constantly 8. Unable to answer Pain Effect on Sleep: 1 Pain Interference with Therapy: 1 Pain Interference w/Day-to-Day: 1 Appearance Patient sitting EOB post tx with nurse call, phone, tray, all needs met. Mental Status Patient Orientation: Person, Place, Situation Attachments: Oxygen Transfers SCALE: Activities may be completed with or without assistive devices. 4-Fgdnudcaei-rzbxjhe completes the activity by him/herself with no assistance from a helper. 5-Set-up or Clean-up Assistance-helper sets up or cleans up; patient completes activity. [place] assists only prior to or following the activity. 4-Supervision or Touching Assistance-helper provides verbal cues and/or touching/steadying and/or contact guard assistance as patient completes activity. Assistance may be provided throughout the activity or intermittently. 3-Partial/Moderate Assistance-helper does LESS THAN HALF the effort. [place] lifts, holds or supports trunk or limbs, but provides less than half the effort. 2-Substantial/Maximal Assistance-helper does MORE THAN HALF the effort. [place] lifts or holds trunk or limbs and provides more than half the effort. 7-Giryzewod-dqgpvn does ALL the effort. Patient does none of the effort to complete the activity. Or, the assistance of 2 or more helpers is required for the patient to complete the activity. If activity was not attempted, code reason: 7-Patient Refused. 9-Not Applicable-not attempted and the patient did not perform the activity before the current illness, exacerbation or injury. 10-Not Attempted due to Environmental Limitations-(lack of equipment, weather restraints, etc.). 88-Not Attempted due to Medical Conditions or Safety Concerns. Sit to Stand (QC): 6 Chair/Vxd-np-Wxrjr Xfer(QC): 6 Toilet Transfer (QC): 6 Gait Training Distance: 80' Walk 10 feet (QC): 6 Walk 50 ft with 2 Turns(QC): 6 Gait Assistive Device: None good, steady ambulation, SOB after ambulating about 80', recovers quickly after sitting down to rest Treatments transfers, ambulation Assessment Current Status: Excellent Progress Patient is now independent with mobility. He is ambulating in his room independently while managing his O2 line, performing bed mobility and transfers independent, and toileting himself independently. Patient will be discharged from PT services at this time. Encouraged patient to ambulate several times a day in his room on his own to try to improve endurance. PT Intermediate Goals Intermediate Goals PT Intermediate Goals Time Frame: Jul 23, 2022 Roll Left & Right (QC): 6 Sit to Lying (QC): 6 Lying-Sitting on Side/Bed(QC): 6 Sit to Stand (QC): 6 Chair/Blg-za-Kmwoa Xfer(QC): 6 Walk 10 feet (QC): 6 Walk 50ft with 2 Turns (QC): 6 PT Plan Treatment/Plan Treatment Plan: Discontinue PT Treatment Plan: Education, Functional Activity Jason, Functional Strength, Gait, Safety, Therapeutic Exercise, Transfers Treatment Duration: Jul 23, 2022 Frequency: 6 times per week Estimated Hrs Per Day: .25 hour per day Patient and/or Family Agrees t: Yes Safety Risks/Education Patient Education: Gait Training, Transfer Techniques, Correct Positioning, Safety Issues Teaching Recipient: Patient Teaching Methods: Demonstration, Discussion Response to Teaching: Verbalize Understanding, Return Demonstration Discharge Recommendations Plan DC Time Time In: 908 Time Out: 916 DATE: Jul 18, 2022 Total Billed Treatment Time: 8 Total Billed Treatment 1 visit GT 8' AMRIT KNIGHT PT Jul 18, 2022 09:24
[2022-07-18] MEDS: SENNOSIDES 8.6 MG (SENOKOT) TAB PO SCH ×2 (09:43→23:02)
[2022-07-18] MEDS: meTOprolol SUCCINATE 100 MG (TOPROL XL) TAB PO SCH (09:43)
[2022-07-18] MEDS: LORATADINE (CLARITIN) 10 MG TAB PO SCH (09:43)
[2022-07-18] MEDS: amLODIPine 5 MG (NORVASC) TAB PO SCH (09:43)
[2022-07-18] MEDS: DOCUSATE SODIUM 100 MG (COLACE) CAP PO SCH ×2 (09:43→23:02)
[2022-07-18] MEDS: CEFEPIME INJECTION 2,000 MG in NS (IVPB) 50 ML IV SCH ×2 (09:44→21:58)
[2022-07-18] MEDS: ENOXAPARIN 40 MG/0.4 ML (LOVENOX) SYR SC SCH ×2 (09:45→21:57)
--- NOTE | 2022-07-18 09:56 | Occupational Ther Daily Note ---
OT Current Status-Daily Note Subjective Pt alert, sitting EOB. Pt agrees to therapy. Nrsg in room. Mental Status/Objective Patient Orientation: Person, Place, Time, Situation Attachments: IV, Oxygen (4.5L) ADL-Treatment Therapy Code Descriptions/Definitions Functional [place] Measure: 0=Not Assessed/NA 4=Minimal Assistance 1=Total Assistance 5=Supervision or Setup 2=Maximal Assistance 6=Modified [place] 3=Moderate Assistance 7=Complete IndependenceSCALE: Activities may be completed with or without assistive devices. 6-Fmodyslklo-ofkqwbx completes the activity by him/herself with no assistance from a helper. 5-Set-up or Clean-up Assistance-helper sets up or cleans up; patient completes activity. [place] assists only prior to or following the activity. 4-Supervision or Touching Assistance-helper provides verbal cues and/or touching/steadying and/or contact guard assistance as patient completes activity. Assistance may be provided throughout the activity or intermittently. 3-Partial/Moderate Assistance-helper does LESS THAN HALF the effort. [place] lifts, holds or supports trunk or limbs, but provides less than half the effort. 2-Substantial/Maximal Assistance-helper does MORE THAN HALF the effort. [place] lifts or holds trunk or limbs and provides more than half the effort. 5-Cucdimbtb-pcynqn does ALL the effort. Patient does none of the effort to complete the activity. Or, the assistance of 2 or more helpers is required for the patient to complete the activity. If activity was not attempted, code reason: 7-Patient Refused. 9-Not Applicable-not attempted and the patient did not perform the activity before the current illness, exacerbation or injury. 10-Not Attempted due to Environmental Limitations-(lack of equipment, weather restraints, etc.). 88-Not Attempted due to Medical Conditions or Safety Concerns. Other Treatment PT reports that pt is completing mobility independently and managing O2 tubing independent with mobility. Pt states that he has been up ad leann in room to complete all own ADLs. Pt is at [facility]. Pt given and educated on cake press operator helper, LH sponge and toilet tongs for use during ADLs to extend reach with bathing, dressing and toileting. Pt verbalized understanding. Pt then completed 3 B UE exercises against gravity, 1 set 15 reps with one in standing. No LOB with any exercises or dynamic movement. OT to discharge pt from OT services at this time. After session, pt sitting EOB with call light/phone in reach. All needs met in room. OT Jail Goals Slitter And Cutter Operator Goals Time Frame: Jul 30, 2022 Eating (QC): 6 Oral Hygiene (QC): 6 Toileting Hygiene (QC): 6 Shower/Bathe Self (QC): 5 Upper Body Dressing (QC): 5 Lower Body Dressing (QC): 5 On/Off Footwear (QC): 6 (With slip on shoes only) Additional Goals: 1-Demonstrate ADL Tasks, 2-Verbalize Understanding, 3- ImproveStrength/Jason 1=Demonstrate adherence to instructed precautions during ADL tasks. 2=Patient will verbalize/demonstrate understanding of assistive devices/modifica tions for ADL. 3=Patient will improve strength/tolerance for activity to enable patient to perform ADL's. OT Education/Plan Problem List/Assessment Assessment: Decreased Activ Tolerance Discharge Recommendations Plan/Recommendations: Discharge/Goals Met Treatment Plan/Plan of Care Patient would benefit from OT for education, treatment and training to promote independence in ADL's, mobility, safety and/or upper extremity function for ADL's. Plan of Care: ADL Retraining, Functional Mobility, UE Funct Exercise/Act Treatment Duration: Jul 30, 2022 Frequency: 3 times per week (3-5x/week) Estimated Hrs Per Day: .25 hour per day Agreement: Yes Rehab Potential: Fair Time Start Time: 09:30 Stop Time: 09:48 DATE: Jul 18, 2022 Total Time Billed (hr/min): 18 Billed Treatment Time 1 visit-FA 1 (18 min) D/C OT services EMIGDIO MILES Jul 18, 2022 09:56
[2022-07-18] MEDS ORDERED: FUROSEMIDE 40 MG (LASIX) TAB PO ONE (10:00)
[2022-07-18] MEDS ORDERED: KCL 10 MEQ TAB (MICRO K) PO NR (10:00)
--- NOTE | 2022-07-18 10:09 | Discharge Summary ---
Diagnosis/Chief Complaint Date of Admission Jul 15, 2022 at 12:00 Date of Discharge 07/18/22 Admission Diagnosis Admission Diagnosis See problem Discharge Diagnosis See below Problems/Diagnosis: (1) Acute respiratory failure with hypoxia and hypercapnia Assessment & Plan: 07/16: Bipap was taken off 5 AM this am, ABG pending, high risk of decompensation, IRF eval pending 07/17: Patients breathing continue to improve. CO2 of 65, HC03 of 35, and O2 96 on ABG. Continue BiPAP at night and NC during the day. D/c IV fluids 07/18: Patient d/c today to IRF, On home oxygen Status: Acute (2) Pneumonia Assessment & Plan: 07/16: Continue antibiotics at this time 07/17: Continue Cefepime and Vancomycin 07/18: Narrow antibiotics Qualifiers: Qualified Codes: J18.9 - Pneumonia, unspecified organism Status: Acute (3) Daytime sleepiness Assessment & Plan: 07/18: Patient likely has CRISTOPHER untreated, he improves in the hospital when wearing bipap at night, patient reports when he is at home he wakes up gasping and short of breath, would benefit from sleep study Status: Chronic (4) COPD exacerbation Assessment & Plan: 07/17: Continue Cefepime and Vancomycin. Continue Iv Solu- Medrol. Continue inhalers. Continue NC and BiPAP. Status: Acute (5) HTN (hypertension) Assessment & Plan: 07/17: Cardiology started amlodipine and metoprolol succinate Status: Chronic (6) Leukocytosis Assessment & Plan: 07/17: Most likely secondary to high dose steroids Qualifiers: Qualified Codes: D72.828 - Other elevated white blood cell count Status: Acute (7) COVID Assessment & Plan: 07/16: Recent infection (8) BMI 40.0-44.9, adult Status: Chronic (9) Chronic respiratory failure Assessment & Plan: 07/19: Trilogy script placed today, Patient has had multiple readmissions due to not having home ventilator, this has lead to a more rapid decline in his health. If he was d/c w/o NI home ventilator he would be at increased risk for rehospitalization. Qualifiers: Qualified Codes: J96.11 - Chronic respiratory failure with hypoxia; J96.12 - Chronic respiratory failure with hypercapnia Discharge Summary-Simple/Stand Consultations Discharge Physical Examination Allergies: Coded Allergies: Penicillins (Verified Allergy, Severe, ANAPHYLAXIS, 06/03/18) SWELLING ALL OVER sulfamethoxazole (Unverified Adverse Reaction, Unknown, 07/16/18) trimethoprim (Unverified Adverse Reaction, Unknown, 07/16/18) Uncoded Allergies: SOMETHING FOR COLDS (Allergy, Mild, 03/26/14) Vitals & I&Os Vital Sign - Last 12Hours Date Time Temp Pulse Resp B/P (MAP) Pulse Ox O2 Delivery O2 Flow Rate FiO2 07/18/22 07:58 36.9 60 18 175/84 (114) 93 High Flow N/C 4.50 07/17/22 00:10 30 Intake and Output 07/18/22 00:00 Intake Total 1280 ml Balance 1280 ml General Appearance: Alert, Oriented X3, Mild Distress (with minimal activity) Respiratory: Other (diminished breath sounds, increased work of breathing with activity) Cardiovascular: Regular Rate, No Murmurs Abdominal: Normal Bowel Sounds, Soft, No Tenderness, No Masses Extremities: No Edema, No Tenderness/Swelling Neuro: Normal Speech Hospital Course See final discharge diagnosis. Radiology Reviewed NAME: JACOB JONES [facility] REC#: [id number] PT STATUS: ADM IN : 1960 PHYSICIAN: SHRUTI LUNDY DO ADMIT DATE: 07/15/22/ICU Signed Date of Exam:07/16/22 CHEST 1 VIEW, AP/PA ONLY EXAMINATION: Chest 1 view HISTORY: Pneumonia. Follow-up. COMPARISON: 07/15/2022. FINDINGS: Stable bibasilar opacities, right greater than left. There is suggestion of a coqvy-hn-snmnsxwl right-sided pleural effusion. No pneumothorax. Stable prominent cardiac silhouette. IMPRESSION: 1. Possible increasing inosx-cb-uoqiyljz right-sided pleural effusion with stable bibasilar opacities. 2. Stable cardiomegaly. Dictated by: Dictated on workstation # [id number] Dict: 07/16/2239 Trans: 07/16/2242 LIVAN [id number] Interpreted by: ARSLAN PENNY DO Electronically signed by: ARSLAN PENNY DO 07/16/22 0542 Discharge Condition at discharge stable Instructions to patient/family Please see electronic discharge instructions given to patient. Discharge Medications Reviewed and agree with Discharge Medication list on patient's Discharge Instruction sheet SHIRA NG MD Jul 18, 2022 10:09
[2022-07-18 12:00] VITALS: BP 162/80
[2022-07-18 15:46] VITALS: BP 176/86
--- NOTE | 2022-07-18 16:09 | Progress Note ---
Subjective Subjective/Events-last exam Patient doing well this AM. On home oxygen. Plan was to go to IRF today but PT/OT eval patient does not qualify at this time. Review of Systems Pulmonary: Dyspnea (with exertion) Cardiovascular: No: Chest Pain, Palpitations Gastrointestinal: No: Nausea, Vomiting, Abdominal Pain, Diarrhea, Constipation Neurological: Weakness; No: Confusion Objective Exam Last Set of Vital Signs Vital Signs Date Time Temp Pulse Resp B/P (MAP) Pulse Ox O2 Delivery O2 Flow Rate FiO2 07/18/22 15:46 38.0 67 18 176/86 (116) 94 Nasal Cannula 4.00 07/17/22 00:10 30 Capillary Refill : I&O Intake and Output 07/18/22 00:00 Intake Total 2580 ml Output Total 1125 ml Balance 1455 ml Intake Oral 2580 ml Output Urine Total 1125 ml # Voids 6 # Bowel Movements 1 General: Alert, Oriented X3, Mild Distress (with minimal exertion) Lungs: Other (Distance breath sounds, basilar wheezing, normal work of breathing at rest) Heart: Regular Rate, No Murmurs Abdomen: Normal Bowel Sounds, Soft, No Tenderness, No Masses Extremities: Other (1+ edema bilaterally) Neuro: Normal Speech, Cranial Nerves 3-12 NL Psych/Mental Status: Mental Status NL, Mood NL Results/Procedures Lab Laboratory Tests 07/17/22 20:03: Glucometer 170H 07/18/22 05:15: White Blood Count 15.1H, Red Blood Count 3.95L, Hemoglobin 11.8L, Hematocrit 38L , Mean Corpuscular Volume 95, Mean Corpuscular Hemoglobin 30, Mean Corpuscular Hemoglobin Concent 32, Red Cell Distribution Width 13.2, Platelet Count 255, Mean Platelet Volume 11.1, Immature Granulocyte % (Auto) 5, Neutrophils (%) (Auto) 81H, Lymphocytes (%) (Auto) 9L, Monocytes (%) (Auto) 5, Eosinophils (%) (Auto) 0, Basophils (%) (Auto) 0, Neutrophils # (Auto) 12.2H, Lymphocytes # (Auto) 1.3, Monocytes # (Auto) 0.8, Eosinophils # (Auto) 0.0, Basophils # (Auto) 0.0, Immature Granulocyte # (Auto) 0.7H, Sodium Level 142, Potassium Level 4.6, Chloride Level 101, Carbon Dioxide Level 33H, Anion Gap 8, Blood Urea Nitrogen 27H, Creatinine 0.91, Estimat Glomerular Filtration Rate 96, BUN/Creatinine R atio 30, Glucose Level 141H, Calcium Level 9.8, Corrected Calcium 10.3H, Phosphorus Level 3.0, Magnesium Level 2.0, Total Bilirubin 0.3, Aspartate Amino Transf (AST/SGOT) 10, Alanine Aminotransferase (ALT/SGPT) 22, Alkaline Phosphatase 43, Total Protein 6.1L, Albumin 3.4 07/18/22 11:17: Glucometer 159H Microbiology 07/15/22 Blood Culture - Preliminary, Resulted No growth 07/15/22 MRSA Screen - Final, Complete MRSA not isolated Radiology NAME: JACOB JONES [facility] REC#: [id number] PT STATUS: ADM IN : 1960 PHYSICIAN: SHRUTI LUNDY DO ADMIT DATE: 07/15/22/ICU Signed Date of Exam:07/16/22 CHEST 1 VIEW, AP/PA ONLY EXAMINATION: Chest 1 view HISTORY: Pneumonia. Follow-up. COMPARISON: 07/15/2022. FINDINGS: Stable bibasilar opacities, right greater than left. There is suggestion of a aledf-sg-opybliqp right-sided pleural effusion. No pneumothorax. Stable prominent cardiac silhouette. IMPRESSION: 1. Possible increasing arlhw-kh-hofhcawk right-sided pleural effusion with stable bibasilar opacities. 2. Stable cardiomegaly. Dictated by: Dictated on workstation # [id number] Dict: 07/16/22 0539 Trans: 07/16/22 0542 LIVAN [id number] Interpreted by: ARSLAN PENNY DO Electronically signed by: ARSLAN PENNY DO 07/16/22 0542 Assessment/Plan Assessment/Plan (1) Acute respiratory failure with hypoxia and hypercapnia Status: Acute Assessment & Plan: 07/16: Bipap was taken off 5 AM this am, ABG pending, high risk of decompensation, IRF eval pending 07/17: Patients breathing continue to improve. CO2 of 65, HC03 of 35, and O2 96 on ABG. Continue BiPAP at night and NC during the day. D/c IV fluids 07/18: Plan was to d/c to IRF but patient does not qualify at this time as he is doing well, Working on home machine for suspected CRISTOPHER and chronic CO2 retention, likely playing a role in multiple readmissions. (2) Pneumonia Status: Acute Assessment & Plan: 07/16: Continue antibiotics at this time 07/17: Continue Cefepime and Vancomycin 07/18: Narrow antibiotics Qualifiers: Qualified Codes: J18.9 - Pneumonia, unspecified organism (3) Daytime sleepiness Status: Chronic Assessment & Plan: 07/18: Patient likely has CRISTOPHER untreated, he improves in the hospital when wearing bipap at night, patient reports when he is at home he wakes up gasping and short of breath, would benefit from sleep study (4) COPD exacerbation Status: Acute Assessment & Plan: 07/17: Continue Cefepime and Vancomycin. Continue Iv Solu- Medrol. Continue inhalers. Continue NC and BiPAP. (5) HTN (hypertension) Status: Chronic Assessment & Plan: 07/17: Cardiology started amlodipine and metoprolol succinate (6) Leukocytosis Status: Acute Assessment & Plan: 07/17: Most likely secondary to high dose steroids Qualifiers: Qualified Codes: D72.828 - Other elevated white blood cell count (7) COVID Assessment & Plan: 07/16: Recent infection (8) BMI 40.0-44.9, adult Status: Chronic SHIRA NG MD Jul 18, 2022 16:09
[2022-07-18 19:56] VITALS: BP 171/83
[2022-07-18] MEDS: meTOproloL SUCCINATE 50 MG (TOPROL XL) TAB PO SCH (21:57)
[2022-07-18] MEDS: MONTELUKAST 10 MG (SINGULAIR) TAB PO SCH (21:57)
[2022-07-18 23:39] VITALS: BP 169/82
[2022-07-19 00:46] VITALS: BP 169/82
[2022-07-19 04:13] VITALS: BP 159/84
[2022-07-19 05:47] LABS: BASOPHILS % (AUTO) 0 % (0-10); EOSINOPHILS % (AUTO) 0 % (0-10); HEMATOCRIT 39 % (40-54); HEMOGLOBIN 12.2 g/dL (13.3-17.7); LYMPHOCYTES # (AUTO) 1.4 10^3/uL (1.0-4.0); LYMPHOCYTES % (AUTO) 8 % (12-44); MEAN CORPUSCULAR HEMOGLOBIN 30 pg (25-34); MEAN CORPUSCULAR HGB CONC 32 g/dL (32-36); MEAN CORPUSCULAR VOLUME 94 fL (80-99); MONOCYTES % (AUTO) 6 % (0-12); NEUTROPHILS # (AUTO) 13.2 10^3/uL (1.8-7.8); NEUTROPHILS % (AUTO) 81 % (42-75); PLATELET COUNT 254 10^3/uL (130-400); WHITE BLOOD COUNT 16.3 10^3/uL (4.3-11.0)
[2022-07-19 06:03] LABS: ALBUMIN 3.4 GM/DL (3.2-4.5); POTASSIUM 4.8 MMOL/L (3.6-5.0)
[2022-07-19 06:05] LABS: CALCIUM 10.1 MG/DL (8.5-10.1)
[2022-07-19] MEDS: POTASSIUM CL 10MEQ/50ML IVPB 50 ML IV SCH (06:06)
[2022-07-19] MEDS: KCL 20 MEQ TAB (K-DUR) PO SCH (06:07)
[2022-07-19 06:08] LABS: BILIRUBIN,TOTAL 0.3 MG/DL (0.1-1.0)
[2022-07-19 06:09] LABS: PHOSPHORUS 3.4 MG/DL (2.3-4.7)
[2022-07-19 06:10] LABS: CREATININE SERUM 0.97 MG/DL (0.60-1.30)
[2022-07-19 06:12] LABS: MAGNESIUM 2.1 MG/DL (1.6-2.4)
[2022-07-19] MEDS: MAGNESIUM 1 GM/100 ML IVPB 100 ML IV SCH (06:15)
[2022-07-19] MEDS: KCL 10 MEQ TAB (MICRO K) PO SCH (06:29)
[2022-07-19] MEDS: inSUlin (REGULAR) HUMAN 1 UNIT/0.01 ML (CHARGE PER UNIT) SC SCH ×4 (06:29→21:25)
[2022-07-19] MEDS: methylPREDNISolone 40 MG/ML (Solu-MEDROL) VIAL IV SCH ×4 (06:29→23:14)
[2022-07-19 08:00] VITALS: BP 165/76
[2022-07-19] MEDS: ENOXAPARIN 40 MG/0.4 ML (LOVENOX) SYR SC SCH ×2 (08:51→20:14)
[2022-07-19] MEDS: SENNOSIDES 8.6 MG (SENOKOT) TAB PO SCH ×2 (08:51→20:14)
[2022-07-19] MEDS: LORATADINE (CLARITIN) 10 MG TAB PO SCH (08:52)
[2022-07-19] MEDS: meTOprolol SUCCINATE 100 MG (TOPROL XL) TAB PO SCH (08:52)
[2022-07-19] MEDS: amLODIPine 5 MG (NORVASC) TAB PO SCH (08:52)
[2022-07-19] MEDS: DOCUSATE SODIUM 100 MG (COLACE) CAP PO SCH ×2 (08:53→20:14)
[2022-07-19] MEDS: CEFEPIME INJECTION 2,000 MG in NS (IVPB) 50 ML IV SCH ×2 (08:53→20:14)
[2022-07-19] MEDS ORDERED: FUROSEMIDE 40 MG (LASIX) TAB PO SCH (09:00)
--- NOTE | 2022-07-19 11:49 | Progress Note - Cardiology ---
Cardiology SOAP Progress Note Subjective: Lying in bed Continue to report SOB and LE swelling No c/o CP or palpitations Objective: I&O/Vital Signs Weight (Pounds): 273 Weight (Ounces): 5.0 Weight (Calculated Kilograms): 123.264590 Constitutional: AAO x 3, well-developed, well-nourished Respiratory: No accessory muscle use, No respiratory distress; chest expansion is symmetric, chest is bilaterally symmetric, crackles (bi-basilar), rhonchi (scattered) Cardiovascular: regular rate-rhythm; No JVD; S1 and S2 Gastrointestional: No tender; soft, round, audible bowel sounds Extremities: no lower extremity edema bilateral Neurologic/Psychiatric: grossly intact (moves all extremities) Skin: No rash on exposed areas, No ulcerations on exposed areas Results/Procedures: Labs Microbiology 07/15/22 Blood Culture - Final, Complete No growth 07/15/22 MRSA Screen - Final, Complete MRSA not isolated A/P: Assessment: Progressive dyspnea - ac exac of COPD due to pneumonia, obesity-hypovent - echo 07/16/22: LVEF 60-65%, mod conc LVH, grade 1 diastolic dysfunction Chronic diastolic CHF - increasing pulmonary vasculature seen on CXR Pneumonia - management per medical services Acute on chronic exacerbation of COPD - oxygen dependant at home 3L/NC Obesity hypoventilation syndrome COVID (+) Jul 06, 2022 Sleep apnea - non-compliant with CPAP tx Hypertension with hypertensive CVD (LVH) Reports h/o CVA /TIA approx 7 years ago - no residual Morbid obesity H/O tobaccoism - quit less than a year ago H/O bladder cancer - treated with chemo per pt report Plan: * Treat pneumonia and ac exac of COPD (Hosp [facility]) * Treat Covid 19 (Hosp [facility]) * HR not well controlled - unable to increase BB d/t episodes of bradycardia at hs (during hours of sleep) * D/t LE swelling and continued hypertension - add Dyazide to regimen * Monitor labs KENNY RUANO Jul 19, 2022 11:49
[2022-07-19] MEDS ORDERED: TRIAMTERENE/HCTZ 75-50 (MAXZIDE,DYAZIDE) TABLET PO NR (12:00)
[2022-07-19 12:19] VITALS: BP 156/84
[2022-07-19] MEDS ORDERED: INSU100V3 SC (12:41)
[2022-07-19] MEDS ORDERED: PRD20T PO (12:41)
[2022-07-19] MEDS ORDERED: LORA10TA7 PO (12:41)
[2022-07-19] MEDS ORDERED: MONT-40 PO (12:41)
[2022-07-19] MEDS ORDERED: INSU100V5 SQ (12:41)
[2022-07-19] MEDS ORDERED: FURO40TA4 PO (12:41)
[2022-07-19] MEDS ORDERED: TRIA1TAB5 PO (12:41)
[2022-07-19] MEDS ORDERED: MTP100TCR PO (12:41)
[2022-07-19] MEDS ORDERED: METO50TA7 PO (12:41)
[2022-07-19] MEDS ORDERED: POTA-169 PO (12:41)
[2022-07-19] MEDS ORDERED: AMLO-251 PO (12:41)
[2022-07-19 15:32] VITALS: BP 148/76
[2022-07-19 19:51] VITALS: BP 150/74
[2022-07-19] MEDS: meTOproloL SUCCINATE 50 MG (TOPROL XL) TAB PO SCH (20:14)
[2022-07-19] MEDS: MONTELUKAST 10 MG (SINGULAIR) TAB PO SCH (20:14)
[2022-07-19] MEDS: RT-ALBUTEROL HFA 8.5 GM INHALER IH SCH ×2 (22:23→22:24)
[2022-07-20 00:43] VITALS: BP 151/90
[2022-07-20] MEDS: RT-ALBUTEROL HFA 8.5 GM INHALER IH SCH ×2 (03:08→07:37)
[2022-07-20] MEDS: methylPREDNISolone 40 MG/ML (Solu-MEDROL) VIAL IV SCH ×2 (05:14→11:08)
[2022-07-20] MEDS: POTASSIUM CL 10MEQ/50ML IVPB 50 ML IV SCH (05:47)
[2022-07-20 05:52] LABS: BASOPHILS % (AUTO) 0 % (0-10); EOSINOPHILS % (AUTO) 0 % (0-10); HEMATOCRIT 40 % (40-54); HEMOGLOBIN 12.7 g/dL (13.3-17.7); LYMPHOCYTES # (AUTO) 1.3 10^3/uL (1.0-4.0); LYMPHOCYTES % (AUTO) 7 % (12-44); MEAN CORPUSCULAR HEMOGLOBIN 30 pg (25-34); MEAN CORPUSCULAR HGB CONC 32 g/dL (32-36); MEAN CORPUSCULAR VOLUME 94 fL (80-99); MEAN PLATELET VOLUME 11.9 fL (9.0-12.2); MONOCYTES # (AUTO) 1.1 10^3/uL (0.0-1.0); MONOCYTES % (AUTO) 6 % (0-12); NEUTROPHILS # (AUTO) 14.3 10^3/uL (1.8-7.8); NEUTROPHILS % (AUTO) 83 % (42-75); PLATELET COUNT 267 10^3/uL (130-400); WHITE BLOOD COUNT 17.3 10^3/uL (4.3-11.0)
[2022-07-20] MEDS: KCL 10 MEQ TAB (MICRO K) PO SCH (05:55)
[2022-07-20 06:19] LABS: ALBUMIN 3.2 GM/DL (3.2-4.5); BILIRUBIN,TOTAL 0.3 MG/DL (0.1-1.0); CALCIUM 10.1 MG/DL (8.5-10.1); CREATININE SERUM 1.05 MG/DL (0.60-1.30); MAGNESIUM 2.2 MG/DL (1.6-2.4); PHOSPHORUS 3.7 MG/DL (2.3-4.7); POTASSIUM 4.6 MMOL/L (3.6-5.0)
[2022-07-20] MEDS: KCL 20 MEQ TAB (K-DUR) PO SCH (06:19)
[2022-07-20] MEDS: MAGNESIUM 1 GM/100 ML IVPB 100 ML IV SCH (06:20)
[2022-07-20] MEDS: inSUlin (REGULAR) HUMAN 1 UNIT/0.01 ML (CHARGE PER UNIT) SC SCH ×2 (06:22→11:08)
[2022-07-20 08:32] VITALS: BP 162/79
[2022-07-20] MEDS ORDERED: TRIAMTERENE/HCTZ 75-50 (MAXZIDE,DYAZIDE) TABLET PO SCH (09:00)
[2022-07-20] MEDS: CEFEPIME INJECTION 2,000 MG in NS (IVPB) 50 ML IV SCH (09:05)
[2022-07-20] MEDS: ENOXAPARIN 40 MG/0.4 ML (LOVENOX) SYR SC SCH (09:05)
[2022-07-20] MEDS: meTOprolol SUCCINATE 100 MG (TOPROL XL) TAB PO SCH (09:07)
[2022-07-20] MEDS: amLODIPine 5 MG (NORVASC) TAB PO SCH (09:07)
[2022-07-20] MEDS: LORATADINE (CLARITIN) 10 MG TAB PO SCH (09:07)
[2022-07-20] MEDS: SENNOSIDES 8.6 MG (SENOKOT) TAB PO SCH (09:07)
[2022-07-20] MEDS: DOCUSATE SODIUM 100 MG (COLACE) CAP PO SCH (09:07)
--- NOTE | 2022-07-20 10:54 | Discharge Summary ---
[facility]charge [facility] Reconcile Patient Problems Problems Reviewed?: Yes Discharge Medications New, Converted or Re-Newed RX: Transmitted to Pharmacy New Medications: Prednisone (Prednisone) 20 Mg Tab 20 MG PO DAILY, #22 TAB Take 3 tabs(60mg)daily,decrease by 1/2 tab(10mg)every other day. Amlodipine Besylate (Amlodipine Besylate) 10 Mg Tablet 10 MG PO DAILY, #30 TAB Furosemide (Furosemide) 40 Mg Tablet 40 MG PO DAILY, #30 TAB Insulin Determir (Levemir) 100 Unit/Ml Soln 20 UNIT SQ BID, #30 EA Insulin Regular, Human (Humulin R) 100 Unit/Ml Soln 10 UNIT SC ACHS, #30 EA Loratadine (Loratadine) 10 Mg Tablet 10 MG PO DAILY, #30 TAB Metoprolol Succinate (Metoprolol Succinate) 50 Mg Tab.er.24h 50 MG PO HS, #30 TAB Metoprolol Succinate (Metoprolol Succinate) 100 Mg Tab.er.24h 100 MG PO DAILY, #30 TAB Montelukast Sodium (Montelukast Sodium) 10 Mg Tablet 10 MG PO HS, #30 TAB Potassium Chloride (Klor-Con M20) 20 Meq Tab.er.prt 20 MEQ PO DAILY@0600, #30 Triamterene/Hydrochlorothiazid (Triamterene-Hctz 75-50 mg Tab) 75 Mg-50 Mg Tablet 0.5 EA PO DAILY, #30 TAB Continued Medications: Pantoprazole Sodium (Pantoprazole Sodium) 40 Mg Tablet.dr 40 MG PO DAILY, TAB Discontinued Medications: Amlodipine Besylate (Amlodipine Besylate) 5 Mg Tablet 5 MG PO DAILY, TAB Patient Instructions Goal/Follow Up Appt: 1 week with PCP Activity & Diet Discharge Diet: Cardiac Diet Activity as Tolerated: Yes Orders-Post D/C & Referrals Vent to mask ordered during this visit, Caty ready for pickup at [facility] SHIRA NG MD Jul 19, 2022 12:42
[2022-07-20 13:00] VITALS: BP 162/79
== END 2022-07-20 13:00 | disposition home or self-care (01) | DRG 193 ==
LOC: EDUNIT# 10:53 → ER 10:54 → ICU 12:00 → 4TH 07-17 12:30
PROVIDERS: ADMIT Internal Medicine; ATTEND Family Medicine
PROC: 5A09357 Assistance with Respiratory Ventilation, Less than 24 Consecutive Hours, Continuous Positive Airway Pressure (ICD-10-PCS; principal; 2022-07-15)
DX: J18.9 Pneumonia, unspecified organism (principal); J96.21 Acute and chronic respiratory failure with hypoxia; J96.22 Acute and chronic respiratory failure with hypercapnia; J44.0 Chronic obstructive pulmonary disease with (acute) lower respiratory infection; J44.1 Chronic obstructive pulmonary disease with (acute) exacerbation; I50.32 Chronic diastolic (congestive) heart failure; E66.2 Morbid (severe) obesity with alveolar hypoventilation; Z68.41 Body mass index [BMI] 40.0-44.9, adult; U09.9 Post COVID-19 condition, unspecified; F17.200 Nicotine dependence, unspecified, uncomplicated; I11.0 Hypertensive heart disease with heart failure; Z85.51 Personal history of malignant neoplasm of bladder; Z86.73 Personal history of transient ischemic attack (TIA), and cerebral infarction without residual deficits; Z88.0 Allergy status to penicillin; Z88.2 Allergy status to sulfonamides; Z88.8 Allergy status to other drugs, medicaments and biological substances; Z79.82 Long term (current) use of aspirin; Z79.52 Long term (current) use of systemic steroids
CPT/HCPCS: 36415; 71045; 80053; 80202; 81000; 82805; 82947; 83605; 83735; 84100; 85007; 85025; 85027; 86141; 87040; 87081; 93005; 93306; 94640; 94660; 94760

== ENCOUNTER 2022-12-29 10:22 | Emergency (ER) | payer MEDICARE, MEDICAID ==
[~2022-12-29] VITALS: Ht 182.9 cm; Wt 140.6 kg
[~2022-12-29 10:22] MED LIST changes: +AMLO-251 PO; +FURO40TA4 PO; +INSU100V3 SC; +INSU100V5 SQ; +LORA10TA7 PO; +METO50TA7 PO; +MONT-40 PO; +MTP100TCR PO; +POTA-169 PO; +TRIA1TAB5 PO
--- NOTE | 2022-12-29 10:36 | ED Chest Pain ---
General Chief Complaint: Chest Pain Stated Complaint: TIGHTNESS IN CHEST/CLAMMY FEELING Nursing Triage Note: PT TO ROOM 05 VIA W/C WITH C/O CHEST PAIN, SOB, AND FEELING CLAMMY X1 HOUR. PT REPORTS STROKE X7 YEARS AGO. Source: patient Exam Limitations: no limitations History of Present Illness Date Seen by Provider: Dec 29, 2022 Time Seen by Provider: 10:26 Initial Comments 62-year-old male presents for chest pain, shortness of breath. Chest pain has been present for couple of days and he describes it as pain with deep inspiration but really only when he is exerting himself or out in the heat. He has no chest pain currently. He felt clammy this morning about an hour prior to arrival which was the reason for his presentation to the emergency department. He does have COPD and uses 3 L of oxygen via nasal cannula chronically at all times. He has not had to increase this. He denies any cardiac history no fevers or cough. No leg swelling. All other systems reviewed and negative except documented per HPI. Voice recognition software was used to help create this chart Allergies and Home Medications Allergies Coded Allergies: Penicillins (Verified Allergy, Severe, ANAPHYLAXIS, 06/03/18) SWELLING ALL OVER sulfamethoxazole (Unverified Adverse Reaction, Unknown, 07/16/18) trimethoprim (Unverified Adverse Reaction, Unknown, 07/16/18) Uncoded Allergies: SOMETHING FOR COLDS (Allergy, Mild, 03/26/14) Patient Home Medication List Home Medication List Reviewed: Yes Amlodipine Besylate (Amlodipine Besylate) 10 Mg Tablet, 10 MG PO DAILY Prescribed by: SHIRA NG on 07/19/22 124 Furosemide (Furosemide) 40 Mg Tablet, 40 MG PO DAILY Prescribed by: SHIRA NG on 07/19/22 124 Insulin Determir (Levemir) 100 Unit/Ml Soln, 20 UNIT SQ BID Prescribed by: SHIRA NG on 07/19/22 124 Insulin Regular, Human (Humulin R) 100 Unit/Ml Soln, 10 UNIT SC ACHS Prescribed by: SHIRA NG on 07/19/22 124 Loratadine (Loratadine) 10 Mg Tablet, 10 MG PO DAILY Prescribed by: SHIRA NG on 07/19/22 124 Metoprolol Succinate (Metoprolol Succinate) 50 Mg Tab.er.24h, 50 MG PO HS Prescribed by: SHIRA NG on 07/19/22 1241 Metoprolol Succinate (Metoprolol Succinate) 100 Mg Tab.er.24h, 100 MG PO DAILY Prescribed by: SHIRA NG on 07/19/22 1241 Montelukast Sodium (Montelukast Sodium) 10 Mg Tablet, 10 MG PO HS Prescribed by: SHIRA NG on 07/19/22 1241 Pantoprazole Sodium (Pantoprazole Sodium) 40 Mg Tablet.dr, 40 MG PO DAILY, (Reported) Entered as Reported by: JOSE LOPEZ on 07/09/22 1147 Potassium Chloride (Klor-Con M20) 20 Meq Tab.er.prt, 20 MEQ PO DAILY@0600 Prescribed by: SHIRA NG on 07/19/22 1241 Prednisone (Prednisone) 20 Mg Tab, 20 MG PO DAILY Prescribed by: SHIRA NG on 07/19/22 1241 Triamterene/Hydrochlorothiazid (Triamterene-Hctz 75-50 mg Tab) 75 Mg-50 Mg Tablet, 0.5 EA PO DAILY Prescribed by: SHIRA NG on 07/19/22 1241 Review of Systems Review of Systems Constitutional: see HPI Past Ulbfxok-Xzsdpl-Ytymxu Hx Patient Social History Tobacco Use?: No Smoking Status: Former Smoker Smokeless Tobacco Frequency: Never a User Use of E-Cig and/or Vaping dev: No Use of E-Cig and/or Vaping Amanuel: Never a User Substance use?: No Alcohol Use?: No Pt feels they are or have been: No Immunizations Up To Date Tetanus Booster (TDap): Unknown PED Vaccines UTD: Yes Past Medical History Surgery/Hospitalization HX: MULTIPLE HOSPITALIZATIONS FOR COPD EXACERBATION/RESPIRATORY FAILURE, HYPERTENSION Surgeries: Yes (HERNIA) Abdominal Respiratory: Yes (tobaccoism) Pneumonia, COPD Currently Using CPAP: No Currently Using BIPAP: No Cardiac: No Hypertension Neurological: Yes (STATES HAD STROKE 3 YEARS AGO) Stroke Genitourinary: No Gastrointestinal: No Musculoskeletal: No Endocrine: No HEENT: No Cancer: No Psychosocial: No Integumentary: No Blood Disorders: No Family Medical History Patient reports no known family medical history. Heart Disease, Cancer, CAD Under 55 Years Old Physical Exam Vital Signs Vital Signs - First Documented 12/29/22 12/29/22 10:23 10:24 Pulse 96 Resp 18 B/P (MAP) 161/111 (128) Pulse Ox 95 O2 Delivery Nasal Cannula O2 Flow Rate 3.00 Capillary Refill : Less Than 3 Seconds Height, Weight, BMI Height: 6'0.00" Weight: 273lbs. 5.0oz. 123.660652mt; 42.00 BMI Method:Stated General Appearance: No Apparent Distress HEENT: Normal ENT Inspection, Pharynx Normal Neck: Full Range of Motion, Normal Inspection, Non Tender, Supple Respiratory: Chest Non Tender, Lungs Clear, Normal Breath Sounds, Other (Tachypnea) Cardiovascular: Regular Rate, Rhythm, No Edema, No Murmur, Normal Peripheral Pulses Gastrointestinal: Normal Bowel Sounds, No Organomegaly, Non Tender, Soft Extremity: Normal Capillary Refill, Normal Inspection, Non Tender, No Calf Tenderness, No Pedal Edema Neurologic/Psychiatric: Alert, Oriented x3, Normal Mood/Affect Skin: Normal Color, Warm/Dry Focused Exam Lactate Level 12/29/22 11:20: Lactic Acid Level Laboratory Tests Test 12/29/22 11:20 Critical Care Note Critical Care Total Time (minutes) 60 Progress/Results/Core Measures Results/Orders Lab Results Laboratory Tests Test 12/29/22 10:29 12/29/22 11:20 Range/Units White Blood Count 13.6 H 4.3-11.0 10^3/uL Red Blood Count 5.81 H 4.30-5.52 10^6/uL Hemoglobin 17.3 13.3-17.7 g/dL Hematocrit 52 40-54 % Mean Corpuscular Volume 89 80-99 fL Mean Corpuscular Hemoglobin 30 25-34 pg Mean Corpuscular Hemoglobin Concent 34 32-36 g/dL Red Cell Distribution Width 13.1 10.0-14.5 % Platelet Count 312 130-400 10^3/uL Mean Platelet Volume 11.8 9.0-12.2 fL Immature Granulocyte % (Auto) 0 % Neutrophils (%) (Auto) 69 42-75 % Lymphocytes (%) (Auto) 19 12-44 % Monocytes (%) (Auto) 10 0-12 % Eosinophils (%) (Auto) 1 0-10 % Basophils (%) (Auto) 1 0-10 % Neutrophils # (Auto) 9.4 H 1.8-7.8 10^3/uL Lymphocytes # (Auto) 2.6 1.0-4.0 10^3/uL Monocytes # (Auto) 1.3 H 0.0-1.0 10^3/uL Eosinophils # (Auto) 0.1 0.0-0.3 10^3/uL Basophils # (Auto) 0.1 0.0-0.1 10^3/uL Immature Granulocyte # (Auto) 0.0 0.0-0.1 10^3/uL Sodium Level 138 135-145 MMOL/L Potassium Level 3.7 3.6-5.0 MMOL/L Chloride Level 94 L 98-107 MMOL/L Carbon Dioxide Level 23 21-32 MMOL/L Anion Gap 21 H 5-14 MMOL/L Blood Urea Nitrogen 66 H 7-18 MG/DL Creatinine 3.24 H 0.60-1.30 MG/DL Estimat Glomerular Filtration Rate 21 BUN/Creatinine Ratio 20 Glucose Level 144 H 70-105 MG/DL Calcium Level 11.5 H 8.5-10.1 MG/DL Corrected Calcium 8.5-10.1 MG/DL Magnesium Level 2.1 1.6-2.4 MG/DL Total Bilirubin 0.7 0.1-1.0 MG/DL Aspartate Amino Transf (AST/SGOT) 15 5-34 U/L Alanine Aminotransferase (ALT/SGPT) 15 0-55 U/L Alkaline Phosphatase 82 40-136 U/L Troponin I 0.063 H <0.028 NG/ML Total Protein 8.8 H 6.4-8.2 GM/DL Albumin 4.9 H 3.2-4.5 GM/DL My Orders Orders - VICTORIANO BRANTLEY DO Cbc With Automated Diff (12/29/22 10:33) Magnesium (12/29/22 10:33) Chest 1 View, Ap/Pa Only (12/29/22 10:33) Ekg Tracing (12/29/22 10:33) Comprehensive Metabolic Panel (12/29/22 10:33) O2 (12/29/22 10:33) Monitor-Rhythm Ecg Trace Only (12/29/22 10:33) Ed Iv/Invasive Line Start (12/29/22 10:33) Troponin I [place] (12/29/22 10:33) Ns Iv 1000 Ml (Sodium Chloride 0.9%) (12/29/22 11:15) Cefepime Injection (Maxipime Injection) (12/29/22 11:15) Vancomycin Injection (Vancomycin Injecti (12/29/22 11:15) Blood Culture (12/29/22 11:15) Lactic Acid Analyzer (12/29/22 11:15) Medications Given in ED Current Medications Medications Dose Ordered Sig/Gricel Route Start Time Stop Time Status Last Admin Dose Admin Cefepime HCl 1000 mg/Sodium Chloride 50 ml @ 100 mls/hr ONCE ONCE IV 12/29/22 11:15 12/29/22 11:44 DC 12/29/22 11:25 100 MLS/HR Vancomycin HCl 1000 mg/Sodium Chloride 250 ml @ 250 mls/hr ONCE ONCE IV 12/29/22 11:15 12/29/22 12:14 12/29/22 11:25 250 MLS/HR Vital Signs/I&O 12/29/22 12/29/22 10:23 10:24 Pulse 96 Resp 18 B/P (MAP) 161/111 (128) Pulse Ox 95 97 O2 Delivery Nasal Cannula Nasal Cannula O2 Flow Rate 3.00 3.00 Blood Pressure Mean: 128 Comment Sinus rhythm with a rate of 89 bpm. Normal intervals. Normal axis. T wave inversions in leads I and aVL. No other ST or T wave abnormalities. No ectopy. No STEMI. Departure Communication (Admissions) I spoke to Dr. Ram at 1130. She is concerned about the patient's renal function and possibly needing nephrology services. He has no history of MARTHA in this does seem to be acute. She request the patient be transferred to somewhere with nephrology services. I spoke with Milka Delong who [facility] the patient [facility] Pending transport at this time. I have given him cefepime, vancomycin for pneumonia. Blood cultures were drawn prior to admission of antibiotics. Mild leukocytosis. His troponin is slightly elevated but his EKG is nonischemic and unchanged. He has no pain at baseline, only with deep inspiration and only in location of his pneumonia. I do not think that this is ACS, likely demand ischemia, NSTEMI. He has been given a liter of IV fluids for his MARTHA. Impression Primary Impression: Chest pain Qualified Codes: R07.1 - Chest pain on breathing Additional Impressions: CAP (community acquired pneumonia) Qualified Codes: J18.9 - Pneumonia, unspecified organism MARTHA (acute kidney injury) Elevated troponin Disposition: ADMITTED INPATIENT Condition: Stable Departure-Patient Inst. Referrals: JACOB DIMAS MD (PCP/Family) Primary Care Physician VICTORIANO BRANTLEY DO Dec 29, 2022 10:36
[2022-12-29 10:38] LABS: BASOPHILS # (AUTO) 0.1 10^3/uL (0.0-0.1); BASOPHILS % (AUTO) 1 % (0-10); EOSINOPHILS # (AUTO) 0.1 10^3/uL (0.0-0.3); EOSINOPHILS % (AUTO) 1 % (0-10); HEMATOCRIT 52 % (40-54); HEMOGLOBIN 17.3 g/dL (13.3-17.7); LYMPHOCYTES # (AUTO) 2.6 10^3/uL (1.0-4.0); LYMPHOCYTES % (AUTO) 19 % (12-44); MEAN CORPUSCULAR HEMOGLOBIN 30 pg (25-34); MEAN CORPUSCULAR HGB CONC 34 g/dL (32-36); MEAN CORPUSCULAR VOLUME 89 fL (80-99); MEAN PLATELET VOLUME 11.8 fL (9.0-12.2); MONOCYTES # (AUTO) 1.3 10^3/uL (0.0-1.0); MONOCYTES % (AUTO) 10 % (0-12); NEUTROPHILS # (AUTO) 9.4 10^3/uL (1.8-7.8); NEUTROPHILS % (AUTO) 69 % (42-75); PLATELET COUNT 312 10^3/uL (130-400); WHITE BLOOD COUNT 13.6 10^3/uL (4.3-11.0)
[2022-12-29 10:49] LABS: ALBUMIN 4.9 GM/DL (3.2-4.5); CHLORIDE 94 MMOL/L (98-107); POTASSIUM 3.7 MMOL/L (3.6-5.0); SODIUM 138 MMOL/L (135-145)
[2022-12-29 10:50] LABS: CALCIUM 11.5 MG/DL (8.5-10.1)
[2022-12-29 10:51] LABS: GLUCOSE 144 MG/DL (70-105); TOTAL PROTEIN 8.8 GM/DL (6.4-8.2)
[2022-12-29 10:52] LABS: CARBON DIOXIDE 23 MMOL/L (21-32)
[2022-12-29 10:53] LABS: BILIRUBIN,TOTAL 0.7 MG/DL (0.1-1.0)
[2022-12-29 10:55] LABS: ALKALINE PHOSPHATASE 82 U/L (40-136); CREATININE SERUM 3.24 MG/DL (0.60-1.30); GFR ESTIMATED 21
--- NOTE | 2022-12-29 10:55 | Diagnostic Imaging Report ---
CHEST 1 VIEW, AP/PA ONLY INDICATION: Chest pain. COMPARISON: Chest radiograph 07/17/2022. FINDINGS: Lungs: Normal lung volume. Airspace opacity within the right lower lobe. Pleura: No pleural effusion or pneumothorax. Heart and Mediastinum: Cardiomediastinal silhouette and great vessels of the thorax are stable. Osseous Structures and Soft Tissues: No acute osseous abnormality. Normal soft tissues. IMPRESSION: Airspace opacity within the right lower lobe may represent infection or atelectasis. Dictated by: Dictated on workstation # [id number]
[2022-12-29 10:56] LABS: BUN/CREATININE RATIO 20
[2022-12-29 10:58] LABS: ALANINE AMINOTRANSFERASE 15 U/L (0-55); MAGNESIUM 2.1 MG/DL (1.6-2.4)
[2022-12-29] MEDS ORDERED: VANCOMYCIN INJECTION 1,000 MG in NS (IVPB) 250 ML IV ONE (11:15)
[2022-12-29] MEDS ORDERED: NS IV 1000 ML 1,000 ML IV SCH (11:15)
[2022-12-29] MEDS ORDERED: CEFEPIME INJECTION 1,000 MG in NS (IVPB) 50 ML IV ONE (11:15)
[2022-12-29 15:01] VITALS: BP 149/91
== END 2022-12-29 15:00 | disposition short-term general hospital (02) ==
LOC: EDUNIT# 10:22 → ER 10:24
DX: J18.9 Pneumonia, unspecified organism (principal); N17.9 Acute kidney failure, unspecified; J44.9 Chronic obstructive pulmonary disease, unspecified; R77.8 Other specified abnormalities of plasma proteins; Z99.81 Dependence on supplemental oxygen; Z87.891 Personal history of nicotine dependence; Z28.310 Unvaccinated for COVID-19
CPT/HCPCS: 36415; 71045; 80053; 83605; 83735; 84484; 85025; 87040; 93005; 93041

== ENCOUNTER → 2023-04-08 | Outpatient (CLI) | payer MEDICARE, MEDICAID ==
[~2023-04-08] MED LIST changes: +CATHETER FLUSH 10 ML SYR IVP PRN; +REGADENOSON 0.4 MG/5 ML SYR IV ONE
[2023-04-08 09:07] VITALS: BP 201/105
--- NOTE | 2023-04-08 16:22 | Cardiology Stress Test Report ---
Stress Test Report Date of Procedure/Referring: Date of Procedure: Apr 08, 2023 PCP Silver Vásquez MD Admitting Physician Admitting Physician: Attending Physician: Sherif Alvarado MD Baseline Heart Rate: 71 Baseline Blood Pressure: Blood Pressure Systolic: 201 Blood Pressure Diastolic: 105 Baseline Vitals Vital Signs Date Time Temp Pulse Resp B/P (MAP) Pulse Ox O2 Delivery O2 Flow Rate FiO2 04/08/23 09:07 70 201/105 (137) Baseline EKG: Baseline EKG: NSR Summary After explaining the procedure to the patient, he signed a consent and then brought to the stress nuclear laboratory. Patient received 0.4 mg Lexiscan for stress test, ECG, heart rate and blood pressure were monitored continuously. Resting and stress dose of radio tracer were injected, imaging was acquired and reviewed in short axis, horizontal long axis and vertical long axis views. TID: 1.12 SSS: 11 SDS: 1 EF: 45 Patient tolerated Lexiscan well Baseline hypertension persisted during test Diaphragmatic attenuation with fixed defect involving the whole inferior wall and inferolateral wall Normal left ventricular size with hypokinesia of the inferior wall, ejection fraction 45% Copy Copies To 1: [facility] [place] SHERIF ALVARADO MD Apr 08, 2023 16:22
== END ==
LOC: CARD 07:39
PROVIDERS: ATTEND Internal Medicine Cardiovascular Disease
DX: I10 Essential (primary) hypertension (principal); I25.10 Atherosclerotic heart disease of native coronary artery without angina pectoris
CPT/HCPCS: 78452; 93017; A9502